=== PATIENT | male | born 1975 | race Caucasian/White ===

== ENCOUNTER 2020-02-22 10:12 | Inpatient (IN) | payer MEDICAID, SELFPAY ==
[2020-02-22] VITALS (13 sets, daily range): BP systolic 132–187; BP diastolic 99–136; PULSE 80–140; RESP 15–20; TEMP 36.1–37.1; O2SAT 96–98; BMI 21.5; BMI 22.8
--- NOTE | 2020-02-22 10:29 | ECG_ITS ---
Test Reason : TACHY Blood Pressure : / mmHG Vent. Rate : 137 BPM Atrial Rate : 137 BPM P-R Int : 134 ms QRS Dur : 076 ms QT Int : 298 ms P-R-T Axes : 072 064 085 degrees QTc Int : 449 ms Sinus tachycardia Left ventricular hypertrophy with repolarization abnormality Abnormal ECG When compared with ECG of 21-JAN-2020 15:05, No significant change was found Referred By: Bart Moss Electronically Signed By:CHANDANA GONZALEZ MD
--- NOTE | 2020-02-22 10:35 | XR_ITS ---
EXAMINATION: XR CHEST CLINICAL INFORMATION: Chest pain COMPARISON: January 21, 2020 TECHNIQUE: AP portable view of the chest was obtained. FINDINGS: No significant abnormality is noted involving the heart, lungs, mediastinum, bony thorax or soft tissues. IMPRESSION: No acute disease.
[2020-02-22] MEDS: Magnesium Hydrox/Alum Hydrox 30 ML ORAL.SUSP PO (10:44)
--- NOTE | 2020-02-22 10:44 | ED_ITS ---
HPI - Arrhythmia/Palpitations General Chief Complaint: Arrhythmia/Palpitations Stated Complaint: chest discomfort not feeling well Time Seen by Provider: 02/22/20 10:35 Source: patient Mode of arrival: EMS Limitations: no limitations History of Present Illness HPI narrative: 45-year-old male with Palpitation and feeling anxious since he drank last night and felt anxious, patient also felt some chest discomfort last night. Patient admitted that he drank lot of heavy liquor last night. Patient was diagnosed with hypertension patient was placed on metoprolol and recently added lisinopril ( patient did not tile picker lisinopril medication from the pharmacy yet) present. complaint: heart racing Severity: mild Related Data Allergies Allergy/AdvReac Type Severity Reaction Status Date / Time Penicillins [PENICILLINS] Allergy Severe HIVES Verified 02/22/20 11:43 SWELLING Review of Systems Review of Systems: Yes all other systems are reviewed and are negative Eyes: Eyes: Reports no additional eye complaints ENT: Reports system reviewed and no additional complaints, except as documented Cardiovascular: Cardiovascular: Reports chest pain ( mild discomfort on the chest) Respiratory: Respiratory: Reports no additional respiratory complaints Gastrointestinal: Gastrointestinal: Reports no additional gastrointestinal complaints Musculoskeletal: Musculoskeletal: Reports no additional musculoskeletal complaints Neurologic: Reports system reviewed and no additional complaints, except as do cumented and Reports Abnormal speech present Psychiatric: Psychiatric: Reports no additional psychiatric complaints Allergic/Immunologic: Allergic/Immunologic: Reports no additional allergic/immunologic complaints [facility] Past Medical History Medical History (Updated 02/22/20 @ 15:23 by Shane Mooney MD) ETOH abuse HTN (hypertension) Social History Social History Alcohol intake: current Alcohol intake frequency: 3 or more drinks per day Alcohol type: beer Smoking Status: Light tobacco smoker Smoked in Last 30 Days: Yes Use of substances other than those prescribed or required for medical reasons: No Advance Directives: No Advance Directives Information Provided: Yes Physical Exam Vital Signs: Vital Signs: Vital Signs Temp Pulse Resp BP Pulse Ox 02/22/20 13:12 98.3 F 87 19 132/103 H 97 02/22/20 11:44 98 18 172/119 H 98 02/22/20 10:48 127 H 187/136 H 02/22/20 10:22 98.3 F 140 H 16 187/136 H 98 Body Mass Index 21.5 Const: General: cooperative Orientation/consciousness: oriented to person and oriented to place HENMT: Head: Yes normal to inspection Ears: hearing grossly normal bilaterally Eyes: General: appearance normal, both eyes and all related structures Neck: Neck: Yes normal visual inspection Chest: Chest palpation & inspection: normal inspection of the chest Resp: Effort & Inspection: normal respiratory effort and able to speak in complete sentences Cardio: Jugular venous distension: no JVD Palpation: normal PMI Rate: tachycardic Rhythm: regular rhythm GI: Inspection: Yes normal to inspection Palpation (GI): nontender Percussion: Yes normal to percussion Skin: General skin exam: no rashes or lesions noted Neuro: General: oriented to person and oriented to place Cranial nerves: Yes CN's II-XII intact bilaterally Speech: Abnormal speech present Extrem: General: Yes normal to inspection and Yes full ROM Course Course Course Narrative: 45-year-old male with history of chronic alcoholism, presented after drinking last night with palpitation, slight chest discomfort. Patient did not take his blood pressure medication today also found to be hypertensive. patient declined feeling withdrawing or any signs of withdrawal. MDM - Arrhythmia/Palpitations MDM Narrative Medical decision making narrative: 45-year-old male history of hypertension history of alcohol withdrawal, patient presented today with high blood pressure and feeling palpitations. 1. Chest pain patient had unremarkable EKG and 2 troponin not indicated for ACS. 2. blood pressure/ tachycardia will control after patient given Ativan/ Lopressor /hydration. 3. Patient had history of alcohol withdrawal will admit the patient and start the patient on phenobarb. 4. Hypomagnesemia was unremarkable EKG will replete magnesium. Differential Diagnosis Differential diagnosis: Likely palpitations, anxiety, sinus tachycardia and art ial fibrillation Medical Records Attestation: I reviewed the patient's medical records. Lab Data Attestation: I reviewed the patient's lab results. Result diagrams: 02/22/20 10:54 02/22/20 10:54 Labs: Lab Results 02/22/20 02/22/20 02/22/20 Range/Units 10:54 10:54 10:54 WBC 3.3 L (4.8-10.8) X10*3/uL RBC 4.39 L (4.60-5.80) X10*6/uL Hgb 14.7 (14.0-18.0) g/dl Hct 40.9 L (42-52) % MCV 93.2 (80-98) fL MCH 33.5 H (27.0-33.0) pg MCHC 35.9 (31.0-36.0) g/dl RDW 13.5 (11.0-16.0) % Plt Count 81 L (160-400) X10*3/uL MPV 8.7 L (9.4-12.4) fL Absolute Nucleated RBC 0.000 (0.0-0.012) X10*3/uL Nucleated RBC % (auto) 0.0 (0.0-0.2) /100WBC Sodium 138 (135-145) mmol/L Potassium 4.7 (3.3-5.1) mmol/l Chloride 96 (96-108) mmol/L Carbon Dioxide 26 (22-29) mmol/L Anion Gap 21 H (12-20) BUN 6 L (9-16) mg/dL Creatinine 1.20 (0.5-1.4) mg/dL Estim Creat Clear Calc 73.2 Estimated GFR > 60 Random Glucose 157 H (60-115) mg/dL Calcium 9.4 (8.4-10.2) mg/dL Magnesium 1.5 L (1.6-2.6) mg/dL Total Bilirubin (0.0-1.0) mg/dL Direct Bilirubin (0.0-0.5) mg/dL AST (5-37) U/L ALT (0-40) U/L Alkaline Phosphatase (39-117) U/L Troponin I High Sens (<3.5-35.0) ng/L Total Protein (6.5-8.0) g/dL Albumin (3.5-5.0) g/dL Lipase (8-78) U/L Ethyl Alcohol mg/dL 02/22/20 02/22/20 02/22/20 Range/Units 10:54 12:44 12:44 WBC (4.8-10.8) X10*3/uL RBC (4.60-5.80) X10*6/uL Hgb (14.0-18.0) g/dl Hct (42-52) % MCV (80-98) fL MCH (27.0-33.0) pg MCHC (31.0-36.0) g/dl RDW (11.0-16.0) % Plt Count (160-400) X10*3/uL MPV (9.4-12.4) fL Absolute Nucleated RBC (0.0-0.012) X10*3/uL Nucleated RBC % (auto) (0.0-0.2) /100WBC Sodium (135-145) mmol/L Potassium (3.3-5.1) mmol/l Chloride (96-108) mmol/L Carbon Dioxide (22-29) mmol/L Anion Gap (12-20) BUN (9-16) mg/dL Creatinine (0.5-1.4) mg/dL Estim Creat Clear Calc Estimated GFR Random Glucose (60-115) mg/dL Calcium (8.4-10.2) mg/dL Magnesium (1.6-2.6) mg/dL Total Bilirubin 1.9 H (0.0-1.0) mg/dL Direct Bilirubin 0.9 H (0.0-0.5) mg/dL AST 105 H (5-37) U/L ALT 78 H (0-40) U/L Alkaline Phosphatase 67 (39-117) U/L Troponin I High Sens 17.5 (<3.5-35.0) ng/L Total Protein 7.2 (6.5-8.0) g/dL Albumin 4.1 (3.5-5.0) g/dL Lipase 232 H (8-78) U/L Ethyl Alcohol < 10 mg/dL ECG Data Interpretation: Sinus tachycardia at 138 beats per minutes, LVH, no ST - T changes. Normal intervals. Discharge Plan Discharge Clinical Impression: Palpitations, Anxiety, Sinus tachycardia Alcohol withdrawal Qualifiers: Complication of substance-induced condition: uncomplicated Qualified Code(s): F10.230 - Alcohol dependence with withdrawal, uncomplicated Patient Disposition: Admitted As Inpatient
[2020-02-22] MEDS: Metoprolol Tartrate 100 MG TABLET PO (10:48)
[2020-02-22 11:03] LABS: Hematocrit 40.9 % (42-52); Hemoglobin 14.7 g/dl (14.0-18.0); Mean Corpuscular HGB Conc 35.9 g/dl (31.0-36.0); Mean Corpuscular Hemoglobin 33.5 pg (27.0-33.0); Mean Corpuscular Volume 93.2 fL (80-98); Mean Platelet Volume 8.7 fL (9.4-12.4); Red Blood Count 4.39 X10*6/uL (4.60-5.80); Red Cell Distribution Width 13.5 % (11.0-16.0); White Blood Count 3.3 X10*3/uL (4.8-10.8)
--- NOTE | 2020-02-22 11:07 | PC.NURSE ---
PT A&OX4, SPEAKING IN FULL CLEAR SENTENCES, RR EVEN/UNLABORED, SKIN WPD. PT HERE FOR FEELING OF HEART PALPITATIONS FOR THE PAST DAY, STS RECENT DISCHARGE FROM HERE R/T HYPERTENSIVE CRISIS. PT ALSO HAS HX OF ETOH ABUSE. STS DETOXED DURING LAST ADMISSION BUT HAS SINCE RELAPSED DRINKING THIS WEEK, LAST DRINK YESTERDAY AT 1900 AND STS HAVING A 6 PACK OF BEER. NO TREMORS NOTED DURING TRIAGE, MENTATING AT BASELINE. PT IS TACHYCARDIC AND HYPERTENSIVE, STS NOT HAVING TAKEN PRESCRIBED BP MEDICATIONS PRESCRIBED. PT IV ESTABLISHED, ST ON TELE AT 140 BPM. MEDICATED PER EMAR, SEEN BY PROVIDER, LABS OBTAINED AND SENT.
[2020-02-22 11:35] LABS: Platelet Count 81 X10*3/uL (160-400)
[2020-02-22 11:41] LABS: Ethanol < 10 mg/dL
[2020-02-22 11:44] LABS: Magnesium 1.5 mg/dL (1.6-2.6)
[2020-02-22 11:46] LABS: Blood Urea Nitrogen 6 mg/dL (9-16); Calcium 9.4 mg/dL (8.4-10.2); Creatinine Clr Calc Pharmacy 73.2; Estimated Glomerular Filt Rate > 60; Glucose Random 157 mg/dL (60-115)
[2020-02-22 11:56] LABS: Anion Gap 21 (12-20); Carbon Dioxide 26 mmol/L (22-29); Chloride 96 mmol/L (96-108); Potassium 4.7 mmol/l (3.3-5.1); Sodium 138 mmol/L (135-145)
[2020-02-22 13:21] LABS: Troponin-I High Sensitivity 17.5 ng/L (<3.5-35.0)
[2020-02-22 13:36] LABS: Alanine Aminotransferase 78 U/L (0-40); Albumin Level 4.1 g/dL (3.5-5.0); Alkaline Phosphatase 67 U/L (39-117); Aspartate Amino Transferase 105 U/L (5-37); Bilirubin Direct 0.9 mg/dL (0.0-0.5); Bilirubin Total 1.9 mg/dL (0.0-1.0); Total Protein 7.2 g/dL (6.5-8.0)
[2020-02-22] MEDS: Magnesium Sulfate/H2O 2 GM/50 ML PIGGYBACK IV (13:38)
[2020-02-22 13:50] LABS: Lipase 232 U/L (8-78)
[2020-02-22] MEDS: PHENobarbitaL sodium 130 MG/ML VIAL 218 MG IM (15:51)
--- NOTE | 2020-02-22 16:00 | PM.EVENT ---
Event Note Event Note: Patient seen and examined independently and was present during ramos portion of E/M service. Agree with midlevel's history, physical, assessment, and plan. 45M presented with chest discomfort chest discomfort troponin negative, repeat pedning was supposed to follow up with cardiology for work up of cardiomyopathy on last admission cardio eval as patient not reliable to follow up ppi alcohol dependence with withdrawl phenobarb HTN non compliant restart metoprolol patient never started lisinopril, will start
--- NOTE | 2020-02-22 16:03 | PC.NURSE ---
pt medicated per emar, hospitalists at bedside for admission eval.
--- NOTE | 2020-02-22 16:10 | PM.IMHP ---
History of Present Illness Date of Service: 02/22/20 <JUSTICE Talbert - Last Filed: 02/22/20 19:10> Chief Complaint: Palpitations, chest tightness <JUSTICE Talbert Last Filed: 02/22/20 19:10> this is a 45-year-old male with a history of hypertension and alcohol abuse who presented to the emergency department today with complaints of palpitations and chest pain. Patient reports he began having chest tightness last evening and this was associated with palpitations. his symptoms this is persistent today any presented to the emergency department for evaluation. He has been drinking 6-8 years daily in addition to several shots a day. He was recently admitted for uncontrolled hypertension and underwent echocardiogram which revealed hypertensive cardiomyopathy. The plan was for him to follow-up with cardiology for ischemic workup. he was also supposed to start taking the lisinopril. 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 In the emergency department today he was initially hypertensive and tachycardic. He received a dose of IV Lopressor with good effect. Lab work was significant for thrombocytopenia and magnesium of 1.5 his lipase was 232 but he denied any abdominal pain. His initial cardiac enzymes were negative and his EKG was unchanged from previous. While in the emergency department he began feeling like he was beginning to withdrawal from alcohol. Phenobarbital was ordered and the decision was made to admit him for further management. <JUSTICE Talbert - Last Filed: 02/22/20 19:10> Review of Systems Review of Systems: Yes all other systems are reviewed and are negative <JUSTICE Talbert Last Filed: 02/22/20 19:10> Constitutional: Constitutional: Denies chills and Denies fever(s) <JUSTICE Talbert Last Filed: 02/22/20 19:10> Cardiovascular: Cardiovascular: Reports chest pain and Reports palpitations <JUSTICE Talbert Last Filed: 02/22/20 19:10> Respiratory: Respiratory: Denies cough <JUSTICE Talbert Last Filed: 02/22/20 19:10> Gastrointestinal: Gastrointestinal: Denies abdominal pain <JUSTICE Talbert Last Filed: 02/22/20 19:10> Neurologic: Reports system reviewed and no additional complaints, except as documented and Reports Abnormal speech present <JUSTICE Talbert - Last Filed: 02/22/20 19:10> Endocrine: Endocrine: Reports palpitations <JUSTICE Talbert - Last Filed: 02/22/20 19:10> [facility] Medical History: Medical History Alcohol dependence Cardiomyopathy HTN (hypertension) Tobacco dependence <JUSTICE Talbert - Last Filed: 02/22/20 19:10> Functional capacity: independent ambulation <JUSTICE Talbert - Last Filed: 02/22/20 19:10> Pertinent family history: HTN <JUSTICE Talbert - Last Filed: 02/22/20 19:10> Social History: Social History (Updated 02/22/20 @ 16:20 by JUSTICE Talbert) Household Members: None Do you presently have visiting nurse or other home services: No Alcohol intake: current Alcohol intake frequency: 3 or more drinks per day Alcohol type: beer and hard liquor Smoking Status: Current every day smoker Tobacco Type: Cigarette Packs Per Day: 0.5 Cigarettes Per Day: 10.0 Smoked in Last 30 Days: Yes Patient Interested in Nicotine Replacement: Yes Use of substances other than those prescribed or required for medical reasons: No Currently Displaying Signs/Symptoms of Drug Intoxication Withdrawal: No Have you been hit, kicked, punched, or otherwise hurt by someone within the past year? If so, by whom?: No Do you feel safe in your current relationship?: No Is there a partner from a previous relationship who is making you feel unsafe now?: No Are you made to feel afraid or neglected: No Advance Directives: No Advance Directives Information Provided: Yes Do you have thoughts of harming others: None Do you have a plan to hurt others: No Plan Recently lost weight without trying: No <JUSTICE Talbert - Last Filed: 02/22/20 19:10> Meds Allergies/Adverse reactions: Allergies Allergy/AdvReac Type Severity Reaction Status Date / Time Penicillins [PENICILLINS] Allergy Severe HIVES Verified 02/22/20 11:43 SWELLING <JUSTICE Talbert Last Filed: 02/22/20 19:10> Home medications: Home Medications Medication Instructions Recorded Confirmed Type amitriptyline 100 mg PO BEDTIME 02/22/20 02/22/20 History lansoprazole 15 mg PO DAILY 02/22/20 02/22/20 History lisinopril 10 mg PO DAILY 02/22/20 02/22/20 History metoprolol tartrate 50 mg PO BID 02/22/20 02/22/20 History <JUSTICE Talbert - Last Filed: 02/22/20 19:10> Physical Exam Vital Signs and Narrative: Vital Signs: Last Vital Signs Temp 98.4 F 02/22/20 15:48 Pulse 89 02/22/20 15:48 Resp 15 02/22/20 15:48 BP 165/110 H 02/22/20 15:48 Pulse Ox 98 02/22/20 15:48 Body Mass Index 21.5 <JUSTICE Talbert - Last Filed: 02/22/20 19:10> Const: Nutritional Appearance: well nourished <JUSTICE Talbert - Last Filed: 02/22/20 19:10> Orientation/consciousness: patient oriented x3 <JUSTICE Talbert - Last Filed: 02/22/20 19:10> HENMT: Head: Yes normocephalic and Yes atraumatic <JUSTICE Talbert Last Filed: 02/22/20 19:10> Eyes: Sclerae: sclerae normal <JUSTICE Talbert Last Filed: 02/22/20 19:10> Chest: Chest palpation & inspection: normal inspection of the chest <JUSTICE Talbert Last Filed: 02/22/20 19:10> Resp: Effort & Inspection: normal respiratory effort and no respiratory distress <JUSTICE Talbert Last Filed: 02/22/20 19:10> Auscultation: clear to auscultation bilaterally <JUSTICE Talbert Last Filed: 02/22/20 19:10> Cardio: Rate: regular rate <JUSTICE Talbert Last Filed: 02/22/20 19:10> Rhythm: regular rhythm <JUSTICE Talbert - Last Filed: 02/22/20 19:10> GI: Palpation (GI): Soft to palpation and nontender <JUSTICE Talbert - Last Filed: 02/22/20 19:10> Skin: General skin exam: no rashes or lesions noted <JUSTICE Talbert - Last Filed: 02/22/20 19:10> Neuro: General: patient oriented x3 <JUSTICE Talbert - Last Filed: 02/22/20 19:10> Cranial nerves: Yes CN's II-XII intact bilaterally and Yes Bilaterally intact EOM present <JUSTICE Talbert - Last Filed: 02/22/20 19:10> Speech: Abnormal speech present <JUSTICE Talbert - Last Filed: 02/22/20 19:10> Extrem: General: Yes normal to inspection <JUSTICE Talbert - Last Filed: 02/22/20 19:10> Results Labs Labs: Laboratory Tests 02/22/20 02/22/20 02/22/20 10:54 10:54 10:54 WBC 3.3 L RBC 4.39 L Hgb 14.7 Hct 40.9 L MCV 93.2 MCH 33.5 H MCHC 35.9 RDW 13.5 Plt Count 81 L MPV 8.7 L Absolute Nucleated RBC 0.000 Nucleated RBC % (auto) 0.0 Sodium 138 Potassium 4.7 Chloride 96 Carbon Dioxide 26 Anion Gap 21 H BUN 6 L Creatinine 1.20 Estim Creat Clear Calc 73.2 Estimated GFR > 60 Random Glucose 157 H Calcium 9.4 Magnesium 1.5 L Total Bilirubin Direct Bilirubin AST ALT Alkaline Phosphatase Troponin I High Sens Total Protein Albumin Lipase Ethyl Alcohol 02/22/20 02/22/20 02/22/20 10:54 12:44 12:44 WBC RBC Hgb Hct MCV MCH MCHC RDW Plt Count MPV Absolute Nucleated RBC Nucleated RBC % (auto) Sodium Potassium Chloride Carbon Dioxide Anion Gap BUN Creatinine Estim Creat Clear Calc Estimated GFR Random Glucose Calcium Magnesium Total Bilirubin 1.9 H Direct Bilirubin 0.9 H AST 105 H ALT 78 H Alkaline Phosphatase 67 Troponin I High Sens 17.5 Total Protein 7.2 Albumin 4.1 Lipase 232 H Ethyl Alcohol < 10 <JUSTICE Talbert - Last Filed: 02/22/20 19:10> Assessment and Plan (1) Alcohol dependence: Status: Acute <JUSTICE Talbert - Last Filed: 02/22/20 19:10> this is a 45-year-old male with history of hypertension and alcohol abuse who presented to the emergency department with chest pain and palpitations found to be in alcohol withdrawal. alcohol dependence/withdrawal - phenobarb protocol - cardiac monitoring - follow electrolytes and replace as needed - IVF - thiamine and folate supplementation Uncontrolled hypertension did not start taking lisinopril as prescribed alcohol withdrawal likely contributing -resume home beta-dong, start lisinopril -monitor blood pressure closely Elevated LFTs r/t etoh use -will trend lfts TCP ?r/t etoh use no active bleeding -Trend CBC -Avoid antiplatelet agents Cardiomyopathy diagnosed on last admission has not followed up with cardiology for planned ischemic workup -will consult Cardiology while inpatient for possible inpatient stress test DVT ppx - boots code status - full This case was discussed with Dr. Vincent <JUSTICE Talbert - Last Filed: 02/22/20 19:10>
--- NOTE | 2020-02-22 16:18 | PC.NURSE ---
PT STS FEELING BETTER FOLLOWING PHENOBARBITAL ADMIN. VSS ATT. AWAITING BED ASSIGNMENT.
--- NOTE | 2020-02-22 16:44 | PC.NURSE ---
PT MED REC COMPLETED W HELP FROM PHARMACIST
[2020-02-22] MEDS: 0.9 % Sodium Chloride 1,000 ML 100 ML IVCONT (18:30)
[2020-02-22 19:10] LABS: INTERNATIONAL NORM RATIO 1.1 (0.9-1.1); Prothrombin Time 13.1 SEC (10.8-13.0)
[2020-02-22] MEDS: PHENobarbitaL sodium 130 MG/ML VIAL 163 MG IM ×2 (19:41→22:02)
[2020-02-22] MEDS: Amitriptyline HCl 50 MG TABLET 100 MG PO (21:57)
[2020-02-22] MEDS: Metoprolol Tartrate 50 MG TABLET PO (21:57)
[2020-02-22] MEDS: 0.9 % Sodium Chloride Flush 3 ML SYRINGE IVFLUSH (21:58)
[2020-02-22] MEDS: Metoprolol Tartrate 5 MG/5 ML VIAL IVPUSH (23:10)
[2020-02-23] VITALS (8 sets, daily range): BP systolic 123–166; BP diastolic 68–96; PULSE 80–108; RESP 18–19; TEMP 36.2–37; O2SAT 98–99
[2020-02-23] MEDS: 0.9 % Sodium Chloride 1,000 ML 100 ML IVCONT (04:45)
[2020-02-23 06:16] LABS: MANUAL DIFF FLAG NO
[2020-02-23 06:32] LABS: Basophils Percent Auto 0.4 % (0-2); Hematocrit 34.4 % (42-52); Hemoglobin 12.1 g/dl (14.0-18.0); Imm Gran Abs Auto 0.03 X10*3/uL (0.00-0.03); Imm Gran Pct Auto 1.2 % (0.0-0.4); Lymphocytes Absolute Auto 1.2 X10*3/uL (1.2-4.9); Lymphocytes Percent Auto 45.7 % (20-40); Mean Corpuscular HGB Conc 35.2 g/dl (31.0-36.0); Mean Corpuscular Hemoglobin 33.6 pg (27.0-33.0); Mean Corpuscular Volume 95.6 fL (80-98); Mean Platelet Volume 9.3 fL (9.4-12.4); Monocytes Absolute Auto 0.3 X10*3/uL (0.1-1.2); Monocytes Percent Auto 12.6 % (2-11); Neutrophils Percent Auto 40.1 % (45-73); Red Cell Distribution Width 13.2 % (11.0-16.0)
[2020-02-23 06:49] LABS: Alanine Aminotransferase 59 U/L (0-40); Albumin Level 3.6 g/dL (3.5-5.0); Alkaline Phosphatase 54 U/L (39-117); Anion Gap 10 (12-20); Aspartate Amino Transferase 79 U/L (5-37); Bilirubin Direct 0.8 mg/dL (0.0-0.5); Bilirubin Total 1.9 mg/dL (0.0-1.0); Blood Urea Nitrogen 9 mg/dL (9-16); Calcium 7.6 mg/dL (8.4-10.2); Carbon Dioxide 28 mmol/L (22-29); Chloride 102 mmol/L (96-108); Creatinine Clr Calc Pharmacy 103.6; Estimated Glomerular Filt Rate > 60; Glucose Random 95 mg/dL (60-115); Magnesium 2.1 mg/dL (1.6-2.6); Potassium 3.3 mmol/l (3.3-5.1); Sodium 137 mmol/L (135-145); Total Protein 6.1 g/dL (6.5-8.0)
[2020-02-23] MEDS: Omeprazole 20 MG CAPSULE.DR PO (06:54)
[2020-02-23 07:06] LABS: Platelet Count 66 X10*3/uL (160-400); White Blood Count 2.5 X10*3/uL (4.8-10.8)
--- NOTE | 2020-02-23 08:38 | HO.PM.IMPN ---
Subjective Subjective Date of Service: 02/23/20 Interval History: withdrawl improved, no further chest pain Respiratory Respiratory: Reports no additional respiratory complaints Gastrointestinal Gastrointestinal: Reports no additional gastrointestinal complaints Physical Exam Vital Signs: Vital Signs: Vital Signs Temp Pulse Resp BP Pulse Ox 02/23/20 03:48 97.5 F 80 18 138/83 98 02/23/20 00:52 144/86 H 02/22/20 23:20 80 152/102 H 02/22/20 23:10 81 149/102 H 02/22/20 23:07 97 F 91 18 149/102 H 96 02/22/20 21:57 104 H 141/103 H 02/22/20 19:36 98.6 F 97 16 168/102 H 97 02/22/20 18:26 98.7 F 91 20 166/99 H 97 02/22/20 16:15 97.9 F 86 18 158/105 H 97 02/22/20 15:48 98.4 F 89 15 165/110 H 98 02/22/20 13:12 98.3 F 87 19 132/103 H 97 02/22/20 11:44 98 18 172/119 H 98 02/22/20 10:48 127 H 187/136 H 02/22/20 10:22 98.3 F 140 H 16 187/136 H 98 Body Mass Index 22.8 General: AO X 3, no acute distress Resp: CTA bilateral CVS: S1,S2,RRR GI: soft, non tender, non distended Neuro: motor grossly intact Psych: appropriate affect Objective Data Current Medications Generic Name Dose Route Start Last Admin Trade Name Sameerq PRN Reason Stop Dose Admin Amitriptyline HCl 100 mg 02/22/20 21:00 02/22/20 21:57 Amitriptyline Hcl 50 Mg Tablet PO 100 mg BEDTIME KATERIN Administration Docusate Sodium 100 mg 02/22/20 17:45 Docusate Sodium 100 Mg Capsule PO DAILY PRN Constipation Folic Acid 1 mg 02/23/20 09:00 Folic Acid 1 Mg Tablet PO DAILY KATERIN Lisinopril 10 mg 02/23/20 09:00 Lisinopril 10 Mg Tablet PO DAILY KATERIN Medication 1 each 02/22/20 09:00 No Benzodiazepines MISCELLANE DAILY KATERIN Metoprolol Tartrate 50 mg 02/22/20 21:00 02/22/20 21:57 Metoprolol Tartrate 50 Mg Tablet PO 50 mg BID [facility] Administration Nicotine 14 mg 02/22/20 17:45 02/22/20 18:31 Nicotine 14 Mg Patch.Td24 TRANSDERMA Not Given DAILY [facility] Omeprazole 20 mg 02/23/20 06:30 02/23/20 06:54 Omeprazole 20 Mg Capsule. PO 20 mg DAILY@0630 [facility] Administration Pharmacy Consult 1 each 02/22/20 15:36 Consult Rx Perform Med Rec MISCELLANE ONCE PRN Consult order Phenobarbital 45 mg 02/23/20 09:00 Phenobarbital 15 Mg Tablet PO 02/24/20 21:01 BID [facility] Phenobarbital 30 mg 02/25/20 09:00 Phenobarbital 30 Mg Tablet PO 02/26/20 21:01 BID [facility] Phenobarbital 30 mg 02/27/20 09:00 Phenobarbital 30 Mg Tablet PO 02/28/20 09:01 DAILY [facility] Sodium Chloride 3 ml 02/23/20 00:00 02/22/20 21:58 0.9 % Sodium Chloride Flush 3 Ml Syringe IVFLUSH 3 ml QSHIFT [facility] Administration Thiamine HCl 100 mg 02/23/20 09:00 Thiamine Hcl 100 Mg Tablet PO DAILY [facility] Labs CBC & Chem 7: 02/23/20 05:43 02/23/20 05:43 Assessment and Plan (1) Alcohol withdrawal: Status: Acute (2) Cardiomyopathy: Status: Inactive (3) HTN (hypertension): Status: Acute Assessment and Plan: 45-year-old male presented with chest pain chest pain atypical resolved troponins negative follow-up cardiology cardiomyopathy likely related to uncontrolled hypertension and alcohol, has not had ischemic workup was supposed to follow-up with Cardiology last admission, continue metoprolol and lisinopril alcohol dependence/withdrawal phenobarb protocol hypertension uncontrolled due to noncompliance continue beta-dong and lisinopril elevated liver function test likely mild alcoholic hepatitis trend LFTs alcohol cessation
[2020-02-23] MEDS: Thiamine HCL 100 MG TABLET PO (09:12)
[2020-02-23] MEDS: 0.9 % Sodium Chloride Flush 3 ML SYRINGE IVFLUSH ×3 (09:12→20:52)
[2020-02-23] MEDS: PHENobarbitaL 15 MG TABLET 45 MG PO ×2 (09:12→20:50)
[2020-02-23] MEDS: Folic Acid 1 MG TABLET PO (09:12)
[2020-02-23] MEDS: lisinopriL 10 MG TABLET PO (09:13)
[2020-02-23] MEDS: Metoprolol Tartrate 50 MG TABLET PO ×2 (09:13→20:50)
--- NOTE | 2020-02-23 12:01 | PM.CNCAR ---
History of Present Illness History of Present Illness Date of Consult: February 23, 2020 Chief complaint: ETOH Withdrawal, HTN, cardiomyopathy Narrative: 45-year-old with HTN, alcoholism and cardiomyopathy here for palpitations and chest pressure. He has known HTN and is supposed to be on metoprolol and lisinopril. He is saying that he has been taking medications. He is a heavy drinker. He also smokes half a pack per day. Yesterday before presentation he said he started having palpitations and chest pressure. His initial blood pressure was significantly elevated. His last drink was a day before presentation. He said he had chest pressure similar to this episode when he presented last time when his blood pressure was in excess of 200s systolic. Labs and imaging reviewed. His high sensitivity troponin level is negative. We have been asked whether he required inpatient stress testing as the plan was to do outpatient stress testing on last presentation. Review of Systems Review of Systems: No chest pain or shortness of breath. No palpitations right now. Yes all other systems are reviewed and are negative [facility] Past Medical History Medical History (Updated 02/23/20 @ 12:11 by Tod Zelaya MD) Alcohol dependence Cardiomyopathy HTN (hypertension) Tobacco dependence Functional capacity: independent ambulation Social History Social History (Updated 02/22/20 @ 16:20 by JUSTICE Talbert) Household Members: None Do you presently have visiting nurse or other home services: No Alcohol intake: current Alcohol intake frequency: 3 or more drinks per day Alcohol type: beer and hard liquor Smoking Status: Current every day smoker Tobacco Type: Cigarette Packs Per Day: 0.5 Cigarettes Per Day: 10.0 Smoked in Last 30 Days: Yes Patient Interested in Nicotine Replacement: Yes Use of substances other than those prescribed or required for medical reasons: No Currently Displaying Signs/Symptoms of Drug Intoxication Withdrawal: No Have you been hit, kicked, punched, or otherwise hurt by someone within the past year? If so, by whom?: No Do you feel safe in your current relationship?: No Is there a partner from a previous relationship who is making you feel unsafe now?: No Are you made to feel afraid or neglected: No Advance Directives: No Advance Directives Information Provided: Yes Do you have thoughts of harming others: None Do you have a plan to hurt others: No Plan Recently lost weight without trying: No Meds Allergies Allergy/AdvReac Type Severity Reaction Status Date / Time Penicillins [PENICILLINS] Allergy Severe HIVES Verified 02/22/20 11:43 SWELLING Home Medications Medication Instructions Recorded Confirmed Type amitriptyline 100 mg PO BEDTIME 02/22/20 02/22/20 History lansoprazole 15 mg PO DAILY 02/22/20 02/22/20 History lisinopril 10 mg PO DAILY 02/22/20 02/22/20 History metoprolol tartrate 50 mg PO BID 02/22/20 02/22/20 History Physical Exam Vital Signs: Vital Signs: Vital Signs Temp Pulse Resp BP Pulse Ox 02/23/20 09:19 108 H 166/96 H 02/23/20 03:48 97.5 F 80 18 138/83 98 02/23/20 00:52 144/86 H 02/22/20 23:20 80 152/102 H 02/22/20 23:10 81 149/102 H 02/22/20 23:07 97 F 91 18 149/102 H 96 02/22/20 21:57 104 H 141/103 H 02/22/20 19:36 98.6 F 97 16 168/102 H 97 02/22/20 18:26 98.7 F 91 20 166/99 H 97 02/22/20 16:15 97.9 F 86 18 158/105 H 97 02/22/20 15:48 98.4 F 89 15 165/110 H 98 02/22/20 13:12 98.3 F 87 19 132/103 H 97 Body Mass Index 22.8 Const: Other: GENERAL APPEARANCE: in no acute distress, well developed, well nourished. HEENT: unremarkable. HEAD: normocephalic, atraumatic. NECK/THYROID: no carotid bruit, no jugular venous distention. SKIN: no suspicious lesions, warm and dry. HEART: no murmurs, regular rate and rhythm, S1, S2 normal. LUNGS: clear to auscultation bilaterally. ABDOMEN: normal, bowel sounds present, soft, nontender, nondistended. EXTREMITIES: no clubbing, cyanosis, or edema. PERIPHERAL PULSES: equal. NEUROLOGIC: nonfocal, alert and oriented. PSYCH: mood/affect full range. Results Labs and Meds Result diagrams: 02/23/20 05:43 02/23/20 05:43 Lab results: Laboratory Results - last 24 hr 02/22/20 02/22/20 02/22/20 12:44 12:44 15:53 WBC RBC Hgb Hct MCV MCH MCHC RDW Plt Count MPV Immature Gran % (Auto) Neut % (Auto) Lymph % (Auto) [place] % (Auto) Eos % (Auto) Baso % (Auto) Lymph # (Auto) [place] # (Auto) Eos # (Auto) Baso # (Auto) Abs Immat Gran (auto) Absolute Neuts (auto) Absolute Nucleated RBC Nucleated RBC % (auto) PT INR Sodium Potassium Chloride Carbon Dioxide Anion Gap BUN Creatinine Estim Creat Clear Calc Estimated GFR Random Glucose Calcium Magnesium Total Bilirubin 1.9 H Direct Bilirubin 0.9 H AST 105 H ALT 78 H Alkaline Phosphatase 67 Troponin I High Sens 17.5 23.0 Total Protein 7.2 Albumin 4.1 Lipase 232 H 02/22/20 02/23/20 02/23/20 18:58 05:43 05:43 WBC 2.5 L RBC 3.60 L Hgb 12.1 L Hct 34.4 L MCV 95.6 MCH 33.6 H MCHC 35.2 RDW 13.2 Plt Count 66 L MPV 9.3 L Immature Gran % (Auto) 1.2 H Neut % (Auto) 40.1 L Lymph % (Auto) 45.7 H [place] % (Auto) 12.6 H Eos % (Auto) 0.0 Baso % (Auto) 0.4 Lymph # (Auto) 1.2 [place] # (Auto) 0.3 Eos # (Auto) 0.0 Baso # (Auto) 0.0 Abs Immat Gran (auto) 0.03 Absolute Neuts (auto) 1.0 L Absolute Nucleated RBC 0.000 Nucleated RBC % (auto) 0.0 PT 13.1 H INR 1.1 Sodium 137 Potassium 3.3 D Chloride 102 Carbon Dioxide 28 Anion Gap 10 L BUN 9 Creatinine 0.90 Estim Creat Clear Calc 103.6 Estimated GFR > 60 Random Glucose 95 D Calcium 7.6 L Magnesium 2.1 Total Bilirubin 1.9 H Direct Bilirubin 0.8 H AST 79 H ALT 59 H Alkaline Phosphatase 54 Troponin I High Sens Total Protein 6.1 L Albumin 3.6 Lipase Cardiology Testing Echo: report reviewed EKG Interpretation EKG Comments: EKG reviewed showing sinus rhythm with left ventricle hypertrophy Assessment and Plan (1) HTN (hypertension): Status: Acute (2) Alcohol dependence: Status: Acute (3) Palpitations: Status: Acute (4) Cardiomyopathy: Status: Acute (5) Chest pain: Status: Acute 45-year-old gentleman with alcoholism and hypertension. He was diagnosed with the cardiomyopathy on last admission in January when his EF was 40 45%. The differential for low EF are uncontrolled blood pressure and alcoholism. Clinically is not in heart failure. His blood pressure is elevated. He is reporting that he has been taking metoprolol and the lisinopril. Clearly there is some element of alcohol withdrawal right now in addition to essential hypertension. My plan was to give a thiazide diuretic but his electrolytes are abnormal and he may not tolerate it well. We will add amlodipine 5 mg to his regimen. Depending on his blood pressure his lisinopril can be further titrated. His high sensitivity troponin level is normal. His last presentation was also in descending of elevated blood pressures. Again his chest pressure is in the setting of elevated blood pressure. I think we control blood pressure and do stress testing as outpatient as planned before. Thank you for allowing me to participate in the care of your patient. Please feel free to contact me if you have any questions.
[2020-02-23] MEDS: amLODIPine Besylate 5 MG TABLET PO (12:31)
--- NOTE | 2020-02-23 12:51 | MHC.CM.PN ---
met with pt who declined hcp and a care team referral pt has own transoportaion home his car is in parking lot
[2020-02-23] MEDS: Amitriptyline HCl 50 MG TABLET 100 MG PO (20:50)
[2020-02-24 03:16] VITALS: BP 121/75; PULSE 83; RESP 19; TEMP 36.6; O2SAT 100
[2020-02-24] MEDS: Omeprazole 20 MG CAPSULE.DR PO (05:58)
[2020-02-24 07:01] LABS: MANUAL DIFF FLAG NO
[2020-02-24 07:06] LABS: Hematocrit 35.6 % (42-52); Hemoglobin 12.3 g/dl (14.0-18.0); Imm Gran Abs Auto 0.03 X10*3/uL (0.00-0.03); Imm Gran Pct Auto 1.1 % (0.0-0.4); Lymphocytes Absolute Auto 1.2 X10*3/uL (1.2-4.9); Mean Corpuscular HGB Conc 34.6 g/dl (31.0-36.0); Mean Corpuscular Hemoglobin 33.6 pg (27.0-33.0); Mean Corpuscular Volume 97.3 fL (80-98); Mean Platelet Volume 9.9 fL (9.4-12.4); Monocytes Absolute Auto 0.3 X10*3/uL (0.1-1.2); Monocytes Percent Auto 10.9 % (2-11); Neutrophils Absolute Auto 1.2 X10*3/uL (2.0-8.3); Red Blood Count 3.66 X10*6/uL (4.60-5.80); Red Cell Distribution Width 13.4 % (11.0-16.0); White Blood Count 2.7 X10*3/uL (4.8-10.8)
[2020-02-24 07:12] VITALS: BP 148/90; PULSE 83; RESP 20; TEMP 36.1; O2SAT 96
[2020-02-24 07:26] LABS: Platelet Count 75 X10*3/uL (160-400)
[2020-02-24 07:47] LABS: Alanine Aminotransferase 51 U/L (0-40); Albumin Level 3.8 g/dL (3.5-5.0); Alkaline Phosphatase 52 U/L (39-117); Anion Gap 12 (12-20); Aspartate Amino Transferase 57 U/L (5-37); Bilirubin Direct 0.6 mg/dL (0.0-0.5); Bilirubin Total 1.3 mg/dL (0.0-1.0); Blood Urea Nitrogen 8 mg/dL (9-16); Calcium 8.2 mg/dL (8.4-10.2); Carbon Dioxide 27 mmol/L (22-29); Chloride 103 mmol/L (96-108); Creatinine Clr Calc Pharmacy 105.9; Estimated Glomerular Filt Rate > 60; Glucose Fasting 111 mg/dL (60-99); Potassium 3.6 mmol/l (3.3-5.1); Sodium 138 mmol/L (135-145); Total Protein 6.7 g/dL (6.5-8.0)
[2020-02-24] MEDS: Folic Acid 1 MG TABLET PO (08:35)
[2020-02-24] MEDS: lisinopriL 10 MG TABLET PO (08:35)
[2020-02-24] MEDS: PHENobarbitaL 15 MG TABLET 45 MG PO (08:35)
[2020-02-24] MEDS: amLODIPine Besylate 5 MG TABLET PO (08:35)
[2020-02-24] MEDS: 0.9 % Sodium Chloride Flush 3 ML SYRINGE IVFLUSH (08:35)
[2020-02-24] MEDS: Metoprolol Tartrate 50 MG TABLET PO (08:35)
[2020-02-24] MEDS: Thiamine HCL 100 MG TABLET PO (08:35)
--- NOTE | 2020-02-24 10:53 | P.PNCA_ITS ---
Subjective Subjective Interval history: Blood pressure control improving. No more all symptoms right now. Review of Systems Review of Systems No chest pain or palpitations. Yes all other systems are reviewed and are negative Reports system reviewed and no additional complaints, except as documented and Reports Abnormal speech present Physical Exam Vital Signs: Vital Signs Temp Pulse Resp BP Pulse Ox 02/24/20 07:12 97 F 83 20 148/90 H 96 02/24/20 03:16 97.8 F 83 19 121/75 100 02/23/20 23:14 97.2 F 86 19 123/76 98 02/23/20 20:50 87 133/91 H 02/23/20 20:20 98.6 F 88 18 128/82 99 02/23/20 16:21 97.7 F 94 18 136/74 98 02/23/20 12:17 155/68 H Body Mass Index 22.8 Const Other: GENERAL APPEARANCE: in no acute distress, well developed, well nourished. HEENT: unremarkable. HEAD: normocephalic, atraumatic. NECK/THYROID: no carotid bruit, no jugular venous distention. SKIN: no suspicious lesions, warm and dry. HEART: no murmurs, regular rate and rhythm, S1, S2 normal. LUNGS: clear to auscultation bilaterally. ABDOMEN: normal, bowel sounds present, soft, nontender, nondistended. EXTREMITIES: no clubbing, cyanosis, or edema. PERIPHERAL PULSES: equal. NEUROLOGIC: nonfocal, alert and oriented. PSYCH: mood/affect full range. General: cooperative Nutritional Appearance: well nourished Orientation/consciousness: oriented to person, oriented to place and patient oriented x3 Neuro General: oriented to person, oriented to place and patient oriented x3 Speech: Abnormal speech present Results Labs and Meds Result diagrams: 02/24/20 06:05 02/24/20 06:05 Lab results: Laboratory Results - last 24 hr 02/24/20 02/24/20 06:05 06:05 WBC 2.7 L RBC 3.66 L Hgb 12.3 L Hct 35.6 L MCV 97.3 MCH 33.6 H MCHC 34.6 RDW 13.4 Plt Count 75 L MPV 9.9 Immature Gran % (Auto) 1.1 H Neut % (Auto) 44.0 L Lymph % (Auto) 44.0 H [place] % (Auto) 10.9 Eos % (Auto) 0.0 Baso % (Auto) 0.0 Lymph # (Auto) 1.2 [place] # (Auto) 0.3 Eos # (Auto) 0.0 Baso # (Auto) 0.0 Abs Immat Gran (auto) 0.03 Absolute Neuts (auto) 1.2 L Absolute Nucleated RBC 0.000 Nucleated RBC % (auto) 0.0 Sodium 138 Potassium 3.6 Chloride 103 Carbon Dioxide 27 Anion Gap 12 BUN 8 L Creatinine 0.88 Estim Creat Clear Calc 105.9 Estimated GFR > 60 Fasting Glucose 111 H Calcium 8.2 L Total Bilirubin 1.3 H Direct Bilirubin 0.6 H AST 57 H ALT 51 H Alkaline Phosphatase 52 Total Protein 6.7 Albumin 3.8 Progress Note: A&P Assessment and plan (1) HTN (hypertension): Status: Acute (2) Alcohol dependence: Status: Acute (3) Palpitations: Status: Acute (4) Cardiomyopathy: Status: Acute (5) Chest pain: Status: Acute Assessment and Plan: 45-year-old gentleman with alcoholism and hypertension. He was diagnosed with the cardiomyopathy on last admission in January when his EF was 40 45%. The differential for low EF are uncontrolled blood pressure and alcoholism. Clinically is not in heart failure. Blood pressure control is improving. He is reporting that he has been taking metoprolol and lisinopril. Clearly there was some element of alcohol withdrawal right now in addition to essential hypertension. My plan was to give a thiazide diuretic but his electrolytes are abnormal and he may not tolerate it well. We have added amlodipine 5 mg to his regimen. Depending on his blood pressure his lisinopril can be further titrated. His high sensitivity troponin level is normal. His last presentation was also in descending of elevated blood pressures. Again his chest pressure is in the setting of elevated blood pressure. I think we control blood pressure and do stress testing as outpatient as planned before. Thank you for allowing me to participate in the care of your patient. Please feel free to contact me if you have any questions. Fall Risk Details Current Medications: Current Medications Generic Name Dose Route Start Last Admin Trade Name Freq PRN Reason Stop Dose Admin Amitriptyline HCl 100 mg 02/22/20 21:00 02/23/20 20:50 Amitriptyline Hcl 50 Mg Tablet PO 100 mg BEDTIME KATERIN Administration Amlodipine Besylate 5 mg 02/23/20 11:45 02/24/20 08:35 Amlodipine Besylate 5 Mg Tablet PO 5 mg DAILY [facility] Administration Protocol Docusate Sodium 100 mg 02/22/20 17:45 Docusate Sodium 100 Mg Capsule PO DAILY PRN Constipation Folic Acid 1 mg 02/23/20 09:00 02/24/20 08:35 Folic Acid 1 Mg Tablet PO 1 mg DAILY KATERIN Administration Lisinopril 10 mg 02/23/20 09:00 02/24/20 08:35 Lisinopril 10 Mg Tablet PO 10 mg DAILY [facility] Administration Medication 1 each 02/22/20 09:00 No Benzodiazepines MISCELLANE DAILY [facility] Metoprolol Tartrate 50 mg 02/22/20 21:00 02/24/20 08:35 Metoprolol Tartrate 50 Mg Tablet PO 50 mg BID [facility] Administration Nicotine 14 mg 02/22/20 17:45 02/24/20 08:35 Nicotine 14 Mg Patch.Td24 TRANSDERMA Not Given DAILY [facility] Omeprazole 20 mg 02/23/20 06:30 02/24/20 05:58 Omeprazole 20 Mg Capsule. PO 20 mg DAILY@0630 [facility] Administration Pharmacy Consult 1 each 02/22/20 15:36 Consult Rx Perform Med Rec MISCELLANE ONCE PRN Consult order Phenobarbital 45 mg 02/23/20 09:00 02/24/20 08:35 Phenobarbital 15 Mg Tablet PO 02/24/20 21:01 45 mg BID [facility] Administration Phenobarbital 30 mg 02/25/20 09:00 Phenobarbital 30 Mg Tablet PO 02/26/20 21:01 BID [facility] Phenobarbital 30 mg 02/27/20 09:00 Phenobarbital 30 Mg Tablet PO 02/28/20 09:01 DAILY [facility] Sodium Chloride 3 ml 02/23/20 00:00 02/24/20 08:35 0.9 % Sodium Chloride Flush 3 Ml Syringe IVFLUSH 3 ml QSHIFT [facility] Administration Thiamine HCl 100 mg 02/23/20 09:00 02/24/20 08:35 Thiamine Hcl 100 Mg Tablet PO 100 mg DAILY [facility] Administration Time Spent With Patient Time: Total time spent is greater than 50% in coordination of care (as documented) at patient's floor/unit and/or counseling patient: Time with patient: less than 15 minutes
[2020-02-24 11:00] VITALS: BP 152/90; PULSE 88; RESP 18; TEMP 35.5; O2SAT 100
--- NOTE | 2020-02-24 12:47 | MHC.CM.PN ---
DC today no services. Pt has transportation.
--- NOTE | 2020-02-24 12:51 | MHC.CARE ---
Addiction Consult Service note: This underwriter met with patient to discuss his alcohol use. Patient is known to this underwriter from a previous consultation. Patient reports that he plans to stop drinking entirely for health reasons and that he has been able to maintain sobriety in the past. Patient reports that his family have filed a [address] in the past. Patient reports while he was in rehab, he got connected with [facility] and that he finds their services helpful. Patient reports he plans to reach out to them again for ongoing support and this underwriter encouraged patient to do so. Patient reports interest in outpatient therapy for additional support. This underwriter explained to patient the process of getting connected with a therapist and provided patient with information on therapy clinics in the area. This underwriter also discussed [facility] [place] with patient and other ways that patient can get connected with support groups. Patient encouraged to start thinking about ways to occupy his time now that he will be entering recovery. Patient acknowledged and was receptive of the information provided. Patient reports no additional questions at this time. Discussed case with patient's RN, Ashley.
--- NOTE | 2020-02-24 13:18 | PM.DS ---
DS: Providers Provider Date of admission: 02/22/20 16:07 Primary care physician: Roger Graves MD Consults: 02/22/20 17:45 Consult to Physician Routine Consulting Provider: Tod Zelaya Reason for consultation: htn cm; unontrolled htn 02/24/20 11:18 Consult to Care Team Routine Comment: Reason for consultation: alcohol abuse withdrawal DS: Diagnosis Discharge Diagnosis (1) HTN (hypertension): Status: Acute (2) Alcohol dependence: Status: Acute (3) Palpitations: Status: Acute (4) Cardiomyopathy: Status: Acute (5) Chest pain: Status: Acute DS: Summary Hospital Course Hospital Course: 45-year-old male admitted with alcohol withdrawal and chest pain with palpitation, for alcohol withdrawal started on phenobarbital and CIWA protocol, patient's alcohol withdrawal symptoms resolved slowly for chest pain and palpitation , serial troponin were done shows flat trend, chest pain was likely secondary to gastritis and elevated blood pressure, cardiology recommended continuing medical management and ACS less likely for uncontrolled hypertension patient was continued on Imdur and Lopressor and started on amlodipine, blood pressure improved and remained stable, patient was stable evaluated by care team, patient was provided with resources for alcohol rehab, patient was discharged home Time Spent with Patient Time attestation: Total time spent providing and/or coordinating discharge services: Physical Exam Vital Signs: Vital Signs: Vital Signs Temp Pulse Resp BP Pulse Ox 02/24/20 11:00 96 F L 88 18 152/90 H 100 02/24/20 07:12 97 F 83 20 148/90 H 96 02/24/20 03:16 97.8 F 83 19 121/75 100 02/23/20 23:14 97.2 F 86 19 123/76 98 02/23/20 20:50 87 133/91 H 02/23/20 20:20 98.6 F 88 18 128/82 99 02/23/20 16:21 97.7 F 94 18 136/74 98 Body Mass Index 22.8 General: AO X 3, no acute distress Resp: CTA bilateral CVS: S1,S2,RRR GI: soft, non tender, non distended Neuro: motor grossly intact Psych: appropriate affect Const: Other: GENERAL APPEARANCE: in no acute distress, well developed, well nourished. HEENT: unremarkable. HEAD: normocephalic, atraumatic. NECK/THYROID: no carotid bruit, no jugular venous distention. SKIN: no suspicious lesions, warm and dry. HEART: no murmurs, regular rate and rhythm, S1, S2 normal. LUNGS: clear to auscultation bilaterally. ABDOMEN: normal, bowel sounds present, soft, nontender, nondistended. EXTREMITIES: no clubbing, cyanosis, or edema. PERIPHERAL PULSES: equal. NEUROLOGIC: nonfocal, alert and oriented. PSYCH: mood/affect full range. General: cooperative Nutritional Appearance: well nourished Orientation/consciousness: oriented to person, oriented to place and patient oriented x3 HENMT: Head: Yes normal to inspection, Yes normocephalic and Yes atraumatic Ears: hearing grossly normal bilaterally Eyes: General: appearance normal, both eyes and all related structures Sclerae: sclerae normal Neck: Neck: Yes normal visual inspection Chest: Chest palpation & inspection: normal inspection of the chest Resp: Effort & Inspection: normal respiratory effort, able to speak in complete sentences and no respiratory distress Auscultation: clear to auscultation bilaterally Cardio: Jugular venous distension: no JVD Palpation: normal PMI Rate: regular rate and tachycardic Rhythm: regular rhythm GI: Inspection: Yes normal to inspection Palpation (GI): Soft to palpation and nontender Percussion: Yes normal to percussion Skin: General skin exam: no rashes or lesions noted Neuro: General: oriented to person, oriented to place and patient oriented x3 Cranial nerves: Yes CN's II-XII intact bilaterally and Yes Bilaterally intact EOM present Speech: Abnormal speech present Extrem: General: Yes normal to inspection and Yes full ROM DS: Data Data Completed and Pending Labs on day of discharge: Labs from last 24 hours 02/24/20 02/24/20 06:05 06:05 WBC 2.7 L RBC 3.66 L Hgb 12.3 L Hct 35.6 L MCV 97.3 MCH 33.6 H MCHC 34.6 RDW 13.4 Plt Count 75 L MPV 9.9 Immature Gran % (Auto) 1.1 H Neut % (Auto) 44.0 L Lymph % (Auto) 44.0 H [place] % (Auto) 10.9 Eos % (Auto) 0.0 Baso % (Auto) 0.0 Lymph # (Auto) 1.2 [place] # (Auto) 0.3 Eos # (Auto) 0.0 Baso # (Auto) 0.0 Abs Immat Gran (auto) 0.03 Absolute Neuts (auto) 1.2 L Absolute Nucleated RBC 0.000 Nucleated RBC % (auto) 0.0 Sodium 138 Potassium 3.6 Chloride 103 Carbon Dioxide 27 Anion Gap 12 BUN 8 L Creatinine 0.88 Estim Creat Clear Calc 105.9 Estimated GFR > 60 Fasting Glucose 111 H Calcium 8.2 L Total Bilirubin 1.3 H Direct Bilirubin 0.6 H AST 57 H ALT 51 H Alkaline Phosphatase 52 Total Protein 6.7 Albumin 3.8 Discharge Plan Discharge Anticipated Discharge Date/Time: 02/24/20 12:31 Patient Disposition: Home, Self-Care Referrals: Roger Graves MD [Primary Care Provider] - Discharge Medications: New amlodipine 5 mg Tablet 5 mg PO DAILY Qty: 30 RF: 0 folic acid 1 mg tablet 1 mg PO DAILY Qty: 30 RF: 0 thiamine HCl (vitamin B1) 100 mg tablet 100 mg PO DAILY Qty: 30 RF: 0 Continued lisinopril 10 mg Tablet 10 mg PO DAILY RF: 0 metoprolol tartrate 50 mg Tablet 50 mg PO BID RF: 0 lansoprazole 15 mg Capsule,Delayed Release(Dr/Ec) 15 mg PO DAILY RF: 0 amitriptyline 100 mg Tablet 100 mg PO BEDTIME RF: 0 Discharge Orders: Discharge Order (Routine); Ordered 02/24/20 Ordered By: Bart Moss Activity on Discharge: As tolerated Discharge Date/Time: 02/24/20 13:32 Visit Report Forms: Patient Portal Discharge page Care Plan Goals: see discharge instruction Health Concerns: see discharge instruction Plan of Treatment: see discharge instructions
== END 2020-02-24 13:32 | disposition home or self-care (01) | DRG 241 ==
LOC: HO.ED 15:26 → HO.IMC 16:44
PROVIDERS: Physician Assistant Medical; Admitting Provider Internal Medicine; Emergency Provider Emergency Medicine; PCP Internal Medicine; Visit Provider Internal Medicine
DX: K29.70 Gastritis, unspecified, without bleeding (principal); E83.42 Hypomagnesemia; I42.6 Alcoholic cardiomyopathy; K70.10 Alcoholic hepatitis without ascites; F10.239 Alcohol dependence with withdrawal, unspecified; I10 Essential (primary) hypertension; F17.210 Nicotine dependence, cigarettes, uncomplicated; Z71.6 Tobacco abuse counseling; Z91.14 Patient's other noncompliance with medication regimen; Z88.0 Allergy status to penicillin; Z79.899 Other long term (current) drug therapy
CPT/HCPCS: 36415; 71045; 80048; 80076; 80320; 83690; 83735; 84484; 85025; 85027; 85610; 93005; 96365; 96366; 96367; 96372; 99285; J2560; J3411; J3475

== ENCOUNTER 2020-03-12 18:16 | Inpatient (IN) | payer MEDICAID, OTHER, SELFPAY ==
[2020-03-12 18:52] VITALS: BP 176/111; PULSE 110; RESP 18; TEMP 36.6; O2SAT 98; BMI 25.1
[2020-03-12 18:55] VITALS: BP 176/111; PULSE 110; RESP 18; TEMP 36.6; O2SAT 98
--- NOTE | 2020-03-12 19:13 | ED.PSYCH ---
HPI - Psych General Chief Complaint: Psychiatric Symptoms Stated Complaint: crisis Time Seen by Provider: 03/12/20 19:10 Source: patient Mode of arrival: ambulatory Limitations: no limitations History of Present Illness HPI Narrative: 45-year-old male with history of alcohol dependence, hypertension, cardiomyopathy, and anxiety presents with vague suicidal ideations secondary to homelessness and alcohol dependence. Patient is requesting detox for alcoholism. He does not have any other complaints at this time. He denies chest pain or pressure, palpitations, shortness of breath, abdominal pain, abdominal distention, dysuria, hematuria, fevers and chills. He states to feel depression because he is homeless And dependent on alcohol. MD complaint: feels depressed and alcohol abuse Onset (ago): year(s) Duration: constant History of same: Yes Relieving factors: none Context: recent alcohol abuse Associated psychiatric symptoms: depression and suicidal ideation Associated symptoms: denies other symptoms Related Data Home Medications Medication Instructions Recorded Confirmed amitriptyline 100 mg PO BEDTIME 02/22/20 02/22/20 lansoprazole 15 mg PO DAILY 02/22/20 03/13/20 lisinopril 10 mg PO DAILY 02/22/20 03/13/20 metoprolol tartrate 50 mg PO BID 02/22/20 03/13/20 amitriptyline 150 mg PO BEDTIME 03/13/20 03/13/20 gabapentin 1,200 mg PO BID 03/13/20 03/13/20 Previous Rx's Medication Instructions Recorded amlodipine 5 mg PO DAILY #30 tab 02/24/20 folic acid 1 mg PO DAILY #30 tab 02/24/20 thiamine HCl (vitamin B1) 100 mg PO DAILY #30 tab 02/24/20 Allergies Allergy/AdvReac Type Severity Reaction Status Date / Time Penicillins [PENICILLINS] Allergy Severe HIVES Verified 02/22/20 11:43 SWELLING Review of Systems Review of Systems: Constitutional: No Fever, No Chills ENT/Mouth: No Ear Pain, No Nasal Congestion, No sore throat Eyes: No Eye Pain, No Swelling, No Redness Cardiovascular: No Chest Pain, No SOB Respiratory: No Cough, No Sputum, No Dyspnea Gastrointestinal: No Nausea, No Vomiting, No Diarrhea, No Hematochezia, No Melena Genitourinary: No Dysuria, No Urinary Frequency, No Hematuria Musculoskeletal: No Myalgias Skin: No Skin Lesions, No rash Neuro: No Weakness, No Numbness, No Paresthesias, No Dizziness, No Headache Psych: positive Anxiety, positive Depression, positive SI , positive alcohol abuse Heme/Lymph: No Lymphadenopathy Endocrine: No Polyuria, No Polydipsia Yes all other systems are reviewed and are negative [facility] Past Medical History Attestation statement: The following information was validated with the patient. Medical History Alcohol dependence Cardiomyopathy HTN (hypertension) Tobacco dependence Social History Social History Household Members: None Alcohol intake: current Alcohol intake frequency: 3 or more drinks per day Alcohol type: beer Smoking Status: Current every day smoker Tobacco Type: Cigarette Packs Per Day: 0.5 Cigarettes Per Day: 10.0 Smoked in Last 30 Days: Yes Use of substances other than those prescribed or required for medical reasons: No Advance Directives: No Advance Directives Information Provided: No service: No Physical Exam Vital Signs: Vital Signs: Last Vital Signs Temp 98.1 F 03/13/20 00:27 Pulse 79 03/13/20 00:27 Resp 18 03/13/20 00:27 BP 153/98 H 03/13/20 00:27 Pulse Ox 97 03/13/20 00:27 Body Mass Index 25.1 Appearance: Alert. Oriented X3. No acute distress. Eyes: Pupils equal, round and reactive to light. ENT: Pharynx normal. Neck: Normal inspection. Neck supple. CVS: Normal heart rate and rhythm. Pulses normal. Respiratory: No respiratory distress. Breath sounds normal. Abdomen: Soft and nontender. Skin: Skin warm and dry. Normal skin color. Normal skin turgor. Extremities: No lower extremity edema. Neuro: No motor deficit. No sensory deficit. Course Course Course Narrative: 45-year-old male presents for vague suicidal ideation, alcohol abuse and depression because of homelessness. Stated that while he was in detox few weeks ago his elderly parents changed all the locks and codes to the house and went down to [place]. He has been living in his car and sleeping in his parent's driveway and on the street. He has been using alcohol on a daily basis states to have vague suicidal ideations regarding his homelessness, current situation, and is dependent on alcohol. He is requesting detox. field hockey and lacrosse coach discussed plan of care, there is a detox bed in [place] however patient stated that he does not want to go to [place] for detox. After multiple discussions, patient is now stating that he has medical concerns, would like to stay inpatient in this hospital for alcohol withdrawal symptoms, although he is scoring negative on CIWA scale at this time. On initial presentation patient did not describe any medical complaints. I feel that patient is changing his story to suit his needs. After discussion with patient with cross country/track and field coach Present, we will order N consult for his suicidal ideation with plan. Patient stated to become suicidal with plan only after declining the [facility] bed and being informed that he did not meet inpatient criteria for alcohol withdrawal. patient is dissatisfied with care, states that everyone is angry with him and he is only trying to seek the care that he deserves. MDM - Psych Restraints Face to Face Assessment: Face to Face Assessment: Current Situation: After assessment of the patient, a review of the pertinent medical record and a discussion with nursing staff, I feel the patient requires a restrain intervention. Reaction To: [] Medical Condition: [] Behavioral State: [] Continued Need: [] Lab Data Result diagrams: 03/12/20 21:45 Labs: Lab Results 03/12/20 03/12/20 03/12/20 Range/Units 19:24 21:45 21:45 WBC 4.9 (4.8-10.8) X10*3/uL RBC 3.49 L (4.60-5.80) X10*6/uL Hgb 12.4 L (14.0-18.0) g/dl Hct 35.0 L (42-52) % MCV 100.3 H (80-98) fL MCH 35.5 H (27.0-33.0) pg MCHC 35.4 (31.0-36.0) g/dl RDW 13.5 (11.0-16.0) % Plt Count 151 L D (160-400) X10*3/uL MPV 9.3 L (9.4-12.4) fL Immature Gran % (Auto) 0.4 (0.0-0.4) % Neut % (Auto) 48.2 (45-73) % Lymph % (Auto) 37.5 (20-40) % Cobb % (Auto) 13.7 H (2-11) % Eos % (Auto) 0.0 (0-4) % Baso % (Auto) 0.2 (0-2) % Lymph # (Auto) 1.8 (1.2-4.9) X10*3/uL Cobb # (Auto) 0.7 (0.1-1.2) X10*3/uL Eos # (Auto) 0.0 (0.0-0.4) X10*3/uL Baso # (Auto) 0.0 (0.0-0.2) X10*3/uL Abs Immat Gran (auto) 0.02 (0.00-0.03) X10*3/uL Absolute Neuts (auto) 2.4 (2.0-8.3) X10*3/uL Absolute Nucleated RBC 0.000 (0.0-0.012) X10*3/uL Nucleated RBC % (auto) 0.0 (0.0-0.2) /100WBC Urine Opiates Screen Not Detected (Not Detect) Ur Barbiturates Screen POSITIVE H (Not Detect) Ur Phencyclidine Scrn Not Detected (Not Detect) Ur Amphetamines Screen Not Detected (Not Detect) U Benzodiazepines Scrn Not Detected (Not Detect) Urine Cocaine Screen Not Detected (Not Detect) U Marijuana (THC) Screen Not Detected (Not Detect) Ethyl Alcohol 95 mg/dL Discharge Plan Discharge Clinical Impression: Alcohol dependence Prescriptions: No Action lisinopril 10 mg Tablet 10 mg PO DAILY RF: 0 metoprolol tartrate 50 mg Tablet 50 mg PO BID RF: 0 lansoprazole 15 mg Capsule,Delayed Release(Dr/Ec) 15 mg PO DAILY RF: 0 amitriptyline 100 mg Tablet 100 mg PO BEDTIME RF: 0 amlodipine 5 mg Tablet 5 mg PO DAILY Qty: 30 RF: 0 folic acid 1 mg tablet 1 mg PO DAILY Qty: 30 RF: 0 thiamine HCl (vitamin B1) 100 mg tablet 100 mg PO DAILY Qty: 30 RF: 0 gabapentin 600 mg Tablet 1,200 mg PO BID RF: 0 amitriptyline 150 mg Tablet 150 mg PO BEDTIME RF: 0
--- NOTE | 2020-03-12 19:18 | PC.NURSE ---
Report received. PT is sitting in his room talking with peer cross country coach. No other complaints at this time.
[2020-03-12 20:17] LABS: Amphetamine Screen Urine Not Detected (Not Detect); Barbiturates, Urine POSITIVE (Not Detect); Benzodiazepines Screen Urine Not Detected (Not Detect); Cannabinoid Screen Urine Not Detected (Not Detect); Cocaine Screen Urine Not Detected (Not Detect); Opiate Screen Urine Not Detected (Not Detect); Phencyclidine Screen Urine Not Detected (Not Detect)
[2020-03-12 20:58] VITALS: BP 156/113; PULSE 90; RESP 20; TEMP 36.8; O2SAT 97
[2020-03-12] MEDS: LORazepam 1 MG TABLET 2 MG PO (21:04)
[2020-03-12 21:51] LABS: MANUAL DIFF FLAG NO
[2020-03-12 21:54] LABS: Basophils Percent Auto 0.2 % (0-2); Hemoglobin 12.4 g/dl (14.0-18.0); Imm Gran Abs Auto 0.02 X10*3/uL (0.00-0.03); Imm Gran Pct Auto 0.4 % (0.0-0.4); Lymphocytes Absolute Auto 1.8 X10*3/uL (1.2-4.9); Lymphocytes Percent Auto 37.5 % (20-40); Mean Corpuscular HGB Conc 35.4 g/dl (31.0-36.0); Mean Corpuscular Hemoglobin 35.5 pg (27.0-33.0); Mean Corpuscular Volume 100.3 fL (80-98); Mean Platelet Volume 9.3 fL (9.4-12.4); Monocytes Absolute Auto 0.7 X10*3/uL (0.1-1.2); Monocytes Percent Auto 13.7 % (2-11); Neutrophils Absolute Auto 2.4 X10*3/uL (2.0-8.3); Neutrophils Percent Auto 48.2 % (45-73); Platelet Count 151 X10*3/uL (160-400); Red Blood Count 3.49 X10*6/uL (4.60-5.80); Red Cell Distribution Width 13.5 % (11.0-16.0); White Blood Count 4.9 X10*3/uL (4.8-10.8)
[2020-03-12 22:20] LABS: Ethanol 95 mg/dL
[2020-03-13] VITALS (7 sets, daily range): BP systolic 153–195; BP diastolic 98–118; PULSE 63–89; RESP 17–18; TEMP 36.2–37.1; O2SAT 97–100
--- NOTE | 2020-03-13 | ECG_ITS ---
Test Reason : MEDICAL CLEARANCE Blood Pressure : / mmHG Vent. Rate : 071 BPM Atrial Rate : 071 BPM P-R Int : 118 ms QRS Dur : 094 ms QT Int : 394 ms P-R-T Axes : 022 038 058 degrees QTc Int : 428 ms Normal sinus rhythm RSR' or QR pattern in V1 suggests right ventricular conduction delay Minimal voltage criteria for LVH, may be normal variant Nonspecific ST abnormality Abnormal ECG When compared with ECG of 22-FEB-2020 10:29, Vent. rate has decreased BY 66 BPM Referred By: Kandy Escamilla Electronically Signed By:CHANDANA GONZALEZ MD
--- NOTE | 2020-03-13 07:10 | PC.NURSE ---
Report received. Pt eating breakfast, reporting some anxiety at this time. Pt is inpatient bedsearch.
[2020-03-13] MEDS: LORazepam 1 MG TABLET 2 MG PO ×2 (09:05→15:15)
[2020-03-13] MEDS: Gabapentin 600 MG TABLET 1200 MG PO ×2 (10:23→20:45)
[2020-03-13] MEDS: Thiamine HCL 100 MG TABLET PO (10:24)
[2020-03-13] MEDS: Metoprolol Tartrate 50 MG TABLET PO ×2 (10:24→20:38)
[2020-03-13] MEDS: Folic Acid 1 MG TABLET PO (10:24)
[2020-03-13] MEDS: amLODIPine Besylate 5 MG TABLET PO (10:24)
[2020-03-13 12:33] LABS: SARS COV2 PCR INHOUSE NEGATIVE (Negative)
--- NOTE | 2020-03-13 13:27 | PC.NURSE ---
Pt currently eating lunch, denies symptoms of withdrawal at this time. Pt pleasant in conversation.
--- NOTE | 2020-03-13 19:00 | PC.ADMIT ---
PT IS A 45 Y/O WELSH SPEAKING MALE WHO WAS ADMITTED FROM [facility] ED TODAY AT 1755. PT HAD SELF PRESENTED TO THE ED WITH SI AND PLANNED TO USE THE TOOLS IN HIS TRUCK TO ACCOMPLISH THIS. PT REPORTS HAVING SEASONAL DEPRESSION WHICH IS WHY HE LIVED IN [place]. PT HAS A DX OF ADJUSTMENT D/O WITH DEPRESSED MOOD AND RECENTLY BECAME HOMELESS AFTER PARENTS LOCKED THE DOOR ON HIM. PT REPORTS MEDICAL IS PT ALSO REPORTS HAVING VASCULAR NECROSIS IN BILATERAL HIPS WITH THE RIGHT ONE REPLACED ABOUT 7 YEARS AGO, HTN, PERIPHERAL NEUROPATHY. PT ALSO REPORTS HAVING A PE WHEN IN FOR THE HIP REPLACEMENT. PT WAS LEGALLY ADMITTED ON A CV. PT IS A DAILY SMOKER OF 30 YEARS AT ABOUT HALF A PCK. PT REPORTS THAT HE HAS BEEN LIVING IN HIS CAR FOR OVER 2 WKS, CALLING SHELTERS AND PROGRAMS , BUT BEING TOLD THEY HAD NOTHING. THIS LEAD PT TO FEELING HOPELESS AND BEGIN TO GET SI THOUGHTS. PT HAD LIVED IN [place] FOR ABOUT THE PAST 30 YEARS AND RECENTLY RETURNED HERE. MD REVIEWED, ORDERS IN PLACE. PTS BLOOD PRESSURE REVIEWED WITH THE MD AND WE WILL CONTINUE TO MONITOR.
[2020-03-14] VITALS (7 sets, daily range): BP systolic 151–164; BP diastolic 99–111; PULSE 86–89; TEMP 36.1–36.3
[2020-03-14] MEDS: amLODIPine Besylate 5 MG TABLET PO (08:32)
[2020-03-14] MEDS: lisinopriL 10 MG TABLET PO (08:33)
[2020-03-14] MEDS: Folic Acid 1 MG TABLET PO (08:33)
[2020-03-14] MEDS: Thiamine HCL 100 MG TABLET PO (08:33)
[2020-03-14] MEDS: Metoprolol Tartrate 50 MG TABLET PO ×2 (08:34→20:19)
[2020-03-14] MEDS: Gabapentin 600 MG TABLET 1200 MG PO ×2 (08:34→20:19)
[2020-03-14] MEDS: Naltrexone HCl 50 MG TABLET PO (13:50)
[2020-03-14] MEDS: Nicotine 14 MG PATCH.TD24 TRANSDERMA (13:51)
[2020-03-14] MEDS: LORazepam 1 MG TABLET 2 MG PO ×2 (13:53→19:49)
[2020-03-14] MEDS: Magnesium Hydrox/Alum Hydrox 30 ML ORAL.SUSP PO (17:06)
[2020-03-14] MEDS: Mirtazapine 15 MG TABLET PO (20:20)
--- NOTE | 2020-03-14 22:25 | P.HPPS_ITS ---
HPI Chief Complaint: Alcohol Withdrawal Sources of Information: patient interviewed, chart reviewed and crisis/core team assessment reviewed HPI Narrative: 45 year old man who was admitted after being referred by [facility] crisis. He had presented to the ER with an increase in SI in the context of depressed mood and alcohol abuse. The individual reports that he has been sleeping in his car after his parents left for [place] and locked him out of the house. He has not been eating or drinking and he has been drinking more. He has been concerned about his BP. He reports that he has been increasingly despondent. Precipitants include his being homeless, lack of support and lack of finances. Upon arrival to the unit he was in mild alcohol WD. Past Psychiatric History: No current providers and denies history of treatment Medical Evaluation Reviewed: Yes Medically cleared in the ER [facility] Medical History Alcohol dependence Cardiomyopathy HTN (hypertension) Tobacco dependence Family History: Unknown Social History: Homeless Substance History: Alcohol use - in WD Diagnostics Vital Signs (24Hr): Vital Signs - 24 hr 03/14/20 08:32 03/14/20 08:33 03/14/20 08:34 Temperature Pulse Rate 86 86 86 Blood Pressure 163/109 H 163/109 H 163/109 H 03/14/20 08:36 03/14/20 13:56 03/14/20 16:00 Temperature 97.4 F 96.9 F Pulse Rate 86 89 89 Blood Pressure 163/109 H 151/99 H 164/111 H 03/14/20 20:19 Temperature Pulse Rate 89 Blood Pressure 164/111 H Body Mass Index 25.1 Labs Results: 03/12/20 21:45 Labs: Laboratory Results - last 48 hr 03/13/20 11:30 Coronavirus (PCR) NEGATIVE Meds/Allergies Meds Home Medications Medication Instructions Recorded Confirmed Type lisinopril 10 mg PO DAILY 02/22/20 03/13/20 History metoprolol tartrate 50 mg PO BID 02/22/20 03/13/20 History gabapentin 1,200 mg PO BID 03/13/20 03/13/20 History Allergies Allergies Allergy/AdvReac Type Severity Reaction Status Date / Time Penicillins [PENICILLINS] Allergy Severe HIVES Verified 02/22/20 11:43 SWELLING Mental Status Exam Mental Status Exam Patient Appearance: Well Grooomed Patient Orientation: Person, Place, Time and Situation Level of Consciousness: Appropriate Patient Behavior: Cooperative Mood Description: Apathetic, Depressed and Flat Affect Description: Apathetic, Depressed, Flat and Sad Ability to Follow Directions: Fair Speech Pattern: Perseverating and Appropriate Memory Description: Intact Hallucinations: None Delusions: Not Present Thought Process: Intact and Rumination Thought Content: negative for Suicidal Ideation and negative for Homicidal Ideation Depressive Symptoms: Feelings of Worthlessness, Hopelessness, Isolating- Friends/Family, Feelings of Guilt, Unhappiness, Increased Fatigue, Thoughts of /Suicide, Low Self Esteem, Loss of Energy and Difficulty Concentrating Judgement: Poor Assessment & Plan Assessment & Plan (1) Alcohol dependence: Status: Acute Qualifiers: Substance use status: uncomplicated Qualified Code(s): F10.20 - Alcohol dependence, uncomplicated Code(s): F10.20 - Alcohol dependence, uncomplicated (2) Major depressive disorder, recurrent severe without psychotic features: Status: Acute Code(s): F33.2 - Major depressive disorder, recurrent severe without psychotic features Assessment and Plan: Monitor and treat for alcohol WD Add revia Remeron for depressed mood Collect collateral history Consider CSS ELS 5-7 days Patient educated on: diagnosis, medication risk/benefits and substance abuse Informed Consent: further education needed Reason for continued inpatient stay Substantial Risk for: harm to self, inability to function and rapid decompensation
[2020-03-15] VITALS (10 sets, daily range): BP systolic 132–173; BP diastolic 83–114; PULSE 70–105; RESP 16; TEMP 35.7–36.6; O2SAT 100
[2020-03-15] MEDS: Omeprazole 40 MG CAPSULE.DR PO (06:29)
[2020-03-15] MEDS: lisinopriL 10 MG TABLET PO (06:37)
[2020-03-15] MEDS: Metoprolol Tartrate 50 MG TABLET PO ×2 (06:38→20:52)
[2020-03-15] MEDS: amLODIPine Besylate 5 MG TABLET PO ×2 (06:39→12:14)
[2020-03-15] MEDS: Gabapentin 600 MG TABLET 1200 MG PO ×2 (08:02→20:54)
[2020-03-15] MEDS: Folic Acid 1 MG TABLET PO (08:02)
[2020-03-15] MEDS: Thiamine HCL 100 MG TABLET PO (08:03)
[2020-03-15] MEDS: Nicotine 14 MG PATCH.TD24 TRANSDERMA (08:03)
[2020-03-15] MEDS: Naltrexone HCl 50 MG TABLET PO (08:03)
[2020-03-15] MEDS: LORazepam 1 MG TABLET 2 MG PO ×2 (08:08→18:27)
[2020-03-15] MEDS: lisinopriL 5 MG TABLET PO (12:15)
--- NOTE | 2020-03-15 12:34 | P.PNPSI_ITS ---
Subjective Subjective Date of Service: 03/15/20 Reason For Visit: Alcohol Withdrawal Subjective Notes: Conditional Voluntary Interim History: Karl reports that he is feeling much better. He is less anxious. His BP remains elevated though he does not have other s/s of WD. Medication Compliance: Yes Side effects from medications: No Attending Groups: Yes Review of Systems Acute medical concerns: Yes Elevated BP, despite treatment Medical Review of Systems: unchanged Mental Status Exam Mental Status Exam Patient Appearance: Well Grooomed Patient Orientation: Person, Place, Time and Situation Level of Consciousness: Appropriate Patient Behavior: Cooperative Mood Description: Apathetic, Depressed and Flat Affect Description: Depressed and Sad Ability to Follow Directions: Fair Speech Pattern: Appropriate Memory Description: Intact Hallucinations: None Delusions: Not Present Thought Process: Intact and Rumination Thought Content: negative for Suicidal Ideation and negative for Homicidal Ideation Depressive Symptoms: Feelings of Worthlessness, Hopelessness, Isolating- Friends/Family, Feelings of Guilt, Unhappiness, Increased Fatigue, Thoughts of /Suicide, Low Self Esteem, Loss of Energy and Difficulty Concentrating Judgement: Fair Diagnostics Vital Signs (24Hr): Vital Signs - 24 hr 03/14/20 13:56 03/14/20 16:00 03/14/20 20:19 Temperature 96.9 F Pulse Rate 89 89 89 Respiratory Rate Blood Pressure 151/99 H 164/111 H 164/111 H Pulse Oximetry 03/15/20 04:00 03/15/20 06:37 03/15/20 06:38 Temperature 96.3 F L Pulse Rate 81 84 84 Respiratory Rate 16 Blood Pressure 173/114 H 173/114 H 173/114 H Pulse Oximetry 100 03/15/20 06:39 03/15/20 08:10 03/15/20 12:14 Temperature Pulse Rate 84 75 82 Respiratory Rate Blood Pressure 173/114 H 163/106 H 135/92 H Pulse Oximetry 03/15/20 12:15 03/15/20 12:16 Temperature Pulse Rate 82 82 Respiratory Rate Blood Pressure 135/92 H 135/92 H Pulse Oximetry Body Mass Index 25.1 Labs Results: 03/12/20 21:45 Medications Medications Current Medications Generic Name Dose Route Start Last Admin Trade Name Freq PRN Reason Stop Dose Admin Acetaminophen 650 mg 03/13/20 18:11 Acetaminophen 325 Mg Tablet PO Q6H PRN Headache/Pain Mild Scale (1-3) Al Hydroxide/Mg Hydroxide 30 ml 03/13/20 18:11 03/14/20 17:06 Magnesium Hydrox/Alum Hydrox 30 Ml Oral.Susp PO 30 ml Q6H PRN Administration Heartburn/Nausea Amlodipine Besylate 10 mg 03/16/20 09:00 Amlodipine Besylate 5 Mg Tablet PO DAILY KATERIN Protocol Folic Acid 1 mg 03/13/20 10:00 03/15/20 08:02 Folic Acid 1 Mg Tablet PO 1 mg DAILY KATERIN Administration Gabapentin 1,200 mg 03/13/20 10:00 03/15/20 08:02 Gabapentin 600 Mg Tablet PO 1,200 mg BID KATERIN Administration Hydroxyzine HCl 25 mg 03/13/20 18:11 Hydroxyzine Hcl 25 Mg Tablet PO BEDTIME PRN Anxiety Lisinopril 15 mg 03/16/20 09:00 Lisinopril 5 Mg Tablet PO DAILY KATERIN Protocol Loperamide HCl 2 mg 03/14/20 20:30 Loperamide Hcl 2 Mg Capsule PO Q4H PRN Diarrhea Lorazepam 2 mg 03/14/20 10:14 03/15/20 08:08 Lorazepam 1 Mg Tablet PO 2 mg Q4H PRN Administration Alcohol Withdrawal Magnesium Hydroxide 30 ml 03/13/20 18:11 Milk Of Magnesia 30 Ml Oral.Susp PO DAILY PRN Constipation Metoprolol Tartrate 50 mg 03/13/20 10:00 03/15/20 06:38 Metoprolol Tartrate 50 Mg Tablet PO 50 mg BID KATERIN Administration Protocol Mirtazapine 15 mg 03/14/20 21:00 03/14/20 20:20 Mirtazapine 15 Mg Tablet PO 15 mg BEDTIME KATERIN Administration Naltrexone HCl 50 mg 03/14/20 10:15 03/15/20 08:03 Naltrexone Hcl 50 Mg Tablet PO 50 mg DAILY KATERIN Administration Nicotine 14 mg 03/14/20 12:45 03/15/20 08:03 Nicotine 14 Mg Patch.Td24 TRANSDERMA 14 mg DAILY KATERIN Administration Omeprazole 40 mg 03/15/20 06:30 03/15/20 06:29 Omeprazole 40 Mg Capsule.Dr PO 40 mg DAILY@0630 KATERIN Administration Thiamine HCl 100 mg 03/13/20 10:00 03/15/20 08:03 Thiamine Hcl 100 Mg Tablet PO 100 mg DAILY KATERIN Administration Trazodone HCl 50 mg 03/13/20 18:11 Trazodone Hcl 50 Mg Tablet PO BEDTIME PRN Insomnia Allergies Allergies Allergy/AdvReac Type Severity Reaction Status Date / Time Penicillins [PENICILLINS] Allergy Severe HIVES Verified 02/22/20 11:43 SWELLING Assessment & Plan Assessment & Plan (1) HTN (hypertension): Status: Acute Code(s): I10 - Essential (primary) hypertension (2) Major depressive disorder, recurrent severe without psychotic features: Status: Acute Code(s): F33.2 - Major depressive disorder, recurrent severe without psychotic features (3) Alcohol dependence: Qualifiers: Substance use status: uncomplicated Qualified Code(s): F10.20 - Alcohol dependence, uncomplicated Status: Acute Code(s): F10.20 - Alcohol dependence, uncomplicated Assessment and Plan: CT current treatment plan Hospitalist consult for management of HTN Greater than 50% of the session was spent on counseling and/or coordination of care Patient educated on: diagnosis, medication risk/benefits and substance abuse Informed Consent: further education needed Reason for contiued inpatient stay Substantial Risk for: rapid decompensation
[2020-03-15] MEDS: Mirtazapine 15 MG TABLET PO (21:01)
[2020-03-16] VITALS (8 sets, daily range): BP systolic 134–163; BP diastolic 86–98; PULSE 66–92; TEMP 36.7
[2020-03-16] MEDS: Omeprazole 40 MG CAPSULE.DR PO (06:49)
[2020-03-16] MEDS: LORazepam 1 MG TABLET 2 MG PO (06:52)
[2020-03-16] MEDS: Nicotine 14 MG PATCH.TD24 TRANSDERMA (08:37)
[2020-03-16] MEDS: Gabapentin 600 MG TABLET 1200 MG PO ×2 (08:38→20:32)
[2020-03-16] MEDS: lisinopriL 5 MG TABLET 15 MG PO (08:39)
[2020-03-16] MEDS: Folic Acid 1 MG TABLET PO (08:39)
[2020-03-16] MEDS: amLODIPine Besylate 5 MG TABLET 10 MG PO (08:41)
[2020-03-16] MEDS: Metoprolol Tartrate 50 MG TABLET PO ×2 (08:42→20:34)
[2020-03-16] MEDS: Thiamine HCL 100 MG TABLET PO (08:42)
[2020-03-16] MEDS: Naltrexone HCl 50 MG TABLET PO (08:42)
[2020-03-16] MEDS: Acetaminophen 325 MG TABLET 650 MG PO (10:40)
--- NOTE | 2020-03-16 14:10 | P.PNPSI_ITS ---
Subjective Subjective Date of Service: 03/16/20 Reason For Visit: Alcohol Withdrawal Subjective Notes: Conditional Voluntary Interim History: Karl reports that he is feeling much better. He is less anxious. He is working with SW to find a CSS or alternative. His BP remains elevated though he does not have other s/s of WD. This is settling down. He is using less ativan. Medication Compliance: Yes Side effects from medications: No Attending Groups: Yes Review of Systems Acute medical concerns: Yes Elevated BP, despite treatment Medical Review of Systems: unchanged Mental Status Exam Mental Status Exam Patient Appearance: Well Grooomed Patient Orientation: Person, Place, Time and Situation Level of Consciousness: Appropriate Patient Behavior: Cooperative Mood Description: Apathetic, Depressed and Flat Affect Description: Depressed and Sad Ability to Follow Directions: Fair Speech Pattern: Appropriate Memory Description: Intact Hallucinations: None Delusions: Not Present Thought Process: Intact and Rumination Thought Content: negative for Suicidal Ideation and negative for Homicidal Ideation Depressive Symptoms: Difficulty Concentrating Judgement: Fair Diagnostics Vital Signs (24Hr): Vital Signs - 24 hr 03/15/20 18:58 03/15/20 20:52 03/16/20 00:00 Temperature 97.8 F 98.1 F Pulse Rate 105 H 70 66 Blood Pressure 132/88 155/83 H 163/96 H 03/16/20 08:36 03/16/20 08:39 03/16/20 08:41 Temperature Pulse Rate 71 71 71 Blood Pressure 140/98 H 140/98 H 140/98 H 03/16/20 08:42 Temperature Pulse Rate 71 Blood Pressure 140/98 H Body Mass Index 25.1 Labs Results: 03/12/20 21:45 Medications Medications Current Medications Generic Name Dose Route Start Last Admin Trade Name Freq PRN Reason Stop Dose Admin Acetaminophen 650 mg 03/13/20 18:11 03/16/20 10:40 Acetaminophen 325 Mg Tablet PO 650 mg Q6H PRN Administration Headache/Pain Mild Scale (1-3) Acetaminophen/Codeine Phosphate 1 tab 03/16/20 13:34 Acetaminophen With Codeine # 3 Tablet PO BID PRN Pain, Moderate (Pain Scale 4-6 Al Hydroxide/Mg Hydroxide 30 ml 03/13/20 18:11 03/14/20 17:06 Magnesium Hydrox/Alum Hydrox 30 Ml Oral.Susp PO 30 ml Q6H PRN Administration Heartburn/Nausea Amlodipine Besylate 10 mg 03/16/20 09:00 03/16/20 08:41 Amlodipine Besylate 5 Mg Tablet PO 10 mg DAILY KATERIN Administration Protocol Folic Acid 1 mg 03/13/20 10:00 03/16/20 08:39 Folic Acid 1 Mg Tablet PO 1 mg DAILY KATERIN Administration Gabapentin 1,200 mg 03/13/20 10:00 03/16/20 08:38 Gabapentin 600 Mg Tablet PO 1,200 mg BID KATERIN Administration Hydrocortisone 1 appl 03/16/20 21:00 Hydrocortisone 1 % Cream 28.35 Gm Tube TOPICAL BID KATERIN Protocol Hydroxyzine HCl 25 mg 03/13/20 18:11 Hydroxyzine Hcl 25 Mg Tablet PO BEDTIME PRN Anxiety Lisinopril 15 mg 03/16/20 09:00 03/16/20 08:39 Lisinopril 5 Mg Tablet PO 15 mg DAILY KATERIN Administration Protocol Loperamide HCl 2 mg 03/14/20 20:30 Loperamide Hcl 2 Mg Capsule PO Q4H PRN Diarrhea Lorazepam 2 mg 03/14/20 10:14 03/16/20 06:52 Lorazepam 1 Mg Tablet PO 2 mg Q4H PRN Administration Alcohol Withdrawal Magnesium Hydroxide 30 ml 03/13/20 18:11 Milk Of Magnesia 30 Ml Oral.Susp PO DAILY PRN Constipation Metoprolol Tartrate 50 mg 03/13/20 10:00 03/16/20 08:42 Metoprolol Tartrate 50 Mg Tablet PO 50 mg BID KATERIN Administration Protocol Mirtazapine 15 mg 03/14/20 21:00 03/15/20 21:01 Mirtazapine 15 Mg Tablet PO 15 mg BEDTIME KATERIN Administration Naltrexone HCl 50 mg 03/14/20 10:15 03/16/20 08:42 Naltrexone Hcl 50 Mg Tablet PO 50 mg DAILY KATERIN Administration Nicotine 14 mg 03/14/20 12:45 03/16/20 08:37 Nicotine 14 Mg Patch.Td24 TRANSDERMA 14 mg DAILY KATERIN Administration Omeprazole 40 mg 03/15/20 06:30 03/16/20 06:49 Omeprazole 40 Mg Capsule.Dr PO 40 mg DAILY@0630 KATERIN Administration Thiamine HCl 100 mg 03/13/20 10:00 03/16/20 08:42 Thiamine Hcl 100 Mg Tablet PO 100 mg DAILY KATERIN Administration Trazodone HCl 50 mg 03/13/20 18:11 Trazodone Hcl 50 Mg Tablet PO BEDTIME PRN Insomnia Allergies Allergies Allergy/AdvReac Type Severity Reaction Status Date / Time Penicillins [PENICILLINS] Allergy Severe HIVES Verified 02/22/20 11:43 SWELLING Assessment & Plan Assessment & Plan (1) Major depressive disorder, recurrent severe without psychotic features: Status: Acute Code(s): F33.2 - Major depressive disorder, recurrent severe without psychotic features Assessment and Plan: CT current treatment plan. Monitor BP Greater than 50% of the session was spent on counseling and/or coordination of c are Patient educated on: diagnosis, medication risk/benefits and substance abuse Informed Consent: further education needed Reason for contiued inpatient stay Substantial Risk for: rapid decompensation
[2020-03-16] MEDS: Hydrocortisone 1 % Cream 28.35 GM TUBE 1 APPL TOPICAL (20:31)
[2020-03-16] MEDS: LORazepam 1 MG TABLET PO (20:32)
[2020-03-16] MEDS: Mirtazapine 15 MG TABLET PO (20:32)
[2020-03-17] VITALS (7 sets, daily range): BP systolic 142–158; BP diastolic 75–106; PULSE 77–100; RESP 16; TEMP 36.1–36.7; O2SAT 95–100
[2020-03-17] MEDS: Omeprazole 40 MG CAPSULE.DR PO (07:07)
[2020-03-17] MEDS: Gabapentin 600 MG TABLET 1200 MG PO ×2 (09:00→21:00)
--- NOTE | 2020-03-17 09:24 | HO.PSYCHPN ---
Subjective Subjective Date of Service: 03/17/20 Reason For Visit: Alcohol Withdrawal Subjective Notes: Conditional Voluntary Interim History: Karl reports that he is feeling much better. He is less anxious. He is working with SW to find a CSS or alternative. His BP remains elevated though he does not have other s/s of WD. CIWA scores are low. Will DC ativan Medication Compliance: Yes Side effects from medications: No Attending Groups: Yes Review of Systems Acute medical concerns: Yes Elevated BP, despite treatment Medical Review of Systems: unchanged Mental Status Exam Mental Status Exam Patient Appearance: Well Grooomed Patient Orientation: Person, Place, Time and Situation Level of Consciousness: Appropriate Patient Behavior: Cooperative Mood Description: Apathetic, Depressed and Flat Affect Description: Depressed and Sad Ability to Follow Directions: Fair Speech Pattern: Appropriate Memory Description: Intact Hallucinations: None Delusions: Not Present Thought Process: Intact and Rumination Thought Content: positive for Intact, negative for Suicidal Ideation and negative for Homicidal Ideation Depressive Symptoms: Difficulty Concentrating Judgement: Fair Diagnostics Vital Signs (24Hr): Vital Signs - 24 hr 03/16/20 15:03 03/16/20 16:00 03/16/20 20:34 Temperature 98.0 F Pulse Rate 88 85 92 Respiratory Rate Blood Pressure 139/86 134/92 H 139/91 H Pulse Oximetry 03/17/20 06:22 Temperature 97 F Pulse Rate 77 Respiratory Rate 16 Blood Pressure 158/105 H Pulse Oximetry 100 Body Mass Index 25.1 Labs Results: 03/12/20 21:45 Medications Medications Current Medications Generic Name Dose Route Start Last Admin Trade Name Sameerq PRN Reason Stop Dose Admin Acetaminophen 650 mg 03/13/20 18:11 03/16/20 10:40 Acetaminophen 325 Mg Tablet PO 650 mg Q6H PRN Administration Headache/Pain Mild Scale (1-3) Acetaminophen/Codeine Phosphate 1 tab 03/16/20 13:34 03/16/20 20:32 Acetaminophen With Codeine # 3 Tablet PO 1 tab BID PRN Administration Pain, Moderate (Pain Scale 4-6 Al Hydroxide/Mg Hydroxide 30 ml 03/13/20 18:11 03/14/20 17:06 Magnesium Hydrox/Alum Hydrox 30 Ml Oral.Susp PO 30 ml Q6H PRN Administration Heartburn/Nausea Amlodipine Besylate 10 mg 03/16/20 09:00 03/16/20 08:41 Amlodipine Besylate 5 Mg Tablet PO 10 mg DAILY KATERIN Administration Protocol Calcium Carbonate 750 mg 03/16/20 21:44 Calcium Carbonate 750 Mg Tab.Chew PO Q6H PRN Heartburn Folic Acid 1 mg 03/13/20 10:00 03/16/20 08:39 Folic Acid 1 Mg Tablet PO 1 mg DAILY KATERIN Administration Gabapentin 1,200 mg 03/13/20 10:00 03/16/20 20:32 Gabapentin 600 Mg Tablet PO 1,200 mg BID KATERIN Administration Hydrocortisone 1 appl 03/16/20 21:00 03/16/20 20:31 Hydrocortisone 1 % Cream 28.35 Gm Tube TOPICAL 1 appl BID KATERIN Administration Protocol Hydroxyzine HCl 25 mg 03/13/20 18:11 Hydroxyzine Hcl 25 Mg Tablet PO BEDTIME PRN Anxiety Lisinopril 15 mg 03/16/20 09:00 03/16/20 08:39 Lisinopril 5 Mg Tablet PO 15 mg DAILY KATERIN Administration Protocol Loperamide HCl 2 mg 03/14/20 20:30 Loperamide Hcl 2 Mg Capsule PO Q4H PRN Diarrhea Lorazepam 1 mg 03/16/20 15:30 03/16/20 20:32 Lorazepam 1 Mg Tablet PO 1 mg Q4H PRN Administration Alcohol Withdrawal Magnesium Hydroxide 30 ml 03/13/20 18:11 Milk Of Magnesia 30 Ml Oral.Susp PO DAILY PRN Constipation Metoprolol Tartrate 50 mg 03/13/20 10:00 03/16/20 20:34 Metoprolol Tartrate 50 Mg Tablet PO 50 mg BID KATERIN Administration Protocol Mirtazapine 15 mg 03/14/20 21:00 03/16/20 20:32 Mirtazapine 15 Mg Tablet PO 15 mg BEDTIME KATERIN Administration Naltrexone HCl 50 mg 03/14/20 10:15 03/16/20 08:42 Naltrexone Hcl 50 Mg Tablet PO 50 mg DAILY KATERIN Administration Nicotine 14 mg 03/14/20 12:45 03/16/20 08:37 Nicotine 14 Mg Patch.Td24 TRANSDERMA 14 mg DAILY KATERIN Administration Omeprazole 40 mg 03/15/20 06:30 03/17/20 07:07 Omeprazole 40 Mg Capsule.Dr PO 40 mg DAILY@0630 KATERIN Administration Thiamine HCl 100 mg 03/13/20 10:00 03/16/20 08:42 Thiamine Hcl 100 Mg Tablet PO 100 mg DAILY KATERIN Administration Trazodone HCl 50 mg 03/13/20 18:11 Trazodone Hcl 50 Mg Tablet PO BEDTIME PRN Insomnia Allergies Allergies Allergy/AdvReac Type Severity Reaction Status Date / Time Penicillins [PENICILLINS] Allergy Severe HIVES Verified 02/22/20 11:43 SWELLING Assessment & Plan Assessment & Plan (1) Major depressive disorder, recurrent severe without psychotic features: Status: Acute Code(s): F33.2 - Major depressive disorder, recurrent severe without psychotic features (2) HTN (hypertension): Status: Acute Code(s): I10 - Essential (primary) hypertension Assessment and Plan: CT current treatment plan Greater than 50% of the session was spent on counseling and/or coordination of care Patient educated on: diagnosis, medication risk/benefits and substance abuse Informed Consent: further education needed Reason for contiued inpatient stay Substantial Risk for: inability to function and rapid decompensation
[2020-03-17] MEDS: Naltrexone HCl 50 MG TABLET PO (09:26)
[2020-03-17] MEDS: Folic Acid 1 MG TABLET PO (09:26)
[2020-03-17] MEDS: Thiamine HCL 100 MG TABLET PO (09:26)
[2020-03-17] MEDS: lisinopriL 5 MG TABLET 15 MG PO (09:27)
[2020-03-17] MEDS: amLODIPine Besylate 5 MG TABLET 10 MG PO (09:27)
[2020-03-17] MEDS: Metoprolol Tartrate 50 MG TABLET PO ×2 (09:27→20:59)
[2020-03-17] MEDS: Nicotine 14 MG PATCH.TD24 TRANSDERMA (09:28)
[2020-03-17] MEDS: Hydrocortisone 1 % Cream 28.35 GM TUBE 1 APPL TOPICAL ×2 (09:32→20:58)
[2020-03-17] MEDS: Calcium Carbonate 750 MG TAB.CHEW PO (18:03)
[2020-03-17] MEDS: Mirtazapine 15 MG TABLET PO (21:01)
[2020-03-17] MEDS: hydrOXYzine HCL 25 MG TABLET PO (21:06)
[2020-03-18 08:00] VITALS: BP 166/103; PULSE 76; TEMP 36.2; O2SAT 99
[2020-03-18] MEDS: Omeprazole 40 MG CAPSULE.DR PO (08:41)
[2020-03-18] MEDS: Nicotine 14 MG PATCH.TD24 TRANSDERMA (08:41)
[2020-03-18] MEDS: Thiamine HCL 100 MG TABLET PO (08:41)
[2020-03-18 08:42] VITALS: BP 166/103; PULSE 76
[2020-03-18] MEDS: Naltrexone HCl 50 MG TABLET PO (08:42)
[2020-03-18] MEDS: lisinopriL 5 MG TABLET 15 MG PO (08:42)
[2020-03-18] MEDS: Metoprolol Tartrate 50 MG TABLET PO ×2 (08:42→20:35)
[2020-03-18 08:43] VITALS: BP 166/103; PULSE 76
[2020-03-18] MEDS: Gabapentin 600 MG TABLET 1200 MG PO ×2 (08:43→20:35)
[2020-03-18] MEDS: amLODIPine Besylate 5 MG TABLET 10 MG PO (08:43)
[2020-03-18] MEDS: Folic Acid 1 MG TABLET PO (08:43)
[2020-03-18] MEDS: Hydrocortisone 1 % Cream 28.35 GM TUBE 1 APPL TOPICAL ×2 (08:49→20:33)
--- NOTE | 2020-03-18 09:06 | P.PNPSI_ITS ---
Subjective Subjective Date of Service: 03/18/20 Reason For Visit: Alcohol Withdrawal Subjective Notes: Conditional Voluntary Interim History: Karl reports that he is feeling much better. He is less anxious. There is a bed at [facility] for tomorrow and SW is coordinating with them about confirming this. His BP remains elevated. I consulted with Dr. Mcneil who suggested increasing Lisinopril. Medication Compliance: Yes Side effects from medications: No Attending Groups: Yes Review of Systems Acute medical concerns: Yes Elevated BP, despite treatment Medical Review of Systems: unchanged Mental Status Exam Mental Status Exam Patient Appearance: Well Grooomed Patient Orientation: Person, Place, Time and Situation Level of Consciousness: Appropriate Patient Behavior: Appropriate and Cooperative Mood Description: Calm Affect Description: Calm Ability to Follow Directions: Fair Speech Pattern: Clear and Appropriate Memory Description: Intact Hallucinations: None Delusions: Not Present Thought Process: Intact Thought Content: positive for Intact, negative for Suicidal Ideation and negative for Homicidal Ideation Depressive Symptoms: Difficulty Concentrating Judgement: Fair Diagnostics Vital Signs (24Hr): Vital Signs - 24 hr 03/17/20 09:27 03/17/20 12:52 03/17/20 16:00 Temperature Pulse Rate 77 94 100 Blood Pressure 158/105 H 148/94 H 148/106 H Pulse Oximetry 95 03/17/20 16:10 03/17/20 20:59 03/18/20 08:00 Temperature 98.0 F 97.1 F Pulse Rate 87 100 76 Blood Pressure 142/75 H 148/106 H 166/103 H Pulse Oximetry 99 03/18/20 08:42 03/18/20 08:43 Temperature Pulse Rate 76 76 Blood Pressure 166/103 H 166/103 H Pulse Oximetry Body Mass Index 25.1 Labs Results: 03/12/20 21:45 Medications Medications Current Medications Generic Name Dose Route Start Last Admin Trade Name Freq PRN Reason Stop Dose Admin Acetaminophen 650 mg 03/13/20 18:11 03/16/20 10:40 Acetaminophen 325 Mg Tablet PO 650 mg Q6H PRN Administration Headache/Pain Mild Scale (1-3) Acetaminophen/Codeine Phosphate 1 tab 03/16/20 13:34 03/17/20 17:01 Acetaminophen With Codeine # 3 Tablet PO 1 tab BID PRN Administration Pain, Moderate (Pain Scale 4-6 Al Hydroxide/Mg Hydroxide 30 ml 03/13/20 18:11 03/14/20 17:06 Magnesium Hydrox/Alum Hydrox 30 Ml Oral.Susp PO 30 ml Q6H PRN Administration Heartburn/Nausea Amlodipine Besylate 10 mg 03/16/20 09:00 03/18/20 08:43 Amlodipine Besylate 5 Mg Tablet PO 10 mg DAILY [facility] Administration Protocol Calcium Carbonate 750 mg 03/16/20 21:44 03/17/20 18:03 Calcium Carbonate 750 Mg Tab.Chew PO 750 mg Q6H PRN Administration Heartburn Folic Acid 1 mg 03/13/20 10:00 03/18/20 08:43 Folic Acid 1 Mg Tablet PO 1 mg DAILY KATERIN Administration Gabapentin 1,200 mg 03/13/20 10:00 03/18/20 08:43 Gabapentin 600 Mg Tablet PO 1,200 mg BID KATERIN Administration Hydrocortisone 1 appl 03/16/20 21:00 03/18/20 08:49 Hydrocortisone 1 % Cream 28.35 Gm Tube TOPICAL 1 appl BID [facility] Administration Protocol Hydroxyzine HCl 25 mg 03/13/20 18:11 03/17/20 21:06 Hydroxyzine Hcl 25 Mg Tablet PO 25 mg BEDTIME PRN Administration Anxiety Lisinopril 15 mg 03/16/20 09:00 03/18/20 08:42 Lisinopril 5 Mg Tablet PO 15 mg DAILY [facility] Administration Protocol Loperamide HCl 2 mg 03/14/20 20:30 Loperamide Hcl 2 Mg Capsule PO Q4H PRN Diarrhea Magnesium Hydroxide 30 ml 03/13/20 18:11 Milk Of Magnesia 30 Ml Oral.Susp PO DAILY PRN Constipation Metoprolol Tartrate 50 mg 03/13/20 10:00 03/18/20 08:42 Metoprolol Tartrate 50 Mg Tablet PO 50 mg BID [facility] Administration Protocol Mirtazapine 15 mg 03/14/20 21:00 03/17/20 21:01 Mirtazapine 15 Mg Tablet PO 15 mg BEDTIME KATERIN Administration Naltrexone HCl 50 mg 03/14/20 10:15 03/18/20 08:42 Naltrexone Hcl 50 Mg Tablet PO 50 mg DAILY KATERIN Administration Nicotine 14 mg 03/14/20 12:45 03/18/20 08:41 Nicotine 14 Mg Patch.Td24 TRANSDERMA 14 mg DAILY KATERIN Administration Omeprazole 40 mg 03/15/20 06:30 03/18/20 08:41 Omeprazole 40 Mg Capsule.Dr PO 40 mg DAILY@0630 KATERIN Administration Thiamine HCl 100 mg 03/13/20 10:00 03/18/20 08:41 Thiamine Hcl 100 Mg Tablet PO 100 mg DAILY KATERIN Administration Trazodone HCl 50 mg 03/13/20 18:11 Trazodone Hcl 50 Mg Tablet PO BEDTIME PRN Insomnia Allergies Allergies Allergy/AdvReac Type Severity Reaction Status Date / Time Penicillins [PENICILLINS] Allergy Severe HIVES Verified 02/22/20 11:43 SWELLING Assessment & Plan Assessment & Plan (1) Major depressive disorder, recurrent severe without psychotic features: Status: Acute Code(s): F33.2 - Major depressive disorder, recurrent severe without psychotic features (2) HTN (hypertension): Qualifiers: Hypertension type: essential hypertension Qualified Code(s): I10 - Essential (primary) hypertension Status: Acute Code(s): I10 - Essential (primary) hypertension Assessment and Plan: CT current psychiatric treatment Increase lisinopril DC in am Greater than 50% of the session was spent on counseling and/or coordination of care Patient educated on: diagnosis, medication risk/benefits and substance abuse Informed Consent: understands Reason for contiued inpatient stay Substantial Risk for: rapid decompensation
[2020-03-18 12:42] VITALS: BP 154/102; PULSE 84
[2020-03-18 18:34] VITALS: BP 149/98; PULSE 97; TEMP 36.6
[2020-03-18] MEDS: Mirtazapine 15 MG TABLET PO (20:34)
[2020-03-18 20:35] VITALS: BP 149/98; PULSE 97
[2020-03-18] MEDS: Acetaminophen 325 MG TABLET 650 MG PO (20:36)
[2020-03-19 06:15] VITALS: BP 140/91; PULSE 74; RESP 16; TEMP 36.6; O2SAT 100
[2020-03-19] MEDS: Omeprazole 40 MG CAPSULE.DR PO (06:23)
[2020-03-19 08:00] VITALS: BP 140/91; PULSE 74; TEMP 36.6; O2SAT 100
[2020-03-19] MEDS: Nicotine 14 MG PATCH.TD24 TRANSDERMA (08:31)
[2020-03-19 08:32] VITALS: BP 140/91; PULSE 74
[2020-03-19] MEDS: Metoprolol Tartrate 50 MG TABLET PO (08:32)
[2020-03-19] MEDS: lisinopriL 10 MG TABLET 30 MG PO (08:32)
[2020-03-19] MEDS: Thiamine HCL 100 MG TABLET PO (08:32)
[2020-03-19] MEDS: Naltrexone HCl 50 MG TABLET PO (08:32)
[2020-03-19] MEDS: Gabapentin 600 MG TABLET 1200 MG PO (08:33)
[2020-03-19] MEDS: Folic Acid 1 MG TABLET PO (08:34)
[2020-03-19 08:35] VITALS: BP 140/91; PULSE 74
[2020-03-19] MEDS: Hydrocortisone 1 % Cream 28.35 GM TUBE 1 APPL TOPICAL (08:35)
[2020-03-19] MEDS: amLODIPine Besylate 5 MG TABLET 10 MG PO (08:35)
--- NOTE | 2020-03-19 09:19 | PM.PSYDC ---
DS: Providers Provider Date of admission: 03/13/20 17:03 Date of discharge: 03/19/20 Primary care physician: Roger Graves MD Attending physician on admission: Osiris Underwood Consults: 03/15/20 09:59 Consult to Hospitalist Routine Consulting Provider: Hospitalist Reason for consultation: Hypertension. Please re-evaluate current treatment to control BP Attending physician on discharge: Osiris Underwood DS: Diagnosis Discharge Diagnosis (1) Major depressive disorder, recurrent severe without psychotic features: Status: Acute (2) HTN (hypertension): Status: Acute (3) Alcohol dependence: Status: Acute DS: Medications Discharge Medications Home Medications: Previous Rx's Medication Instructions Recorded acetaminophen-codeine 1 tab PO BID PRN #15 tab 03/18/20 amlodipine 10 mg PO DAILY #30 tab 03/18/20 calcium carbonate [Tums] 750 mg PO Q6H PRN #30 tab 03/18/20 folic acid 1 mg PO DAILY #30 tab 03/18/20 gabapentin 1,200 mg PO BID #120 tab 03/18/20 hydrocortisone 1 applic TOPICAL BID #25 g 03/18/20 lisinopril 30 mg PO DAILY #90 tab 03/18/20 metoprolol tartrate 50 mg PO BID #60 tab 03/18/20 mirtazapine 15 mg PO BEDTIME #30 tab 03/18/20 naltrexone 50 mg PO DAILY #30 tab 03/18/20 omeprazole 40 mg PO DAILY@0630 #30 cap 03/18/20 thiamine HCl (vitamin B1) 100 mg PO DAILY #30 tab 03/18/20 Discharge Plan Discharge Patient Disposition: [facility] Referrals: Roger Graves MD [Primary Care Provider] - 03/26/20 9:00 am (IN THE OFFICE.) Discharge Medications: New amlodipine 5 mg Tablet 10 mg PO DAILY Qty: 30 RF: 1 lisinopril 10 mg Tablet 30 mg PO DAILY Qty: 90 RF: 1 naltrexone 50 mg Tablet 50 mg PO DAILY Qty: 30 RF: 1 calcium carbonate [Tums] 300 mg (750 mg) Tablet,Chewable 750 mg PO Q6H PRN (Reason: Heartburn) Qty: 30 RF: 1 omeprazole 40 mg Capsule,Delayed Release(Dr/Ec) 40 mg PO DAILY@0630 Qty: 30 RF: 1 hydrocortisone 1 % Cream 1 applic topical BID Qty: 25 RF: 1 mirtazapine 15 mg Tablet 15 mg PO BEDTIME Qty: 30 RF: 1 gabapentin 600 mg Tablet 1,200 mg PO BID Qty: 120 RF: 1 Continued thiamine HCl (vitamin B1) 100 mg tablet 100 mg PO DAILY Qty: 30 RF: 1 metoprolol tartrate 50 mg Tablet 50 mg PO BID Qty: 60 RF: 1 folic acid 1 mg tablet 1 mg PO DAILY Qty: 30 RF: 1 Changed acetaminophen-codeine 1 tab PO BID PRN (Reason: Pain, Moderate) Qty: 15 RF: 1 Discontinued lisinopril 10 mg Tablet 10 mg PO DAILY RF: 0 amlodipine 5 mg Tablet 5 mg PO DAILY Qty: 30 RF: 0 gabapentin 600 mg Tablet 1,200 mg PO BID RF: 0 Discharge Orders: Discharge Order (Routine); Ordered 03/19/20 Ordered By: Osiris Underwood Diet: advance to usual diet Activity on Discharge: As tolerated Discharge Date/Time: 03/19/20 10:55 Other Ambulatory Orders: Basic Metabolic Panel (Routine) Timeframe: 1 Week Facility: [facility] - Location: Laboratory Ordered By: Osiris Underwood Visit Report Forms: Patient Portal Discharge page Care Plan Goals: Remain sober Improve mood Health Concerns: Alcohol use Depressed mood Plan of Treatment: You are being DC to [facility] where treatment will continue Mental Status Exam Mental Status Exam Patient Appearance: Well Grooomed Patient Orientation: Person, Place, Time and Situation Level of Consciousness: Appropriate Patient Behavior: Appropriate and Cooperative Mood Description: Calm Affect Description: Calm Ability to Follow Directions: Fair Speech Pattern: Clear and Appropriate Memory Description: Intact Hallucinations: None Delusions: Not Present Thought Process: Intact Thought Content: positive for Intact, negative for Suicidal Ideation and negative for Homicidal Ideation Depressive Symptoms: Difficulty Concentrating Judgement: Fair Data Data Completed and Pending Completed studies during hospitalization [Text1]: 03/12/20 03/12/20 03/12/20 19:24 21:45 21:45 WBC 4.9 RBC 3.49 L Hgb 12.4 L Hct 35.0 L MCV 100.3 H MCH 35.5 H MCHC 35.4 RDW 13.5 Plt Count 151 L D MPV 9.3 L Immature Gran % (Auto) 0.4 Neut % (Auto) 48.2 Lymph % (Auto) 37.5 [place] % (Auto) 13.7 H Eos % (Auto) 0.0 Baso % (Auto) 0.2 Lymph # (Auto) 1.8 [place] # (Auto) 0.7 Eos # (Auto) 0.0 Baso # (Auto) 0.0 Abs Immat Gran (auto) 0.02 Absolute Neuts (auto) 2.4 Absolute Nucleated RBC 0.000 Nucleated RBC % (auto) 0.0 Urine Opiates Screen Not Detected Ur Barbiturates Screen POSITIVE H Ur Phencyclidine Scrn Not Detected Ur Amphetamines Screen Not Detected U Benzodiazepines Scrn Not Detected Urine Cocaine Screen Not Detected U Marijuana (THC) Screen Not Detected Ethyl Alcohol 95 Coronavirus (PCR) 03/13/20 11:30 WBC RBC Hgb Hct MCV MCH MCHC RDW Plt Count MPV Immature Gran % (Auto) Neut % (Auto) Lymph % (Auto) [place] % (Auto) Eos % (Auto) Baso % (Auto) Lymph # (Auto) [place] # (Auto) Eos # (Auto) Baso # (Auto) Abs Immat Gran (auto) Absolute Neuts (auto) Absolute Nucleated RBC Nucleated RBC % (auto) Urine Opiates Screen Ur Barbiturates Screen Ur Phencyclidine Scrn Ur Amphetamines Screen U Benzodiazepines Scrn Urine Cocaine Screen U Marijuana (THC) Screen Ethyl Alcohol Coronavirus (PCR) NEGATIVE DS: Summary Hospital Course Hospital Course: 45 year old man who was admitted after being referred by [facility] crisis. He had presented to the ER with an increase in SI in the context of depressed mood and alcohol abuse. The individual reports that he has been sleeping in his car after his parents left for [place] and locked him out of the house. He has not been eating or drinking and he has been drinking more. He has been concerned about his BP. He reports that he has been increasingly despondent. Precipitants include his being homeless, lack of support and lack of finances. Upon arrival to the unit he was in mild alcohol WD. Hospital course He was admitted on a CV and placed on 15 minute checks. He had been medically cleared in the ER. He had a history of HTN and this had been managed during a recent stay. He continued to have high readings even after detox. His medications were adjusted in consultation with the hospitalist service. He was placed on remeron for depression and revia for cravings He rapidly recompensated. He was interested in further treatment for his alcohol use. He was referred to and accepted at [facility] to which he was DC. Status at Discharge Functional status at discharge: independent ambulation Overall status at discharge: patient is progressing back to baseline Time Spent with Patient Time attestation: Total time spent providing and/or coordinating discharge services:
== END 2020-03-19 10:55 | DRG 751 ==
LOC: HO.ED 03-13 02:32 → HO.PM5 03-13 17:16
PROVIDERS: Emergency Medicine; Nurse Practitioner Family; Admitting Provider Psychiatry & Neurology Psychiatry; Emergency Provider Internal Medicine; PCP Internal Medicine; Visit Provider Psychiatry & Neurology Psychiatry
DX: F33.2 Major depressive disorder, recurrent severe without psychotic features (principal); R45.851 Suicidal ideations; F10.20 Alcohol dependence, uncomplicated; I10 Essential (primary) hypertension; F17.210 Nicotine dependence, cigarettes, uncomplicated; Z71.6 Tobacco abuse counseling; Z20.828 Contact with and (suspected) exposure to other viral communicable diseases; Z59.0 Homelessness; Z79.899 Other long term (current) drug therapy
CPT/HCPCS: 36415; 80307; 80320; 85025; 93005; 99285; U0003

== ENCOUNTER 2020-11-06 08:17 | Emergency (ER) | payer MEDICAID, SELFPAY ==
--- NOTE | ~2020-11-06 | XR_ITS ---
EXAMINATION: XR KNEE, LEFT CLINICAL INFORMATION: Pain and swelling COMPARISON: None TECHNIQUE: Four views of the left knee. FINDINGS: Bone alignment is normal. No fracture or dislocation is seen. The joint spaces are normal. There is a large joint effusion. XR/XR knee LT 2V IMPRESSION: Large joint effusion otherwise unremarkable exam.
[2020-11-06 08:19] VITALS: BP 139/93; PULSE 113; RESP 139; TEMP 37.3; O2SAT 98; BMI 22.9
[2020-11-06] MEDS: Lidocaine HCl 2 % MPF 5 ML VIAL SUBCUT (09:16)
--- NOTE | 2020-11-06 09:54 | ED.EXTPRO ---
HPI - Extremity Problem General Chief complaint: Extremity Problem Stated complaint: L KNEE SWELLING Time Seen by Provider: 11/06/20 09:06 Source: patient Mode of arrival: ambulatory Limitations: no limitations History of Present Illness HPI Narrative: 45-year-old male here with complaints of left knee swelling and pain for the last 2 days. No injury or trauma. No fevers, chills or recent illness. Difficulty ambulating due to pain Related Data Previous Rx's Medication Instructions Recorded acetaminophen-codeine 1 tab PO BID PRN #15 tab 03/18/20 amlodipine 10 mg PO DAILY #30 tab 03/18/20 calcium carbonate [Tums] 750 mg PO Q6H PRN #30 tab 03/18/20 folic acid 1 mg PO DAILY #30 tab 03/18/20 gabapentin 1,200 mg PO BID #120 tab 03/18/20 hydrocortisone 1 applic TOPICAL BID #25 g 03/18/20 lisinopril 30 mg PO DAILY #90 tab 03/18/20 metoprolol tartrate 50 mg PO BID #60 tab 03/18/20 mirtazapine 15 mg PO BEDTIME #30 tab 03/18/20 naltrexone 50 mg PO DAILY #30 tab 03/18/20 omeprazole 40 mg PO DAILY@0630 #30 cap 03/18/20 thiamine HCl (vitamin B1) 100 mg PO DAILY #30 tab 03/18/20 colchicine 0.6 mg PO DAILY #20 tab 11/06/20 indomethacin 25 mg PO QID #20 cap 11/06/20 Allergies Allergy/AdvReac Type Severity Reaction Status Date / Time Penicillins [PENICILLINS] Allergy Severe HIVES Verified 02/22/20 11:43 SWELLING Review of Systems Review of Systems: Yes all other systems are reviewed and are negative Constitutional: Constitutional: Reports no additional constitutional complaints, Denies body ache(s), Denies chills, Denies fever(s), Denies headache(s) and Denies weakness Eyes: Eyes: Reports no additional eye complaints and Denies change in vision ENT: Reports system reviewed and no additional complaints, except as documented, Denies dizziness, Denies headache(s), Denies nasal congestion, Denies nasal discharge and Denies neck pain Cardiovascular: Cardiovascular: Reports no additional cardiovascular complaints, Denies chest pain, Denies leg edema and Denies dyspnea Respiratory: Respiratory: Reports no additional respiratory complaints, Denies cough and Denies dyspnea Gastrointestinal: Gastrointestinal: Reports no additional gastrointestinal complaints, Denies abdominal pain, Denies diarrhea, Denies nausea and Denies vomiting Genitourinary: Genitourinary: Denies urinary incontinence Musculoskeletal: Musculoskeletal: Reports no additional musculoskeletal complaints, Denies back pain, Reports arthralgias, Reports joint swelling, Denies neck pain, Denies numbness and Denies tingling Integumentary/Breasts: Skin/Breast: Reports system reviewed and no additional complaints, except as docu and Denies rash Neurologic: Reports system reviewed and no additional complaints, except as documented, Denies Abnormal speech present, Denies dizziness, Denies headache(s), Denies numbness, Denies tingling and Denies weakness PMFSH Past Medical History Attestation statement: The following information was validated with the patient. Source: old records reviewed and nursing notes reviewed Medical History Alcohol dependence Cardiomyopathy HTN (hypertension) Pulmonary embolism Tobacco dependence Surgical History S/P hip replacement Social History Social History Household Members: None Housing: Homeless Do you presently have visiting nurse or other home services: No Alcohol intake: current Alcohol intake frequency: 3 or more drinks per day Alcohol type: beer Cigarette Packs Per Day: 0.5 Cigarettes Per Day: 10.0 Second Hand Smoke Exposure: No service: No Sexual orientation: Straight/Heterosexual Physical Exam Vital Signs: Vital Signs: Last Vital Signs Temp 99.2 F 11/06/20 08:19 Pulse 113 H 11/06/20 08:19 Resp 139 H 11/06/20 08:19 BP 139/93 H 11/06/20 08:19 Pulse Ox 98 11/06/20 08:19 Body Mass Index 22.9 Const: General: cooperative, healthy appearing, comfortable and no acute distress Orientation/consciousness: patient oriented x3 Limitations: no limitations HENMT: Head: Yes normal to inspection Ears: hearing grossly normal bilaterally General nose exam: Normal external nose present Face and sinus: Yes normal facial exam Mouth: Normal oral and palatal mucosa present Throat: Yes posterior oropharynx normal Eyes: General: appearance normal, both eyes and all related structures Pupils: Equal, round and reactive pupils present Neck: Neck: Yes normal visual inspection Chest: Chest palpation & inspection: normal inspection of the chest Resp: Effort & Inspection: normal respiratory effort Auscultation: clear to auscultation bilaterally Cardio: Rate: regular rate Rhythm: regular rhythm Peripheral pulses: Peripheral pulses 2+ throughout GI: Inspection: Yes normal to inspection Palpation (GI): Soft to palpation and nontender Auscultation: normal bowel sounds Back/Spine/Pelvis: Thoracic/Lumbar Spine: thoracic and lumbar spine normal to inspection Skin: General skin exam: no rashes or lesions noted Neuro: General: patient oriented x3, no focal motor deficits and normal sensation to monofilament Cranial nerves: Yes Equal, round and reactive pupils present Cognition (Neuro): normal cognition Speech: No Abnormal speech present Gait exam (Neuro): Normal gait present Motor exam (neuro): 5/5 motor strength present throughout Extrem: Other: to the left knee there is a large joint effusion. There is mild warmth but there is no redness. The patient is able to extend the knee with no difficulty. He does have pain with flexion. General: Yes normal to inspection Course Course Course Narrative: 45-year-old male here with atraumatic left knee pain and swelling for the last 2 days. On exam he has a large joint effusion with mild warmth but no redness. No fevers or chills. He does have pain with flexion but is able to extend the knee with no difficulty. Has had difficulty ambulating due to pain. Less likely septic joint however due to impaired mobility will perform joint arthrocentesis. - Reviewed labs. Shows urate crystals likely secondary to underlying gout. WBCs less than 50,000 so less likely septic joint. will start patient on indomethacin, colchicine. Recommended ice, elevation and compression as tolerated. Has cane from home for ambulation. Reviewed worrisome signs and symptoms of when to return to the emergency department. Comfortable discharge home. Procedures Joint Aspiration/Injection Joint Asp./Inject. 1: Time Out Performed: Yes Side of body: left Joint Aspirated: knee Ultrasound Guidance: No Skin Prep: Povidone-Iodine1% Local Anesthetic: lidocaine 2% Amount of anesthesia used (mL): 5 Needle Size Used: 18G Fluid Obtained: turbid Total fluid obtained (mL): 60 Patient Tolerated Procedure: well Complications: none MDM - Extremity (Nontraumatic) Lab Data Labs: Lab Results 11/06/20 Range/Units 10:00 Synovial Source knee Synovial WBC 41.750 X10*3/uL Synovial RBC 0.007 X10*6/uL Synovial Neutrophils 96 % Synovial Monocytes 4 % Imaging Data left knee xray: Attestation: I personally reviewed and interpreted this imaging study as follows: Radiologist's impression: EXAMINATION: XR KNEE, LEFT CLINICAL INFORMATION: Pain and swelling COMPARISON: None TECHNIQUE: Four views of the left knee. FINDINGS: Bone alignment is normal. No fracture or dislocation is seen. The joint spaces are normal. There is a large joint effusion. XR/XR knee LT 2V IMPRESSION: Large joint effusion otherwise unremarkable exam. Discharge Plan Discharge Clinical Impression: Gout, Effusion of knee joint, left Patient Disposition: Home, Self-Care Instructions: Gout (ED), Swollen Knee Joint (ED) Additional Instructions: Your samples of your knee fluid showed no infection. It did show gout Compression bandage intermittently Prescriptions: New colchicine 0.6 mg tablet 0.6 mg PO DAILY Qty: 20 RF: 0 indomethacin 25 mg capsule 25 mg PO QID Qty: 20 RF: 0 No Action amlodipine 5 mg Tablet 10 mg PO DAILY Qty: 30 RF: 1 lisinopril 10 mg Tablet 30 mg PO DAILY Qty: 90 RF: 1 naltrexone 50 mg Tablet 50 mg PO DAILY Qty: 30 RF: 1 calcium carbonate [Tums] 300 mg (750 mg) Tablet,Chewable 750 mg PO Q6H PRN (Reason: Heartburn) Qty: 30 RF: 1 omeprazole 40 mg Capsule,Delayed Release(Dr/Ec) 40 mg PO DAILY@0630 Qty: 30 RF: 1 hydrocortisone 1 % Cream 1 applic topical BID Qty: 25 RF: 1 mirtazapine 15 mg Tablet 15 mg PO BEDTIME Qty: 30 RF: 1 acetaminophen-codeine 1 tab PO BID PRN (Reason: Pain, Moderate) Qty: 15 RF: 1 thiamine HCl (vitamin B1) 100 mg tablet 100 mg PO DAILY Qty: 30 RF: 1 metoprolol tartrate 50 mg Tablet 50 mg PO BID Qty: 60 RF: 1 folic acid 1 mg tablet 1 mg PO DAILY Qty: 30 RF: 1 gabapentin 600 mg Tablet 1,200 mg PO BID Qty: 120 RF: 1 Referrals: Roger Graves MD [Primary Care Provider] - 2 days Discharge Date/Time: 11/06/20 11:29
[2020-11-06 10:11] LABS: Source Synovial Fluid knee
[2020-11-06 10:52] LABS: MN% 7.6 %; PMN% 92.4 %
[2020-11-06 10:53] LABS: RBC Synovial Fluid 0.007 X10*6/uL
[2020-11-06 11:10] LABS: BF Shift QC OK YES; Man Diluent Bkgrd OK YES; Monocytes Synovial Fluid 4 %; Neutrophils Synovial Fluid 96 %
[2020-11-07 07:01] LABS: Glucose Synovial Fluid 131; Total Protein Synovial Fluid 4.9
== END 2020-11-06 11:29 | disposition home or self-care (01) ==
PROVIDERS: Nurse Practitioner Family; Emergency Provider Emergency Medicine Emergency Medical Services; PCP Internal Medicine
DX: M10.9 Gout, unspecified (principal); M25.462 Effusion, left knee; I10 Essential (primary) hypertension; Z86.711 Personal history of pulmonary embolism; Z79.899 Other long term (current) drug therapy
CPT/HCPCS: 20610; 73560; 82945; 84157; 87071; 87073; 87205; 89051; 89060; 99283; 99285

== ENCOUNTER 2020-11-12 07:28 | Outpatient (REF) | payer MEDICAID, SELFPAY ==
--- NOTE | ~2020-11-12 | MR_ITS ---
EXAMINATION: MR LUMBAR SPINE WITHOUT CONTRAST CLINICAL INFORMATION: Spinal stenosis. Left lumbar radiculopathy. Bilateral lower extremity pain, numbness, and weakness. COMPARISON: No relevant prior imaging. TECHNIQUE: MRI of the lumbar spine was obtained using routine sequences without contrast. FINDINGS: Alignment is normal. Vertebral heights are preserved. Intervertebral disc height and signal intensity is maintained at all levels. Annular contours are normal and there is no canal or neuroforaminal compromise. No mass effect on the traversing or foraminal nerve roots within the lumbar spine. The tip of the conus medullaris is located at L1. No mass effect on the conus. Visualized distal cord signal intensity is normal. Limited visualization the retroperitoneal anatomy reveals no abnormal finding. Psoas and paraspinal muscle groups are symmetric. MR/MR lumbar spine wo con IMPRESSION: Normal lumbar spine MRI.
== END 2020-11-12 07:29 | disposition home or self-care (01) ==
LOC: HO.MRI 07:28
PROVIDERS: Visit Provider Psychiatry & Neurology Neurology
DX: M54.16 Radiculopathy, lumbar region (principal)
CPT/HCPCS: 72148

== ENCOUNTER 2021-05-23 12:36 | Inpatient (IN) | payer MEDICARE, MEDICAID, SELFPAY ==
--- NOTE | ~2021-05-23 | CT_ITS ---
EXAMINATION: CT HEAD WITHOUT CONTRAST CT CERVICAL SPINE WITHOUT CONTRAST CLINICAL INFORMATION: Status post fall. Lower extremity weakness. COMPARISON: CT head and cervical spine of 01/21/2020 TECHNIQUE: Multidetector volumetric CT imaging of the head and cervical spine is acquired without intravenous contrast administration. Postprocessing is performed at a dedicated workstation. Multiplanar reformatted images are submitted. This CT scan was performed using dose optimization techniques as appropriate to a performed exam including the following: *Automated exposure control *Adjustment of mA and/or kV according to patient size (this includes techniques or standardized protocols for targeted exams were dose is matched to indication/reason for exam; i.e. extremities or head) *Use of iterative reconstruction technique DLP: 1256 mGy-cm FINDINGS: CT HEAD: There is no evidence of acute intracranial hemorrhage, midline shift or mass effect. [place] to white matter differentiation is well preserved. No evidence of acute territorial infarction or abnormal extra-axial fluid collection. Mild bilateral periventricular patchy low-attenuation changes are noted, likely related to microangiopathy. There is mild global volume loss with proportionate dilatation of the ventricles and cortical sulci, findings are somewhat inappropriate for patient's age, however, are stable compared to previous CT. Recommend clinical correlation. Minimal mucosal thickening in the inferior portion of the left maxillary sinus. Remainder of the visualized paranasal sinuses are clear. Mastoid air cells and middle ear cavities are well aerated. Prominent cerumen is noted in the right external auditory canal. The osseous calvarium is intact without acute abnormality. No evidence of significant calvarial soft tissue swelling or hematoma. CT CERVICAL SPINE: Vertebral body heights and alignment are maintained. Intervertebral disc spaces are well preserved. Posterior elements are intact and in normal alignment. Atlantoaxial and atlantooccipital alignments are maintained. Mild degenerative changes at the atlantoaxial articulation. There is no evidence of significant central canal or neural foraminal stenosis. No evidence of prevertebral soft tissue swelling. Airway is patent. Thyroid gland is unremarkable. Visualized lung apices are clear. CT/CT cervical spine wo con IMPRESSION: 1. No acute intracranial abnormality. Brain volume loss with proportionate dilatation of the ventricles and sulci are similar to that of previous CT, however, somewhat inappropriate for patient's age. Recommend clinical correlation. 2. No evidence of acute fracture or subluxation in the cervical spine.
--- NOTE | ~2021-05-23 | XR_ITS ---
EXAMINATION: XR CHEST CLINICAL INFORMATION: Weakness. COMPARISON: Chest x-ray of 02/22/2020 and 01/21/2020, chest CT of 01/21/2020 TECHNIQUE: Frontal view of the chest was obtained. FINDINGS: The cardiomediastinal silhouette is unchanged with normal cardiac size. The lungs are symmetrically well expanded. There are questionable faint scattered hazy opacities in the right lung. The left lung relatively appears clear. No evidence of pleural effusions, pulmonary edema or pneumothorax. Regional skeleton is intact. Visualized upper abdomen is unremarkable. XR/XR chest 1V IMPRESSION: Questionable faint hazy opacities in the right lung are nonspecific. Recommend clinical correlation for possibility of an infectious/inflammatory process.
[2021-05-23 12:52] VITALS: BP 118/74; BP 138/76; PULSE 128; PULSE 140; RESP 20; TEMP 36; O2SAT 95; O2SAT 98; BMI 20.9
--- NOTE | 2021-05-23 12:53 | ECG_ITS ---
Test Reason : fall Blood Pressure : / mmHG Vent. Rate : 120 BPM Atrial Rate : 120 BPM P-R Int : 146 ms QRS Dur : 082 ms QT Int : 312 ms P-R-T Axes : 033 020 050 degrees QTc Int : 440 ms Sinus tachycardia Otherwise normal ECG When compared with ECG of 13-MAR-2020 16:11, Vent. rate has increased BY 49 BPM Referred By: Vianney Solitario Electronically Signed By:Tod Zelaya
--- NOTE | 2021-05-23 12:55 | ED_ITS ---
HPI - Fall General Chief Complaint: Fall Stated Complaint: STROKE ALERT,FALL,L LEAN,CONFUS X'S DAYS PER GRP H Time Seen by Provider: 05/23/21 12:53 Source: patient, EMS and old records reviewed Mode of arrival: EMS Limitations: no limitations History of Present Illness HPI Narrative: 46-year-old male with a history of alcohol abuse and dependence, history of alcohol withdrawal,hypertension, anxiety, depression, cardiomyopathy, history of spinal stenosis, history of right hip replacement, history of recurrent falls, hx peripheral neuropathy, chronic pain on chronic Tylenol #3 who presents to the ER s/p fall this morning at home. Patient resides in a long-term and reports when he was walking down the hallway he blacked out and both of his legs became weak and gave out on him. He fell to his knees and then all the way down. He denies losing consciousness. It took him a few moments to get up and he had to crawl down the hallway because his legs were weak. He reports a history of similar falls, probably around a dozen in the last few months. He admits to daily ETOH use 4-5 drinks per day, last drink this morning after he fell. He reports pain in his feet and lower legs which is chronic. He denies any headache or neck pain. He reports dizziness and blacking out when he stands up too quickly. MD complaint: fall Onset (ago): minute(s) Fall from: standing Fall witnessed: no Place fall occurred: home Loss of consciousness: none Prolonged down time: no Symptoms prior to fall: other ( blacking out ) Context: history of frequent falls Severity: moderate Associated symptoms (after fall): weakness and lightheaded Related Data Home Medications Medication Instructions Recorded Confirmed acetaminophen 300 mg-codeine 30 mg 1 tab PO TID PRN 05/23/21 05/23/21 tablet amitriptyline 50 mg tablet 150 mg PO BEDTIME 05/23/21 05/23/21 lisinopril 10 mg tablet 1 tab PO DAILY 05/23/21 05/23/21 metoprolol tartrate 50 mg tablet 1 tab PO BID 05/23/21 05/23/21 Previous Rx's Medication Instructions Recorded amlodipine 5 mg tablet 10 mg PO DAILY #30 tab 03/18/20 gabapentin 600 mg tablet 1,200 mg PO BID #120 tab 03/18/20 Allergies Allergy/AdvReac Type Severity Reaction Status Date / Time Penicillins [PENICILLINS] Allergy Severe HIVES Verified 02/22/20 11:43 SWELLING Review of Systems Review of Systems: Constitutional: No Fever, No Chills ENT/Mouth: No sore throat, No Rhinorrhea, No Swallowing Difficulty Eyes: No Eye Pain, No Swelling, No Redness Cardiovascular: No Chest Pain, No SOB, No Orthopnea, No Edema Respiratory: No Cough, No Sputum, No Wheezing, No dyspnea Gastrointestinal: No Nausea, No Vomiting, No Diarrhea, No abdominal Pain Genitourinary: No Dysuria, No Urinary Frequency, No Hematuria Musculoskeletal: No joint pain, No Myalgias Skin: No Skin Lesions, No rash Neuro: + Weakness, No Numbness, + Dizziness, No Headache Psych: No Anxiety/Panic, No Depression Heme/Lymph: No Bruising, No Lymphadenopathy Endocrine: No Polyuria, No Polydipsia PMFSH Past Medical History Medical History Alcohol dependence Cardiomyopathy HTN (hypertension) Pulmonary embolism Tobacco dependence Surgical History S/P hip replacement Social History Social History Household Members: None Housing: Homeless Do you presently have visiting nurse or other home services: No Alcohol intake: current Alcohol intake frequency: 3 or more drinks per day Alcohol type: beer and hard liquor Patient Tobacco Use Status: Former Tobacco user Cigarette Packs Per Day: 0.5 Cigarettes Per Day: 10.0 Second Hand Smoke Exposure: No Use of substances other than those prescribed or required for medical reasons: No Advance Directives: No Advance Directives Information Provided: Yes service: No Sexual orientation: Straight/Heterosexual Physical Exam Vital Signs: Vital Signs: Last Vital Signs Temp 96.8 F 05/23/21 12:52 Pulse 118 H 05/23/21 13:25 Resp 20 05/23/21 12:52 BP 118/74 05/23/21 12:52 Pulse Ox 95 05/23/21 13:25 BMI result Body Mass Index 20.9 Appearance: Alert. Oriented X3. No acute distress. Head: Normocephalic, atraumatic. Eyes: Pupils equal, round and reactive to light. ENT: Pharynx normal. Neck: Normal inspection. Neck supple. CVS: Tachycardic, regular rhythm. Pulses normal. Respiratory: No respiratory distress. Breath sounds normal. Abdomen: Soft and nontender. +BS x4 Skin: Skin warm and dry. Normal skin color. Normal skin turgor. No rashes. Extremities: Atraumatic x4, normal range of motion. No lower extremity edema. Nontender lower extremities. compartments are soft and compressible. No joint tenderness. Pelvis is stable. Neuro: Oriented X 3. No motor deficit. No sensory deficit. Able to lift both legs up off the bed against resistance. Gait not tested due to cervical spine immobilization. Course Course Course Narrative: 46 y/o male with history of alcohol abuse, history of alcohol withdrawal, depression/anxiety, Cardiomyopathy who presents to the ER with an unwitnessed fall today at home. Preceding symptoms included blacking out dizziness and falling to the ground. He denies losing consciousness. He reports only pain in his bilateral feet which is chronic in nature and due to his underlying neuropathy. He is neurologically intact, conversant with no focal deficits. He denies feeling like he is in alcohol withdrawal. His heart rates have come down to the 110s from the 140s for EMS. Will check CT head, neck, metabolic workup, EKG. Concern for alcohol is major contributor here. No evidence of trauma on exam. Reevaluation(s) Reevaluation #1: Lab workup showing a critically elevated lactic acid 6.5 as well as CK 1100. This is concerning for possible seizure activity. Upon repeat interviewing patient does continue to deny loss of consciousness but he isn't completely sure. He denies any tongue biting or incontinence. He has no history of a seizure disorder. His alcohol level is less than 10, concern for possible alcohol withdrawal seizure. His tachycardia, elevated lactic acid are not thought to be due to sepsis at this time. No evidence of infection. Will start phenobarbital protocol and plan for admission. 2nd liter IVF ordered for rhabdomyosis. Reevaluation #2: CT head/neck still pending - dictated put not crossed over. Patient to be admitted. Reevaluation #3: CT head/neck 1. No acute intracranial abnormality. Brain volume loss with proportionate dilatation of the ventricles and sulci are similar to that of previous CT, however, somewhat inappropriate for patient's age. Recommend clinical correlation. ? 2. No evidence of acute fracture or subluxation in the cervical spine. 4pm - Dr. Chappell at the bedside to admit. MDM - Fall Medical Records Attestation: I reviewed the patient's medical records. Lab Data Attestation: I reviewed the patient's lab results. Result diagrams: 05/23/21 13:46 05/23/21 13:46 Labs: Lab Results 05/23/21 05/23/21 05/23/21 Range/Units 13:46 13:46 13:46 WBC 6.9 (4.8-10.8) X10*3/uL RBC 3.73 L (4.60-5.80) X10*6/uL Hgb 13.2 L (14.0-18.0) g/dl Hct 38.2 L (42.0-52.0) % MCV 102.4 H (80.0-98.0) fL MCH 35.4 H (27.0-33.0) pg MCHC 34.6 (31.0-36.0) g/dl RDW 12.3 (11.0-16.0) % Plt Count 78 L (160-400) X10*3/uL MPV 9.1 L (9.4-12.4) fL Immature Gran % (Auto) 0.3 (0.0-0.4) % Neut % (Auto) 86.5 H (45-73) % Lymph % (Auto) 8.5 L (20-40) % Jerome % (Auto) 3.9 (2-11) % Eos % (Auto) 0.4 (0-4) % Baso % (Auto) 0.4 (0-2) % Lymph # (Auto) 0.6 L (1.2-4.9) X10*3/uL Jerome # (Auto) 0.3 (0.1-1.2) X10*3/uL Eos # (Auto) 0.0 (0.0-0.4) X10*3/uL Baso # (Auto) 0.0 (0.0-0.2) X10*3/uL Abs Immat Gran (auto) 0.02 (0.00-0.03) X10*3/uL Absolute Neuts (auto) 6.0 (2.0-8.3) x10*3/uL Absolute Nucleated RBC 0.000 (0.0-0.012) X10*3/uL Nucleated RBC % (auto) 0.0 (0.0-0.2) /100WBC PT (9.9-13.0) SEC INR (0.9-1.1) APTT (24.1-38.0) SEC Sodium 137 (135-145) mmol/L Potassium 4.4 (3.3-5.1) mmol/L Chloride 102 (96-108) mmol/L Carbon Dioxide 19 L (22-29) mmol/L Anion Gap 20 (12-20) BUN 11 (9-16) mg/dL Creatinine 1.28 (0.5-1.4) mg/dL Estim Creat Clear Calc 65.9 Estimated GFR 60 Random Glucose 127 H (60-115) mg/dL Lactic Acid (0.5-2.0) mmol/L Calcium 8.6 (8.4-10.2) mg/dL Magnesium 1.5 L (1.6-2.6) mg/dL Total Bilirubin 2.3 H (0.0-1.0) mg/dL Direct Bilirubin 1.0 H (0.0-0.5) mg/dL AST 135 H (5-37) U/L ALT 75 H (0-40) U/L Alkaline Phosphatase 61 (39-117) U/L Ammonia (13-55) umol/L Total Creatine Kinase 1161 H (38-174) U/L Troponin I High Sens (<3.5-35.0) ng/L B-Natriuretic Peptide (<100) pg/mL Total Protein 7.0 (6.5-8.0) g/dL Albumin 3.7 (3.5-5.0) g/dL Lipase 17 (8-78) U/L TSH (0.32-4.0) uIU/mL Acetaminophen (<30) mcg/mL Ethyl Alcohol mg/dL COVID-19 (AV) Negative (Negative) COVID-19 Clin Com See Note 05/23/21 05/23/21 05/23/21 Range/Units 13:46 13:46 13:46 WBC (4.8-10.8) X10*3/uL RBC (4.60-5.80) X10*6/uL Hgb (14.0-18.0) g/dl Hct (42.0-52.0) % MCV (80.0-98.0) fL MCH (27.0-33.0) pg MCHC (31.0-36.0) g/dl RDW (11.0-16.0) % Plt Count (160-400) X10*3/uL MPV (9.4-12.4) fL Immature Gran % (Auto) (0.0-0.4) % Neut % (Auto) (45-73) % Lymph % (Auto) (20-40) % Jerome % (Auto) (2-11) % Eos % (Auto) (0-4) % Baso % (Auto) (0-2) % Lymph # (Auto) (1.2-4.9) X10*3/uL Jerome # (Auto) (0.1-1.2) X10*3/uL Eos # (Auto) (0.0-0.4) X10*3/uL Baso # (Auto) (0.0-0.2) X10*3/uL Abs Immat Gran (auto) (0.00-0.03) X10*3/uL Absolute Neuts (auto) (2.0-8.3) x10*3/uL Absolute Nucleated RBC (0.0-0.012) X10*3/uL Nucleated RBC % (auto) (0.0-0.2) /100WBC PT 12.3 (9.9-13.0) SEC INR 1.1 (0.9-1.1) APTT 26.7 (24.1-38.0) SEC Sodium (135-145) mmol/L Potassium (3.3-5.1) mmol/L Chloride (96-108) mmol/L Carbon Dioxide (22-29) mmol/L Anion Gap (12-20) BUN (9-16) mg/dL Creatinine (0.5-1.4) mg/dL Estim Creat Clear Calc Estimated GFR Random Glucose (60-115) mg/dL Lactic Acid 6.5 H* (0.5-2.0) mmol/L Calcium (8.4-10.2) mg/dL Magnesium (1.6-2.6) mg/dL Total Bilirubin (0.0-1.0) mg/dL Direct Bilirubin (0.0-0.5) mg/dL AST (5-37) U/L ALT (0-40) U/L Alkaline Phosphatase (39-117) U/L Ammonia (13-55) umol/L Total Creatine Kinase (38-174) U/L Troponin I High Sens 3.9 (<3.5-35.0) ng/L B-Natriuretic Peptide 22 (<100) pg/mL Total Protein (6.5-8.0) g/dL Albumin (3.5-5.0) g/dL Lipase (8-78) U/L TSH (0.32-4.0) uIU/mL Acetaminophen (<30) mcg/mL Ethyl Alcohol mg/dL COVID-19 (AV) (Negative) COVID-19 Clin Com 05/23/21 05/23/21 05/23/21 Range/Units 13:46 13:46 13:46 WBC (4.8-10.8) X10*3/uL RBC (4.60-5.80) X10*6/uL Hgb (14.0-18.0) g/dl Hct (42.0-52.0) % MCV (80.0-98.0) fL MCH (27.0-33.0) pg MCHC (31.0-36.0) g/dl RDW (11.0-16.0) % Plt Count (160-400) X10*3/uL MPV (9.4-12.4) fL Immature Gran % (Auto) (0.0-0.4) % Neut % (Auto) (45-73) % Lymph % (Auto) (20-40) % Jerome % (Auto) (2-11) % Eos % (Auto) (0-4) % Baso % (Auto) (0-2) % Lymph # (Auto) (1.2-4.9) X10*3/uL Jerome # (Auto) (0.1-1.2) X10*3/uL Eos # (Auto) (0.0-0.4) X10*3/uL Baso # (Auto) (0.0-0.2) X10*3/uL Abs Immat Gran (auto) (0.00-0.03) X10*3/uL Absolute Neuts (auto) (2.0-8.3) x10*3/uL Absolute Nucleated RBC (0.0-0.012) X10*3/uL Nucleated RBC % (auto) (0.0-0.2) /100WBC PT (9.9-13.0) SEC INR (0.9-1.1) APTT (24.1-38.0) SEC Sodium (135-145) mmol/L Potassium (3.3-5.1) mmol/L Chloride (96-108) mmol/L Carbon Dioxide (22-29) mmol/L Anion Gap (12-20) BUN (9-16) mg/dL Creatinine (0.5-1.4) mg/dL Estim Creat Clear Calc Estimated GFR Random Glucose (60-115) mg/dL Lactic Acid (0.5-2.0) mmol/L Calcium (8.4-10.2) mg/dL Magnesium (1.6-2.6) mg/dL Total Bilirubin (0.0-1.0) mg/dL Direct Bilirubin (0.0-0.5) mg/dL AST (5-37) U/L ALT (0-40) U/L Alkaline Phosphatase (39-117) U/L Ammonia 38 (13-55) umol/L Total Creatine Kinase (38-174) U/L Troponin I High Sens (<3.5-35.0) ng/L B-Natriuretic Peptide (<100) pg/mL Total Protein (6.5-8.0) g/dL Albumin (3.5-5.0) g/dL Lipase (8-78) U/L TSH 1.05 (0.32-4.0) uIU/mL Acetaminophen 3 (<30) mcg/mL Ethyl Alcohol < 10 mg/dL COVID-19 (AV) (Negative) COVID-19 Clin Com ECG Data Attestation: I personally reviewed and interpreted this ECG as follows: ECG interpretation date: 05/23/21 ECG interpretation time: 14:09 Prior ECG tracings: available for review Interpretation: sinus tachycardia, heart rate 120 beats per minute, normal IN interval, normal QTC, normal QRS, no ST segment elevations or depressions. Critical Care Time Critical Care Time Critical Care Time: Yes Total Critical Care Time: 48 Attestation: I have personally provided critical care time exclusive of time spent on separately billable procedures. Time includes review of lab data, radiology results, discussion with consultants/hospitalists, and monitoring for potential decompensation. Intervention performed as documented. Discharge Plan Discharge Clinical Impression: Acidosis, lactic Rhabdomyolysis Qualifiers: Rhabdomyolysis type: traumatic Encounter type: initial encounter Qualified Code(s): T79.6XXA - Traumatic ischemia of muscle, initial encounter Alcohol dependence Qualifiers: Substance use status: in withdrawal Complication of substance-induced condition: with unspecified complication Qualified Code(s): F10.239 - Alcohol dependence with withdrawal, unspecified Patient Disposition: Admitted As Inpatient
[2021-05-23] MEDS: 0.9 % Sodium Chloride 1,000 ML 999 ML IVCONT ×2 (12:59→14:33)
[2021-05-23 13:25] VITALS: PULSE 118; O2SAT 95
[2021-05-23 13:56] LABS: MANUAL DIFF FLAG NO
[2021-05-23 13:58] LABS: Basophils Percent Auto 0.4 % (0-2); Eosinophils Percent Auto 0.4 % (0-4); Hematocrit 38.2 % (42.0-52.0); Hemoglobin 13.2 g/dl (14.0-18.0); Imm Gran Abs Auto 0.02 X10*3/uL (0.00-0.03); Imm Gran Pct Auto 0.3 % (0.0-0.4); Lymphocytes Absolute Auto 0.6 X10*3/uL (1.2-4.9); Lymphocytes Percent Auto 8.5 % (20-40); Mean Corpuscular HGB Conc 34.6 g/dl (31.0-36.0); Mean Corpuscular Hemoglobin 35.4 pg (27.0-33.0); Mean Corpuscular Volume 102.4 fL (80.0-98.0); Mean Platelet Volume 9.1 fL (9.4-12.4); Monocytes Absolute Auto 0.3 X10*3/uL (0.1-1.2); Monocytes Percent Auto 3.9 % (2-11); Neutrophils Percent Auto 86.5 % (45-73); Red Blood Count 3.73 X10*6/uL (4.60-5.80); Red Cell Distribution Width 12.3 % (11.0-16.0); White Blood Count 6.9 X10*3/uL (4.8-10.8)
[2021-05-23 14:07] LABS: INTERNATIONAL NORM RATIO 1.1 (0.9-1.1); Prothrombin Time 12.3 SEC (9.9-13.0)
[2021-05-23 14:09] LABS: Partial Thromboplastin Time 26.7 SEC (24.1-38.0)
[2021-05-23 14:14] LABS: Ethanol < 10 mg/dL
[2021-05-23 14:17] LABS: COVID-19 Test Negative (Negative); IDNOW Serial# 08D9AD1C
[2021-05-23 14:21] LABS: B Type Natriuretic Peptide 22 pg/mL (<100); Troponin-I High Sensitivity 3.9 ng/L (<3.5-35.0)
[2021-05-23 14:23] LABS: Ammonia 38 umol/L (13-55)
[2021-05-23 14:25] LABS: Alanine Aminotransferase 75 U/L (0-40); Albumin Level 3.7 g/dL (3.5-5.0); Alkaline Phosphatase 61 U/L (39-117); Anion Gap 20 (12-20); Aspartate Amino Transferase 135 U/L (5-37); Bilirubin Total 2.3 mg/dL (0.0-1.0); Blood Urea Nitrogen 11 mg/dL (9-16); Calcium 8.6 mg/dL (8.4-10.2); Carbon Dioxide 19 mmol/L (22-29); Chloride 102 mmol/L (96-108); Creatinine Clr Calc Pharmacy 65.9; Estimated Glomerular Filt Rate 60; Glucose Random 127 mg/dL (60-115); Lipase 17 U/L (8-78); Magnesium 1.5 mg/dL (1.6-2.6); Potassium 4.4 mmol/L (3.3-5.1); Sodium 137 mmol/L (135-145)
[2021-05-23 14:26] LABS: Lactic Acid 6.5 mmol/L (0.5-2.0)
[2021-05-23 14:28] LABS: Platelet Count 78 X10*3/uL (160-400)
[2021-05-23 14:31] LABS: Acetaminophen LAB 3 mcg/mL (<30)
[2021-05-23 14:37] LABS: TSH reflex Free T4 1.05 uIU/mL (0.32-4.0)
--- NOTE | 2021-05-23 15:50 | PHA.MEDREC ---
Pharmacy Consult ? Medication Reconciliation Pharmacy has completed the medication reconciliation.
[2021-05-23 15:52] LABS: Reflex Lactate? Lactic Acid Added
--- NOTE | 2021-05-23 16:39 | PM.IMHP ---
History of Present Illness Date of Service: 05/23/21 Chief Complaint: fall , syncope , alcohol withdrawal 46-year-old male with a history of hypertension and alcohol abuse , hypertension, cardiomyopathy possible, peripheral neuropathy- he came to the hospital today because has brief syncopal episode and fall. As per the patient patient is everyday drinker 6-8 of hard liquor, poor appetite, peripheral neuropathy -he is having brief episodes of near fainting and and certainly his legs give up from last 6 months or so, but before he never passed out. Today he said that he pass out, denies any chest pain shortness of breath or palpitation before after or during the episode. Denies any seizure-like activity. he says he was in [place] are now came back here. in the emergency room has tachycardia mostly sinus in 120 range, also has mild tremors of extremities. he said that he also had 1 drink after he woke up from passing out. Denies any new complaint of chest pain or shortness of breath or abdominal pain or fever or chills or nausea or vomiting Denies any cough Denies any weakness or numbness. Lives [facility]. Social history: Smokes 6-7 cigarettes a day for 20 years, no recreational drug use, alcohol use as above. Family history: Says his father had hypertension. surgeries: Had the hip replacement right side due to avascular necrosis of hip many years ago. Review of Systems Review of Systems: as above. Yes all other systems are reviewed and are negative [facility] Medical History Alcohol dependence Cardiomyopathy HTN (hypertension) Pulmonary embolism Tobacco dependence Surgical History S/P hip replacement Social History Household Members: None Housing: Homeless Do you presently have visiting nurse or other home services: No Alcohol intake: current Alcohol intake frequency: 3 or more drinks per day Alcohol type: beer and hard liquor Patient Tobacco Use Status: Former Tobacco user Cigarette Packs Per Day: 0.5 Cigarettes Per Day: 10.0 Second Hand Smoke Exposure: No Use of substances other than those prescribed or required for medical reasons: No Advance Directives: No Advance Directives Information Provided: Yes service: No Current occupational status: unemployed Sexual orientation: Straight/Heterosexual Meds Allergies Allergy/AdvReac Type Severity Reaction Status Date / Time Penicillins [PENICILLINS] Allergy Severe HIVES Verified 02/22/20 11:43 SWELLING Active Medications: Current Medications Amitriptyline HCl (Amitriptyline Hcl 50 Mg Tablet) 150 mg PO BEDTIME [facility] Amlodipine Besylate (Amlodipine Besylate 10 Mg Tablet) 10 mg PO DAILY [facility]; Protocol Enoxaparin Sodium (Enoxaparin Sodium 40 Mg/0.4 Ml Syringe) 40 mg SUBCUT Q24H [facility] Folic Acid (Folic Acid 1 Mg Tablet) 1 mg PO DAILY [facility] Gabapentin (Gabapentin 600 Mg Tablet) 1,200 mg PO BID [facility] Lisinopril (Lisinopril 10 Mg Tablet) 10 mg PO DAILY [facility]; Protocol Medication (No Benzodiazepines) 1 each MISCELLANE DAILY [facility] Metoprolol Tartrate (Metoprolol Tartrate 50 Mg Tablet) 50 mg PO BID [facility]; Protocol Omeprazole (Omeprazole 20 Mg Capsule.Dr) 20 mg PO DAILY [facility] Pharmacy Consult (Consult Rx Perform Med Rec) 1 each MISCELLANE ONCE PRN PRN Reason: Consult order Phenobarbital (Phenobarbital 15 Mg Tablet) 45 mg PO BID [facility] Stop: 05/25/21 21:01 Phenobarbital (Phenobarbital 30 Mg Tablet) 30 mg PO BID [facility] Stop: 05/27/21 21:01 Phenobarbital (Phenobarbital 15 Mg Tablet) 15 mg PO DAILY [facility] Stop: 05/29/21 09:01 Phenobarbital Sodium (Phenobarbital Sodium 130 Mg/Ml Vial) 1 mg IM 1999,2300 [facility] Stop: 05/23/21 23:01 Sodium Chloride (0.9 % Sodium Chloride Flush 3 Ml Syringe) 3 ml IVFLUSH QSHIFT [facility] Thiamine HCl (Thiamine Hcl 100 Mg Tablet) 100 mg PO DAILY [facility] Home Medications Medication Instructions Recorded Confirmed Last Taken Type acetaminophen 300 mg-codeine 30 mg 1 tab PO TID PRN 05/23/21 05/23/21 05/22/21 History tablet amitriptyline 50 mg tablet 150 mg PO BEDTIME 05/23/21 05/23/21 05/22/21 History lisinopril 10 mg tablet 1 tab PO DAILY 05/23/21 05/23/21 05/22/21 History metoprolol tartrate 50 mg tablet 1 tab PO BID 05/23/21 05/23/21 05/22/21 History Physical Exam Vital Signs and Narrative: Vital Signs: Last Vital Signs Temp 96.8 F 05/23/21 12:52 Pulse 118 H 05/23/21 13:25 Resp 20 05/23/21 12:52 BP 118/74 05/23/21 12:52 Pulse Ox 95 05/23/21 13:25 BMI result Body Mass Index 20.9 physical exam: Appearance: Alert.? Oriented X3.? not in distress.? Eyes: Pupils equal, round and reactive to light.? Sclera nonicteric.? ENT: Pharynx normal.? Moist mucous membranes. cvs: rrr(tachycardia), [id number] . res: clear to auscultation ,no rhonchii or wheezing abd: no rebound or guarding ,nt, bs present. ext pulses present , no cyanosis ,Gait well balanced well coordinated. neuro: axo3 , nonfocal, has tremers. Results Labs CBC and Chem 7: 05/24/21 07:34 05/25/21 06:42 Labs: Laboratory Results - last 24 hr 05/23/21 05/23/21 05/23/21 13:46 13:46 13:46 MCV 102.4 H MCH 35.4 H MCHC 34.6 RDW 12.3 Plt Count 78 L MPV 9.1 L Immature Gran % (Auto) 0.3 Neut % (Auto) 86.5 H Lymph % (Auto) 8.5 L [place] % (Auto) 3.9 Eos % (Auto) 0.4 Baso % (Auto) 0.4 Lymph # (Auto) 0.6 L [place] # (Auto) 0.3 Eos # (Auto) 0.0 Baso # (Auto) 0.0 Abs Immat Gran (auto) 0.02 Absolute Neuts (auto) 6.0 Absolute Nucleated RBC 0.000 Nucleated RBC % (auto) 0.0 PT INR APTT Anion Gap 20 Estim Creat Clear Calc 65.9 Estimated GFR 60 Random Glucose 127 H Lactic Acid Calcium 8.6 Magnesium 1.5 L Total Bilirubin 2.3 H Direct Bilirubin 1.0 H AST 135 H ALT 75 H Alkaline Phosphatase 61 Ammonia Total Creatine Kinase 1161 H Troponin I High Sens B-Natriuretic Peptide Total Protein 7.0 Albumin 3.7 Lipase 17 TSH Acetaminophen Ethyl Alcohol COVID-19 (AV) Negative COVID-19 Clin Com See Note 05/23/21 05/23/21 05/23/21 13:46 13:46 13:46 MCV MCH MCHC RDW Plt Count MPV Immature Gran % (Auto) Neut % (Auto) Lymph % (Auto) [place] % (Auto) Eos % (Auto) Baso % (Auto) Lymph # (Auto) [place] # (Auto) Eos # (Auto) Baso # (Auto) Abs Immat Gran (auto) Absolute Neuts (auto) Absolute Nucleated RBC Nucleated RBC % (auto) PT 12.3 INR 1.1 APTT 26.7 Anion Gap Estim Creat Clear Calc Estimated GFR Random Glucose Lactic Acid 6.5 H* Calcium Magnesium Total Bilirubin Direct Bilirubin AST ALT Alkaline Phosphatase Ammonia Total Creatine Kinase Troponin I High Sens 3.9 B-Natriuretic Peptide 22 Total Protein Albumin Lipase TSH Acetaminophen Ethyl Alcohol COVID-19 (AV) [place] 05/23/21 05/23/21 05/23/21 13:46 13:46 13:46 MCV MCH MCHC RDW Plt Count MPV Immature Gran % (Auto) Neut % (Auto) Lymph % (Auto) [place] % (Auto) Eos % (Auto) Baso % (Auto) Lymph # (Auto) [place] # (Auto) Eos # (Auto) Baso # (Auto) Abs Immat Gran (auto) Absolute Neuts (auto) Absolute Nucleated RBC Nucleated RBC % (auto) PT INR APTT Anion Gap Estim Creat Clear Calc Estimated GFR Random Glucose Lactic Acid Calcium Magnesium Total Bilirubin Direct Bilirubin AST ALT Alkaline Phosphatase Ammonia 38 Total Creatine Kinase Troponin I High Sens B-Natriuretic Peptide Total Protein Albumin Lipase TSH 1.05 Acetaminophen 3 Ethyl Alcohol < 10 COVID-19 (AV) [place] [email or web address] Radiologist's Impressions: Impressions Cervical Spine CT 05/23/21 12:53 IMPRESSION: 1. No acute intracranial abnormality. Brain volume loss with proportionate dilatation of the ventricles and sulci are similar to that of previous CT, however, somewhat inappropriate for patient's age. Recommend clinical correlation. 2. No evidence of acute fracture or subluxation in the cervical spine. Head CT 05/23/21 12:54 IMPRESSION: 1. No acute intracranial abnormality. Brain volume loss with proportionate dilatation of the ventricles and sulci are similar to that of previous CT, however, somewhat inappropriate for patient's age. Recommend clinical correlation. 2. No evidence of acute fracture or subluxation in the cervical spine. Assessment and Plan (1) Peripheral neuropathy: Status: Acute (2) Anxiety: Status: Acute (3) Cardiomyopathy: Status: Acute (4) Rhabdomyolysis: Qualifiers: Encounter type: initial encounter Rhabdomyolysis type: traumatic Qualified Code(s): T79.6XXA - Traumatic ischemia of muscle, initial encounter Status: Acute 46-year-old male came with alcohol withdrawal,syncope. 1. syncope:? multifactorial alcohol use , poor appetite , perpheral neuropathy orthostats tele may need cardio eval 2.htn/ cmp: continue -home meds -bb, amlodipine. 3. anemia/ Thrombocytopenia: possible it will call use Monitor CBC closely 4. irene/rhabdo: continue IV hydration 5. transaminitis: Multifactorial call use and fall elevated CPK monitor closely 6 alcohol withdrawal: elevated lactic acid probably related to alcohol use continue hydration monitor lactic acid 1 more time if trending down then stop following. 7. DVT prophylaxis with subQ Lovenox Above management discussed with patient in detail length he understand andis in agreement with the above plan, time spent 70 minute. Quality Stroke Does the patient have a stroke diagnosis?: No VTE Prior VTE?: No VTE Risk Level:: Medical - moderate - high VTE Device Contraindication: N/A - Device Ordered VTE Drug Contraindication: N/A - Med Ordered
[2021-05-23 17:17] LABS: Lactic Acid 4.3 mmol/L (0.5-2.0)
[2021-05-23] MEDS: Metoprolol Tartrate 50 MG TABLET PO ×2 (17:43→22:36)
[2021-05-23] MEDS: Enoxaparin Sodium 40 MG/0.4 ML SYRINGE SUBCUT (17:43)
[2021-05-23] MEDS: PHENobarbitaL sodium 130 MG/ML VIAL 264 MG IM (17:44)
[2021-05-23 17:48] VITALS: BP 139/95; PULSE 88; O2SAT 96
[2021-05-23 18:58] LABS: Reflex Lactate? Lactic Acid Added
[2021-05-23 19:29] LABS: Reflex Lactate? 2 Y
[2021-05-23 20:34] VITALS: BP 137/90; PULSE 92; RESP 18; O2SAT 97
[2021-05-23 21:20] LABS: Reflex Lactate? 2 Y
[2021-05-23] MEDS: Gabapentin 600 MG TABLET 1200 MG PO (22:35)
[2021-05-23] MEDS: PHENobarbitaL sodium 130 MG/ML VIAL 198 MG IM (22:36)
[2021-05-23 23:04] LABS: Appearance Urine CLEAR; Color Urine YELLOW; Glucose Urine UA 250 MG/DL (NEG); Leukocyte Esterase Urine NEG (NEG); Nitrite Urine NEG (NEG); PH 5.5 (5.0-8.0); Specific Gravity - Urine >= 1.030 (1.005-1.025); UACC Culture Trigger NO; Urine Blood 1+ (NEG); Urine Ketones 5 MG/DL (NEG); Urine Protein NEG (NEG-TRACE)
[2021-05-23 23:11] LABS: Bacteria Urine 1+ /LPF; Squamous Epithelial Cell Urine 1+ /LPF
[2021-05-23 23:21] VITALS: BP 142/97; PULSE 94; RESP 18; O2SAT 99
[2021-05-23 23:25] LABS: Amphetamine Screen Urine Not Detected (Not Detect); Barbiturates, Urine POSITIVE (Not Detect); Benzodiazepines Screen Urine Not Detected (Not Detect); Cannabinoid Screen Urine Not Detected (Not Detect); Cocaine Screen Urine Not Detected (Not Detect); Fentanyl, urine Not Detected (Not Detect); Opiate Screen Urine POSITIVE (Not Detect); Phencyclidine Screen Urine Not Detected (Not Detect)
[2021-05-24] VITALS (11 sets, daily range): BP systolic 110–164; BP diastolic 79–106; PULSE 82–103; RESP 15–20; TEMP 36.4–37.2; O2SAT 86–98
[2021-05-24] MEDS: PHENobarbitaL sodium 130 MG/ML VIAL 198 MG IM (02:18)
--- NOTE | 2021-05-24 04:37 | PC.NURSE ---
Pt sleeping no sign of distress. Will continue to monitor.
[2021-05-24] MEDS: 0.9 % Sodium Chloride Flush 3 ML SYRINGE IVFLUSH ×3 (06:23→16:20)
[2021-05-24] MEDS: Omeprazole 20 MG CAPSULE.DR PO (06:23)
[2021-05-24 08:00] LABS: Hematocrit 37.7 % (42.0-52.0); Hemoglobin 12.8 g/dl (14.0-18.0); Mean Corpuscular Hemoglobin 34.7 pg (27.0-33.0); Mean Corpuscular Volume 102.2 fL (80.0-98.0); Mean Platelet Volume 9.5 fL (9.4-12.4); Platelet Count 74 X10*3/uL (160-400); Red Blood Count 3.69 X10*6/uL (4.60-5.80); White Blood Count 6.7 X10*3/uL (4.8-10.8)
[2021-05-24 08:03] LABS: Cancel Lactic Acid Canceled
--- NOTE | 2021-05-24 08:04 | HO.PM.IMPN ---
Subjective Subjective Date of Service: 05/25/21 Interval History: syncope,alcohol withdrawal, rhabdo Review of Systems feel better Physical Exam Vital Signs: Vital Signs: Last Vital Signs Temp 97.6 F 05/24/21 03:55 Pulse 99 05/24/21 06:13 Resp 19 05/24/21 03:55 BP 114/79 05/24/21 06:13 Pulse Ox 86 L 05/24/21 03:55 BMI result Body Mass Index 20.9 ? Appearance: Alert.? Oriented X3.? not in distress.? cvs: rrr, [id number] . res: clear to auscultation ,no rhonchii or wheezing abd: no rebound or guarding ,nt, bs present. ext pulses present , no cyanosis , feels better. neuro: axo3 , nonfocal, has tremers. Objective Data Active Medications Amitriptyline HCl (Amitriptyline Hcl 50 Mg Tablet) 150 mg PO BEDTIME [facility] Last Admin: 05/23/21 23:47 Dose: Not Given Documented by: ZAKIA Non-Admin Reason: Med Not Available Amlodipine Besylate (Amlodipine Besylate 10 Mg Tablet) 10 mg PO DAILY [facility]; Protocol Enoxaparin Sodium (Enoxaparin Sodium 40 Mg/0.4 Ml Syringe) 40 mg SUBCUT Q24H [facility] Last Admin: 05/23/21 17:43 Dose: 40 mg Documented by: MARIA A Folic Acid (Folic Acid 1 Mg Tablet) 1 mg PO DAILY [facility] Gabapentin (Gabapentin 600 Mg Tablet) 1,200 mg PO BID [facility] Last Admin: 05/23/21 22:35 Dose: 1,200 mg Documented by: ZAKIA Medication (No Benzodiazepines) 1 each MISCELLANE DAILY [facility] Metoprolol Tartrate (Metoprolol Tartrate 50 Mg Tablet) 50 mg PO BID [facility]; Protocol Last Admin: 05/23/21 22:36 Dose: 50 mg Documented by: ZAKIA Omeprazole (Omeprazole 20 Mg Capsule.) 20 mg PO DAILY@0630 [facility] Last Admin: 05/24/21 06:23 Dose: 20 mg Documented by: JAK Pharmacy Consult (Consult Rx Perform Med Rec) 1 each MISCELLANE ONCE PRN PRN Reason: Consult order Phenobarbital (Phenobarbital 15 Mg Tablet) 45 mg PO BID [facility] Stop: 05/25/21 21:01 Phenobarbital (Phenobarbital 30 Mg Tablet) 30 mg PO BID [facility] Stop: 05/27/21 21:01 Phenobarbital (Phenobarbital 15 Mg Tablet) 15 mg PO DAILY [facility] Stop: 05/29/21 09:01 Sodium Chloride (0.9 % Sodium Chloride Flush 3 Ml Syringe) 3 ml IVFLUSH QSHIFT [facility] Last Admin: 05/24/21 06:23 Dose: 3 ml Documented by: JAK Thiamine HCl (Thiamine Hcl 100 Mg Tablet) 100 mg PO DAILY [facility] Labs CBC & Chem 7: 05/24/21 07:34 05/25/21 06:42 Labs: Laboratory Results - last 24 hr 05/23/21 05/23/21 05/23/21 13:46 13:46 13:46 MCV 102.4 H MCH 35.4 H MCHC 34.6 RDW 12.3 Plt Count 78 L MPV 9.1 L Immature Gran % (Auto) 0.3 Neut % (Auto) 86.5 H Lymph % (Auto) 8.5 L [place] % (Auto) 3.9 Eos % (Auto) 0.4 Baso % (Auto) 0.4 Lymph # (Auto) 0.6 L [place] # (Auto) 0.3 Eos # (Auto) 0.0 Baso # (Auto) 0.0 Abs Immat Gran (auto) 0.02 Absolute Neuts (auto) 6.0 Absolute Nucleated RBC 0.000 Nucleated RBC % (auto) 0.0 PT INR APTT Anion Gap 20 Estim Creat Clear Calc 65.9 Estimated GFR 60 Random Glucose 127 H Lactic Acid Lactic Acid F/U @ 2Hr Lactic Acid F/U @ 4Hr Calcium 8.6 Magnesium 1.5 L Total Bilirubin 2.3 H Direct Bilirubin 1.0 H AST 135 H ALT 75 H Alkaline Phosphatase 61 Ammonia Total Creatine Kinase 1161 H Troponin I High Sens B-Natriuretic Peptide Total Protein 7.0 Albumin 3.7 Lipase 17 TSH Urine Color Urine Appearance Urine pH Ur Specific [place] Urine Protein Urine Glucose (UA) Urine Ketones Urine Blood Urine Nitrite Ur Leukocyte Esterase Urine RBC Urine WBC Ur Squamous Epith Cells Urine Bacteria Urine Opiates Screen Urine Fentanyl Screen Acetaminophen Ur Barbiturates Screen Ur Phencyclidine Scrn Ur Amphetamines Screen U Benzodiazepines Scrn Urine Cocaine Screen U Marijuana (THC) Screen Ethyl Alcohol COVID-19 (AV) Negative COVID-19 Clin Com See Note 01/16/22 01/16/22 01/16/22 13:46 13:46 13:46 MCV MCH MCHC RDW Plt Count MPV Immature Gran % (Auto) Neut % (Auto) Lymph % (Auto) [place] % (Auto) Eos % (Auto) Baso % (Auto) Lymph # (Auto) [place] # (Auto) Eos # (Auto) Baso # (Auto) Abs Immat Gran (auto) Absolute Neuts (auto) Absolute Nucleated RBC Nucleated RBC % (auto) PT 12.3 INR 1.1 APTT 26.7 Anion Gap Estim Creat Clear Calc Estimated GFR Random Glucose Lactic Acid 6.5 H* Lactic Acid F/U @ 2Hr Lactic Acid F/U @ 4Hr Calcium Magnesium Total Bilirubin Direct Bilirubin AST ALT Alkaline Phosphatase Ammonia Total Creatine Kinase Troponin I High Sens 3.9 B-Natriuretic Peptide 22 Total Protein Albumin Lipase TSH Urine Color Urine Appearance Urine pH Ur Specific [place]over Urine Protein Urine Glucose (UA) Urine Ketones Urine Blood Urine Nitrite Ur Leukocyte Esterase Urine RBC Urine WBC Ur Squamous Epith Cells Urine Bacteria Urine Opiates Screen Urine Fentanyl Screen Acetaminophen Ur Barbiturates Screen Ur Phencyclidine Scrn Ur Amphetamines Screen U Benzodiazepines Scrn Urine Cocaine Screen U Marijuana (THC) Screen Ethyl Alcohol COVID-19 (AV) COVID-19 Clin Com 05/23/21 05/23/21 05/23/21 13:46 13:46 13:46 MCV MCH MCHC RDW Plt Count MPV Immature Gran % (Auto) Neut % (Auto) Lymph % (Auto) [place] % (Auto) Eos % (Auto) Baso % (Auto) Lymph # (Auto) [place] # (Auto) Eos # (Auto) Baso # (Auto) Abs Immat Gran (auto) Absolute Neuts (auto) Absolute Nucleated RBC Nucleated RBC % (auto) PT INR APTT Anion Gap Estim Creat Clear Calc Estimated GFR Random Glucose Lactic Acid Lactic Acid F/U @ 2Hr Lactic Acid F/U @ 4Hr Calcium Magnesium Total Bilirubin Direct Bilirubin AST ALT Alkaline Phosphatase Ammonia 38 Total Creatine Kinase Troponin I High Sens B-Natriuretic Peptide Total Protein Albumin Lipase TSH 1.05 Urine Color Urine Appearance Urine pH Ur Specific [place] Urine Protein Urine Glucose (UA) Urine Ketones Urine Blood Urine Nitrite Ur Leukocyte Esterase Urine RBC Urine WBC Ur Squamous Epith Cells Urine Bacteria Urine Opiates Screen Urine Fentanyl Screen Acetaminophen 3 Ur Barbiturates Screen Ur Phencyclidine Scrn Ur Amphetamines Screen U Benzodiazepines Scrn Urine Cocaine Screen U Marijuana (THC) Screen Ethyl Alcohol < 10 COVID-19 (AV) COVID-19 [employer] 05/23/21 05/23/21 05/23/21 16:53 17:26 19:17 MCV MCH MCHC RDW Plt Count MPV Immature Gran % (Auto) Neut % (Auto) Lymph % (Auto) [place] % (Auto) Eos % (Auto) Baso % (Auto) Lymph # (Auto) [place] # (Auto) Eos # (Auto) Baso # (Auto) Abs Immat Gran (auto) Absolute Neuts (auto) Absolute Nucleated RBC Nucleated RBC % (auto) PT INR APTT Anion Gap Estim Creat Clear Calc Estimated GFR Random Glucose Lactic Acid 4.3 H* Lactic Acid F/U @ 2Hr 4.0 H* 6.0 H* Lactic Acid F/U @ 4Hr Calcium Magnesium Total Bilirubin Direct Bilirubin AST ALT Alkaline Phosphatase Ammonia Total Creatine Kinase Troponin I High Sens B-Natriuretic Peptide Total Protein Albumin Lipase TSH Urine Color Urine Appearance Urine pH Ur Specific [place] Urine Protein Urine Glucose (UA) Urine Ketones Urine Blood Urine Nitrite Ur Leukocyte Esterase Urine RBC Urine WBC Ur Squamous Epith Cells Urine Bacteria Urine Opiates Screen Urine Fentanyl Screen Acetaminophen Ur Barbiturates Screen Ur Phencyclidine Scrn Ur Amphetamines Screen U Benzodiazepines Scrn Urine Cocaine Screen U Marijuana (THC) Screen Ethyl Alcohol COVID-19 (AV) COVID-19 [employer] 05/23/21 05/23/21 05/23/21 21:33 22:57 22:57 MCV MCH MCHC RDW Plt Count MPV Immature Gran % (Auto) Neut % (Auto) Lymph % (Auto) [place] % (Auto) Eos % (Auto) Baso % (Auto) Lymph # (Auto) [place] # (Auto) Eos # (Auto) Baso # (Auto) Abs Immat Gran (auto) Absolute Neuts (auto) Absolute Nucleated RBC Nucleated RBC % (auto) PT INR APTT Anion Gap Estim Creat Clear Calc Estimated GFR Random Glucose Lactic Acid Lactic Acid F/U @ 2Hr Lactic Acid F/U @ 4Hr Cancelled Calcium Magnesium Total Bilirubin Direct Bilirubin AST ALT Alkaline Phosphatase Ammonia Total Creatine Kinase Troponin I High Sens B-Natriuretic Peptide Total Protein Albumin Lipase TSH Urine Color YELLOW Urine Appearance CLEAR Urine pH 5.5 Ur Specific [place] >= 1.030 H Urine Protein NEG Urine Glucose (UA) 250 H Urine Ketones 5 Urine Blood 1+ H Urine Nitrite NEG Ur Leukocyte Esterase NEG Urine RBC 1-4 Urine WBC 1-4 Ur Squamous Epith Cells 1+ Urine Bacteria 1+ Urine Opiates Screen POSITIVE H Urine Fentanyl Screen Not Detected Acetaminophen Ur Barbiturates Screen POSITIVE H Ur Phencyclidine Scrn Not Detected Ur Amphetamines Screen Not Detected U Benzodiazepines Scrn Not Detected Urine Cocaine Screen Not Detected U Marijuana (THC) Screen Not Detected Ethyl Alcohol COVID-19 (AV) COVID-19 [employer] Com 05/24/21 07:34 MCV 102.2 H MCH 34.7 H MCHC 34.0 RDW 12.0 Plt Count 74 L MPV 9.5 Immature Gran % (Auto) Neut % (Auto) Lymph % (Auto) [place] % (Auto) Eos % (Auto) Baso % (Auto) Lymph # (Auto) [place] # (Auto) Eos # (Auto) Baso # (Auto) Abs Immat Gran (auto) Absolute Neuts (auto) Absolute Nucleated RBC 0.000 Nucleated RBC % (auto) 0.0 PT INR APTT Anion Gap Estim Creat Clear Calc Estimated GFR Random Glucose Lactic Acid Lactic Acid F/U @ 2Hr Lactic Acid F/U @ 4Hr Calcium Magnesium Total Bilirubin Direct Bilirubin AST ALT Alkaline Phosphatase Ammonia Total Creatine Kinase Troponin I High Sens B-Natriuretic Peptide Total Protein Albumin Lipase TSH Urine Color Urine Appearance Urine pH Ur Specific [place] Urine Protein Urine Glucose (UA) Urine Ketones Urine Blood Urine Nitrite Ur Leukocyte Esterase Urine RBC Urine WBC Ur Squamous Epith Cells Urine Bacteria Urine Opiates Screen Urine Fentanyl Screen Acetaminophen Ur Barbiturates Screen Ur Phencyclidine Scrn Ur Amphetamines Screen U Benzodiazepines Scrn Urine Cocaine Screen U Marijuana (THC) Screen Ethyl Alcohol COVID-19 (AV) COVID-19 Clin Com Assessment and Plan (1) Cardiomyopathy: Status: Acute (2) Rhabdomyolysis: Status: Acute Assessment and Plan: 46-year-old male came with alcohol withdrawal,syncope. 1. syncope:? multifactorial alcohol use , poor appetite , perpheral neuropathy orthostats pending tele-seems fine still feels dizziness with standing -niru dd gentle hydration may need cardio eval 2.htn/ cmp: continue -home meds -bb, amlodipine. 3. anemia/ ? Thrombocytopenia: possible it will call use ? Monitor CBC closely 4. irene/rhabdo: rhabdo worsening cpk going up from 100-4000 ?adjust IV hydration nephro eval 5.? transaminitis:? Multifactorial call use and fall elevated CPK ?monitor closely ?6 alcohol withdrawal: ? elevated lactic acid probably related to alcohol use ?continue hydration ?monitor lactic acid 1 more time if trending down then stop following. ? 7. DVT prophylaxis with subQ Lovenox Quality Stroke Does the patient have a stroke diagnosis?: No VTE Prior VTE?: No VTE Risk Level:: Medical - moderate - high VTE Device Contraindication: N/A - Device Ordered VTE Drug Contraindication: N/A - Med Ordered
[2021-05-24 08:08] LABS: Anion Gap 13 (12-20); Blood Urea Nitrogen 11 mg/dL (9-16); Calcium 8.7 mg/dL (8.4-10.2); Carbon Dioxide 28 mmol/L (22-29); Chloride 101 mmol/L (96-108); Creatinine Clr Calc Pharmacy 86.1; Estimated Glomerular Filt Rate > 60; Glucose Random 104 mg/dL (60-115); Potassium 3.7 mmol/L (3.3-5.1); Sodium 138 mmol/L (135-145)
--- NOTE | 2021-05-24 09:36 | P.CONCA_ITS ---
History of Present Illness History of Present Illness Date of Service: 05/24/21 Requesting physician: Brett Chappell Chief complaint: balance issues, cardiomyopathy Narrative: 46-year-old gentleman with known history of alcoholism and cardiomyopathy. He also has peripheral neuropathy and has been on high doses of gabapentin. Is presenting primarily for balance issues. He said when he tries to walk he gets off balance and tends to fall to left-sided. He continues to drink 3-4 beers a day. He has known background of cardiomyopathy and breast whether these symptoms are related to cardiomyopathy and heart failure. He is denying any chest pain or shortness of breath at this stage. [facility] Past Medical History Medical History Alcohol dependence Cardiomyopathy HTN (hypertension) Pulmonary embolism Tobacco dependence Surgical History Surgical History S/P hip replacement Social History Social History Household Members: None Housing: Homeless Do you presently have visiting nurse or other home services: No Alcohol intake: current Alcohol intake frequency: 3 or more drinks per day Alcohol type: beer and hard liquor Patient Tobacco Use Status: Former Tobacco user Cigarette Packs Per Day: 0.5 Cigarettes Per Day: 10.0 Second Hand Smoke Exposure: No Use of substances other than those prescribed or required for medical reasons: No Advance Directives: No Advance Directives Information Provided: Yes service: No Current occupational status: unemployed Sexual orientation: Straight/Heterosexual Meds Allergies Allergy/AdvReac Type Severity Reaction Status Date / Time Penicillins [PENICILLINS] Allergy Severe HIVES Verified 02/22/20 11:43 SWELLING Active Medications: Current Medications Amitriptyline HCl (Amitriptyline Hcl 50 Mg Tablet) 150 mg PO BEDTIME [facility] Last Admin: 05/23/21 23:47 Dose: Not Given Documented by: Amlodipine Besylate (Amlodipine Besylate 10 Mg Tablet) 10 mg PO DAILY [facility]; Protocol Enoxaparin Sodium (Enoxaparin Sodium 40 Mg/0.4 Ml Syringe) 40 mg SUBCUT Q24H [facility] Last Admin: 05/23/21 17:43 Dose: 40 mg Documented by: Folic Acid (Folic Acid 1 Mg Tablet) 1 mg PO DAILY [facility] Gabapentin (Gabapentin 600 Mg Tablet) 1,200 mg PO BID [facility] Last Admin: 05/23/21 22:35 Dose: 1,200 mg Documented by: Medication (No Benzodiazepines) 1 each MISCELLANE DAILY [facility] Metoprolol Tartrate (Metoprolol Tartrate 50 Mg Tablet) 50 mg PO BID KATERIN; Protoc ol Last Admin: 05/23/21 22:36 Dose: 50 mg Documented by: Omeprazole (Omeprazole 20 Mg Capsule.Dr) 20 mg PO DAILY@0630 [facility] Last Admin: 05/24/21 06:23 Dose: 20 mg Documented by: Pharmacy Consult (Consult Rx Perform Med Rec) 1 each MISCELLANE ONCE PRN PRN Reason: Consult order Phenobarbital (Phenobarbital 15 Mg Tablet) 45 mg PO BID [facility] Stop: 05/25/21 21:01 Phenobarbital (Phenobarbital 30 Mg Tablet) 30 mg PO BID [facility] Stop: 05/27/21 21:01 Phenobarbital (Phenobarbital 15 Mg Tablet) 15 mg PO DAILY [facility] Stop: 05/29/21 09:01 Sodium Chloride (0.9 % Sodium Chloride Flush 3 Ml Syringe) 3 ml IVFLUSH QSHIFT [facility] Last Admin: 05/24/21 08:56 Dose: 3 ml Documented by: Thiamine HCl (Thiamine Hcl 100 Mg Tablet) 100 mg PO DAILY [facility] Home Medications Medication Instructions Recorded Confirmed Last Taken Type acetaminophen 300 mg-codeine 30 mg 1 tab PO TID PRN 05/23/21 05/23/21 05/22/21 History tablet amitriptyline 50 mg tablet 150 mg PO BEDTIME 05/23/21 05/23/21 05/22/21 History lisinopril 10 mg tablet 1 tab PO DAILY 05/23/21 05/23/21 05/22/21 History metoprolol tartrate 50 mg tablet 1 tab PO BID 05/23/21 05/23/21 05/22/21 History Physical Exam Vital Signs: Vital Signs: Last Vital Signs Temp 97.6 F 05/24/21 03:55 Pulse 97 05/24/21 08:16 Resp 19 05/24/21 03:55 BP 110/80 05/24/21 08:16 Pulse Ox 86 L 05/24/21 03:55 BMI result Body Mass Index 20.9 GENERAL APPEARANCE: in no acute distress, pleasant. NECK: no carotid bruit, no jugular venous distention. SKIN: no suspicious lesions, warm and dry. HEART: no murmurs, regular rate and rhythm. LUNGS: clear to auscultation bilaterally. ABDOMEN: soft, nontender. EXTREMITIES: no edema. PERIPHERAL PULSES: equal. NEUROLOGIC: No gross deficits, AAO X 3 Objective Labs and Meds Result diagrams: 05/24/21 07:34 05/24/21 07:34 Lab results: Laboratory Results - last 24 hr 05/23/21 05/23/21 05/23/21 13:46 13:46 13:46 WBC 6.9 RBC 3.73 L Hgb 13.2 L Hct 38.2 L MCV 102.4 H MCH 35.4 H MCHC 34.6 RDW 12.3 Plt Count 78 L MPV 9.1 L Immature Gran % (Auto) 0.3 Neut % (Auto) 86.5 H Lymph % (Auto) 8.5 L [place] % (Auto) 3.9 Eos % (Auto) 0.4 Baso % (Auto) 0.4 Lymph # (Auto) 0.6 L [place] # (Auto) 0.3 Eos # (Auto) 0.0 Baso # (Auto) 0.0 Abs Immat Gran (auto) 0.02 Absolute Neuts (auto) 6.0 Absolute Nucleated RBC 0.000 Nucleated RBC % (auto) 0.0 PT INR APTT Sodium 137 Potassium 4.4 Chloride 102 Carbon Dioxide 19 L Anion Gap 20 BUN 11 Creatinine 1.28 Estim Creat Clear Calc 65.9 Estimated GFR 60 Random Glucose 127 H Lactic Acid Lactic Acid F/U @ 2Hr Lactic Acid F/U @ 4Hr Calcium 8.6 Magnesium 1.5 L Total Bilirubin 2.3 H Direct Bilirubin 1.0 H AST 135 H ALT 75 H Alkaline Phosphatase 61 Ammonia Total Creatine Kinase 1161 H Troponin I High Sens B-Natriuretic Peptide Total Protein 7.0 Albumin 3.7 Lipase 17 TSH Urine Color Urine Appearance Urine pH Ur Specific [place] Urine Protein Urine Glucose (UA) Urine Ketones Urine Blood Urine Nitrite Ur Leukocyte Esterase Urine RBC Urine WBC Ur Squamous Epith Cells Urine Bacteria Urine Opiates Screen Urine Fentanyl Screen Acetaminophen Ur Barbiturates Screen Ur Phencyclidine Scrn Ur Amphetamines Screen U Benzodiazepines Scrn Urine Cocaine Screen U Marijuana (THC) Screen Ethyl Alcohol COVID-19 (AV) Negative COVID-19 Clin Com See Note 05/23/21 05/23/21 05/23/21 13:46 13:46 13:46 WBC RBC Hgb Hct MCV MCH MCHC RDW Plt Count MPV Immature Gran % (Auto) Neut % (Auto) Lymph % (Auto) [place] % (Auto) Eos % (Auto) Baso % (Auto) Lymph # (Auto) [place] # (Auto) Eos # (Auto) Baso # (Auto) Abs Immat Gran (auto) Absolute Neuts (auto) Absolute Nucleated RBC Nucleated RBC % (auto) PT 12.3 INR 1.1 APTT 26.7 Sodium Potassium Chloride Carbon Dioxide Anion Gap BUN Creatinine Estim Creat Clear Calc Estimated GFR Random Glucose Lactic Acid 6.5 H* Lactic Acid F/U @ 2Hr Lactic Acid F/U @ 4Hr Calcium Magnesium Total Bilirubin Direct Bilirubin AST ALT Alkaline Phosphatase Ammonia Total Creatine Kinase Troponin I High Sens 3.9 B-Natriuretic Peptide 22 Total Protein Albumin Lipase TSH Urine Color Urine Appearance Urine pH Ur Specific [place] Urine Protein Urine Glucose (UA) Urine Ketones Urine Blood Urine Nitrite Ur Leukocyte Esterase Urine RBC Urine WBC Ur Squamous Epith Cells Urine Bacteria Urine Opiates Screen Urine Fentanyl Screen Acetaminophen Ur Barbiturates Screen Ur Phencyclidine Scrn Ur Amphetamines Screen U Benzodiazepines Scrn Urine Cocaine Screen U Marijuana (THC) Screen Ethyl Alcohol COVID-19 (AV) COVID-19 Clin Com 05/23/21 05/23/21 05/23/21 13:46 13:46 13:46 WBC RBC Hgb Hct MCV MCH MCHC RDW Plt Count MPV Immature Gran % (Auto) Neut % (Auto) Lymph % (Auto) [place] % (Auto) Eos % (Auto) Baso % (Auto) Lymph # (Auto) [place] # (Auto) Eos # (Auto) Baso # (Auto) Abs Immat Gran (auto) Absolute Neuts (auto) Absolute Nucleated RBC Nucleated RBC % (auto) PT INR APTT Sodium Potassium Chloride Carbon Dioxide Anion Gap BUN Creatinine Estim Creat Clear Calc Estimated GFR Random Glucose Lactic Acid Lactic Acid F/U @ 2Hr Lactic Acid F/U @ 4Hr Calcium Magnesium Total Bilirubin Direct Bilirubin AST ALT Alkaline Phosphatase Ammonia 38 Total Creatine Kinase Troponin I High Sens B-Natriuretic Peptide Total Protein Albumin Lipase TSH 1.05 Urine Color Urine Appearance Urine pH Ur Specific [place] Urine Protein Urine Glucose (UA) Urine Ketones Urine Blood Urine Nitrite Ur Leukocyte Esterase Urine RBC Urine WBC Ur Squamous Epith Cells Urine Bacteria Urine Opiates Screen Urine Fentanyl Screen Acetaminophen 3 Ur Barbiturates Screen Ur Phencyclidine Scrn Ur Amphetamines Screen U Benzodiazepines Scrn Urine Cocaine Screen U Marijuana (THC) Screen Ethyl Alcohol < 10 COVID-19 (AV) COVID-19 sones 05/23/21 05/23/21 05/23/21 16:53 17:26 19:17 WBC RBC Hgb Hct MCV MCH MCHC RDW Plt Count MPV Immature Gran % (Auto) Neut % (Auto) Lymph % (Auto) [place] % (Auto) Eos % (Auto) Baso % (Auto) Lymph # (Auto) [place] # (Auto) Eos # (Auto) Baso # (Auto) Abs Immat Gran (auto) Absolute Neuts (auto) Absolute Nucleated RBC Nucleated RBC % (auto) PT INR APTT Sodium Potassium Chloride Carbon Dioxide Anion Gap BUN Creatinine Estim Creat Clear Calc Estimated GFR Random Glucose Lactic Acid 4.3 H* Lactic Acid F/U @ 2Hr 4.0 H* 6.0 H* Lactic Acid F/U @ 4Hr Calcium Magnesium Total Bilirubin Direct Bilirubin AST ALT Alkaline Phosphatase Ammonia Total Creatine Kinase Troponin I High Sens B-Natriuretic Peptide Total Protein Albumin Lipase TSH Urine Color Urine Appearance Urine pH Ur Specific [place] Urine Protein Urine Glucose (UA) Urine Ketones Urine Blood Urine Nitrite Ur Leukocyte Esterase Urine RBC Urine WBC Ur Squamous Epith Cells Urine Bacteria Urine Opiates Screen Urine Fentanyl Screen Acetaminophen Ur Barbiturates Screen Ur Phencyclidine Scrn Ur Amphetamines Screen U Benzodiazepines Scrn Urine Cocaine Screen U Marijuana (THC) Screen Ethyl Alcohol COVID-19 (AV) COVID-19 sones 05/23/21 05/23/21 05/23/21 21:33 22:57 22:57 WBC RBC Hgb Hct MCV MCH MCHC RDW Plt Count MPV Immature Gran % (Auto) Neut % (Auto) Lymph % (Auto) [place] % (Auto) Eos % (Auto) Baso % (Auto) Lymph # (Auto) [place] # (Auto) Eos # (Auto) Baso # (Auto) Abs Immat Gran (auto) Absolute Neuts (auto) Absolute Nucleated RBC Nucleated RBC % (auto) PT INR APTT Sodium Potassium Chloride Carbon Dioxide Anion Gap BUN Creatinine Estim Creat Clear Calc Estimated GFR Random Glucose Lactic Acid Lactic Acid F/U @ 2Hr Lactic Acid F/U @ 4Hr Cancelled Calcium Magnesium Total Bilirubin Direct Bilirubin AST ALT Alkaline Phosphatase Ammonia Total Creatine Kinase Troponin I High Sens B-Natriuretic Peptide Total Protein Albumin Lipase TSH Urine Color YELLOW Urine Appearance CLEAR Urine pH 5.5 Ur Specific [place] >= 1.030 H Urine Protein NEG Urine Glucose (UA) 250 H Urine Ketones 5 Urine Blood 1+ H Urine Nitrite NEG Ur Leukocyte Esterase NEG Urine RBC 1-4 Urine WBC 1-4 Ur Squamous Epith Cells 1+ Urine Bacteria 1+ Urine Opiates Screen POSITIVE H Urine Fentanyl Screen Not Detected Acetaminophen Ur Barbiturates Screen POSITIVE H Ur Phencyclidine Scrn Not Detected Ur Amphetamines Screen Not Detected U Benzodiazepines Scrn Not Detected Urine Cocaine Screen Not Detected U Marijuana (THC) Screen Not Detected Ethyl Alcohol COVID-19 (AV) COVID-[place] 05/24/21 05/24/21 07:34 07:34 WBC 6.7 RBC 3.69 L Hgb 12.8 L Hct 37.7 L MCV 102.2 H MCH 34.7 H MCHC 34.0 RDW 12.0 Plt Count 74 L MPV 9.5 Immature Gran % (Auto) Neut % (Auto) Lymph % (Auto) [place] % (Auto) Eos % (Auto) Baso % (Auto) Lymph # (Auto) [place] # (Auto) Eos # (Auto) Baso # (Auto) Abs Immat Gran (auto) Absolute Neuts (auto) Absolute Nucleated RBC 0.000 Nucleated RBC % (auto) 0.0 PT INR APTT Sodium 138 Potassium 3.7 Chloride 101 Carbon Dioxide 28 Anion Gap 13 BUN 11 Creatinine 0.98 Estim Creat Clear Calc 86.1 Estimated GFR > 60 Random Glucose 104 Lactic Acid Lactic Acid F/U @ 2Hr Lactic Acid F/U @ 4Hr Calcium 8.7 Magnesium Total Bilirubin Direct Bilirubin AST ALT Alkaline Phosphatase Ammonia Total Creatine Kinase Troponin I High Sens B-Natriuretic Peptide Total Protein Albumin Lipase TSH Urine Color Urine Appearance Urine pH Ur Specific [place] Urine Protein Urine Glucose (UA) Urine Ketones Urine Blood Urine Nitrite Ur Leukocyte Esterase Urine RBC Urine WBC Ur Squamous Epith Cells Urine Bacteria Urine Opiates Screen Urine Fentanyl Screen Acetaminophen Ur Barbiturates Screen Ur Phencyclidine Scrn Ur Amphetamines Screen U Benzodiazepines Scrn Urine Cocaine Screen U Marijuana (THC) Screen Ethyl Alcohol COVID-19 (AV) COVID-19 Clin Com Imaging Radiologist's impression: Impressions Cervical Spine CT 05/23/21 12:53 IMPRESSION: 1. No acute intracranial abnormality. Brain volume loss with proportionate dilatation of the ventricles and sulci are similar to that of previous CT, however, somewhat inappropriate for patient's age. Recommend clinical correlation. 2. No evidence of acute fracture or subluxation in the cervical spine. Head CT 05/23/21 12:54 IMPRESSION: 1. No acute intracranial abnormality. Brain volume loss with proportionate dilatation of the ventricles and sulci are similar to that of previous CT, however, somewhat inappropriate for patient's age. Recommend clinical correlation. 2. No evidence of acute fracture or subluxation in the cervical spine. Chest X-Ray 05/23/21 15:55 IMPRESSION: Questionable faint hazy opacities in the right lung are nonspecific. Recommend clinical correlation for possibility of an infectious/inflammatory process. Assessment and Plan (1) HTN (hypertension): Qualifiers: Hypertension type: essential hypertension Qualified Code(s): I10 - Essential (primary) hypertension Status: Acute (2) Alcohol dependence: Qualifiers: Complication of substance-induced condition: with unspecified complication Substance use status: in withdrawal Qualified Code(s): F10.239 - Alcohol dependence with withdrawal, unspecified Status: Acute (3) Cardiomyopathy: Status: Acute (4) Peripheral neuropathy: Status: Acute 46 year gentleman with background of alcoholism and cardiomyopathy presenting with balance issues. He is clear that he did not have syncope. He has known peripheral neuropathy which is likely due to alcoholism. Is quite drowsy and sleepy at the time of interview and I think that is probably due to medications including gabapentin 1200 mg twice a day. Please consider decreasing his. I think his symptoms are due to neuropathy which can progress as he continues to drink. Also sometimes these patient developed dysautonomia but currently I am not sure that is the reason. Clinically compensated. No further inpatient workup required. Thank you for allowing me to participate in the care of your patient. Please feel free to contact me if you have any questions. Procedures Date of Service Date of Service: 05/24/21
[2021-05-24 09:54] LABS: Alanine Aminotransferase 58 U/L (0-40); Albumin Level 3.4 g/dL (3.5-5.0); Alkaline Phosphatase 57 U/L (39-117); Aspartate Amino Transferase 111 U/L (5-37); Bilirubin Direct 1.1 mg/dL (0.0-0.5); Bilirubin Total 2.2 mg/dL (0.0-1.0); Total Protein 6.5 g/dL (6.5-8.0)
[2021-05-24] MEDS: amLODIPine Besylate 10 MG TABLET PO (10:58)
[2021-05-24] MEDS: PHENobarbitaL 15 MG TABLET 45 MG PO ×2 (10:58→20:33)
[2021-05-24] MEDS: Gabapentin 600 MG TABLET 1200 MG PO (10:58)
[2021-05-24] MEDS: Folic Acid 1 MG TABLET PO (10:59)
[2021-05-24] MEDS: Thiamine HCL 100 MG TABLET PO (10:59)
[2021-05-24] MEDS: Metoprolol Tartrate 50 MG TABLET PO ×2 (10:59→20:34)
--- NOTE | 2021-05-24 13:18 | MHC.CM.PN ---
Addendum entered by Laura Lomeli 05/25/21 08:14: POST DC NOTE PT CLEARED TO DC HOME ON 05/24/21 WITH NO SERVICES Original Note: CM MET WITH PT IN OVERFLOW BED 05 PT REPORTS HE LIVES ALONE AND IS INDEPENDENT WITH CARE HE REPORTS HE HAS A CANE THAT HE USUALLY DOES NOT NEED PT HAS NO IN HOME SERVICES PT REPORTS HIS PCP IS KATIA SPENCER PT REPORTS HE MAY WANT TO COMPLETE A NEW HCP NAMING HIS BROTHER, NOLAN RODRIGUES, HIS AGENT. HE WILL OBTAIN HIS PHONE NUMBER AND COMPLETE IT AT A LATER TIME DURING THIS ADMISSION CURRENT DC PLAN IS HOME WITH NO SERVICES PT TO ARRANGE TRANSPORTATION
[2021-05-24] MEDS: lisinopriL 10 MG TABLET PO (14:11)
[2021-05-24] MEDS: 0.9 % Sodium Chloride 1,000 ML 80 ML IVCONT (16:20)
--- NOTE | 2021-05-24 16:41 | P.DS_ITS ---
DS: Providers Provider Date of Service: 05/24/21 Date of admission: 05/23/21 16:23 Primary care physician: Unknown Physician Consults: 05/24/21 09:04 Consult to Cardiology Routine Consulting Provider: [facility] Cardiovascular Services Reason for consultation: syncope Has provider been notified: No DS: Diagnosis Discharge Diagnosis (1) HTN (hypertension): Status: Acute (2) Alcohol dependence: Status: Acute (3) Cardiomyopathy: Status: Acute (4) Peripheral neuropathy: Status: Acute DS: Summary Hospital Course Hospital Course: 46-year-old male with a history of hypertension and alcohol abuse , hypertension, cardiomyopathy possible, peripheral neuropathy- he came to the [facility] today because has brief syncopal episode and fall. ? As per the patient patient is everyday drinker 6-8? of hard liquor, poor appetite, peripheral neuropathy -he is having brief episodes of near fainting and? and certainly his legs give up from last 6 months or so, but before he never passed out.? Today he said that he pass out, denies any chest pain shortness of breath or palpitation before after or during the episode.? Denies any seizure-like activity. ? he says he was in [place] are now came back here. ?in the emergency room has tachycardia mostly sinus in 120 range, also has mild tremors of extremities. ?he said that he also had 1 drink after he woke up from passing out. ?Denies any new complaint of chest pain or shortness of breath or abdominal pain or fever or chills or nausea or vomiting Hopsital course: patient came to the hospital because of possible syncope,, alcohol withdrawal mild-: Subsequently started on phenobarb, telemetry seems fine, alcohol withdrawal improved, seen by Cardiology: Possible episode of dizziness / syncopal related to excessive alcohol use and probably poor oral intake Says, addition gabapentin high does also might contributing. Patient's gabapentin dosing adjusted. Lactic acidosis probably combination of starvation ketosis and alcohol use. Patient is asymptomatic. Blood culture preliminary negative at 24 hours further management out patiently. Above management discussed with the patient in detail length he understand and in agreement with the above plan, time spent 50 minutes and 50% time spent on counseling. Significant findings: As above. Procedures performed: None. Treatment and response: As above. Complications: None. Time Spent with Patient Time attestation: Total time spent providing and/or coordinating discharge services: Discharge coordination time: Greater than 30 minutes Quality: Stroke Does the patient have a stroke diagnosis?: No Physical Exam Vital Signs: Vital Signs: Last Vital Signs Temp 97.6 F 05/24/21 03:55 Pulse 95 05/24/21 14:09 Resp 20 05/24/21 14:09 BP 139/93 H 05/24/21 14:09 Pulse Ox 98 05/24/21 14:09 BMI result Body Mass Index 20.9 Appearance: Alert.? Oriented X3.? not in distress.? Eyes: Pupils equal, round and reactive to light.? Sclera nonicteric.? ENT: Pharynx normal.? Moist mucous membranes. cvs: rrr, [id number] . res: clear to auscultation ,no rhonchii or wheezing abd: no rebound or guarding ,nt, bs present. ext pulses present , no cyanosis ,Gait well balanced well coordinated. neuro: axo3 , nonfocal. DS: Data Data Completed and Pending Completed studies during hospitalization [Text1]: Procedures Detoxification Services for Substance Abuse Treatment (02/22/20) Labs on day of discharge: Laboratory Results - last 24 hr 05/23/21 05/23/21 05/23/21 16:53 17:26 19:17 WBC RBC Hgb Hct MCV MCH MCHC RDW Plt Count MPV Absolute Nucleated RBC Nucleated RBC % (auto) Sodium Potassium Chloride Carbon Dioxide Anion Gap BUN Creatinine Estim Creat Clear Calc Estimated GFR Random Glucose Lactic Acid 4.3 H* Lactic Acid F/U @ 2Hr 4.0 H* 6.0 H* Lactic Acid F/U @ 4Hr Calcium Total Bilirubin Direct Bilirubin AST ALT Alkaline Phosphatase Total Protein Albumin Urine Color Urine Appearance Urine pH Ur Specific [place] Urine Protein Urine Glucose (UA) Urine Ketones Urine Blood Urine Nitrite Ur Leukocyte Esterase Urine RBC Urine WBC Ur Squamous Epith Cells Urine Bacteria Urine Opiates Screen Urine Fentanyl Screen Ur Barbiturates Screen Ur Phencyclidine Scrn Ur Amphetamines Screen U Benzodiazepines Scrn Urine Cocaine Screen U Marijuana (THC) Screen 05/23/21 05/23/21 05/23/21 21:33 22:57 22:57 WBC RBC Hgb Hct MCV MCH MCHC RDW Plt Count MPV Absolute Nucleated RBC Nucleated RBC % (auto) Sodium Potassium Chloride Carbon Dioxide Anion Gap BUN Creatinine Estim Creat Clear Calc Estimated GFR Random Glucose Lactic Acid Lactic Acid F/U @ 2Hr Lactic Acid F/U @ 4Hr Cancelled Calcium Total Bilirubin Direct Bilirubin AST ALT Alkaline Phosphatase Total Protein Albumin Urine Color YELLOW Urine Appearance CLEAR Urine pH 5.5 Ur Specific [place] >= 1.030 H Urine Protein NEG Urine Glucose (UA) 250 H Urine Ketones 5 Urine Blood 1+ H Urine Nitrite NEG Ur Leukocyte Esterase NEG Urine RBC 1-4 Urine WBC 1-4 Ur Squamous Epith Cells 1+ Urine Bacteria 1+ Urine Opiates Screen POSITIVE H Urine Fentanyl Screen Not Detected Ur Barbiturates Screen POSITIVE H Ur Phencyclidine Scrn Not Detected Ur Amphetamines Screen Not Detected U Benzodiazepines Scrn Not Detected Urine Cocaine Screen Not Detected U Marijuana (THC) Screen Not Detected 05/24/21 05/24/21 07:34 07:34 WBC 6.7 RBC 3.69 L Hgb 12.8 L Hct 37.7 L MCV 102.2 H MCH 34.7 H MCHC 34.0 RDW 12.0 Plt Count 74 L MPV 9.5 Absolute Nucleated RBC 0.000 Nucleated RBC % (auto) 0.0 Sodium 138 Potassium 3.7 Chloride 101 Carbon Dioxide 28 Anion Gap 13 BUN 11 Creatinine 0.98 Estim Creat Clear Calc 86.1 Estimated GFR > 60 Random Glucose 104 Lactic Acid Lactic Acid F/U @ 2Hr Lactic Acid F/U @ 4Hr Calcium 8.7 Total Bilirubin 2.2 H Direct Bilirubin 1.1 H AST 111 H ALT 58 H Alkaline Phosphatase 57 Total Protein 6.5 Albumin 3.4 L Urine Color Urine Appearance Urine pH Ur Specific [place] Urine Protein Urine Glucose (UA) Urine Ketones Urine Blood Urine Nitrite Ur Leukocyte Esterase Urine RBC Urine WBC Ur Squamous Epith Cells Urine Bacteria Urine Opiates Screen Urine Fentanyl Screen Ur Barbiturates Screen Ur Phencyclidine Scrn Ur Amphetamines Screen U Benzodiazepines Scrn Urine Cocaine Screen U Marijuana (THC) Screen Preliminary micro results at discharge 05/23/21 14:26 Blood Culture - Preliminary Blood - Venous No growth after 24 hours. 05/23/21 13:46 Blood Culture - Preliminary Blood - Venous No growth after 24 hours. Additional Comments Additional comments: XR/XR chest 1V IMPRESSION: Questionable faint hazy opacities in the right lung are nonspecific. Recommend clinical correlation for possibility of an infectious/inflammatory process. CT/CT head/brain wo con IMPRESSION: 1. No acute intracranial abnormality. Brain volume loss with proportionate dilatation of the ventricles and sulci are similar to that of previous CT, however, somewhat inappropriate for patient's age. Recommend clinical correlation. ? 2. No evidence of acute fracture or subluxation in the cervical spine. Discharge Plan Discharge Patient Disposition: Home, Self-Care Discharge Diagnosis: alcohol withdrawal,poor oral inatake , syncope Referrals: Physician,Unknown J [Primary Care Provider] - 1 Week Discharge Medications: Continued amlodipine 5 mg Tablet 10 mg PO DAILY Qty: 30 RF: 1 amitriptyline 50 mg tablet 150 mg PO BEDTIME RF: 0 lisinopril 10 mg tablet 1 tab PO DAILY RF: 0 metoprolol tartrate 50 mg tablet 1 tab PO BID RF: 0 acetaminophen-codeine 300-30 mg tablet 1 tab PO TID PRN (Reason: Pain) RF: 0 Changed gabapentin 600 mg Tablet 600 mg PO BID Qty: 120 RF: 1 Diet: advance to usual diet Activity on Discharge: As tolerated Stand Alone Forms: Patient Portal Discharge page Care Plan Goals: patient came to the hospital because of possible syncope,, alcohol withdrawal mild-: Subsequently started on phenobarb, telemetry seems fine, alcohol withdrawal improved, seen by Cardiology: Possible episode of dizziness / syncopal related to excessive alcohol use and probably poor oral intake Says, addition gabapentin high does also might contributing. Patient's gabapentin dosing adjusted. further management out patiently. Health Concerns: as above. Plan of Treatment: As above. Assessment: As above.
[2021-05-24] MEDS: Enoxaparin Sodium 40 MG/0.4 ML SYRINGE SUBCUT (19:08)
[2021-05-24] MEDS: Gabapentin 600 MG TABLET PO (20:33)
[2021-05-24] MEDS: Amitriptyline HCl 50 MG TABLET 150 MG PO (20:33)
[2021-05-25] VITALS (7 sets, daily range): BP systolic 116–147; BP diastolic 82–95; PULSE 91–103; RESP 12–20; TEMP 36.2–36.7; O2SAT 96–100
[2021-05-25] MEDS: 0.9 % Sodium Chloride 1,000 ML 120 ML IVCONT ×2 (03:24→18:10)
[2021-05-25 07:46] LABS: Anion Gap 12 (12-20); Blood Urea Nitrogen 10 mg/dL (9-16); Calcium 8.3 mg/dL (8.4-10.2); Carbon Dioxide 26 mmol/L (22-29); Chloride 103 mmol/L (96-108); Creatinine Clr Calc Pharmacy 99.3; Estimated Glomerular Filt Rate > 60; Glucose Random 100 mg/dL (60-115); Potassium 3.6 mmol/L (3.3-5.1); Sodium 137 mmol/L (135-145)
--- NOTE | 2021-05-25 08:02 | HO.PM.IMPN ---
Subjective Subjective Date of Service: 05/25/21 Interval History: rhabdo , alcohol withdrawals Review of Systems seems improving Denies any new complaint of chest pain or shortness of breath or abdominal pain or fever or chills or nausea or vomiting Denies any cough Denies any weakness or numbness. Physical Exam Vital Signs: Vital Signs: Last Vital Signs Temp 97.6 F 05/24/21 03:55 Pulse 92 05/25/21 06:42 Resp 20 05/25/21 06:42 BP 126/86 05/24/21 20:34 Pulse Ox 96 05/25/21 06:42 BMI result Body Mass Index 20.9 Appearance: Alert.? Oriented X3.? not in distress.? cvs: rrr, [id number] . res: clear to auscultation ,no rhonchii or wheezing abd: no rebound or guarding ,nt, bs present. ext pulses present , no cyanosis , feels better. neuro: axo3 , nonfocal, has tremers. Objective Data Active Medications Amitriptyline HCl (Amitriptyline Hcl 50 Mg Tablet) 150 mg PO BEDTIME [facility] Last Admin: 05/24/21 20:33 Dose: 150 mg Documented by: ANG Amlodipine Besylate (Amlodipine Besylate 10 Mg Tablet) 10 mg PO DAILY [facility]; Protocol Last Admin: 05/24/21 10:58 Dose: 10 mg Documented by: DANIELA Enoxaparin Sodium (Enoxaparin Sodium 40 Mg/0.4 Ml Syringe) 40 mg SUBCUT Q24H [facility] Last Admin: 05/24/21 19:08 Dose: 40 mg Documented by: ANG Folic Acid (Folic Acid 1 Mg Tablet) 1 mg PO DAILY [facility] Last Admin: 05/24/21 10:59 Dose: 1 mg Documented by: DANIELA Gabapentin (Gabapentin 600 Mg Tablet) 600 mg PO BID [facility] Last Admin: 05/24/21 20:33 Dose: 600 mg Documented by: ANG Sodium Chloride (Ns) 1,000 mls @ 120 mls/hr IVCONT .Q8H20M [facility] Last Admin: 05/25/21 03:24 Dose: 120 mls/hr Documented by: KAVITHAUMOC Lisinopril (Lisinopril 10 Mg Tablet) 10 mg PO DAILY [facility]; Protocol Last Admin: 05/24/21 14:11 Dose: 10 mg Documented by: ANG Medication (No Benzodiazepines) 1 each MISCELLANE DAILY [facility] Metoprolol Tartrate (Metoprolol Tartrate 50 Mg Tablet) 50 mg PO BID [facility]; Protocol Last Admin: 05/24/21 20:34 Dose: 50 mg Documented by: ANG Omeprazole (Omeprazole 20 Mg Capsule.Dr) 20 mg PO DAILY@0630 [facility] Last Admin: 05/25/21 06:24 Dose: Not Given Documented by: DELORES Non-Admin Reason: Patient Refused Pharmacy Consult (Consult Rx Perform Med Rec) 1 each MISCELLANE ONCE PRN PRN Reason: Consult order Phenobarbital (Phenobarbital 15 Mg Tablet) 45 mg PO BID [facility] Stop: 05/25/21 21:01 Last Admin: 05/24/21 20:33 Dose: 45 mg Documented by: ANG Phenobarbital (Phenobarbital 30 Mg Tablet) 30 mg PO BID [facility] Stop: 05/27/21 21:01 Phenobarbital (Phenobarbital 15 Mg Tablet) 15 mg PO DAILY [facility] Stop: 05/29/21 09:01 Sodium Chloride (0.9 % Sodium Chloride Flush 3 Ml Syringe) 3 ml IVFLUSH QSHIFT [facility] Last Admin: 05/25/21 02:10 Dose: Not Given Documented by: DELORES Non-Admin Reason: IV Running Thiamine HCl (Thiamine Hcl 100 Mg Tablet) 100 mg PO DAILY [facility] Last Admin: 05/24/21 10:59 Dose: 100 mg Documented by: DANIELA Labs CBC & Chem 7: 05/24/21 07:34 05/25/21 06:42 Labs: Laboratory Results - last 24 hr 05/23/21 05/24/21 05/24/21 21:33 07:34 18:09 Anion Gap 13 Estim Creat Clear Calc 86.1 Estimated GFR > 60 Random Glucose 104 Lactic Acid F/U @ 4Hr Cancelled Calcium 8.7 Total Bilirubin 2.2 H Direct Bilirubin 1.1 H AST 111 H ALT 58 H Alkaline Phosphatase 57 Total Creatine Kinase 4333 H D 3741 H Total Protein 6.5 Albumin 3.4 L 05/25/21 06:42 Anion Gap 12 Estim Creat Clear Calc 99.3 Estimated GFR > 60 Random Glucose 100 Lactic Acid F/U @ 4Hr Calcium 8.3 L Total Bilirubin Direct Bilirubin AST ALT Alkaline Phosphatase Total Creatine Kinase 3182 H Total Protein Albumin Microbiology Microbiology Results: Microbiology 05/23/21 14:26 Blood Culture - Preliminary Blood - Venous No growth after 24 hours. 05/23/21 13:46 Blood Culture - Preliminary Blood - Venous No growth after 24 hours. Assessment and Plan (1) Rhabdomyolysis: Status: Acute Assessment and Plan: 46-year-old male came with alcohol withdrawal,syncope. 1. syncope:? multifactorial alcohol use , poor appetite , perpheral neuropathy orthostats pending tele-seems fine still feels dizziness with standing -niru dd gentle hydration may need cardio eval 2.htn/ cmp: continue -home meds -bb, amlodipine. 3. anemia/ ? Thrombocytopenia: possible it will call use ? Monitor CBC closely 4. irene/rhabdo: rhabdo worsening cpk not improving staying 3200 ?adjust IV hydration nephro eval 5.? transaminitis:? Multifactorial call use and fall elevated CPK ?monitor closely ?6 alcohol withdrawal: ? elevated lactic acid probably related to alcohol use ?continue hydration ?monitor lactic acid 1 more time if trending down then stop following. ? 7. DVT prophylaxis with subQ Lovenox Quality Stroke Does the patient have a stroke diagnosis?: No VTE Prior VTE?: No VTE Risk Level:: Medical - moderate - high VTE Device Contraindication: N/A - Device Ordered VTE Drug Contraindication: N/A - Med Ordered
[2021-05-25] MEDS: Gabapentin 600 MG TABLET PO ×2 (09:09→20:13)
[2021-05-25] MEDS: Folic Acid 1 MG TABLET PO (09:09)
[2021-05-25] MEDS: PHENobarbitaL 15 MG TABLET 45 MG PO ×2 (09:09→20:12)
[2021-05-25] MEDS: lisinopriL 10 MG TABLET PO (09:10)
[2021-05-25] MEDS: Thiamine HCL 100 MG TABLET PO (09:10)
[2021-05-25] MEDS: amLODIPine Besylate 10 MG TABLET PO (09:10)
[2021-05-25] MEDS: Metoprolol Tartrate 50 MG TABLET PO ×2 (09:10→20:13)
--- NOTE | 2021-05-25 11:36 | CONS_ITS ---
DATE OF SERVICE: 05/25/2021 REASON FOR CONSULTATION: I was asked to see the patient to assist in evaluation and management of patient's rhabdo and the risk of developing acute kidney injury with CPK that was initially 1100 back on May 23 increased as high as 4300 and this morning is down to 3100 on IV fluids. His creatinine level this morning is 0.85. HISTORY OF PRESENT ILLNESS: In summary, the patient is a 46-year-old gentleman presents to the hospital with a fall, syncope, and alcohol withdrawal. Patient has a history hypertension, alcohol abuse, cardiomyopathy, and a question of peripheral neuropathy, came to the hospital because an episode of syncope and fall. Patient admits to drinking 6 to 8 hard liquor drinks per day routinely. In the emergency room, he has been getting IV fluids and his lactate levels come down. His CPKs initially went up, now coming down. Renal function remained stable. Patient is overall feeling better. PAST MEDICAL HISTORY: Notable for alcohol abuse, cardiomyopathy, hypertension, history of PE. MEDICATIONS: His medications on admission are noted in the admitting note. Current medications are noted in the MAR. PHYSICAL EXAMINATION: VITAL SIGNS: Blood pressure of 148/90 with a heart rate in the 90s. HEENT: Head is atraumatic and normocephalic. Mucous membranes moist. NECK: Supple. LUNGS: Breath sounds bilaterally. CARDIAC: Regular rate and rhythm. ABDOMEN: Soft. EXTREMITIES: Show no edema. LABORATORY DATA: From this morning show sodium 137, potassium 3.6, chloride 103, bicarb 26, BUN 10, creatinine 0.85, calcium 8.3, CPK 3182, was 3741 last night and peaked at 4333. Urine studies on admission showed a very concentrated urine of 1.030 and 1+ blood by dipstick, but no red blood cells on high-power urine sediment evaluation. IMPRESSION: Alcoholic hypertensive, patient admitted with syncope episode, alcohol withdrawal, noted to have rhabdomyolysis. 1. Rhabdomyolysis. This is due to his alcohol intoxication falling episode. The good news is CPKs are coming down. 2. Risk of acute kidney injury. His risk of acute kidney injury has decreased substantially given the CPKs of peak and coming down. SUGGESTIONS: At this time include continue his routine medications. Continue IV fluids and would look to repeat CPK if continues to come down, probably could be discharged later today as risk of rhabdo associated RATNA is significantly decreased now. His CPKs have peaked and started to come down and under 5000. We will follow the patient with the team. MD DENNIS Gomez/GENNA / [id number]
[2021-05-25] MEDS: 0.9 % Sodium Chloride Flush 3 ML SYRINGE IVFLUSH (15:48)
[2021-05-25] MEDS: Enoxaparin Sodium 40 MG/0.4 ML SYRINGE SUBCUT (18:10)
--- NOTE | 2021-05-25 19:23 | PC.NURSE ---
Pt alert and oriented x4, calm and cooperative. Pt states generalized nerve pain that is chronic in his feet. Pt OOB ambulating to bathroom with stand by assist. Pt denies N/V, abd pain, tremors, headache, hallucinations, or sweating. IV intact infusing fluids. Pt resting in stretcher without issues, will continue to monitor.
[2021-05-25] MEDS: Amitriptyline HCl 50 MG TABLET 150 MG PO (20:13)
[2021-05-26 00:47] VITALS: BP 134/66; PULSE 66; RESP 14; TEMP 36.8; O2SAT 97
[2021-05-26] MEDS: 0.9 % Sodium Chloride 1,000 ML 120 ML IVCONT (05:17)
[2021-05-26 05:54] VITALS: BP 106/72; PULSE 96; RESP 20; TEMP 36.6; O2SAT 95
[2021-05-26 07:36] LABS: Anion Gap 12 (12-20); Blood Urea Nitrogen 8 mg/dL (9-16); Calcium 7.9 mg/dL (8.4-10.2); Carbon Dioxide 23 mmol/L (22-29); Chloride 104 mmol/L (96-108); Estimated Glomerular Filt Rate > 60; Glucose Random 111 mg/dL (60-115); Potassium 3.5 mmol/L (3.3-5.1); Sodium 135 mmol/L (135-145)
[2021-05-26 08:16] VITALS: BP 116/78; PULSE 92; RESP 16; TEMP 37.1; O2SAT 95
--- NOTE | 2021-05-26 08:16 | PC.NURSE ---
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 Pt resting this morning. Heart sounds normal and lungs diminished. Pt abd soft and non-tender. Pending possible D/C today. Will reach out to hospitalist.
[2021-05-26] MEDS: PHENobarbitaL 30 MG TABLET PO (08:31)
[2021-05-26] MEDS: Omeprazole 20 MG CAPSULE.DR PO (08:31)
[2021-05-26] MEDS: Thiamine HCL 100 MG TABLET PO (08:32)
[2021-05-26] MEDS: Gabapentin 600 MG TABLET PO (08:32)
[2021-05-26] MEDS: Folic Acid 1 MG TABLET PO (08:32)
[2021-05-26] MEDS: Metoprolol Tartrate 50 MG TABLET PO (08:32)
--- NOTE | 2021-05-26 09:59 | MHC.CM.PN ---
Received notification from Dr Chappell that patient will be discharged home today. No services are being ordered. Patient will arrange his own transport. Continue to monitor for d/c needs.
--- NOTE | 2021-05-26 10:57 | P.DS_ITS ---
DS: Providers Provider Date of Service: 05/26/21 Date of admission: 05/23/21 16:23 Primary care physician: Unknown Physician Consults: 05/24/21 09:04 Consult to Cardiology Routine Consulting Provider: [facility] [place] [facility] Reason for consultation: syncope Has provider been notified: No 05/25/21 07:59 Consult to Nephrology Routine Consulting Provider: Pete Xiong Reason for consultation: rhabdomylysis Has provider been notified: No DS: Diagnosis Discharge Diagnosis (1) Rhabdomyolysis: Status: Acute DS: Summary Hospital Course Hospital Course: 46-year-old male with a history of hypertension and alcohol abuse , hypertension, cardiomyopathy possible, peripheral neuropathy- he came to the hospital today because has brief syncopal episode and fall. ? As per the patient patient is everyday drinker 6-8? of hard liquor, poor appetite, peripheral neuropathy -he is having brief episodes of near fainting and? and certainly his legs give up from last 6 months or so, but before he never passed out.? Today he said that he pass out, denies any chest pain shortness of breath or palpitation before after or during the episode.? Denies any seizure-like activity. ? he says he was in [place] are now came back here. ?in the emergency room has tachycardia mostly sinus in 120 range, also has mild tremors of extremities. ?he said that he also had 1 drink after he woke up from passing out. ?Denies any new complaint of chest pain or shortness of breath or abdominal pain or fever or chills or nausea or vomiting Hopsital course: patient came to the hospital because of possible syncope,, alcohol withdrawal mild-: started on phenobarb, telemetry seems fine, alcohol withdrawal improved, seen by Cardiology: Possible episode of dizziness / syncopal related to excessive alcohol use and probably poor oral intake Says, addition gabapentin high does also might contributing. Patient's gabapentin dosing adjusted. lft's chronic and thrombocytopenia: seems chronic and , possible arerelated to alcohol use. further management out patiently. patient advised to get pcp. rhabdomyolysis: Seems to be improving from from 4000 to now 2500 with IV hydration. Discussed with nephrology Dr. Velasquez- patient seems to be improving so consider the go home,encouraged for po hydration and follow up with Dr Velasquez nephrology outpatiently. patient was advised strongly to quit alcohol, also encouraged to in increase p.o. intake as well as p.o. hydration. But seems patient likely is reluctant to give upon alcohol. Above management discussed with the patient in detail length he understand and in agreement with the above plan, time spent 50 minutes and 50% time spent on counseling. Significant findings: As above. Procedures performed: None. Treatment and response: As above. Complications: None. Time Spent with Patient Time attestation: Total time spent providing and/or coordinating discharge services: Discharge coordination time: Greater than 30 minutes Quality: Stroke Does the patient have a stroke diagnosis?: No Physical Exam Vital Signs: Vital Signs: Last Vital Signs Temp 98.7 F 05/26/21 08:16 Pulse 92 05/26/21 08:16 Resp 16 05/26/21 08:16 BP 116/78 05/26/21 08:16 Pulse Ox 95 05/26/21 08:16 BMI result Body Mass Index 20.9 ?Appearance: Alert.? Oriented X3.? not in distress.? cvs: rrr, [id number] . res: clear to auscultation ,no rhonchii or wheezing abd: no rebound or guarding ,nt, bs present. ext pulses present , no cyanosis , feels better. neuro: axo3 , nonfocal, has tremers. DS: Data Data Completed and Pending Completed studies during hospitalization [Text1]: Procedures Detoxification Services for Substance Abuse Treatment (02/22/20) Labs on day of discharge: Laboratory Results - last 24 hr 05/25/21 05/25/21 05/26/21 13:18 14:04 06:18 Sodium 135 Potassium 3.5 Chloride 104 Carbon Dioxide 23 Anion Gap 12 BUN 8 L Creatinine 0.76 Estim Creat Clear Calc 111.0 Estimated GFR > 60 Random Glucose 111 Calcium 7.9 L Total Creatine Kinase 3128 H 3206 H 2508 H Preliminary micro results at discharge 05/23/21 14:26 Blood Culture - Preliminary Blood - Venous No growth after 48 hours. 05/23/21 13:46 Blood Culture - Preliminary Blood - Venous No growth after 48 hours. Additional Comments Additional comments: XR/XR chest 1V IMPRESSION: Questionable faint hazy opacities in the right lung are nonspecific. Recommend clinical correlation for possibility of an infectious/inflammatory process. CT/CT head/brain wo con IMPRESSION: 1. No acute intracranial abnormality. Brain volume loss with proportionate dilatation of the ventricles and sulci are similar to that of previous CT, however, somewhat inappropriate for patient's age. Recommend clinical correlation. ? 2. No evidence of acute fracture or subluxation in the cervical spine. Discharge Plan Discharge Patient Disposition: Home, Self-Care Discharge Diagnosis: alcohol withdrawal,poor oral inatake , syncope, rhabdo Referrals: Nicola Velasquez MD [Physician] - 1 Week (follow up in 1 week) Physician,Unknown J [Primary Care Provider] - 1 Week Discharge Medications: Continued amlodipine 5 mg Tablet 10 mg PO DAILY Qty: 30 RF: 1 amitriptyline 50 mg tablet 150 mg PO BEDTIME RF: 0 lisinopril 10 mg tablet 1 tab PO DAILY RF: 0 metoprolol tartrate 50 mg tablet 1 tab PO BID RF: 0 acetaminophen-codeine 300-30 mg tablet 1 tab PO TID PRN (Reason: Pain) RF: 0 Changed gabapentin 600 mg Tablet 600 mg PO BID Qty: 120 RF: 1 Discharge Orders: Discharge Order (Routine); Ordered 05/26/21 Ordered By: Brett Chappell Diet: advance to usual diet Activity on Discharge: As tolerated Stand Alone Forms: Patient Portal Discharge page Care Plan Goals: patient came to the hospital because of possible syncope,, alcohol withdrawal mild-: started on phenobarb, telemetry seems fine, alcohol withdrawal improved, seen by Cardiology: Possible episode of dizziness / syncopal related to excessive alcohol use and probably poor oral intake Says, addition gabapentin high does also might contributing. Patient's gabapentin dosing adjusted. lft's chronic and thrombocytopenia: seems chronic and , possible arerelated to alcohol use. further management out patiently. patient advised to get pcp. follow up with Dr Velasquez nephrology outpatiently. patient was advised strongly to quit alcohol, also encouraged to in increase p.o. intake as well as p.o. hydration. But seems patient likely is reluctant to give upon alcohol. Health Concerns: as above. Plan of Treatment: As above. Assessment: As above.
--- NOTE | 2021-05-26 11:23 | PM.PNNEP ---
Subjective Subjective Date of Service: 05/26/21 Principal diagnosis: rhabbdo Interval history: rhabdo , alcohol withdrawals Physical Exam Vital Signs: Vital Signs: Last Vital Signs Temp 98.7 F 05/26/21 08:16 Pulse 92 05/26/21 08:16 Resp 16 05/26/21 08:16 BP 116/78 05/26/21 08:16 Pulse Ox 95 05/26/21 08:16 BMI result Body Mass Index 20.9 Lungs clear RRR abd soft no edema Objective Data Labs CBC & Chem 7: 05/24/21 07:34 05/26/21 06:18 Labs: Laboratory Results - last 24 hr 05/25/21 05/25/21 05/26/21 13:18 14:04 06:18 Sodium 135 Potassium 3.5 Chloride 104 Carbon Dioxide 23 Anion Gap 12 BUN 8 L Creatinine 0.76 Estim Creat Clear Calc 111.0 Estimated GFR > 60 Random Glucose 111 Calcium 7.9 L Total Creatine Kinase 3128 H 3206 H 2508 H Microbiology Microbiology Results: Microbiology 05/23/21 14:26 Blood - Venous Blood Culture - Preliminary No growth after 48 hours. 05/23/21 13:46 Blood - Venous Blood Culture - Preliminary No growth after 48 hours. Procedures Date of Service Date of Service: 05/26/21 Assessment & Plan Assessment and plan (1) Rhabdomyolysis: Start date: 05/26/21 Status: Acute Assessment and Plan: 46-year-old male came with alcohol withdrawal,syncope and rhabdo 1. Rhabdo: CPK cont ot decr and no evid of RATNA OK to d/c from renal [facility] and I he can f/u wiht me in 2-3 wks as outpt Time Spent With Patient Time: Total time spent is greater than 50% in coordination of care (as documented) at patient's floor/unit and/or counseling patient: Progress Note: Quality Stroke Does the patient have a stroke diagnosis?: No
--- NOTE | 2021-05-26 11:24 | PC.NURSE ---
Addendum entered by Rosa Isela Das RN 05/26/21 11:27: All IV's removed prior to D/C. Original Note: Pt D/C from ED overflow. Pt given D/C instructiion and denies any further questions. As per case management, Jordi, pt will go home without any services and will arrange his own transport. Pt ambulatory with steady gait.
== END 2021-05-26 21:11 | disposition home or self-care (01) | DRG 565 ==
LOC: HO.ED 14:40 → HO.EDOVER 16:41 → HO.S3 05-26 19:13 → HO.SSSA 05-26 21:11
PROVIDERS: Hospitalist; Physician Assistant; Admitting Provider Internal Medicine; Emergency Provider Emergency Medicine; PCP Internal Medicine; Visit Provider Internal Medicine
DX: T79.6XXA Traumatic ischemia of muscle, initial encounter (principal); F10.239 Alcohol dependence with withdrawal, unspecified; I42.9 Cardiomyopathy, unspecified; N17.9 Acute kidney failure, unspecified; E87.2 Acidosis; W18.30XA Fall on same level, unspecified, initial encounter; I10 Essential (primary) hypertension; F17.210 Nicotine dependence, cigarettes, uncomplicated; Z71.6 Tobacco abuse counseling; F41.9 Anxiety disorder, unspecified; G62.1 Alcoholic polyneuropathy; Z96.641 Presence of right artificial hip joint; D69.6 Thrombocytopenia, unspecified; Z20.822 Contact with and (suspected) exposure to COVID-19; Z88.0 Allergy status to penicillin; Z59.02 Unsheltered homelessness; Z87.891 Personal history of nicotine dependence; Z79.899 Other long term (current) drug therapy
CPT/HCPCS: 36415; 70450; 71045; 72125; 80048; 80076; 80143; 80307; 81001; 82077; 82140; 82550; 83605; 83690; 83735; 83880; 84443; 84484; 85025; 85027; 85610; 85730; 87040; 87635; 93005; 99285; J1650; J2560

== ENCOUNTER 2021-08-09 00:53 | Inpatient (IN) | payer MEDICARE, MEDICAID, SELFPAY ==
[2021-08-09] VITALS (13 sets, daily range): BP systolic 120–175; BP diastolic 60–119; PULSE 73–140; RESP 12–24; TEMP 36.4–37.4; O2SAT 97–100; BMI 20.3
--- NOTE | ~2021-08-09 | XR_ITS ---
EXAMINATION: XR CHEST CLINICAL INFORMATION: Chest pain COMPARISON: 05/23/2021 TECHNIQUE: Frontal view of the chest was obtained. FINDINGS: Normal symmetric lung volumes. No parenchymal consolidation. No pleural effusion. No pneumothorax. Cardiomediastinal silhouette and pulmonary vascularity are within normal limits. No acute osseous abnormalities. XR/XR chest 1V IMPRESSION: No acute findings
--- NOTE | ~2021-08-09 | CT_ITS ---
EXAMINATION: CT ANGIOGRAM CHEST CLINICAL INFORMATION: Chest pain. Tachycardia and hypertension. Dizziness. COMPARISON: 01/21/2020 TECHNIQUE: Multiple axial images were obtained through the chest after the administration of 70 mL of Omnipaque 350 intravenous contrast. Extensive vascular post-processing including two-dimensional and three-dimensional reformatted images were created and reviewed on an independent workstation. This CT examination was performed using dose optimization techniques as appropriate, variously including the following: *Automated exposure control *Adjustment of mA and/or kV according to patient size (this includes techniques or standardized protocols for targeted exams where dose is matched to indication/reason for exam; i.e. extremities or head) *Use of iterative reconstruction technique DLP: 310 mGy-cm FINDINGS: Vascular: Mild aneurysmal dilatation of the aortic root at the sinuses of Valsalva measuring up to 4.5 cm. Remainder of the aorta is within normal limits in terms of caliber. No dissection. The supraaortic arteries are normal caliber. While examination is not tailored towards evaluation of the pulmonary arteries, the timing of the contrast bolus is such that pulmonary embolism can be safely excluded. Lungs/pleura: No focal consolidation. Calcified granuloma, right lower lobe. No concerning pulmonary nodules or masses. No pleural effusion or pneumothorax. Mediastinum/cy: Normal heart size. No pericardial effusion. No mediastinal or hilar lymphadenopathy. Diffuse submucosal edema throughout the esophagus. Esophagus is patulous. Small sliding-type hiatal hernia. Chest wall/axilla: Unremarkable. Imaged abdomen: Severe hepatic steatosis. Bones: No acute or suspicious osseous abnormalities. CT/CT angio chest aorta IMPRESSION: * No aortic dissection. 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 Remainder of the aorta is normal caliber. * No pulmonary embolism. * No acute parenchymal abnormalities. * Findings compatible with severe esophagitis, with small sliding-type hiatal hernia. * Severe hepatic steatosis.
--- NOTE | 2021-08-09 01:08 | ECG_ITS ---
Test Reason : cp Blood Pressure : / mmHG Vent. Rate : 136 BPM Atrial Rate : 136 BPM P-R Int : 136 ms QRS Dur : 078 ms QT Int : 294 ms P-R-T Axes : 051 056 083 degrees QTc Int : 442 ms Sinus tachycardia Possible Left atrial enlargement Minimal voltage criteria for LVH, may be normal variant ( Sokolow-Souza ) Nonspecific ST and T wave abnormality Abnormal ECG When compared with ECG of 23-MAY-2021 13:11, Nonspecific T wave abnormality now evident in Lateral leads Referred By: Generic ED Physician Electronically Signed By:DAIN PUENTE MD
[2021-08-09 01:42] LABS: MANUAL DIFF FLAG NO
[2021-08-09 01:47] LABS: Basophils Percent Auto 0.2 % (0-2); Eosinophils Percent Auto 0.1 % (0-4); Hemoglobin 15.5 g/dl (14.0-18.0); Imm Gran Abs Auto 0.03 X10*3/uL (0.00-0.03); Imm Gran Pct Auto 0.3 % (0.0-0.4); Lymphocytes Absolute Auto 1.4 X10*3/uL (1.2-4.9); Lymphocytes Percent Auto 16.1 % (20-40); Mean Corpuscular Hemoglobin 35.1 pg (27.0-33.0); Mean Corpuscular Volume 97.3 fL (80.0-98.0); Mean Platelet Volume 9.3 fL (9.4-12.4); Monocytes Absolute Auto 0.9 X10*3/uL (0.1-1.2); Monocytes Percent Auto 10.3 % (2-11); NRBC Pct Auto 0.2 /100WBC (0.0-0.2); Neutrophils Absolute Auto 6.5 x10*3/uL (2.0-8.3); Platelet Count 119 X10*3/uL (160-400); Red Blood Count 4.42 X10*6/uL (4.60-5.80); Red Cell Distribution Width 12.4 % (11.0-16.0); White Blood Count 8.9 X10*3/uL (4.8-10.8)
[2021-08-09 02:01] LABS: Anion Gap 22 (12-20); Blood Urea Nitrogen 11 mg/dL (9-16); Calcium 9.2 mg/dL (8.4-10.2); Carbon Dioxide 23 mmol/L (22-29); Chloride 93 mmol/L (96-108); Creatinine Clr Calc Pharmacy 66.3; Estimated Glomerular Filt Rate > 60; Glucose Random 124 mg/dL (60-115); Sodium 134 mmol/L (135-145)
[2021-08-09 02:04] LABS: Troponin-I High Sensitivity 10.2 ng/L (<3.5-35.0)
--- NOTE | 2021-08-09 02:22 | ED_ITS ---
HPI - Chest Pain General Chief Complaint: Chest Pain Stated Complaint: chest pain & dizziness Time Seen by Provider: 08/09/21 02:00 Source: patient Mode of arrival: EMS History of Present Illness HPI narrative: 46-year-old male with alcohol dependence and alcohol intoxication presents via EMS for worsening midsternal chest pain that started yesterday at noon and has been worsening until his arrival today. Patient states he last drank alcohol at noon and has had associated nausea but no vomiting, dizziness denies any diarrhea or abdominal pain. Related Data Home Medications Medication Instructions Recorded Confirmed acetaminophen 300 mg-codeine 30 mg 1 tab PO TID PRN 05/23/21 05/23/21 tablet amitriptyline 50 mg tablet 150 mg PO BEDTIME 05/23/21 05/23/21 lisinopril 10 mg tablet 1 tab PO DAILY 05/23/21 05/23/21 metoprolol tartrate 50 mg tablet 1 tab PO BID 05/23/21 05/23/21 Previous Rx's Medication Instructions Recorded amlodipine 5 mg tablet 10 mg PO DAILY #30 tab 03/18/20 gabapentin 600 mg tablet 600 mg PO BID #120 tab 05/24/21 sucralfate 100 mg/mL oral 10 ml PO BID #420 ml 08/09/21 suspension (Carafate) Allergies Allergy/AdvReac Type Severity Reaction Status Date / Time Penicillins [PENICILLINS] Allergy Severe HIVES Verified 02/22/20 11:43 SWELLING Review of Systems Review of Systems: Pertinent positives and negatives as stated in HPI 10 point review of systems is otherwise negative. [facility] Past Medical History Source: nursing notes reviewed Medical History Alcohol dependence Cardiomyopathy HTN (hypertension) Pulmonary embolism Tobacco dependence Surgical History S/P hip replacement Social History Social History Household Members: None Housing: Homeless Do you presently have visiting nurse or other home services: No Alcohol intake: current Alcohol intake frequency: 3 or more drinks per day Alcohol type: beer and hard liquor Patient Tobacco Use Status: Former Tobacco user Cigarette Packs Per Day: 0.5 Cigarettes Per Day: 10.0 Second Hand Smoke Exposure: No Use of substances other than those prescribed or required for medical reasons: No Advance Directives: No service: No Current occupational status: unemployed Sexual orientation: Straight/Heterosexual Physical Exam Vital Signs: Vital Signs: Last Vital Signs Temp 98.5 F 08/09/21 01:04 Pulse 103 H 08/09/21 06:39 Resp 18 08/09/21 06:39 BP 166/103 H 08/09/21 06:39 Pulse Ox 100 08/09/21 06:00 BMI result Body Mass Index 20.3 VITAL SIGNS: Reviewed. GENERAL: Well developed, well nourished, in no acute distress. HEAD: Normocephalic/atraumatic EYES: PERRLA, EOMI EARS: Ext canals without abnormality OROPHARYNX: no oral lesions noted, posterior pharynx clear LUNGS: Normal breath sounds. No adventitious sounds or accessory muscle use. SpO2<100> CARDIOVASCULAR: Regular rate and rhythm without noted murmurs, no JVD or lower extremity edema, symmetrical pulses throughout ABDOMEN: Soft, non-tender, non-distended with bowel sounds. MUSCULOSKELETAL: No tenderness, deformities, or effusions noted on gross inspection. EXTREMITIES: No cyanosis, clubbing or edema. SKIN: Inspection of the skin reveals no rashes NEUROLOGIC: Alert and oriented x 4. Strength and sensation to light touch were grossly intact x 4. Course Course Course Narrative: 46-year-old male with history and clinical presentation concerning for possible dissection given the extent of hypertension, tachycardia as well as chest pain. On review of all investigations there are no acute findings other than esophagitis for which patient received a GI cocktail and will follow with the dose of Carafate as well. No evidence to suggest upper GI bleed, EKG without acute findings, and detectable troponins are consistent with prior values and likely reflect the combination of hypertension and tachycardia. Review of all investigations only significant for esophagitis which improved after patient received GI cocktail. No evidence of pancreatitis/di ssections/STEMI/pneumonia. All results discussed with patient at bedside and he was discharged home in stable condition with a prescription for Carafate and a referral to follow-up with gastroenterology. Although patient noted to ambulate, he appears unsteady and is mildly confused regarding details of his ER stay. He has received 2mg of Ativan, non-focal and suspect he is beginning to withdraw. Attempts were made to arrange for transportation, but no one was available. I discussed the case with the inpatient hospitalist team who accepts admission. MDM - Chest Pain Lab Data Result diagrams: 08/09/21 01:37 08/09/21 01:37 Labs: Lab Results 08/09/21 08/09/21 08/09/21 Range/Units 01:37 01:37 01:37 WBC 8.9 (4.8-10.8) X10*3/uL RBC 4.42 L (4.60-5.80) X10*6/uL Hgb 15.5 D (14.0-18.0) g/dl Hct 43.0 (42.0-52.0) % MCV 97.3 (80.0-98.0) fL MCH 35.1 H (27.0-33.0) pg MCHC 36.0 (31.0-36.0) g/dl RDW 12.4 (11.0-16.0) % Plt Count 119 L D (160-400) X10*3/uL MPV 9.3 L (9.4-12.4) fL Immature Gran % (Auto) 0.3 (0.0-0.4) % Neut % (Auto) 73.0 (45-73) % Lymph % (Auto) 16.1 L (20-40) % [place] % (Auto) 10.3 (2-11) % Eos % (Auto) 0.1 (0-4) % Baso % (Auto) 0.2 (0-2) % Lymph # (Auto) 1.4 (1.2-4.9) X10*3/uL [place] # (Auto) 0.9 (0.1-1.2) X10*3/uL Eos # (Auto) 0.0 (0.0-0.4) X10*3/uL Baso # (Auto) 0.0 (0.0-0.2) X10*3/uL Abs Immat Gran (auto) 0.03 (0.00-0.03) X10*3/uL Absolute Neuts (auto) 6.5 (2.0-8.3) x10*3/uL Absolute Nucleated RBC 0.020 H (0.0-0.012) X10*3/uL Nucleated RBC % (auto) 0.2 (0.0-0.2) /100WBC Sodium 134 L (135-145) mmol/L Potassium 4.0 (3.3-5.1) mmol/L Chloride 93 L (96-108) mmol/L Carbon Dioxide 23 (22-29) mmol/L Anion Gap 22 H (12-20) BUN 11 (9-16) mg/dL Creatinine 1.24 (0.5-1.4) mg/dL Estim Creat Clear Calc 66.3 Estimated GFR > 60 Random Glucose 124 H (60-115) mg/dL Calcium 9.2 D (8.4-10.2) mg/dL Total Bilirubin 1.9 H (0.0-1.0) mg/dL Direct Bilirubin 0.9 H (0.0-0.5) mg/dL AST 58 H (5-37) U/L ALT 46 H (0-40) U/L Alkaline Phosphatase 104 D (39-117) U/L Total Creatine Kinase 211 H D (38-174) U/L Troponin I High Sens 10.2 D (<3.5-35.0) ng/L Total Protein 8.4 H D (6.5-8.0) g/dL Albumin 4.3 D (3.5-5.0) g/dL Lipase 14 (8-78) U/L ECG Data ECG #1: Attestation: I personally reviewed and interpreted this ECG as follows: Prior ECG tracings: available for review Interpretation: ST, HR-136, no STEMI, SD/QRS/QTC are within normal limits. Critical Care Time Critical Care Time Critical Care Time: Yes Total Critical Care Time: 30 Attestation: I personally attest to this time spent taking care of the patient. Discharge Plan Discharge Clinical Impression: Esophagitis, Alcohol dependence, Alcohol withdrawal delirium Patient Disposition: Admitted As Inpatient Prescriptions: New sucralfate [Carafate] 100 mg/mL suspension 10 ml PO BID Qty: 420 0RF No Action amlodipine 5 mg Tablet 10 mg PO DAILY Qty: 30 1RF Protocol: Hold for SBP< HOLD for SBP < : 90 Rx Instructions: Attn. CSS amitriptyline 50 mg tablet 150 mg PO BEDTIME 0RF lisinopril 10 mg tablet 1 tab PO DAILY 0RF metoprolol tartrate 50 mg tablet 1 tab PO BID 0RF acetaminophen-codeine 300-30 mg tablet 1 tab PO TID PRN (Reason: Pain) 0RF gabapentin 600 mg Tablet 600 mg PO BID Qty: 120 1RF Referrals: Roger Graves MD [Primary Care Provider] - 2 days Rene Saha [Physician] - 2 days (Evaluation and treatment as indicated for esophagitis in patient with alcohol dependence.)
[2021-08-09 02:37] LABS: Alanine Aminotransferase 46 U/L (0-40); Albumin Level 4.3 g/dL (3.5-5.0); Alkaline Phosphatase 104 U/L (39-117); Aspartate Amino Transferase 58 U/L (5-37); Bilirubin Direct 0.9 mg/dL (0.0-0.5); Bilirubin Total 1.9 mg/dL (0.0-1.0); Lipase 14 U/L (8-78); Total Protein 8.4 g/dL (6.5-8.0)
[2021-08-09] MEDS: LORazepam 2 MG/ML VIAL 1 MG IVPUSH ×2 (02:37→05:00)
[2021-08-09] MEDS: iohexoL 350 MG/ML 100 ML INFUS..BTL 70 ML IV (03:09)
[2021-08-09] MEDS: 0.9 % Sodium Chloride 1,000 ML 999 ML IV (04:55)
[2021-08-09] MEDS: Magnesium Hydrox/Alum Hydrox 30 ML ORAL.SUSP PO (04:59)
[2021-08-09] MEDS: Lidocaine HCl Viscous 2 % 15 ML SOLUTION 10 ML MUCOUS MEM (04:59)
[2021-08-09] MEDS: Labetalol HCL 100 MG/20 ML VIAL IVPUSH (05:29)
--- NOTE | 2021-08-09 07:03 | PC.NURSE ---
pt was unsteady at first with getting oob. pt is withdrawing from etoh dialy beer and khadijah mister. pt tremors are only felt at this time. gait unsteady with standing at first and was leaning to the right when he first started to walk then straighten out with knees bent while walking. pt needs a sober ride home at this time. report given to Nitish and dr stapleton made aware of pt amb status.
[2021-08-09 08:18] LABS: Ethanol < 10 mg/dL
[2021-08-09 08:35] LABS: COVID-19 Test Negative (Negative)
[2021-08-09] MEDS: LORazepam 2 MG/ML VIAL IVPUSH (08:41)
[2021-08-09 09:14] LABS: Magnesium 1.5 mg/dL (1.6-2.6)
[2021-08-09] MEDS: Pantoprazole Sodium 40 MG/10 ML VIAL IVPUSH (09:23)
--- NOTE | 2021-08-09 09:23 | PC.NURSE ---
pt oriented x2 prior to ativan, thought it was december, hospitalist at bedside and aware of vs, st on monitor, skin wpd, sleeping, opens eyes when poken to but confused
--- NOTE | 2021-08-09 09:27 | P.HPHOSP_ITS ---
History of Present Illness Date of Service: 08/09/21 Chief Complaint: chest pain This is a 46 yo M with a PMH as outlined below who presented to [facility] with complaints of chest pain. The patient has been currently sedated with a dose of IV ativan and hence, the history is obtained from the ED providers note. From Dr. Mojica's note: HPI narrative: 46-year-old male with alcohol dependence and alcohol intoxication presents via EMS for worsening midsternal chest pain that started yesterday at noon and has been worsening until his arrival today.? Patient states he last drank alcohol at noon and has had associated nausea but no vomiting, dizziness denies any diarrhea or abdominal pain. Course Narrative: 46-year-old male with history and clinical presentation concerning for possible dissection given the extent of hypertension, tachycardia as well as chest pain.? On review of all investigations there are no acute findings other than esophagitis for which patient received a GI cocktail and will follow with the dose of Carafate as well.? No evidence to suggest upper GI bleed, EKG without acute findings, and detectable troponins are consistent with prior values and likely reflect the combination of hypertension and tachycardia. Review of all investigations only significant for esophagitis which improved after patient received GI cocktail.? No evidence of pancreatitis/dissections/STEMI/pneumonia.? All results discussed with patient at bedside and he was discharged home in stable condition with a prescription for Carafate and a referral to follow-up with gastroenterology. Although patient noted to ambulate, he appears unsteady and is mildly confused regarding details of his ER stay. He has received 2mg of Ativan, non-focal and suspect he is beginning to withdraw. Attempts were made to arrange for transportation, but no one was available. I discussed the case with the inpatient hospitalist team who accepts admission. Patient is seen and examined in the ED around 915 am. He is currently sedated but does open eyes and move all limbs with strong verbal and tactile stimuli. Per bedside ED RN -- patient was awake and talking prior to the IV ativan. Review of Systems Review of Systems: unable to ROS due to sedation [facility] Medical History Alcohol dependence Cardiomyopathy HTN (hypertension) Pulmonary embolism Tobacco dependence Pertinent family history: unable to assess due to patients mental status Surgical History S/P hip replacement Social History Household Members: None Housing: Homeless Do you presently have visiting nurse or other home services: No Alcohol intake: current Alcohol intake frequency: 3 or more drinks per day Alcohol type: beer and hard liquor Patient Tobacco Use Status: Former Tobacco user Cigarette Packs Per Day: 0.5 Cigarettes Per Day: 10.0 Second Hand Smoke Exposure: No Use of substances other than those prescribed or required for medical reasons: No Advance Directives: No service: No Current occupational status: unemployed Sexual orientation: Straight/Heterosexual Meds Allergies Allergy/AdvReac Type Severity Reaction Status Date / Time Penicillins [PENICILLINS] Allergy Severe HIVES Verified 02/22/20 11:43 SWELLING Active Medications: Current Medications Acetaminophen (Acetaminophen 325 Mg Tablet) 650 mg PO Q6H PRN PRN Reason: Pain, Mild (Pain Scale 1-3) Magnesium Sulfate (Magnesium Sulfate/H2o) 2 gm in 50 mls @ 25 mls/hr IV ONCE ONE Stop: 08/09/21 11:25 Lorazepam (Lorazepam 2 Mg/Ml Vial) 2 mg IVPUSH ONCE PRN PRN Reason: Alcohol Withdrawal Last Admin: 08/09/21 08:41 Dose: 2 mg Documented by: Ondansetron HCl (Ondansetron Hcl 4 Mg/2 Ml Vial) 4 mg IVPUSH Q8H PRN PRN Reason: Nausea and Vomiting Pharmacy Consult (Consult Rx Perform Med Rec) 1 each MISCELLANE ONCE PRN PRN Reason: Consult order Home Medications Medication Instructions Recorded Confirmed Last Taken Type acetaminophen 300 mg-codeine 30 mg 1 tab PO TID PRN 05/23/21 05/23/21 05/22/21 History tablet amitriptyline 50 mg tablet 150 mg PO BEDTIME 05/23/21 05/23/21 05/22/21 History lisinopril 10 mg tablet 1 tab PO DAILY 05/23/21 05/23/21 05/22/21 History metoprolol tartrate 50 mg tablet 1 tab PO BID 05/23/21 05/23/21 05/22/21 History Physical Exam Vital Signs and Narrative: Vital Signs: Last Vital Signs Temp 98.5 F 04/04/22 01:04 Pulse 107 H 08/09/21 08:37 Resp 19 08/09/21 08:37 BP 169/109 H 08/09/21 08:37 Pulse Ox 98 08/09/21 08:37 BMI result Body Mass Index 20.3 Const: Other: Constitutional - Sedated, opens eyes and can follow some basic commands like moving extremities, but falls asleep quickly Eyes - EOMI, pupils reactive Cardiovascular - S1S2, Tachycardic around 110 Respiratory - No respiratory distress, breathing comfortably Gastrointestinal - NT / ND; +BS; No rebound or guarding - No CVA tenderness Extremities - no calf tenderness bilaterally, no swelling Musculoskeletal - Normal inspection, normal ROM Skin - Warm/Dry Neurological - Somnolent, but awakens with stimuli; moving all 4 limbs, no obvious facial assymetry and EOMI Results Labs CBC and Chem 7: 08/09/21 01:37 08/09/21 01:37 Labs: Laboratory Results - last 24 hr 08/09/21 08/09/21 08/09/21 01:37 01:37 01:37 MCV 97.3 MCH 35.1 H MCHC 36.0 RDW 12.4 Plt Count 119 L D MPV 9.3 L Immature Gran % (Auto) 0.3 Neut % (Auto) 73.0 Lymph % (Auto) 16.1 L [place] % (Auto) 10.3 Eos % (Auto) 0.1 Baso % (Auto) 0.2 Lymph # (Auto) 1.4 [place] # (Auto) 0.9 Eos # (Auto) 0.0 Baso # (Auto) 0.0 Abs Immat Gran (auto) 0.03 Absolute Neuts (auto) 6.5 Absolute Nucleated RBC 0.020 H Nucleated RBC % (auto) 0.2 Anion Gap 22 H Estim Creat Clear Calc 66.3 Estimated GFR > 60 Random Glucose 124 H Calcium 9.2 D Magnesium 1.5 L Total Bilirubin 1.9 H Direct Bilirubin 0.9 H AST 58 H ALT 46 H Alkaline Phosphatase 104 D Total Creatine Kinase 211 H D Troponin I High Sens 10.2 D Total Protein 8.4 H D Albumin 4.3 D Lipase 14 Ethyl Alcohol COVID-19 (AV) COVID-19 Clin Com 08/09/21 08/09/21 08:00 08:00 MCV MCH MCHC RDW Plt Count MPV Immature Gran % (Auto) Neut % (Auto) Lymph % (Auto) [place] % (Auto) Eos % (Auto) Baso % (Auto) Lymph # (Auto) [place] # (Auto) Eos # (Auto) Baso # (Auto) Abs Immat Gran (auto) Absolute Neuts (auto) Absolute Nucleated RBC Nucleated RBC % (auto) Anion Gap Estim Creat Clear Calc Estimated GFR Random Glucose Calcium Magnesium Total Bilirubin Direct Bilirubin AST ALT Alkaline Phosphatase Total Creatine Kinase Troponin I High Sens Total Protein Albumin Lipase Ethyl Alcohol < 10 COVID-19 ([place]) Negative COVID-19 Clin Com See Note Imaging Radiologist's Impressions: Impressions Chest X-Ray 08/09/21 01:41 IMPRESSION: No acute findings Chest CTA 08/09/21 03:08 IMPRESSION: * No aortic dissection. 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 Remainder of the aorta is normal caliber. * No pulmonary embolism. * No acute parenchymal abnormalities. * Findings compatible with severe esophagitis, with small sliding-type hiatal hernia. * Severe hepatic steatosis. Assessment and Plan (1) Alcohol withdrawal: Status: Acute Plan This is a 46 yo M with a PMH of heavy alcohol use and dependence, peripheral neuropathy, HTN, Cardiomyopathy (possibly alcoholic) who presented to [facility] with complaints of chest pain. He was evaluated in the ED with plans for discharge home. However, he was noted to be confused and exhibiting signs of alcohol wit hdrawal and hence will be admitted for further treatment. 1. Alcohol withdrawal and dependence Given 2 doses of IV ativan in the ED, now patient is sedated will place him on Ativan protocol -- to begin once he is less sedated monitor electrolytes and replace as warranted Thiamin/Folate Will d/w him re: the importance of complete alcohol cessation 2. Severe encephalitis IV PPI dirk he is sedated; PO once more awake 3. Chest pain likely due to above EKG with non-specific changes; HS trop-I 10, repeat another now monitor in tele 4. Alcohol liver disease noted on CT bili around baseline 5. HypoMg replace with IV 6. Thrombocytopenia due to #4 monitor Presumed full code DVT pptx, mechanical due to thrombocytopenia + severe esophagitis and concerning over causing GI bleed Med Rec pending -- continue his baseline meds once it is completed and he is more awake. In light of the patient's alcohol withdrawal, along with severe esophagitis -- I anticipate a medically necessary inpatient admission spanning at least 2 midnights to treat and monitor response. This cannot be completed in a less acute setting. Quality Stroke Does the patient have a stroke diagnosis?: No VTE Prior VTE?: No VTE Risk Level:: Medical - moderate - high VTE Device Contraindication: N/A - Device Ordered VTE Drug Contraindication: N/A - Med Ordered
[2021-08-09 09:43] LABS: Troponin-I High Sensitivity 10.8 ng/L (<3.5-35.0)
--- NOTE | 2021-08-09 10:08 | PHA.MEDREC ---
med rec complete, patient not able to provide answers, used pharmacy claim history and records from pcp Pharmacy Consult ? Medication Reconciliation Pharmacy has completed the medication reconciliation.
[2021-08-09] MEDS: Magnesium Sulfate/H2O 2 GM/50 ML PIGGYBACK IV (10:31)
--- NOTE | 2021-08-09 15:25 | PM.EVENT ---
Event Note Date of Service: 08/09/21 Event Note: Patient re-seen this afternoon. Slowly starting to wake up more. Knows hes in the hospital and that its [facility]. Denies any current chest pain. HS trop-I flat x 2. Nonspecific EKG changes secondary to electrolytes. Will replete them today and recheck EKG tomorrow. In regards to his Ativan for alcohol withdrawal, continue with CIWA for the time being. Possibly initiate later this evening or sooner if he exhibits signs of withdrawal. BP remains elevated -- reports he missed his antihypertensives for several day. Will start home medications.
[2021-08-09] MEDS: Omeprazole 40 MG CAPSULE.DR PO (16:14)
[2021-08-09] MEDS: amLODIPine Besylate 5 MG TABLET PO (16:14)
--- NOTE | 2021-08-09 16:56 | PC.NURSE ---
Reveived pt from the ED. BP elevated. scheduled med BP med given. CIWA 3. Pt denies pain. Resting in hospital bed. Sinus Tach on the monitor. [place]bell and belongings within reach.
[2021-08-09 18:26] LABS: Appearance Urine HAZY; Color Urine YELLOW; Glucose Urine UA NEG (NEG); Leukocyte Esterase Urine NEG (NEG); Nitrite Urine NEG (NEG); PH 5.5 (5.0-8.0); Urine Blood NEG (NEG); Urine Ketones NEG (NEG); Urine Protein NEG (NEG-TRACE)
[2021-08-09 18:42] LABS: Amphetamine Screen Urine Not Detected (Not Detect); Barbiturates, Urine POSITIVE (Not Detect); Benzodiazepines Screen Urine Not Detected (Not Detect); Cannabinoid Screen Urine Not Detected (Not Detect); Cocaine Screen Urine Not Detected (Not Detect); Fentanyl, urine Not Detected (Not Detect); Opiate Screen Urine Not Detected (Not Detect); Phencyclidine Screen Urine Not Detected (Not Detect)
[2021-08-09] MEDS: Metoprolol Tartrate 50 MG TABLET PO (20:36)
[2021-08-09] MEDS: Gabapentin 600 MG TABLET 1200 MG PO (20:36)
[2021-08-09] MEDS: Amitriptyline HCl 50 MG TABLET 150 MG PO (20:36)
[2021-08-10] MEDS: LORazepam 1 MG TABLET 2 MG PO (00:03)
[2021-08-10] MEDS: LORazepam 1 MG TABLET PO ×4 (02:25→20:27)
[2021-08-10 03:57] VITALS: BP 107/78; PULSE 85; RESP 18; TEMP 35.7; O2SAT 97
[2021-08-10 06:15] LABS: Hematocrit 37.5 % (42.0-52.0); Mean Corpuscular HGB Conc 34.7 g/dl (31.0-36.0); Mean Corpuscular Hemoglobin 35.2 pg (27.0-33.0); Mean Corpuscular Volume 101.6 fL (80.0-98.0); Mean Platelet Volume 9.4 fL (9.4-12.4); Red Blood Count 3.69 X10*6/uL (4.60-5.80); Red Cell Distribution Width 12.6 % (11.0-16.0); White Blood Count 4.9 X10*3/uL (4.8-10.8)
[2021-08-10 06:37] LABS: Anion Gap 13 (12-20); Blood Urea Nitrogen 6 mg/dL (9-16); Carbon Dioxide 27 mmol/L (22-29); Chloride 100 mmol/L (96-108); Creatinine Clr Calc Pharmacy 97.9; Estimated Glomerular Filt Rate > 60; Glucose Random 91 mg/dL (60-115); Potassium 3.7 mmol/L (3.3-5.1); Sodium 136 mmol/L (135-145)
[2021-08-10 06:49] LABS: Platelet Count 97 X10*3/uL (160-400)
[2021-08-10 06:55] LABS: Calcium 7.7 mg/dL (8.4-10.2)
[2021-08-10 07:33] VITALS: BP 110/88; PULSE 87; RESP 19; TEMP 36.1; O2SAT 96
[2021-08-10 09:45] LABS: Alanine Aminotransferase 34 U/L (0-40); Albumin Level 3.2 g/dL (3.5-5.0); Alkaline Phosphatase 83 U/L (39-117); Aspartate Amino Transferase 49 U/L (5-37); Bilirubin Direct 1.1 mg/dL (0.0-0.5)
[2021-08-10] MEDS: Gabapentin 600 MG TABLET 1200 MG PO ×2 (10:20→20:12)
[2021-08-10] MEDS: Metoprolol Tartrate 50 MG TABLET PO ×2 (10:21→20:12)
[2021-08-10] MEDS: Folic Acid 1 MG TABLET PO (10:21)
[2021-08-10] MEDS: amLODIPine Besylate 5 MG TABLET PO (10:22)
[2021-08-10] MEDS: Multivitamin TABLET 1 TAB PO (10:22)
[2021-08-10] MEDS: Omeprazole 40 MG CAPSULE.DR PO ×2 (10:27→15:46)
--- NOTE | 2021-08-10 10:48 | HO.PM.IMPN ---
Subjective Subjective Date of Service: 08/10/21 Review of Systems Follow-up alcohol withdrawal Very sleepy, at some point sedated Denies any nausea, vomiting, reported chest pain that has been ongoing Physical Exam Vital Signs: Vital Signs: Last Vital Signs Temp 96.9 F 08/10/21 07:33 Pulse 87 08/10/21 07:33 Resp 19 08/10/21 07:33 BP 110/88 08/10/21 07:33 Pulse Ox 96 08/10/21 07:33 BMI result Body Mass Index 20.3 Appearing in no acute distress lung sounds are clear to auscultation heart regular rate rhythm, clear S1, S2 positive bowel sounds, abdomen is soft, nontender neuro patient is alert x3, no focal deficits Objective Data Active Medications Acetaminophen (Acetaminophen 325 Mg Tablet) 650 mg PO Q6H PRN PRN Reason: Pain, Mild (Pain Scale 1-3) Amitriptyline HCl (Amitriptyline Hcl 50 Mg Tablet) 150 mg PO BEDTIME [facility] Last Admin: 08/09/21 20:36 Dose: 150 mg Documented by: ELIZABETH Amlodipine Besylate (Amlodipine Besylate 5 Mg Tablet) 5 mg PO DAILY [facility]; Protocol Last Admin: 08/10/21 10:22 Dose: 5 mg Documented by: SYLVIA Folic Acid (Folic Acid 1 Mg Tablet) 1 mg PO DAILY [facility] Last Admin: 08/10/21 10:21 Dose: 1 mg Documented by: SYLVIA Gabapentin (Gabapentin 600 Mg Tablet) 1,200 mg PO BID [facility] Last Admin: 08/10/21 10:20 Dose: 1,200 mg Documented by: SYLVIA Lorazepam (Lorazepam 2 Mg/Ml Vial) 2 mg IVPUSH ONCE PRN PRN Reason: Alcohol Withdrawal Last Admin: 08/09/21 08:41 Dose: 2 mg Documented by: MARIA A Lorazepam (Lorazepam 1 Mg Tablet) 1 mg PO Q4H [facility]; Taper Stop: 08/14/21 01:14 Last Admin: 08/10/21 10:28 Dose: 1 mg Documented by: SYLVIA Lorazepam (Lorazepam 1 Mg Tablet) 1 mg PO Q4H PRN PRN Reason: Breakthrough alcohol withdrawa Stop: 08/13/21 23:09 Metoprolol Tartrate (Metoprolol Tartrate 50 Mg Tablet) 50 mg PO BID [facility]; Protocol Last Admin: 08/10/21 10:21 Dose: 50 mg Documented by: SYLVIA Multivitamins/Vitamin C (Multivitamin Tablet) 1 tab PO DAILY [facility] Last Admin: 08/10/21 10:22 Dose: 1 tab Documented by: SYLVIA Omeprazole (Omeprazole 40 Mg Capsule.) 40 mg PO BID@0630,1630 [facility] Last Admin: 08/10/21 10:27 Dose: 40 mg Documented by: SYLVIA Ondansetron HCl (Ondansetron Hcl 4 Mg/2 Ml Vial) 4 mg IVPUSH Q8H PRN PRN Reason: Nausea and Vomiting Pharmacy Consult (Consult Rx Perform Med Rec) 1 each MISCELLANE ONCE PRN PRN Reason: Consult order Labs CBC & Chem 7: 08/10/21 05:17 08/10/21 05:17 Labs: Laboratory Results - last 24 hr 08/09/21 08/09/21 08/10/21 18:08 18:08 05:17 MCV 101.6 H MCH 35.2 H MCHC 34.7 RDW 12.6 Plt Count 97 L MPV 9.4 Absolute Nucleated RBC 0.000 Nucleated RBC % (auto) 0.0 Anion Gap Estim Creat Clear Calc Estimated GFR Random Glucose Calcium Magnesium Total Bilirubin Direct Bilirubin AST ALT Alkaline Phosphatase Total Protein Albumin Urine Color YELLOW Urine Appearance HAZY Urine pH 5.5 Ur Specific [place] 1.010 Urine Protein NEG Urine Glucose (UA) NEG Urine Ketones NEG Urine Blood NEG Urine Nitrite NEG Ur Leukocyte Esterase NEG Urine Opiates Screen Not Detected Urine Fentanyl Screen Not Detected Ur Barbiturates Screen POSITIVE H Ur Phencyclidine Scrn Not Detected Ur Amphetamines Screen Not Detected U Benzodiazepines Scrn Not Detected Urine Cocaine Screen Not Detected U Marijuana (THC) Screen Not Detected 08/10/21 05:17 MCV MCH MCHC RDW Plt Count MPV Absolute Nucleated RBC Nucleated RBC % (auto) Anion Gap 13 Estim Creat Clear Calc 97.9 Estimated GFR > 60 Random Glucose 91 Calcium 7.7 L D Magnesium 2.0 Total Bilirubin 2.0 H Direct Bilirubin 1.1 H AST 49 H ALT 34 Alkaline Phosphatase 83 D Total Protein 6.0 L D Albumin 3.2 L D Urine Color Urine Appearance Urine pH Ur Specific [place] Urine Protein Urine Glucose (UA) Urine Ketones Urine Blood Urine Nitrite Ur Leukocyte Esterase Urine Opiates Screen Urine Fentanyl Screen Ur Barbiturates Screen Ur Phencyclidine Scrn Ur Amphetamines Screen U Benzodiazepines Scrn Urine Cocaine Screen U Marijuana (THC) Screen Assessment and Plan (1) Alcohol withdrawal: Status: Acute Plan This is a 46 yo M with a PMH of heavy alcohol use and dependence, peripheral neuropathy, HTN, Cardiomyopathy (possibly alcoholic) who presented to [facility] with complaints of chest pain. He was evaluated in the ED with plans for discharge home. However, he was noted to be confused and exhibiting signs of alcohol withdrawal and hence will be admitted for further treatment. Alcohol withdrawal and dependence Given 2 doses of IV ativan in the ED, now patient is sedated scheduled Ativan protocol discontinued due to sedation, will continue Ativan q.4 hours p.r.n. following CIWA scale monitor electrolytes and replace as warranted Thiamin/Folate care team consult for alcohol cessation discussion Severe Esophagitis PPI Chest pain likely due to above EKG with non-specific changes; HS trop-I 10, repeat another now monitor in tele CTA neg for PE Alcohol liver disease noted on CT bili around baseline HypoMg replace with IV Thrombocytopenia due to #4 monitor Presumed full code DVT pptx, mechanical due to thrombocytopenia + severe esophagitis and concerning over causing GI bleed Attending Dr. Wakefield Patient requires continued hospitalization for treatment of alcohol withdrawal symptoms, due to the large quantities of alcohol the patient drinks it would be unsafe for the patient to be treated at home and he needs consistent monitoring with CIWA scale and lorazepam/phenobarbital. Quality Stroke Does the patient have a stroke diagnosis?: No VTE Prior VTE?: No VTE Risk Level:: Medical - moderate - high VTE Device Contraindication: N/A - Device Ordered VTE Drug Contraindication: N/A - Med Ordered
[2021-08-10 10:56] VITALS: BP 118/89; PULSE 89; RESP 19; TEMP 36.1; O2SAT 99
--- NOTE | 2021-08-10 13:16 | MHC.CM.PN ---
met with pt who explins that he lives with friends he is not vaccinated he has his own ride home and is not involved with any support groups for his drinking
[2021-08-10 15:20] VITALS: BP 119/81; PULSE 80; RESP 18; TEMP 37.1; O2SAT 100
[2021-08-10 19:18] VITALS: BP 155/98; PULSE 92; RESP 17; TEMP 36.8; O2SAT 99
[2021-08-10] MEDS: Amitriptyline HCl 50 MG TABLET 150 MG PO (20:12)
[2021-08-10 23:07] VITALS: BP 131/91; PULSE 83; RESP 18; TEMP 36.7; O2SAT 100
[2021-08-11 03:11] VITALS: BP 113/81; PULSE 75; RESP 18; TEMP 36.4; O2SAT 97
[2021-08-11 07:05] VITALS: BP 121/79; PULSE 80; RESP 20; TEMP 36.5; O2SAT 99
[2021-08-11 07:15] LABS: Hematocrit 40.1 % (42.0-52.0); Hemoglobin 13.3 g/dl (14.0-18.0); Mean Corpuscular HGB Conc 33.2 g/dl (31.0-36.0); Mean Corpuscular Hemoglobin 34.4 pg (27.0-33.0); Mean Corpuscular Volume 103.6 fL (80.0-98.0); Mean Platelet Volume 9.6 fL (9.4-12.4); Platelet Count 108 X10*3/uL (160-400); Red Blood Count 3.87 X10*6/uL (4.60-5.80); Red Cell Distribution Width 12.5 % (11.0-16.0)
[2021-08-11 07:37] LABS: Anion Gap 13 (12-20); Blood Urea Nitrogen 7 mg/dL (9-16); Carbon Dioxide 26 mmol/L (22-29); Chloride 98 mmol/L (96-108); Creatinine Clr Calc Pharmacy 90.4; Estimated Glomerular Filt Rate > 60; Glucose Random 77 mg/dL (60-115); Potassium 3.7 mmol/L (3.3-5.1); Sodium 133 mmol/L (135-145)
[2021-08-11 07:39] LABS: Magnesium 2.1 mg/dL (1.6-2.6)
[2021-08-11] MEDS: Omeprazole 40 MG CAPSULE.DR PO ×2 (09:14→16:27)
[2021-08-11] MEDS: amLODIPine Besylate 5 MG TABLET PO (09:15)
[2021-08-11] MEDS: Gabapentin 600 MG TABLET 1200 MG PO ×2 (09:15→21:14)
[2021-08-11] MEDS: Multivitamin TABLET 1 TAB PO (09:15)
[2021-08-11] MEDS: Folic Acid 1 MG TABLET PO (09:15)
[2021-08-11] MEDS: Metoprolol Tartrate 50 MG TABLET PO ×2 (09:15→21:14)
[2021-08-11 11:03] VITALS: BP 99/74; PULSE 77; RESP 18; TEMP 36.4; O2SAT 98
[2021-08-11 15:09] VITALS: BP 127/82; PULSE 85; RESP 18; TEMP 36.1; O2SAT 100
--- NOTE | 2021-08-11 15:58 | P.PNIM_ITS ---
Subjective Subjective Date of Service: 08/11/21 Interval History: Confused as to place and time; continues to be somnolent at times Review of Systems Denies chest pain Denies shortness of breath Denies nausea vomiting diarrhea Physical Exam Vital Signs: Vital Signs: Last Vital Signs Temp 97 F 08/11/21 15:09 Pulse 85 08/11/21 15:09 Resp 18 08/11/21 15:09 BP 127/82 08/11/21 15:09 Pulse Ox 100 08/11/21 15:09 BMI result Body Mass Index 20.3 Const: Other: Somnolent but arousable; no acute distress Resp: Other: Clear to auscultation bilaterally no rales rhonchi or wheezes Cardio: Other: No S4; positive S1-S2; no S3 murmurs of gallops GI: Other: Soft nontender nondistended with normoactive bowel sounds Extrem: Other: No edema bilaterally Objective Data Active Medications Acetaminophen (Acetaminophen 325 Mg Tablet) 650 mg PO Q6H PRN PRN Reason: Pain, Mild (Pain Scale 1-3) Amitriptyline HCl (Amitriptyline Hcl 50 Mg Tablet) 150 mg PO BEDTIME [facility] Last Admin: 08/10/21 20:12 Dose: 150 mg Documented by: ELIZABETH Amlodipine Besylate (Amlodipine Besylate 5 Mg Tablet) 5 mg PO DAILY [facility]; Protocol Last Admin: 08/11/21 09:15 Dose: 5 mg Documented by: JAN Folic Acid (Folic Acid 1 Mg Tablet) 1 mg PO DAILY [facility] Last Admin: 08/11/21 09:15 Dose: 1 mg Documented by: JAN Gabapentin (Gabapentin 600 Mg Tablet) 1,200 mg PO BID [facility] Last Admin: 08/11/21 09:15 Dose: 1,200 mg Documented by: JAN Lorazepam (Lorazepam 2 Mg/Ml Vial) 2 mg IVPUSH ONCE PRN PRN Reason: Alcohol Withdrawal Last Admin: 08/09/21 08:41 Dose: 2 mg Documented by: MARIA A Lorazepam (Lorazepam 1 Mg Tablet) 1 mg PO Q4H PRN PRN Reason: Breakthrough alcohol withdrawa Stop: 08/13/21 23:09 Last Admin: 08/10/21 20:27 Dose: 1 mg Documented by: ELIZABETH Metoprolol Tartrate (Metoprolol Tartrate 50 Mg Tablet) 50 mg PO BID [facility]; Protocol Last Admin: 08/11/21 09:15 Dose: 50 mg Documented by: JAN Multivitamins/Vitamin C (Multivitamin Tablet) 1 tab PO DAILY [facility] Last Admin: 08/11/21 09:15 Dose: 1 tab Documented by: JAN Omeprazole (Omeprazole 40 Mg Capsule.Dr) 40 mg PO BID@0630,1630 [facility] Last Admin: 08/11/21 09:14 Dose: 40 mg Documented by: JAN Ondansetron HCl (Ondansetron Hcl 4 Mg/2 Ml Vial) 4 mg IVPUSH Q8H PRN PRN Reason: Nausea and Vomiting Pharmacy Consult (Consult Rx Perform Med Rec) 1 each MISCELLANE ONCE PRN PRN Reason: Consult order Labs CBC & Chem 7: 08/11/21 06:37 08/11/21 06:37 Labs: Laboratory Results - last 24 hr 08/11/21 08/11/21 08/11/21 06:37 06:37 06:37 MCV 103.6 H MCH 34.4 H MCHC 33.2 RDW 12.5 Plt Count 108 L MPV 9.6 Absolute Nucleated RBC 0.000 Nucleated RBC % (auto) 0.0 Anion Gap 13 Estim Creat Clear Calc 90.4 Estimated GFR > 60 Random Glucose 77 Calcium 8.0 L Magnesium 2.1 Assessment and Plan (1) Alcohol withdrawal: Status: Acute (2) Esophagitis: Status: Acute (3) HTN (hypertension): Status: Acute Plan This is a 46 yo M with a PMH of heavy alcohol use and dependence, peripheral neuropathy, HTN, Cardiomyopathy (possibly alcoholic) who presented to [facility] with complaints of chest pain. He was evaluated in the ED with plans for discharge home. However, he was noted to be confused and exhibiting signs of alcohol withdrawal and hence will be admitted for further treatment. 1.Alcohol withdrawal and dependence -no seizure activity at this time. So follow on CIWA scale with p.r.n. Ativan as warranted -Thiamin/Folate -care team consult for alcohol cessation discussion 2.Severe Esophagitis -continue omeprazole b.i.d. as prescribed -titrate as indicated 3.Alcohol liver disease - follow LFTs as indicated Presumed full code DVT pptx, mechanical due to thrombocytopenia + severe esophagitis and concerning over causing GI bleed Patient will likely require 2 midnights going forward to complete/clear alcohol withdrawal in the backdrop of CIWA protocol Quality Stroke Does the patient have a stroke diagnosis?: No VTE Prior VTE?: No VTE Risk Level:: Medical - moderate - high VTE Device Contraindication: N/A - Device Ordered VTE Drug Contraindication: N/A - Med Ordered
[2021-08-11 19:03] VITALS: BP 149/95; PULSE 92; RESP 16; TEMP 36.6; O2SAT 100
[2021-08-11] MEDS: Amitriptyline HCl 50 MG TABLET 150 MG PO (21:14)
[2021-08-11 23:21] VITALS: BP 134/92; PULSE 85; RESP 18; TEMP 36.6; O2SAT 100
[2021-08-12] VITALS (7 sets, daily range): BP systolic 113–165; BP diastolic 86–103; PULSE 87–106; RESP 16–20; TEMP 36.3–37.5; O2SAT 95–100
[2021-08-12 06:35] LABS: MANUAL DIFF FLAG NO
[2021-08-12 06:44] LABS: Basophils Percent Auto 0.6 % (0-2); Eosinophils Absolute Auto 0.1 X10*3/uL (0.0-0.4); Eosinophils Percent Auto 1.9 % (0-4); Hematocrit 41.9 % (42.0-52.0); Hemoglobin 14.3 g/dl (14.0-18.0); Imm Gran Abs Auto 0.02 X10*3/uL (0.00-0.03); Imm Gran Pct Auto 0.4 % (0.0-0.4); Lymphocytes Absolute Auto 1.5 X10*3/uL (1.2-4.9); Lymphocytes Percent Auto 28.2 % (20-40); Mean Corpuscular HGB Conc 34.1 g/dl (31.0-36.0); Mean Corpuscular Hemoglobin 34.6 pg (27.0-33.0); Mean Corpuscular Volume 101.5 fL (80.0-98.0); Mean Platelet Volume 9.4 fL (9.4-12.4); Monocytes Absolute Auto 0.6 X10*3/uL (0.1-1.2); Monocytes Percent Auto 11.5 % (2-11); Neutrophils Absolute Auto 3.1 x10*3/uL (2.0-8.3); Neutrophils Percent Auto 57.4 % (45-73); Platelet Count 130 X10*3/uL (160-400); Red Blood Count 4.13 X10*6/uL (4.60-5.80); Red Cell Distribution Width 12.4 % (11.0-16.0); White Blood Count 5.3 X10*3/uL (4.8-10.8)
[2021-08-12 07:09] LABS: Alanine Aminotransferase 24 U/L (0-40); Albumin Level 3.3 g/dL (3.5-5.0); Alkaline Phosphatase 87 U/L (39-117); Anion Gap 11 (12-20); Aspartate Amino Transferase 31 U/L (5-37); Bilirubin Total 1.3 mg/dL (0.0-1.0); Blood Urea Nitrogen 6 mg/dL (9-16); Calcium 8.4 mg/dL (8.4-10.2); Carbon Dioxide 27 mmol/L (22-29); Chloride 100 mmol/L (96-108); Creatinine Clr Calc Pharmacy 100.3; Estimated Glomerular Filt Rate > 60; Glucose Fasting 122 mg/dL (60-99); Sodium 134 mmol/L (135-145); Total Protein 6.4 g/dL (6.5-8.0)
[2021-08-12] MEDS: Folic Acid 1 MG TABLET PO (12:37)
[2021-08-12] MEDS: Gabapentin 600 MG TABLET 1200 MG PO ×2 (12:37→19:55)
[2021-08-12] MEDS: Multivitamin TABLET 1 TAB PO (12:37)
[2021-08-12] MEDS: amLODIPine Besylate 5 MG TABLET PO (12:37)
[2021-08-12] MEDS: Metoprolol Tartrate 50 MG TABLET PO ×2 (12:37→19:55)
--- NOTE | 2021-08-12 15:17 | P.PNIM_ITS ---
Subjective Subjective Date of Service: 08/12/21 Interval History: Confused as to place and time; continues to be somnolent at times but improved overnight. No observed seizure activity Review of Systems Denies chest pain Denies shortness of breath Denies nausea vomiting diarrhea Physical Exam Vital Signs: Vital Signs: Last Vital Signs Temp 98.2 F 08/12/21 11:25 Pulse 102 H 08/12/21 11:25 Resp 20 08/12/21 11:25 BP 136/95 H 08/12/21 11:25 Pulse Ox 99 08/12/21 11:25 BMI result Body Mass Index 20.3 Const: Other: Somnolent but arousable; no acute distress Resp: Other: Clear to auscultation bilaterally no rales rhonchi or wheezes Cardio: Other: No S4; positive S1-S2; no S3 murmurs of gallops GI: Other: Soft nontender nondistended with normoactive bowel sounds Extrem: Other: No edema bilaterally Objective Data Active Medications Acetaminophen (Acetaminophen 325 Mg Tablet) 650 mg PO Q6H PRN PRN Reason: Pain, Mild (Pain Scale 1-3) Amitriptyline HCl (Amitriptyline Hcl 50 Mg Tablet) 150 mg PO BEDTIME [facility] Last Admin: 08/11/21 21:14 Dose: 150 mg Documented by: DELORES Amlodipine Besylate (Amlodipine Besylate 5 Mg Tablet) 5 mg PO DAILY [facility]; Protocol Last Admin: 08/12/21 12:37 Dose: 5 mg Documented by: DEE Folic Acid (Folic Acid 1 Mg Tablet) 1 mg PO DAILY [facility] Last Admin: 08/12/21 12:37 Dose: 1 mg Documented by: DEE Gabapentin (Gabapentin 600 Mg Tablet) 1,200 mg PO BID [facility] Last Admin: 08/12/21 12:37 Dose: 1,200 mg Documented by: EDE Lorazepam (Lorazepam 2 Mg/Ml Vial) 2 mg IVPUSH ONCE PRN PRN Reason: Alcohol Withdrawal Last Admin: 08/09/21 08:41 Dose: 2 mg Documented by: MARIA A Lorazepam (Lorazepam 1 Mg Tablet) 1 mg PO Q4H PRN PRN Reason: Breakthrough alcohol withdrawa Stop: 08/13/21 23:09 Last Admin: 08/10/21 20:27 Dose: 1 mg Documented by: ELIZABETH Metoprolol Tartrate (Metoprolol Tartrate 50 Mg Tablet) 50 mg PO BID [facility]; Protocol Last Admin: 08/12/21 12:37 Dose: 50 mg Documented by: DEE Multivitamins/Vitamin C (Multivitamin Tablet) 1 tab PO DAILY [facility] Last Admin: 08/12/21 12:37 Dose: 1 tab Documented by: DEE Omeprazole (Omeprazole 40 Mg Capsule.Dr) 40 mg PO BID@0630,1630 [facility] Last Admin: 08/12/21 12:41 Dose: Not Given Documented by: DEE Non-Admin Reason: too close to next dose Ondansetron HCl (Ondansetron Hcl 4 Mg/2 Ml Vial) 4 mg IVPUSH Q8H PRN PRN Reason: Nausea and Vomiting Pharmacy Consult (Consult Rx Perform Med Rec) 1 each MISCELLANE ONCE PRN PRN Reason: Consult order Labs CBC & Chem 7: 08/12/21 06:00 08/12/21 06:00 Labs: Laboratory Results - last 24 hr 08/12/21 08/12/21 06:00 06:00 MCV 101.5 H MCH 34.6 H MCHC 34.1 RDW 12.4 Plt Count 130 L MPV 9.4 Immature Gran % (Auto) 0.4 Neut % (Auto) 57.4 Lymph % (Auto) 28.2 [place] % (Auto) 11.5 H Eos % (Auto) 1.9 Baso % (Auto) 0.6 Lymph # (Auto) 1.5 [place] # (Auto) 0.6 Eos # (Auto) 0.1 Baso # (Auto) 0.0 Abs Immat Gran (auto) 0.02 Absolute Neuts (auto) 3.1 Absolute Nucleated RBC 0.000 Nucleated RBC % (auto) 0.0 Anion Gap 11 L Estim Creat Clear Calc 100.3 Estimated GFR > 60 Fasting Glucose 122 H Calcium 8.4 Total Bilirubin 1.3 H AST 31 ALT 24 Alkaline Phosphatase 87 Total Protein 6.4 L Albumin 3.3 L Assessment and Plan (1) Alcohol withdrawal: Status: Acute (2) Esophagitis: Status: Acute (3) Alcohol dependence: Status: Acute Plan This is a 46 yo M with a PMH of heavy alcohol use and dependence, peripheral neuropathy, HTN, Cardiomyopathy (possibly alcoholic) who presented to [facility] with complaints of chest pain. He was evaluated in the ED with plans for discharge home. However, he was noted to be confused and exhibiting signs of alcohol withdrawal and hence will be admitted for further treatment. 1.Alcohol withdrawal and dependence -no seizure activity at this time. So follow on CIWA scale with p.r.n. Ativan as warranted -Thiamin/Folate -care team consult 2.Severe Esophagitis -continue omeprazole b.i.d. as prescribed -titrate as indicated 3.Alcohol liver disease - follow LFTs as indicated Presumed full code DVT pptx, mechanical due to thrombocytopenia + severe esophagitis and concerning over causing GI bleed Patient will likely require 2 midnights going forward to complete/clear alcohol withdrawal in the backdrop of CIWA protocol Quality Stroke Does the patient have a stroke diagnosis?: No VTE Prior VTE?: No VTE Risk Level:: Medical - moderate - high VTE Device Contraindication: N/A - Device Ordered VTE Drug Contraindication: N/A - Med Ordered
[2021-08-12] MEDS: Omeprazole 40 MG CAPSULE.DR PO (16:27)
[2021-08-12] MEDS: Amitriptyline HCl 50 MG TABLET 150 MG PO (19:55)
--- NOTE | 2021-08-12 20:42 | MHC.RECOVSUP ---
? Reason for consult:Recovery Support o ? ? ?Current location:[facility]? o ? ? ?Identified substance use concern: Alcohol - Withdrawal ? Additional information:?I was able to make the initial contact with patient and introduce myself. Patient wasn't interested in having a conversation so I left my business card.
[2021-08-13] VITALS (7 sets, daily range): BP systolic 119–180; BP diastolic 47–112; PULSE 84–169; RESP 17–20; TEMP 36.2–39.1; O2SAT 96–100
[2021-08-13] MEDS: LORazepam 1 MG TABLET PO (01:25)
[2021-08-13 06:47] LABS: MANUAL DIFF FLAG NO
[2021-08-13 06:54] LABS: Basophils Percent Auto 0.7 % (0-2); Eosinophils Absolute Auto 0.1 X10*3/uL (0.0-0.4); Eosinophils Percent Auto 2.1 % (0-4); Hematocrit 37.4 % (42.0-52.0); Hemoglobin 13.1 g/dl (14.0-18.0); Imm Gran Abs Auto 0.02 X10*3/uL (0.00-0.03); Imm Gran Pct Auto 0.3 % (0.0-0.4); Lymphocytes Absolute Auto 1.6 X10*3/uL (1.2-4.9); Lymphocytes Percent Auto 27.3 % (20-40); Mean Corpuscular Hemoglobin 35.2 pg (27.0-33.0); Mean Corpuscular Volume 100.5 fL (80.0-98.0); Mean Platelet Volume 9.6 fL (9.4-12.4); Monocytes Absolute Auto 0.7 X10*3/uL (0.1-1.2); Monocytes Percent Auto 12.5 % (2-11); Neutrophils Absolute Auto 3.3 x10*3/uL (2.0-8.3); Neutrophils Percent Auto 57.1 % (45-73); Platelet Count 152 X10*3/uL (160-400); Red Blood Count 3.72 X10*6/uL (4.60-5.80); Red Cell Distribution Width 12.3 % (11.0-16.0); White Blood Count 5.8 X10*3/uL (4.8-10.8)
[2021-08-13 07:18] LABS: Alanine Aminotransferase 27 U/L (0-40); Albumin Level 3.1 g/dL (3.5-5.0); Alkaline Phosphatase 82 U/L (39-117); Anion Gap 13 (12-20); Aspartate Amino Transferase 48 U/L (5-37); Bilirubin Total 0.9 mg/dL (0.0-1.0); Blood Urea Nitrogen 9 mg/dL (9-16); Calcium 8.2 mg/dL (8.4-10.2); Carbon Dioxide 24 mmol/L (22-29); Chloride 100 mmol/L (96-108); Creatinine Clr Calc Pharmacy 97.9; Estimated Glomerular Filt Rate > 60; Glucose Fasting 134 mg/dL (60-99); Potassium 3.6 mmol/L (3.3-5.1); Sodium 133 mmol/L (135-145)
--- NOTE | 2021-08-13 11:02 | MHC.RECOVRN ---
T/w met with pt on 08/12 in room 445 to discuss substance use. Upon entering, pt in recliner watching the [employer] channel. When asked what pt was watching, pt responded usually my phone or tablet. Pt did not have phone or tablet near him. Pt oriented to self and place, not date. When t/w asked a question, pt was tangential and unable to respond appropriately. Due to pts mental status, unable to complete substance use assessment or engage in any discussion regarding use. Spoke with pts RN. Will continue to follow.
--- NOTE | 2021-08-13 13:18 | MHC.CM.PN ---
per rounds no dc date at this time plan remains home no servceis
--- NOTE | 2021-08-13 13:31 | HO.PM.IMPN ---
Subjective Subjective Date of Service: 08/13/21 Interval History: Confused as to place and time; continues to be somnolent;Ativan overnight No observed seizure activity Review of Systems Denies chest pain Denies shortness of breath Denies nausea vomiting diarrhea Physical Exam Vital Signs: Vital Signs: Last Vital Signs Temp 97.4 F 08/13/21 11:39 Pulse 100 08/13/21 11:39 Resp 20 08/13/21 11:39 BP 139/99 H 08/13/21 11:39 Pulse Ox 99 08/13/21 11:39 BMI result Body Mass Index 20.3 Const: Other: Somnolent but arousable; no acute distress Resp: Other: Clear to auscultation bilaterally no rales rhonchi or wheezes Cardio: Other: No S4; positive S1-S2; no S3 murmurs of gallops GI: Other: Soft nontender nondistended with normoactive bowel sounds Extrem: Other: No edema bilaterally Objective Data Active Medications Acetaminophen (Acetaminophen 325 Mg Tablet) 650 mg PO Q6H PRN PRN Reason: Pain, Mild (Pain Scale 1-3) Amitriptyline HCl (Amitriptyline Hcl 50 Mg Tablet) 150 mg PO BEDTIME [facility] Last Admin: 08/12/21 19:55 Dose: 150 mg Documented by: JADA Amlodipine Besylate (Amlodipine Besylate 5 Mg Tablet) 5 mg PO DAILY [facility]; Protocol Last Admin: 08/13/21 09:28 Dose: Not Given Documented by: ALEXIS Non-Admin Reason: Patient Asleep Folic Acid (Folic Acid 1 Mg Tablet) 1 mg PO DAILY [facility] Last Admin: 08/13/21 09:28 Dose: Not Given Documented by: ALEXIS Non-Admin Reason: Patient Asleep Gabapentin (Gabapentin 600 Mg Tablet) 1,200 mg PO BID [facility] Last Admin: 08/13/21 09:28 Dose: Not Given Documented by: ALEXIS Non-Admin Reason: Patient Asleep Lorazepam (Lorazepam 2 Mg/Ml Vial) 2 mg IVPUSH ONCE PRN PRN Reason: Alcohol Withdrawal Last Admin: 08/09/21 08:41 Dose: 2 mg Documented by: MARIA A Lorazepam (Lorazepam 1 Mg Tablet) 1 mg PO Q4H PRN PRN Reason: Breakthrough alcohol withdrawa Stop: 08/13/21 23:09 Last Admin: 08/13/21 01:25 Dose: 1 mg Documented by: ELVIRA Metoprolol Tartrate (Metoprolol Tartrate 50 Mg Tablet) 50 mg PO BID [facility]; Protocol Last Admin: 08/13/21 09:29 Dose: Not Given Documented by: ALEXIS Non-Admin Reason: Patient Asleep Multivitamins/Vitamin C (Multivitamin Tablet) 1 tab PO DAILY [facility] Last Admin: 08/13/21 09:29 Dose: Not Given Documented by: ALEXIS Non-Admin Reason: Patient Asleep Omeprazole (Omeprazole 40 Mg Capsule.Dr) 40 mg PO BID@4330,0380 [facility] Last Admin: 08/13/21 06:20 Dose: Not Given Documented by: ELVIRA Non-Admin Reason: too lethargic Ondansetron HCl (Ondansetron Hcl 4 Mg/2 Ml Vial) 4 mg IVPUSH Q8H PRN PRN Reason: Nausea and Vomiting Pharmacy Consult (Consult Rx Perform Med Rec) 1 each MISCELLANE ONCE PRN PRN Reason: Consult order Labs CBC & Chem 7: 08/13/21 06:11 08/13/21 06:11 Labs: Laboratory Results - last 24 hr 08/13/21 08/13/21 06:11 06:11 MCV 100.5 H MCH 35.2 H MCHC 35.0 RDW 12.3 Plt Count 152 L MPV 9.6 Immature Gran % (Auto) 0.3 Neut % (Auto) 57.1 Lymph % (Auto) 27.3 [place] % (Auto) 12.5 H Eos % (Auto) 2.1 Baso % (Auto) 0.7 Lymph # (Auto) 1.6 [place] # (Auto) 0.7 Eos # (Auto) 0.1 Baso # (Auto) 0.0 Abs Immat Gran (auto) 0.02 Absolute Neuts (auto) 3.3 Absolute Nucleated RBC 0.000 Nucleated RBC % (auto) 0.0 Anion Gap 13 Estim Creat Clear Calc 97.9 Estimated GFR > 60 Fasting Glucose 134 H Calcium 8.2 L Total Bilirubin 0.9 AST 48 H D ALT 27 Alkaline Phosphatase 82 Total Protein 6.0 L Albumin 3.1 L Assessment and Plan (1) Alcohol withdrawal: Status: Acute (2) Esophagitis: Status: Acute Plan This is a 46 yo M with a PMH of heavy alcohol use and dependence, peripheral neuropathy, HTN, Cardiomyopathy (possibly alcoholic) who presented to [facility] with complaints of chest pain. He was evaluated in the ED with plans for discharge home. However, he was noted to be confused and exhibiting signs of alcohol withdrawal and hence will be admitted for further treatment. Received Ativan overnight...somulent this am. 1.Alcohol withdrawal and dependence -no seizure activity at this time. So follow on CIWA scale with p.r.n. Ativan as warranted -Thiamin/Folate -care team consult 2.Severe Esophagitis -continue omeprazole b.i.d. as prescribed -titrate as indicated 3.Alcohol liver disease - follow LFTs as indicated Presumed full code DVT pptx, mechanical due to thrombocytopenia + severe esophagitis and concerning over causing GI bleed Patient will likely require 2 midnights going forward to complete/clear alcohol withdrawal in the backdrop of CIWA protocol Quality Stroke Does the patient have a stroke diagnosis?: No VTE Prior VTE?: No VTE Risk Level:: Medical - moderate - high VTE Device Contraindication: N/A - Device Ordered VTE Drug Contraindication: N/A - Med Ordered
[2021-08-13] MEDS: Metoprolol Tartrate 50 MG TABLET PO (16:07)
[2021-08-13] MEDS: Omeprazole 40 MG CAPSULE.DR PO (16:07)
[2021-08-13] MEDS: Amitriptyline HCl 50 MG TABLET 150 MG PO (20:41)
[2021-08-13] MEDS: Gabapentin 600 MG TABLET 1200 MG PO (20:41)
[2021-08-13] MEDS: Acetaminophen 325 MG TABLET 650 MG PO (23:43)
[2021-08-14] VITALS (8 sets, daily range): BP systolic 122–160; BP diastolic 63–109; PULSE 84–120; RESP 17–20; TEMP 36.6–37.7; O2SAT 95–99
[2021-08-14 06:11] LABS: MANUAL DIFF FLAG NO
[2021-08-14 06:15] LABS: Basophils Percent Auto 0.6 % (0-2); Eosinophils Absolute Auto 0.1 X10*3/uL (0.0-0.4); Eosinophils Percent Auto 1.2 % (0-4); Hematocrit 36.3 % (42.0-52.0); Hemoglobin 12.6 g/dl (14.0-18.0); Imm Gran Abs Auto 0.05 X10*3/uL (0.00-0.03); Imm Gran Pct Auto 0.8 % (0.0-0.4); Lymphocytes Absolute Auto 1.6 X10*3/uL (1.2-4.9); Lymphocytes Percent Auto 24.5 % (20-40); Mean Corpuscular HGB Conc 34.7 g/dl (31.0-36.0); Mean Corpuscular Hemoglobin 34.8 pg (27.0-33.0); Mean Corpuscular Volume 100.3 fL (80.0-98.0); Mean Platelet Volume 9.3 fL (9.4-12.4); Monocytes Absolute Auto 1.1 X10*3/uL (0.1-1.2); Monocytes Percent Auto 16.9 % (2-11); Neutrophils Absolute Auto 3.7 x10*3/uL (2.0-8.3); Platelet Count 143 X10*3/uL (160-400); Red Blood Count 3.62 X10*6/uL (4.60-5.80); Red Cell Distribution Width 12.3 % (11.0-16.0); White Blood Count 6.5 X10*3/uL (4.8-10.8)
[2021-08-14 06:32] LABS: Alanine Aminotransferase 22 U/L (0-40); Alkaline Phosphatase 71 U/L (39-117); Anion Gap 12 (12-20); Aspartate Amino Transferase 30 U/L (5-37); Blood Urea Nitrogen 11 mg/dL (9-16); Calcium 8.1 mg/dL (8.4-10.2); Carbon Dioxide 24 mmol/L (22-29); Chloride 100 mmol/L (96-108); Creatinine Clr Calc Pharmacy 99.1; Estimated Glomerular Filt Rate > 60; Glucose Fasting 129 mg/dL (60-99); Potassium 3.3 mmol/L (3.3-5.1); Sodium 133 mmol/L (135-145); Total Protein 5.6 g/dL (6.5-8.0)
[2021-08-14] MEDS: Multivitamin TABLET 1 TAB PO (11:50)
[2021-08-14] MEDS: Folic Acid 1 MG TABLET PO (11:50)
[2021-08-14] MEDS: amLODIPine Besylate 5 MG TABLET PO (11:50)
[2021-08-14] MEDS: Metoprolol Tartrate 50 MG TABLET PO ×2 (11:50→19:42)
[2021-08-14] MEDS: Gabapentin 600 MG TABLET 1200 MG PO ×2 (11:50→19:42)
--- NOTE | 2021-08-14 12:19 | P.PNIM_ITS ---
Subjective Subjective Date of Service: 08/14/21 Interval History: Less somnolent today. . . No Ativan last 24 hours No observed seizure activity Review of Systems Denies chest pain Denies shortness of breath Denies nausea vomiting diarrhea Physical Exam Vital Signs: Vital Signs: Last Vital Signs Temp 97.9 F 08/14/21 11:06 Pulse 84 08/14/21 11:06 Resp 17 08/14/21 11:06 BP 126/74 08/14/21 11:06 Pulse Ox 97 08/14/21 11:06 BMI result Body Mass Index 20.3 Const: Other: Somnolent but arousable; no acute distress Resp: Other: Clear to auscultation bilaterally no rales rhonchi or wheezes Cardio: Other: No S4; positive S1-S2; no S3 murmurs of gallops GI: Other: Soft nontender nondistended with normoactive bowel sounds Extrem: Other: No edema bilaterally Objective Data Active Medications Acetaminophen (Acetaminophen 325 Mg Tablet) 650 mg PO Q6H PRN PRN Reason: Pain, Mild (Pain Scale 1-3) Last Admin: 08/13/21 23:43 Dose: 650 mg Documented by: GYA Amitriptyline HCl (Amitriptyline Hcl 50 Mg Tablet) 150 mg PO BEDTIME [facility] Last Admin: 08/13/21 20:41 Dose: 150 mg Documented by: GAY Amlodipine Besylate (Amlodipine Besylate 5 Mg Tablet) 5 mg PO DAILY [facility]; Protocol Last Admin: 08/14/21 11:50 Dose: 5 mg Documented by: DEE Folic Acid (Folic Acid 1 Mg Tablet) 1 mg PO DAILY [facility] Last Admin: 08/14/21 11:50 Dose: 1 mg Documented by: DEE Gabapentin (Gabapentin 600 Mg Tablet) 1,200 mg PO BID [facility] Last Admin: 08/14/21 11:50 Dose: 1,200 mg Documented by: DEE Metoprolol Tartrate (Metoprolol Tartrate 50 Mg Tablet) 50 mg PO BID [facility]; Protocol Last Admin: 08/14/21 11:50 Dose: 50 mg Documented by: DEE Multivitamins/Vitamin C (Multivitamin Tablet) 1 tab PO DAILY [facility] Last Admin: 08/14/21 11:50 Dose: 1 tab Documented by: DEE Omeprazole (Omeprazole 40 Mg Capsule.) 40 mg PO BID@8926,7211 [facility] Last Admin: 08/14/21 06:34 Dose: Not Given Documented by: ANTOIC Non-Admin Reason: Patient Asleep Ondansetron HCl (Ondansetron Hcl 4 Mg/2 Ml Vial) 4 mg IVPUSH Q8H PRN PRN Reason: Nausea and Vomiting Pharmacy Consult (Consult Rx Perform Med Rec) 1 each MISCELLANE ONCE PRN PRN Reason: Consult order Labs CBC & Chem 7: 08/14/21 05:54 08/14/21 05:54 Labs: Laboratory Results - last 24 hr 08/14/21 08/14/21 05:54 05:54 MCV 100.3 H MCH 34.8 H MCHC 34.7 RDW 12.3 Plt Count 143 L MPV 9.3 L Immature Gran % (Auto) 0.8 H Neut % (Auto) 56.0 Lymph % (Auto) 24.5 [place] % (Auto) 16.9 H Eos % (Auto) 1.2 Baso % (Auto) 0.6 Lymph # (Auto) 1.6 [place] # (Auto) 1.1 Eos # (Auto) 0.1 Baso # (Auto) 0.0 Abs Immat Gran (auto) 0.05 H Absolute Neuts (auto) 3.7 Absolute Nucleated RBC 0.000 Nucleated RBC % (auto) 0.0 Anion Gap 12 Estim Creat Clear Calc 99.1 Estimated GFR > 60 Fasting Glucose 129 H Calcium 8.1 L Total Bilirubin 1.0 AST 30 ALT 22 Alkaline Phosphatase 71 Total Protein 5.6 L Albumin 3.0 L Assessment and Plan (1) Alcohol withdrawal: Status: Acute (2) Esophagitis: Status: Acute Plan This is a 46 yo M with a PMH of heavy alcohol use and dependence, peripheral neuropathy, HTN, Cardiomyopathy (possibly alcoholic) who presented to [facility] [place] with complaints of chest pain. He was evaluated in the ED with plans for discharge home. However, he was noted to be confused and exhibiting signs of alcohol withdrawal and hence will be admitted for further treatment. Received Ativan overnight...somulent this am. 1.Alcohol withdrawal and dependence -no seizure activity at this time. If able to go 24 hours more without Ativan will DC in a.m. -Thiamin/Folate -care team consult 2.Severe Esophagitis -continue omeprazole b.i.d. as prescribed -titrate as indicated 3.Alcohol liver disease - follow LFTs as indicated Presumed full code DVT pptx, mechanical due to thrombocytopenia + severe esophagitis and concerning over causing GI bleed Patient will likely require 1-2 midnights going forward to complete/clear alcohol withdrawal in the backdrop of [facility] protocol Quality Stroke Does the patient have a stroke diagnosis?: No VTE Prior VTE?: No VTE Risk Level:: Medical - moderate - high VTE Device Contraindication: N/A - Device Ordered VTE Drug Contraindication: N/A - Med Ordered
[2021-08-14] MEDS: Omeprazole 40 MG CAPSULE.DR PO (16:44)
[2021-08-14] MEDS: Amitriptyline HCl 50 MG TABLET 150 MG PO (19:42)
[2021-08-15 04:00] VITALS: BP 146/99; PULSE 111; RESP 20; TEMP 37.6; O2SAT 96
[2021-08-15] MEDS: Omeprazole 40 MG CAPSULE.DR PO ×2 (05:41→16:24)
[2021-08-15 07:49] VITALS: BP 162/98; PULSE 109; RESP 20; TEMP 36.9; O2SAT 96
[2021-08-15] MEDS: Metoprolol Tartrate 50 MG TABLET PO ×2 (07:52→22:00)
[2021-08-15] MEDS: Gabapentin 600 MG TABLET 1200 MG PO ×2 (07:52→22:00)
[2021-08-15] MEDS: Multivitamin TABLET 1 TAB PO (07:53)
[2021-08-15] MEDS: Folic Acid 1 MG TABLET PO (07:53)
[2021-08-15] MEDS: amLODIPine Besylate 5 MG TABLET PO (07:53)
--- NOTE | 2021-08-15 10:43 | HO.PM.IMPN ---
Subjective Subjective Date of Service: 08/15/21 Interval History: Less somnolent today. . . No Ativan last 48 hours No observed seizure activity. Very unstaedy on feet. Review of Systems Denies chest pain Denies shortness of breath Denies nausea vomiting diarrhea Physical Exam Vital Signs: Vital Signs: Last Vital Signs Temp 98.4 F 08/15/21 07:49 Pulse 109 H 08/15/21 07:49 Resp 20 08/15/21 07:49 BP 162/98 H 08/15/21 07:49 Pulse Ox 96 08/15/21 07:49 BMI result Body Mass Index 20.3 Const: Other: Somnolent but arousable; no acute distress Resp: Other: Clear to auscultation bilaterally no rales rhonchi or wheezes Cardio: Other: No S4; positive S1-S2; no S3 murmurs of gallops GI: Other: Soft nontender nondistended with normoactive bowel sounds Extrem: Other: No edema bilaterally Objective Data Active Medications Acetaminophen (Acetaminophen 325 Mg Tablet) 650 mg PO Q6H PRN PRN Reason: Pain, Mild (Pain Scale 1-3) Last Admin: 08/13/21 23:43 Dose: 650 mg Documented by: GAY Amitriptyline HCl (Amitriptyline Hcl 50 Mg Tablet) 150 mg PO BEDTIME [facility] Last Admin: 08/14/21 19:42 Dose: 150 mg Documented by: GAY Amlodipine Besylate (Amlodipine Besylate 5 Mg Tablet) 5 mg PO DAILY [facility]; Protocol Last Admin: 08/15/21 07:53 Dose: 5 mg Documented by: DEE Folic Acid (Folic Acid 1 Mg Tablet) 1 mg PO DAILY [facility] Last Admin: 08/15/21 07:53 Dose: 1 mg Documented by: DEE Gabapentin (Gabapentin 600 Mg Tablet) 1,200 mg PO BID [facility] Last Admin: 08/15/21 07:52 Dose: 1,200 mg Documented by: DEE Metoprolol Tartrate (Metoprolol Tartrate 50 Mg Tablet) 50 mg PO BID [facility]; Protocol Last Admin: 08/15/21 07:52 Dose: 50 mg Documented by: DEE Multivitamins/Vitamin C (Multivitamin Tablet) 1 tab PO DAILY [facility] Last Admin: 08/15/21 07:53 Dose: 1 tab Documented by: DEE Omeprazole (Omeprazole 40 Mg Capsule.Dr) 40 mg PO BID@0630,8530 [facility] Last Admin: 08/15/21 05:41 Dose: 40 mg Documented by: GAY Ondansetron HCl (Ondansetron Hcl 4 Mg/2 Ml Vial) 4 mg IVPUSH Q8H PRN PRN Reason: Nausea and Vomiting Pharmacy Consult (Consult Rx Perform Med Rec) 1 each MISCELLANE ONCE PRN PRN Reason: Consult order Labs CBC & Chem 7: 08/14/21 05:54 08/14/21 05:54 Assessment and Plan (1) Alcohol withdrawal: Status: Acute (2) Esophagitis: Status: Acute (3) Alcohol dependence: Status: Acute Plan This is a 46 yo M with a PMH of heavy alcohol use and dependence, peripheral neuropathy, HTN, Cardiomyopathy (possibly alcoholic) who presented to [facility] [place] with complaints of chest pain. He was evaluated in the ED with plans for discharge home. However, he was noted to be confused and exhibiting signs of alcohol withdrawal and hence will be admitted for further treatment. Received Ativan overnight...somulent this am. 1.Alcohol withdrawal and dependence -no seizure activity at this time. -Thiamin/Folate -unclear housing status -PT eval in am 2.Severe Esophagitis -continue omeprazole b.i.d. as prescribed -titrate as indicated 3.Alcohol liver disease - follow LFTs as indicated Presumed full code DVT pptx, mechanical due to thrombocytopenia + severe esophagitis and concerning over causing GI bleed Patient will likely require 1-2 midnights going forward to complete/clear alcohol withdrawal in the backdrop of [place] protocol Quality Stroke Does the patient have a stroke diagnosis?: No VTE Prior VTE?: No VTE Risk Level:: Medical - moderate - high VTE Device Contraindication: N/A - Device Ordered VTE Drug Contraindication: N/A - Med Ordered
[2021-08-15 11:10] VITALS: BP 118/74; PULSE 93; RESP 20; TEMP 36.6; O2SAT 97
[2021-08-15 14:47] VITALS: BP 122/79; PULSE 103; RESP 20; TEMP 36.6; O2SAT 100
[2021-08-15 20:00] VITALS: BP 141/89; PULSE 117; RESP 20; TEMP 37.9; O2SAT 97
[2021-08-15] MEDS: Amitriptyline HCl 50 MG TABLET 150 MG PO (22:00)
[2021-08-16] VITALS (10 sets, daily range): BP systolic 135–165; BP diastolic 84–98; PULSE 96–120; RESP 16–21; TEMP 37.1–37.7; O2SAT 95–99
[2021-08-16] MEDS: Omeprazole 40 MG CAPSULE.DR PO ×2 (05:31→16:11)
[2021-08-16] MEDS: Gabapentin 600 MG TABLET 1200 MG PO ×2 (09:28→20:53)
[2021-08-16] MEDS: amLODIPine Besylate 5 MG TABLET PO (09:29)
[2021-08-16] MEDS: Metoprolol Tartrate 50 MG TABLET PO ×2 (09:29→20:53)
[2021-08-16] MEDS: Folic Acid 1 MG TABLET PO (09:29)
[2021-08-16] MEDS: Multivitamin TABLET 1 TAB PO (09:29)
--- NOTE | 2021-08-16 13:32 | MHC.CM.PN ---
per physical therapy dc plan expectyed to be home
--- NOTE | 2021-08-16 13:33 | MHC.CM.PN ---
per rounds pt not ready for dc still in afib
--- NOTE | 2021-08-16 15:23 | MHC.RECOVSUP ---
Recovery Support note: This specification writer followed up with patient to discuss alcohol use and recovery supports. Patient is known to this specification writer from a consultation in 2019. Patient reports he has been drinking 3 beers and 3 shots a day on average and notes that it is a significant reduction from his previous levels of drinking. Discussed with patient the negative impact alcohol use has on his health and patient acknowledged. Patient reports he is interested in reducing his alcohol consumption further for the benefit of his health however also states he doesn't want to stop drinking entirely. Discussed with patient that it may be difficult to limit alcohol consumption in this manner and patient acknowledged. Patient reports he has been to detox several times in the past and found it helpful at the time. Patient reports he starting drinking again a few days after discharging. Patient reports he drinks out of habit and that often his drinking is socially with friends or coworkers. Discussed with patient ways change these habits. Patient reports he has attended AA several times in the past and did not find it helpful. Patient reports he has received counseling through [facility] and was indifferent as to whether this was helpful. Discussed with patient medications for alcohol use disorder. Patient is familiar with them however stated he has never tried them. Patient reiterates that he drinks out of habit and doesn't feel cravings are an issue. Patient is willing to accept information on these medications and the [facility] however states I probably already have the info at home. Reviewed recovery coaching and how to reach out for support if he is interested after discharge. Patient provided with resources and contact information for this specification writer in the event that he has questions after discharge.
--- NOTE | 2021-08-16 15:55 | P.PNIM_ITS ---
Subjective Subjective Date of Service: 08/16/21 Interval History: Less somnolent today. . . No Ativan last 48 hours No observed seizure activity. Very unstaedy on feet. Review of Systems Denies chest pain Denies shortness of breath Denies nausea vomiting diarrhea Physical Exam Vital Signs: Vital Signs: Last Vital Signs Temp 99.8 F 08/16/21 15:07 Pulse 104 H 08/16/21 15:07 Resp 16 08/16/21 15:07 BP 150/92 H 08/16/21 15:07 Pulse Ox 97 08/16/21 15:07 BMI result Body Mass Index 20.3 Const: Other: Somnolent but arousable; no acute distress Resp: Other: Clear to auscultation bilaterally no rales rhonchi or wheezes Cardio: Other: No S4; positive S1-S2; no S3 murmurs of gallops GI: Other: Soft nontender nondistended with normoactive bowel sounds Extrem: Other: No edema bilaterally Objective Data Active Medications Acetaminophen (Acetaminophen 325 Mg Tablet) 650 mg PO Q6H PRN PRN Reason: Pain, Mild (Pain Scale 1-3) Last Admin: 08/13/21 23:43 Dose: 650 mg Documented by: GAY Amitriptyline HCl (Amitriptyline Hcl 50 Mg Tablet) 150 mg PO BEDTIME [facility] Last Admin: 08/15/21 22:00 Dose: 150 mg Documented by: NAVEEN Amlodipine Besylate (Amlodipine Besylate 5 Mg Tablet) 5 mg PO DAILY [facility]; Protocol Last Admin: 08/16/21 09:29 Dose: 5 mg Documented by: SAIRA Folic Acid (Folic Acid 1 Mg Tablet) 1 mg PO DAILY [facility] Last Admin: 08/16/21 09:29 Dose: 1 mg Documented by: SAIRA Gabapentin (Gabapentin 600 Mg Tablet) 1,200 mg PO BID [facility] Last Admin: 08/16/21 09:28 Dose: 1,200 mg Documented by: SAIRA Metoprolol Tartrate (Metoprolol Tartrate 50 Mg Tablet) 50 mg PO BID [facility]; Protocol Last Admin: 08/16/21 09:29 Dose: 50 mg Documented by: SAIRA Multivitamins/Vitamin C (Multivitamin Tablet) 1 tab PO DAILY [facility] Last Admin: 08/16/21 09:29 Dose: 1 tab Documented by: SAIRA Omeprazole (Omeprazole 40 Mg Capsule.Dr) 40 mg PO BID@7464,8735 [facility] Last Admin: 08/16/21 05:31 Dose: 40 mg Documented by: NAVEEN Ondansetron HCl (Ondansetron Hcl 4 Mg/2 Ml Vial) 4 mg IVPUSH Q8H PRN PRN Reason: Nausea and Vomiting Pharmacy Consult (Consult Rx Perform Med Rec) 1 each MISCELLANE ONCE PRN PRN Reason: Consult order Labs CBC & Chem 7: 08/14/21 05:54 08/14/21 05:54 Assessment and Plan (1) Alcohol withdrawal: Status: Acute (2) Esophagitis: Status: Acute Plan This is a 46 yo M with a PMH of heavy alcohol use and dependence, peripheral neuropathy, HTN, Cardiomyopathy (possibly alcoholic) who presented to [facility] [place] with complaints of chest pain. He was evaluated in the ED with plans for discharge home. However, he was noted to be confused and exhibiting signs of alcohol withdrawal and hence will be admitted for further treatment. Received Ativan overnight...somulent this am. 1.Alcohol withdrawal and dependence -no seizure activity at this time...still somulent/unsteady -Thiamin/Folate -unclear housing status -care team eval 2.Severe Esophagitis -continue omeprazole b.i.d. as prescribed -titrate as indicated 3.Alcohol liver disease - follow LFTs as indicated Presumed full code DVT pptx, mechanical due to thrombocytopenia + severe esophagitis and concerning over causing GI bleed Patient will likely require 1-2 midnights going forward to complete/clear alcohol withdrawal in the backdrop of [facility] protocol Quality Stroke Does the patient have a stroke diagnosis?: No VTE Prior VTE?: No VTE Risk Level:: Medical - moderate - high VTE Device Contraindication: N/A - Device Ordered VTE Drug Contraindication: N/A - Med Ordered
[2021-08-16] MEDS: Amitriptyline HCl 50 MG TABLET 150 MG PO (20:53)
[2021-08-16] MEDS: oxyCODONE HCl Immed Release 5 MG TABLET PO (22:42)
[2021-08-16] MEDS: Calcium Carbonate 750 MG TAB.CHEW PO (22:43)
[2021-08-17] VITALS (7 sets, daily range): BP systolic 132–167; BP diastolic 88–107; PULSE 97–115; RESP 18–20; TEMP 36.9–37.1; O2SAT 95–99
[2021-08-17] MEDS: Omeprazole 40 MG CAPSULE.DR PO ×2 (06:15→15:27)
[2021-08-17] MEDS: Gabapentin 600 MG TABLET 1200 MG PO ×2 (09:04→19:59)
[2021-08-17] MEDS: Multivitamin TABLET 1 TAB PO (09:05)
[2021-08-17] MEDS: amLODIPine Besylate 5 MG TABLET PO (09:05)
[2021-08-17] MEDS: Folic Acid 1 MG TABLET PO (09:05)
[2021-08-17] MEDS: Metoprolol Tartrate 50 MG TABLET PO ×2 (09:05→19:59)
--- NOTE | 2021-08-17 15:48 | HO.PM.IMPN ---
Subjective Subjective Date of Service: 08/17/21 Interval History: Awake alert oriented today. Initial conversation this a.m. patient declined rehab as he stated it would do many good. He outlined the plan related to discharge including a ride/place to stay and reclaim in his car. He said he was anxious to get his life going and was not interested in detox. This afternoon, social media strategist talked to him again states he has no clothes, in no place to go and no way to get there. Review of Systems Denies chest pain Denies shortness of breath Denies nausea vomiting diarrhea Physical Exam Vital Signs: Vital Signs: Last Vital Signs Temp 98.4 F 08/17/21 15:20 Pulse 97 08/17/21 15:20 Resp 18 08/17/21 15:20 BP 145/90 H 08/17/21 15:20 Pulse Ox 95 08/17/21 15:20 BMI result Body Mass Index 20.3 Const: Other: Somnolent but arousable; no acute distress Resp: Other: Clear to auscultation bilaterally no rales rhonchi or wheezes Cardio: Other: No S4; positive S1-S2; no S3 murmurs of gallops GI: Other: Soft nontender nondistended with normoactive bowel sounds Extrem: Other: No edema bilaterally Objective Data Active Medications Acetaminophen (Acetaminophen 325 Mg Tablet) 650 mg PO Q6H PRN PRN Reason: Pain, Mild (Pain Scale 1-3) Last Admin: 08/13/21 23:43 Dose: 650 mg Documented by: GAY Amitriptyline HCl (Amitriptyline Hcl 50 Mg Tablet) 150 mg PO BEDTIME [facility] Last Admin: 08/16/21 20:53 Dose: 150 mg Documented by: JAVAN Amlodipine Besylate (Amlodipine Besylate 5 Mg Tablet) 5 mg PO DAILY [facility]; Protocol Last Admin: 08/17/21 09:05 Dose: 5 mg Documented by: ERWIN Folic Acid (Folic Acid 1 Mg Tablet) 1 mg PO DAILY [facility] Last Admin: 08/17/21 09:05 Dose: 1 mg Documented by: ERWIN Gabapentin (Gabapentin 600 Mg Tablet) 1,200 mg PO BID [facility] Last Admin: 08/17/21 09:04 Dose: 1,200 mg Documented by: ERWIN Metoprolol Tartrate (Metoprolol Tartrate 50 Mg Tablet) 50 mg PO BID [facility]; Protocol Last Admin: 08/17/21 09:05 Dose: 50 mg Documented by: ERWIN Multivitamins/Vitamin C (Multivitamin Tablet) 1 tab PO DAILY [facility] Last Admin: 08/17/21 09:05 Dose: 1 tab Documented by: ERWIN Omeprazole (Omeprazole 40 Mg Capsule.) 40 mg PO BID@0630,1630 [facility] Last Admin: 08/17/21 15:27 Dose: 40 mg Documented by: ERWIN Ondansetron HCl (Ondansetron Hcl 4 Mg/2 Ml Vial) 4 mg IVPUSH Q8H PRN PRN Reason: Nausea and Vomiting Oxycodone HCl (Oxycodone Hcl Immed Release 5 Mg Tablet) 5 mg PO Q6H PRN PRN Reason: Breakthrough Pain Last Admin: 08/16/21 22:42 Dose: 5 mg Documented by: JAVAN Pharmacy Consult (Consult Rx Perform Med Rec) 1 each MISCELLANE ONCE PRN PRN Reason: Consult order Labs CBC & Chem 7: 08/14/21 05:54 08/14/21 05:54 Assessment and Plan (1) Alcohol withdrawal: Status: Acute (2) Esophagitis: Status: Acute Plan This is a 46 yo M with a PMH of heavy alcohol use and dependence, peripheral neuropathy, HTN, Cardiomyopathy (possibly alcoholic) who presented to [facility] [place] with complaints of chest pain. He was evaluated in the ED with plans for discharge home. Days 7 without sign of withdrawal. Patient's somnolence likely related to restarting gabapentin as he was noncompliant as outpatient. His inconsistency with his discharge plan demonstrate he is not safe to be discharged and healthcare proxy will be contacted for possible placement 1.Alcohol withdrawal and dependence -continue to monitor however unlikely symptomatic with draw at this time 2.Severe Esophagitis -continue omeprazole b.i.d. as prescribed -titrate as indicated 3.Alcohol liver disease - follow LFTs as indicated Presumed full code DVT pptx, Patient will likely require 1-2 midnights going forward as inconsistency in is planning demonstrates his inability to care for self. Will need to be placed. Proxy notified awaiting phone call Quality Stroke Does the patient have a stroke diagnosis?: No VTE Prior VTE?: No VTE Risk Level:: Medical - moderate - high VTE Device Contraindication: N/A - Device Ordered VTE Drug Contraindication: N/A - Med Ordered
--- NOTE | 2021-08-17 16:03 | MHC.CM.PN ---
darrel with pts hcp [facility] [place] who agrees with str as a dfc kade he reports that pt is vaccinated with j&j he will be in tomorrow to assist pt with getting proof of vaccionation status str has been updated
[2021-08-17] MEDS: Amitriptyline HCl 50 MG TABLET 150 MG PO (19:59)
[2021-08-18 03:53] VITALS: BP 187/99; PULSE 118; RESP 20; TEMP 36.7; O2SAT 95
[2021-08-18] MEDS: Omeprazole 40 MG CAPSULE.DR PO ×2 (06:18→16:02)
[2021-08-18 07:51] VITALS: BP 150/84; PULSE 72; RESP 18; TEMP 36.9; O2SAT 97
[2021-08-18] MEDS: Multivitamin TABLET 1 TAB PO (09:28)
[2021-08-18] MEDS: amLODIPine Besylate 5 MG TABLET PO (09:28)
[2021-08-18] MEDS: Folic Acid 1 MG TABLET PO (09:28)
[2021-08-18] MEDS: Metoprolol Tartrate 50 MG TABLET PO ×2 (09:28→20:19)
[2021-08-18] MEDS: Gabapentin 600 MG TABLET 1200 MG PO ×2 (09:28→20:19)
[2021-08-18 11:17] VITALS: BP 113/72; PULSE 96; RESP 18; TEMP 37.2; O2SAT 96
[2021-08-18 14:52] VITALS: BP 128/82; PULSE 97; RESP 18; TEMP 36.9; O2SAT 96
--- NOTE | 2021-08-18 14:55 | HO.PM.IMPN ---
Subjective Subjective Date of Service: 08/19/21 Interval History: complaining of bilateral foot pain, with difficulty in ambulation, not sure of his disposition is agreeable to rehab and wants to know his options, tolerating diet, no nausea, no vomiting, no abdominal pain, no tremors. Review of Systems Review of Systems: Yes all other systems are reviewed and are negative Physical Exam Vital Signs: Vital Signs: Last Vital Signs Temp 98.9 F 08/18/21 11:17 Pulse 96 08/18/21 11:17 Resp 18 08/18/21 11:17 BP 113/72 08/18/21 11:17 Pulse Ox 96 08/18/21 11:17 BMI result Body Mass Index 20.3 Const: Other: General resting comfortably in no acute distress. Neck supple no JVD. CVS regular rate rhythm, Respiratory lungs clear to auscultation, no respiratory distress, no wheeze, no rhonchi. Gastrointestinal abdomen soft, nontender, bowel sounds audible, no no guarding , no rigidity. Extremities no clubbing cyanosis or edema. Normal bilateral foot examination, no redness, no swelling, tenderness to palpation sole of both feet Neuro nonfocal, moving all 4 extremity speech clear. Normal sensation both feet. Skin no rash Objective Data Active Medications Acetaminophen (Acetaminophen 325 Mg Tablet) 650 mg PO Q6H PRN PRN Reason: Pain, Mild (Pain Scale 1-3) Last Admin: 08/13/21 23:43 Dose: 650 mg Documented by: GAY Amitriptyline HCl (Amitriptyline Hcl 50 Mg Tablet) 150 mg PO BEDTIME [facility] Last Admin: 08/17/21 19:59 Dose: 150 mg Documented by: TAIWO Amlodipine Besylate (Amlodipine Besylate 5 Mg Tablet) 5 mg PO DAILY [facility]; Protocol Last Admin: 08/18/21 09:28 Dose: 5 mg Documented by: DEE Folic Acid (Folic Acid 1 Mg Tablet) 1 mg PO DAILY [facility] Last Admin: 08/18/21 09:28 Dose: 1 mg Documented by: DEE Gabapentin (Gabapentin 600 Mg Tablet) 1,200 mg PO BID [facility] Last Admin: 08/18/21 09:28 Dose: 1,200 mg Documented by: DEE Metoprolol Tartrate (Metoprolol Tartrate 50 Mg Tablet) 50 mg PO BID [facility]; Protocol Last Admin: 08/18/21 09:28 Dose: 50 mg Documented by: DEE Multivitamins/Vitamin C (Multivitamin Tablet) 1 tab PO DAILY [facility] Last Admin: 08/18/21 09:28 Dose: 1 tab Documented by: DEE Omeprazole (Omeprazole 40 Mg Capsule.) 40 mg PO BID@0630,1630 [facility] Last Admin: 08/18/21 06:18 Dose: 40 mg Documented by: TAIWO Ondansetron HCl (Ondansetron Hcl 4 Mg/2 Ml Vial) 4 mg IVPUSH Q8H PRN PRN Reason: Nausea and Vomiting Oxycodone HCl (Oxycodone Hcl Immed Release 5 Mg Tablet) 5 mg PO Q6H PRN PRN Reason: Breakthrough Pain Last Admin: 08/16/21 22:42 Dose: 5 mg Documented by: JAVAN Pharmacy Consult (Consult Rx Perform Med Rec) 1 each MISCELLANE ONCE PRN PRN Reason: Consult order Labs CBC & Chem 7: 08/14/21 05:54 08/14/21 05:54 Assessment and Plan (1) Alcohol withdrawal: Status: Acute (2) Esophagitis: Status: Acute Plan This is a 46 yo M with a PMH of heavy alcohol use and dependence, peripheral neuropathy, HTN, Cardiomyopathy (possibly alcoholic) who presented to [facility] with complaints of chest pain. He was evaluated in the ED with plans for discharge home. Days 7 without sign of withdrawal. Patient's somnolence likely related to restarting gabapentin as he was noncompliant as outpatient. His inconsistency with his discharge plan demonstrate he is not safe to be discharged and healthcare proxy will be contacted for possible placement 1.Alcohol withdrawal and dependence - no withdrawal symptoms, patient seen by recovery team, outpatient resources and contact information has been provided to patient 2.Severe Esophagitis -continue omeprazole b.i.d., denies abdominal pain or dysphagia 3.Alcohol liver disease - stable LFTs 4. hypertension continue amlodipine and metoprolol 5. Bilateral foot pain being followed by Neurology Dr. Warner question alcohol related neuropathy, will check B12 and folate level, continue Neurontin Presumed full code DVT compression therapy patient require inpatient hospitalization due to bilateral foot pain, unable to ambulate without assistance, cm arranging for safe discharge Quality Stroke Does the patient have a stroke diagnosis?: No VTE Prior VTE?: No VTE Risk Level:: Medical - moderate - high VTE Device Contraindication: N/A - Device Ordered VTE Drug Contraindication: N/A - Med Ordered
[2021-08-18] MEDS: Potassium Chloride ER 20 MEQ TAB.ER.PRT PO (16:02)
[2021-08-18] MEDS: Milk of Magnesia 30 ML ORAL.SUSP 15 ML PO (18:09)
[2021-08-18 20:00] VITALS: BP 136/88; PULSE 113; RESP 18; TEMP 36.7; O2SAT 95
[2021-08-18] MEDS: Docusate Sodium 100 MG CAPSULE PO (20:19)
[2021-08-18] MEDS: Amitriptyline HCl 50 MG TABLET 150 MG PO (20:19)
[2021-08-18 23:07] VITALS: BP 146/95; PULSE 110; RESP 18; TEMP 36.7; O2SAT 95
[2021-08-19] VITALS (7 sets, daily range): BP systolic 125–137; BP diastolic 78–87; PULSE 98–107; RESP 18; TEMP 36.3–38.2; O2SAT 96–98
[2021-08-19] MEDS: Omeprazole 40 MG CAPSULE.DR PO ×2 (06:14→17:48)
[2021-08-19 07:47] LABS: Folate 8.2 ng/mL (> or = 4.0); Vitamin B12 416 pg/mL (200-900)
[2021-08-19] MEDS: amLODIPine Besylate 5 MG TABLET PO (09:24)
[2021-08-19] MEDS: Metoprolol Tartrate 50 MG TABLET PO ×2 (09:24→20:06)
[2021-08-19] MEDS: Docusate Sodium 100 MG CAPSULE PO ×2 (09:24→20:06)
[2021-08-19] MEDS: Multivitamin TABLET 1 TAB PO (09:24)
[2021-08-19] MEDS: Gabapentin 600 MG TABLET 1200 MG PO ×2 (09:24→20:06)
[2021-08-19] MEDS: Folic Acid 1 MG TABLET PO (09:24)
--- NOTE | 2021-08-19 12:50 | MHC.CM.PN ---
Per ROUNDS discussion, Patient is medically cleared for dc to SNF; all referrals have been updated. [facility] has no beds today and [facility] is following(no other SNF offers). CM will follow.
[2021-08-19 13:12] LABS: COVID-19 Test Negative (Negative); IDNOW Serial# 16C4AD1C
--- NOTE | 2021-08-19 13:46 | HO.PM.IMPN ---
Subjective Subjective Date of Service: 08/19/21 Interval History: Resting comfortably in bed, no complaints tolerating diet foot pain with ambulation, no overnight acute issues. Review of Systems Review of Systems: Yes all other systems are reviewed and are negative Physical Exam Vital Signs: Vital Signs: Last Vital Signs Temp 99.0 F 08/19/21 11:46 Pulse 103 H 08/19/21 11:46 Resp 18 08/19/21 11:46 BP 125/78 08/19/21 11:46 Pulse Ox 97 08/19/21 11:46 BMI result Body Mass Index 20.3 Const: Other: General? resting c omfortably in no a cute distress.? Ne ck? supple no JVD. CVS? regular rate rhythm, Respirato ry lungs clear to auscultation, no r espiratory distres s, no wheeze, no r honchi. Gastrointe stinal abdomen sof t, nontender, priscila l sounds audible, no no guarding , n o rigidity. Extrem ities no clubbing cyanosis or edema. ? Normal bilateral foot examination, no redness, no sw elling, tenderness to palpation sole of both feet Neur o nonfocal, moving all 4 extremity s peech clear.? Norm al sensation both feet. Skin no rash Objective Data Active Medications Acetaminophen (Acetaminophen 325 Mg Tablet) 650 mg PO Q6H PRN PRN Reason: Pain, Mild (Pain Scale 1-3) Last Admin: 08/13/21 23:43 Dose: 650 mg Documented by: GAY Amitriptyline HCl (Amitriptyline Hcl 50 Mg Tablet) 150 mg PO BEDTIME [facility] Last Admin: 08/18/21 20:19 Dose: 150 mg Documented by: ELIZABETH Amlodipine Besylate (Amlodipine Besylate 5 Mg Tablet) 5 mg PO DAILY [facility]; Protocol Last Admin: 08/19/21 09:24 Dose: 5 mg Documented by: BETTY Docusate Sodium (Docusate Sodium 100 Mg Capsule) 100 mg PO BID [facility] Last Admin: 08/19/21 09:24 Dose: 100 mg Documented by: BETTY Folic Acid (Folic Acid 1 Mg Tablet) 1 mg PO DAILY [facility] Last Admin: 08/19/21 09:24 Dose: 1 mg Documented by: BETTY Gabapentin (Gabapentin 600 Mg Tablet) 1,200 mg PO BID [facility] Last Admin: 08/19/21 09:24 Dose: 1,200 mg Documented by: BETTY Metoprolol Tartrate (Metoprolol Tartrate 50 Mg Tablet) 50 mg PO BID [facility]; Protocol Last Admin: 08/19/21 09:24 Dose: 50 mg Documented by: BETTY Multivitamins/Vitamin C (Multivitamin Tablet) 1 tab PO DAILY [facility] Last Admin: 08/19/21 09:24 Dose: 1 tab Documented by: BETTY Omeprazole (Omeprazole 40 Mg Capsule.Dr) 40 mg PO BID@0630,4630 [facility] Last Admin: 08/19/21 06:14 Dose: 40 mg Documented by: TAIWO Ondansetron HCl (Ondansetron Hcl 4 Mg/2 Ml Vial) 4 mg IVPUSH Q8H PRN PRN Reason: Nausea and Vomiting Oxycodone HCl (Oxycodone Hcl Immed Release 5 Mg Tablet) 5 mg PO Q6H PRN PRN Reason: Breakthrough Pain Last Admin: 08/16/21 22:42 Dose: 5 mg Documented by: JAVAN Pharmacy Consult (Consult Rx Perform Med Rec) 1 each MISCELLANE ONCE PRN PRN Reason: Consult order Labs CBC & Chem 7: 08/14/21 05:54 08/14/21 05:54 Labs: Laboratory Results - last 24 hr 08/19/21 08/19/21 06:15 12:12 Vitamin B12 416 Folate 8.2 COVID-19 (AV) Negative COVID-19 Clin Com See Note Assessment and Plan (1) Alcohol withdrawal: Status: Acute (2) Esophagitis: Status: Acute Plan This is a 46 yo M with a PMH of heavy alcohol use and dependence, peripheral neuropathy, HTN, Cardiomyopathy (possibly alcoholic) who presented to [facility] with complaints of chest pain. He was evaluated in the ED with plans for discharge home. Days 7 without sign of withdrawal. Patient's somnolence likely related to restarting gabapentin as he was noncompliant as outpatient. His inconsistency with his discharge plan demonstrate he is not safe to be discharged and healthcare proxy will be contacted for possible placement 1.Alcohol withdrawal and dependence - no withdrawal symptoms, patient seen by recovery team, outpatient resources and contact information has been provided to patient 2.Severe Esophagitis -continue omeprazole b.i.d., denies abdominal pain or dysphagia 3.Alcohol liver disease - stable LFTs 4. hypertension continue amlodipine and metoprolol 5. Bilateral foot pain being followed by Neurology Dr. Warner, question alcohol related neuropathy, B12 and folate in normal arteaga, continue Neurontin Presumed full code DVT compression therapy patient require inpatient hospitalization due to bilateral foot pain, unable to ambulate without assistance, cm arranging for safe discharge/patient will receive COVID vaccine today/COVID test negative Quality Stroke Does the patient have a stroke diagnosis?: No VTE Prior VTE?: No VTE Risk Level:: Medical - moderate - high VTE Device Contraindication: N/A - Device Ordered VTE Drug Contraindication: N/A - Med Ordered
[2021-08-19] MEDS: Amitriptyline HCl 50 MG TABLET 150 MG PO (20:06)
[2021-08-20] VITALS (8 sets, daily range): BP systolic 130–145; BP diastolic 83–98; PULSE 86–108; RESP 16–20; TEMP 36.1–37; O2SAT 96–99
[2021-08-20] MEDS: Omeprazole 40 MG CAPSULE.DR PO ×2 (06:08→17:10)
[2021-08-20] MEDS: Docusate Sodium 100 MG CAPSULE PO ×2 (08:13→20:30)
[2021-08-20] MEDS: Gabapentin 600 MG TABLET 1200 MG PO ×2 (08:13→20:30)
[2021-08-20] MEDS: Multivitamin TABLET 1 TAB PO (08:13)
[2021-08-20] MEDS: Metoprolol Tartrate 50 MG TABLET PO ×2 (08:13→20:30)
[2021-08-20] MEDS: amLODIPine Besylate 5 MG TABLET PO (08:13)
[2021-08-20] MEDS: Folic Acid 1 MG TABLET PO (08:14)
--- NOTE | 2021-08-20 12:57 | MHC.CM.PN ---
[facility] is also following for bed availability.
--- NOTE | 2021-08-20 13:04 | HO.PM.IMPN ---
Subjective Subjective Date of Service: 08/20/21 Interval History: doing [id number] exercises in bed, offers no acute complaints, no events overnight. Review of Systems [employer] no headache, no dizziness CVS no chest pain, no palpitation Respiratory no cough, no shortness of breath Review of Systems: Yes all other systems are reviewed and are negative Physical Exam Vital Signs: Vital Signs: Last Vital Signs Temp 98.0 F 08/20/21 11:39 Pulse 86 08/20/21 11:39 Resp 16 08/20/21 11:39 BP 140/98 H 08/20/21 11:39 Pulse Ox 98 08/20/21 11:39 BMI result Body Mass Index 20.3 Const: Other: General? resting c omfortably in no a cute distress.? Ne ck? supple no JVD. CVS? regular rate rhythm, Respirato ry lungs clear to auscultation, no r espiratory distres s, no wheeze, no r honchi. Gastrointe stinal abdomen sof t, nontender, priscila l sounds audible, no no guarding , n o rigidity. Extrem ities no clubbing cyanosis or edema. ? Normal bilateral foot examination, no redness, no sw elling, tenderness to palpation sole of both feet Neur o nonfocal, moving all 4 extremity s peech clear.? Norm al sensation both feet. Skin no rash Objective Data Active Medications Acetaminophen (Acetaminophen 325 Mg Tablet) 650 mg PO Q6H PRN PRN Reason: Pain, Mild (Pain Scale 1-3) Last Admin: 08/13/21 23:43 Dose: 650 mg Documented by: GAY Amitriptyline HCl (Amitriptyline Hcl 50 Mg Tablet) 150 mg PO BEDTIME [facility] Last Admin: 08/19/21 20:06 Dose: 150 mg Documented by: ELIZABETH Amlodipine Besylate (Amlodipine Besylate 5 Mg Tablet) 5 mg PO DAILY [facility]; Protocol Last Admin: 08/20/21 08:13 Dose: 5 mg Documented by: LÓPEZ Docusate Sodium (Docusate Sodium 100 Mg Capsule) 100 mg PO BID [facility] Last Admin: 08/20/21 08:13 Dose: 100 mg Documented by: LÓPEZ Folic Acid (Folic Acid 1 Mg Tablet) 1 mg PO DAILY [facility] Last Admin: 08/20/21 08:14 Dose: 1 mg Documented by: LPÓEZ Gabapentin (Gabapentin 600 Mg Tablet) 1,200 mg PO BID [facility] Last Admin: 08/20/21 08:13 Dose: 1,200 mg Documented by: LÓPEZ Metoprolol Tartrate (Metoprolol Tartrate 50 Mg Tablet) 50 mg PO BID [facility]; Protocol Last Admin: 08/20/21 08:13 Dose: 50 mg Documented by: LÓPEZ Multivitamins/Vitamin C (Multivitamin Tablet) 1 tab PO DAILY [facility] Last Admin: 08/20/21 08:13 Dose: 1 tab Documented by: LÓPEZ Omeprazole (Omeprazole 40 Mg Capsule.Dr) 40 mg PO BID@0630,1630 [facility] Last Admin: 08/20/21 06:08 Dose: 40 mg Documented by: ROSANNE Ondansetron HCl (Ondansetron Hcl 4 Mg/2 Ml Vial) 4 mg IVPUSH Q8H PRN PRN Reason: Nausea and Vomiting Oxycodone HCl (Oxycodone Hcl Immed Release 5 Mg Tablet) 5 mg PO Q6H PRN PRN Reason: Breakthrough Pain Last Admin: 08/16/21 22:42 Dose: 5 mg Documented by: JAVAN Pharmacy Consult (Consult Rx Perform Med Rec) 1 each MISCELLANE ONCE PRN PRN Reason: Consult order Labs CBC & Chem 7: 08/14/21 05:54 08/14/21 05:54 Labs: Laboratory Results - last 24 hr 08/19/21 12:12 COVID-19 (AV) Negative COVID-19 Clin Com See Note Assessment and Plan (1) Alcohol withdrawal: Status: Acute (2) Esophagitis: Status: Acute Plan This is a 46 yo M with a PMH of heavy alcohol use and dependence, peripheral neuropathy, HTN, Cardiomyopathy (possibly alcoholic) who presented to [facility] with complaints of chest pain. He was evaluated in the ED with plans for discharge home. Days 7 without sign of withdrawal. Patient's somnolence likely related to restarting gabapentin as he was noncompliant as outpatient. His inconsistency with his discharge plan demonstrate he is not safe to be discharged and healthcare proxy will be contacted for possible placement 1.Alcohol withdrawal and dependence - no withdrawal symptoms, patient seen by recovery team, outpatient resources and contact information has been provided to patient 2.Severe Esophagitis -continue omeprazole b.i.d., denies abdominal pain or dysphagia, tolerating diet 3.Alcohol liver disease - stable LFTs 4. hypertension continue amlodipine and metoprolol, BP slightly elevated this morning will follow BP closely 5. Bilateral foot pain being followed by Neurology Dr. Warner, question alcohol related neuropathy, B12 and folate in normal arteaga, continue Neurontin Presumed full code DVT compression therapy patient require inpatient hospitalization due to bilateral foot pain, unable to ambulate without assistance, cm arranging for safe discharge/patient received COVID vaccine 08/19/COVID test negative 08/19. Quality Stroke Does the patient have a stroke diagnosis?: No VTE Prior VTE?: No VTE Risk Level:: Medical - moderate - high VTE Device Contraindication: N/A - Device Ordered VTE Drug Contraindication: N/A - Med Ordered
[2021-08-20] MEDS: Amitriptyline HCl 50 MG TABLET 150 MG PO (20:30)
[2021-08-21 02:49] VITALS: BP 140/88; PULSE 89; RESP 20; TEMP 37.3; O2SAT 95
[2021-08-21] MEDS: Omeprazole 40 MG CAPSULE.DR PO ×2 (06:04→17:23)
[2021-08-21 08:00] VITALS: BP 173/101; PULSE 98; RESP 16; TEMP 36.4; O2SAT 99
[2021-08-21] MEDS: Multivitamin TABLET 1 TAB PO (09:28)
[2021-08-21] MEDS: Gabapentin 600 MG TABLET 1200 MG PO ×2 (09:28→21:00)
[2021-08-21] MEDS: Docusate Sodium 100 MG CAPSULE PO ×2 (09:29→21:00)
[2021-08-21] MEDS: oxyCODONE HCl Immed Release 5 MG TABLET PO ×2 (09:29→17:25)
[2021-08-21] MEDS: Metoprolol Tartrate 50 MG TABLET PO ×2 (09:29→21:00)
[2021-08-21] MEDS: amLODIPine Besylate 5 MG TABLET PO (09:30)
[2021-08-21] MEDS: Folic Acid 1 MG TABLET PO (09:30)
--- NOTE | 2021-08-21 10:03 | HO.PM.IMPN ---
Subjective Subjective Date of Service: 08/21/21 Interval History: Resting comfortably in bed tolerating diet, no acute issues overnight. Review of Systems Review of Systems: Yes all other systems are reviewed and are negative Physical Exam Vital Signs: Vital Signs: Last Vital Signs Temp 97.5 F 08/21/21 08:00 Pulse 98 08/21/21 08:00 Resp 16 08/21/21 08:00 BP 173/101 H 08/21/21 08:00 Pulse Ox 99 08/21/21 08:00 BMI result Body Mass Index 20.3 Const: Other: General? resting comfortably in no acute distress.? Neck? supple no JVD. CVS? regular rate?rhythm, Respiratory lungs clear toauscultation, no respiratory distress, no wheeze, no rhonchi. Gastrointestinal abdomen soft, nontender, bowel sounds audible,no no guarding , no rigidity. Extremities no clubbing cyanosis or edema.? Normal bilateral?foot examination,?no redness, no swelling Neuro nonfocal, moving?all 4 extremity speech clear.? Normal sensation bothfeet. Skin no rash Objective Data Active Medications Acetaminophen (Acetaminophen 325 Mg Tablet) 650 mg PO Q6H PRN PRN Reason: Pain, Mild (Pain Scale 1-3) Last Admin: 08/13/21 23:43 Dose: 650 mg Documented by: GAY Amitriptyline HCl (Amitriptyline Hcl 50 Mg Tablet) 150 mg PO BEDTIME [facility] Last Admin: 08/20/21 20:30 Dose: 150 mg Documented by: MICHAEL Amlodipine Besylate (Amlodipine Besylate 5 Mg Tablet) 5 mg PO DAILY [facility]; Protocol Last Admin: 08/21/21 09:30 Dose: 5 mg Documented by: JOSHUA Docusate Sodium (Docusate Sodium 100 Mg Capsule) 100 mg PO BID [facility] Last Admin: 08/21/21 09:29 Dose: 100 mg Documented by: JOHSUA Folic Acid (Folic Acid 1 Mg Tablet) 1 mg PO DAILY [facility] Last Admin: 08/21/21 09:30 Dose: 1 mg Documented by: JOSHUA Gabapentin (Gabapentin 600 Mg Tablet) 1,200 mg PO BID [facility] Last Admin: 08/21/21 09:28 Dose: 1,200 mg Documented by: JOSHUA Metoprolol Tartrate (Metoprolol Tartrate 50 Mg Tablet) 50 mg PO BID [facility]; Protocol Last Admin: 08/21/21 09:29 Dose: 50 mg Documented by: JOSHUA Multivitamins/Vitamin C (Multivitamin Tablet) 1 tab PO DAILY [facility] Last Admin: 08/21/21 09:28 Dose: 1 tab Documented by: JOSHUA Omeprazole (Omeprazole 40 Mg Capsule.) 40 mg PO BID@0630,1630 [facility] Last Admin: 08/21/21 06:04 Dose: 40 mg Documented by: MICHAEL Ondansetron HCl (Ondansetron Hcl 4 Mg/2 Ml Vial) 4 mg IVPUSH Q8H PRN PRN Reason: Nausea and Vomiting Oxycodone HCl (Oxycodone Hcl Immed Release 5 Mg Tablet) 5 mg PO Q6H PRN PRN Reason: Breakthrough Pain Last Admin: 08/21/21 09:29 Dose: 5 mg Documented by: JOSHUA Pharmacy Consult (Consult Rx Perform Med Rec) 1 each MISCELLANE ONCE PRN PRN Reason: Consult order Labs CBC & Chem 7: 08/14/21 05:54 08/14/21 05:54 Assessment and Plan (1) Alcohol withdrawal: Status: Acute (2) Esophagitis: Status: Acute Plan This is a 46 yo M with a PMH of heavy alcohol use and dependence, peripheral neuropathy, HTN, Cardiomyopathy (possibly alcoholic) who presented to [facility] with complaints of chest pain. He was evaluated in the ED with plans for discharge home. Days 7 without sign of withdrawal. Patient's somnolence likely related to restarting gabapentin as he was noncompliant as outpatient. His inconsistency with his discharge plan demonstrate he is not safe to be discharged and healthcare proxy will be contacted for possible placement 1.Alcohol withdrawal and dependence - no withdrawal symptoms, patient seen by recovery team, outpatient resources and contact information has been provided to patient 2.Severe Esophagitis -continue omeprazole b.i.d., denies abdominal pain or dysphagia, tolerating diet 3.Alcohol liver disease - stable LFTs 4. hypertension continue amlodipine and metoprolol, BP slightly elevated this morning will follow BP closely 5. Bilateral foot pain being followed by Neurology Dr. Warner, diagnosed to have peripheral neuropathy, question alcohol related , B12 and folate in normal arteaga, continue Neurontin Presumed full code DVT compression therapy patient require inpatient hospitalization due to bilateral foot pain, unable to ambulate without assistance, cm arranging for safe discharge/patient received COVID vaccine 08/19/COVID test negative 08/19. Quality Stroke Does the patient have a stroke diagnosis?: No VTE Prior VTE?: No VTE Risk Level:: Medical - moderate - high VTE Device Contraindication: N/A - Device Ordered VTE Drug Contraindication: N/A - Med Ordered
[2021-08-21 11:41] VITALS: BP 158/100; PULSE 91; RESP 16; TEMP 37; O2SAT 95
[2021-08-21 15:36] VITALS: BP 135/91; PULSE 99; RESP 16; TEMP 37.2; O2SAT 98
[2021-08-21 19:14] VITALS: BP 127/92; PULSE 110; RESP 18; TEMP 37.6; O2SAT 96
[2021-08-21] MEDS: Amitriptyline HCl 50 MG TABLET 150 MG PO (21:00)
[2021-08-22] VITALS (8 sets, daily range): BP systolic 130–162; BP diastolic 84–105; PULSE 87–108; RESP 15–20; TEMP 36.3–37.1; O2SAT 96–99
[2021-08-22] MEDS: Omeprazole 40 MG CAPSULE.DR PO ×2 (05:49→16:01)
[2021-08-22] MEDS: Multivitamin TABLET 1 TAB PO (09:07)
[2021-08-22] MEDS: Docusate Sodium 100 MG CAPSULE PO ×2 (09:08→19:46)
[2021-08-22] MEDS: Gabapentin 600 MG TABLET 1200 MG PO ×2 (09:08→19:47)
[2021-08-22] MEDS: Metoprolol Tartrate 50 MG TABLET PO ×2 (09:08→19:46)
[2021-08-22] MEDS: Folic Acid 1 MG TABLET PO (09:09)
[2021-08-22] MEDS: amLODIPine Besylate 5 MG TABLET PO ×2 (09:09→11:26)
--- NOTE | 2021-08-22 10:00 | HO.PM.IMPN ---
Subjective Subjective Date of Service: 08/22/21 Interval History: Feels foot pain is better, able to ambulate to the bathroom, tolerating diet no acute events overnight, patient offers no acute symptoms of fever chills, no lightheadedness no dizziness, no chest pain, no palpitations, no shortness of breath. Review of Systems Review of Systems: Yes all other systems are reviewed and are negative Physical Exam Vital Signs: Vital Signs: Last Vital Signs Temp 98.5 F 08/22/21 07:58 Pulse 87 08/22/21 07:58 Resp 20 08/22/21 07:58 BP 130/92 H 08/22/21 07:58 Pulse Ox 99 08/22/21 07:58 BMI result Body Mass Index 20.3 Const: Other: General? resting comfortably in no acute distress.? Neck? supple no JVD. CVS? regular rate?rhythm, Respiratory lungs clear toauscultation, no respiratory distress, no wheeze, no rhonchi. Gastrointestinal abdomen soft, nontender, bowel sounds audible,no no guarding , no rigidity. Extremities no clubbing cyanosis or edema.? Normal bilateral?foot examination,?no redness, no swelling, no pain. Neuro nonfocal, moving?all 4 extremity speech clear.? Normal sensation both feet. Skin no rash Objective Data Active Medications Acetaminophen (Acetaminophen 325 Mg Tablet) 650 mg PO Q6H PRN PRN Reason: Pain, Mild (Pain Scale 1-3) Last Admin: 08/13/21 23:43 Dose: 650 mg Documented by: GAY Amitriptyline HCl (Amitriptyline Hcl 50 Mg Tablet) 150 mg PO BEDTIME [facility] Last Admin: 08/21/21 21:00 Dose: 150 mg Documented by: LUIS Amlodipine Besylate (Amlodipine Besylate 5 Mg Tablet) 5 mg PO DAILY [facility]; Protocol Last Admin: 08/22/21 09:09 Dose: 5 mg Documented by: JOSHUA Docusate Sodium (Docusate Sodium 100 Mg Capsule) 100 mg PO BID [facility] Last Admin: 08/22/21 09:08 Dose: 100 mg Documented by: JOSHUA Folic Acid (Folic Acid 1 Mg Tablet) 1 mg PO DAILY [facility] Last Admin: 08/22/21 09:09 Dose: 1 mg Documented by: JOSHUA Gabapentin (Gabapentin 600 Mg Tablet) 1,200 mg PO BID [facility] Last Admin: 08/22/21 09:08 Dose: 1,200 mg Documented by: JOSHUA Metoprolol Tartrate (Metoprolol Tartrate 50 Mg Tablet) 50 mg PO BID [facility]; Protocol Last Admin: 08/22/21 09:08 Dose: 50 mg Documented by: JOSHUA Multivitamins/Vitamin C (Multivitamin Tablet) 1 tab PO DAILY [facility] Last Admin: 08/22/21 09:07 Dose: 1 tab Documented by: JOSHUA Omeprazole (Omeprazole 40 Mg Capsule.) 40 mg PO BID@0630,1630 [facility] Last Admin: 08/22/21 05:49 Dose: 40 mg Documented by: LUIS Ondansetron HCl (Ondansetron Hcl 4 Mg/2 Ml Vial) 4 mg IVPUSH Q8H PRN PRN Reason: Nausea and Vomiting Pharmacy Consult (Consult Rx Perform Med Rec) 1 each MISCELLANE ONCE PRN PRN Reason: Consult order Labs CBC & Chem 7: 08/14/21 05:54 08/14/21 05:54 Assessment and Plan (1) Alcohol withdrawal: Status: Acute (2) Esophagitis: Status: Acute Plan This is a 46 yo M with a PMH of heavy alcohol use and dependence, peripheral neuropathy, HTN, Cardiomyopathy (possibly alcoholic) who presented to [facility] [place] with complaints of chest pain. He was evaluated in the ED with plans for discharge home. Days 7 without sign of withdrawal. Patient's somnolence likely related to restarting gabapentin as he was noncompliant as outpatient. His inconsistency with his discharge plan demonstrate he is not safe to be discharged and healthcare proxy will be contacted for possible placement 1.Alcohol withdrawal and dependence - no withdrawal symptoms, patient seen by recovery team, outpatient resources and contact information has been provided to patient 2.Severe Esophagitis -continue omeprazole b.i.d., denies abdominal pain or dysphagia, tolerating diet 3.Alcohol liver disease - stable LFTs, no abdominal pain no nausea, no vomiting. 4. hypertension continue amlodipine and metoprolol, elevated diastolic blood pressure, will increase dose of amlodipine and follow 5. Bilateral foot pain being followed by Neurology Dr. Warner, diagnosed to have peripheral neuropathy, question alcohol related , B12 and folate in normal arteaga, continue Neurontin, since foot pain is improving will encourage ambulation t.i.d. while in hospital Presumed full code DVT compression therapy patient require inpatient hospitalization due to bilateral foot pain, unable to ambulate without assistance, cm arranging for safe discharge/patient received COVID vaccine 08/19/COVID test negative 08/19. Quality Stroke Does the patient have a stroke diagnosis?: No VTE Prior VTE?: No VTE Risk Level:: Medical - moderate - high VTE Device Contraindication: N/A - Device Ordered VTE Drug Contraindication: N/A - Med Ordered
[2021-08-22] MEDS: Amitriptyline HCl 50 MG TABLET 150 MG PO (19:46)
[2021-08-23] VITALS (8 sets, daily range): BP systolic 108–153; BP diastolic 69–103; PULSE 74–109; RESP 16–18; TEMP 36.3–37.1; O2SAT 95–98
[2021-08-23] MEDS: Omeprazole 40 MG CAPSULE.DR PO ×2 (06:06→15:36)
[2021-08-23] MEDS: Docusate Sodium 100 MG CAPSULE PO ×2 (09:55→20:51)
[2021-08-23] MEDS: Multivitamin TABLET 1 TAB PO (09:55)
[2021-08-23] MEDS: amLODIPine Besylate 10 MG TABLET PO (09:55)
[2021-08-23] MEDS: Gabapentin 600 MG TABLET 1200 MG PO ×2 (09:55→20:51)
[2021-08-23] MEDS: Folic Acid 1 MG TABLET PO (09:55)
[2021-08-23] MEDS: Metoprolol Tartrate 50 MG TABLET PO ×2 (09:58→20:51)
--- NOTE | 2021-08-23 10:25 | HO.PM.IMPN ---
Subjective Subjective Date of Service: 08/23/21 Interval History: Resting comfortably in bed, offers no acute complaints, no fevers, no chills no chest pain, no palpitation bilateral foot pain is better, ambulated with walker in the hallway with no difficulty and without assist, tolerating diet. Review of Systems Review of Systems: Yes all other systems are reviewed and are negative Physical Exam Vital Signs: Vital Signs: Last Vital Signs Temp 97.4 F 08/23/21 07:55 Pulse 74 08/23/21 07:55 Resp 18 08/23/21 07:55 BP 134/69 08/23/21 07:55 Pulse Ox 98 08/23/21 07:55 BMI result Body Mass Index 20.3 Const: Other: General? resting comfortably in no acute distress.? Neck? supple no JVD. CVS? regular rate?rhythm, Respiratory lungs clear to auscultation, no respiratory distress, no wheeze, no rhonchi. Gastrointestinal abdomen soft, nontender, bowel sounds audible,no no guarding , no rigidity. Extremities no clubbing cyanosis or edema.? Normal bilateral?foot examination,?no redness, no swelling, no pain. Neuro nonfocal, moving?all 4 extremity speech clear.? Normal sensation both feet. Skin no rash Objective Data Active Medications Acetaminophen (Acetaminophen 325 Mg Tablet) 650 mg PO Q6H PRN PRN Reason: Pain, Mild (Pain Scale 1-3) Last Admin: 08/13/21 23:43 Dose: 650 mg Documented by: GAY Amitriptyline HCl (Amitriptyline Hcl 50 Mg Tablet) 150 mg PO BEDTIME [facility] Last Admin: 08/22/21 19:46 Dose: 150 mg Documented by: MICHAEL Amlodipine Besylate (Amlodipine Besylate 10 Mg Tablet) 10 mg PO DAILY [facility]; Protocol Last Admin: 08/23/21 09:55 Dose: 10 mg Documented by: SHAWN Docusate Sodium (Docusate Sodium 100 Mg Capsule) 100 mg PO BID [facility] Last Admin: 08/23/21 09:55 Dose: 100 mg Documented by: SHAWN Folic Acid (Folic Acid 1 Mg Tablet) 1 mg PO DAILY [facility] Last Admin: 08/23/21 09:55 Dose: 1 mg Documented by: SHAWN Gabapentin (Gabapentin 600 Mg Tablet) 1,200 mg PO BID [facility] Last Admin: 08/23/21 09:55 Dose: 1,200 mg Documented by: SHAWN Metoprolol Tartrate (Metoprolol Tartrate 50 Mg Tablet) 50 mg PO BID [facility]; Protocol Last Admin: 08/23/21 09:58 Dose: 50 mg Documented by: SHAWN Multivitamins/Vitamin C (Multivitamin Tablet) 1 tab PO DAILY [facility] Last Admin: 08/23/21 09:55 Dose: 1 tab Documented by: SHAWN Omeprazole (Omeprazole 40 Mg Capsule.) 40 mg PO BID@0630,1630 [facility] Last Admin: 08/23/21 06:06 Dose: 40 mg Documented by: MICHAEL Ondansetron HCl (Ondansetron Hcl 4 Mg/2 Ml Vial) 4 mg IVPUSH Q8H PRN PRN Reason: Nausea and Vomiting Pharmacy Consult (Consult Rx Perform Med Rec) 1 each MISCELLANE ONCE PRN PRN Reason: Consult order Labs CBC & Chem 7: 08/14/21 05:54 08/14/21 05:54 Assessment and Plan (1) Alcohol withdrawal: Status: Acute (2) Esophagitis: Status: Acute Plan This is a 46 yo M with a PMH of heavy alcohol use and dependence, peripheral neuropathy, HTN, Cardiomyopathy (possibly alcoholic) who [place] [facility] [place] of [place] pain. He was evaluated in the ED with plans for discharge home. Days 7 without sign of withdrawal. Patient's somnolence likely related to restarting gabapentin as he was noncompliant as outpatient. His inconsistency with his discharge plan demonstrate he is not safe to be discharged and healthcare proxy will be contacted for possible placement 1.Alcohol withdrawal and dependence - no withdrawal symptoms, patient seen by recovery team, outpatient resources and contact information has been provided to patient. 2.Severe Esophagitis -continue omeprazole b.i.d., denies abdominal pain or dysphagia, tolerating diet. 3.Alcohol liver disease - stable LFTs, no abdominal pain no nausea, no vomiting. 4. hypertension on amlodipine 5 mg and metoprolol, noted to have elevated diastolic blood pressure, dose of amlodipine increased to 10 mg, blood pressure better controlled continue current treatment. 5. Bilateral foot pain being followed by Neurology Dr. Warner, diagnosed to have peripheral neuropathy, question alcohol related , B12 and folate in normal arteaga, continue Neurontin, since foot pain improved encourage ambulation t.i.d. while in hospital Presumed full code DVT compression therapy patient require inpatient hospitalization due to unsteady gait due to foot pain, PT recommending short-term rehab,cm arranging for safe discharge/patient received COVID vaccine 08/19/COVID test negative 08/19. Quality Stroke Does the patient have a stroke diagnosis?: No VTE Prior VTE?: No VTE Risk Level:: Medical - moderate - high VTE Device Contraindication: N/A - Device Ordered VTE Drug Contraindication: N/A - Med Ordered
[2021-08-23] MEDS: Amitriptyline HCl 50 MG TABLET 150 MG PO (20:51)
[2021-08-24 03:31] VITALS: BP 127/85; PULSE 101; RESP 16; TEMP 36.7; O2SAT 97
[2021-08-24] MEDS: Omeprazole 40 MG CAPSULE.DR PO (06:48)
[2021-08-24 06:53] VITALS: BP 139/90; PULSE 94; RESP 19; TEMP 36.1; O2SAT 97
--- NOTE | 2021-08-24 08:34 | PM.DS ---
DS: Providers Provider Date of Service: 08/24/21 Date of admission: 08/09/21 09:18 Primary care physician: Roger Graves MD Consults: 08/11/21 15:56 Consult to Care Team Routine Comment: Reason for consultation: EToH 08/16/21 12:57 Consult to Care Team Routine Comment: Reason for consultation: EToH DS: Diagnosis Discharge Diagnosis (1) Alcohol withdrawal: Status: Acute (2) Esophagitis: Status: Acute DS: Summary Hospital Course Hospital Course: 46 yo M with a PMH of heavy alcohol use and dependence, peripheral neuropathy, HTN, Cardiomyopathy (possibly alcoholic) who presented to [facility] with complaints of chest pain. He was evaluated in the ED with plans for discharge home.? Days 7 without sign of withdrawal.? Patient's somnolence likely related to restarting gabapentin as he was noncompliant as outpatient.? His inconsistency with his discharge plan demonstrate he is not safe to be discharged and healthcare proxy will be contacted for possible placement 1.Alcohol withdrawal and dependence--Has completed withdrawal, seen by recovery team and provided with outpatient resources and contact information has been provided to patient. 2.Severe Esophagitis -continue omeprazole b.i.d., denies abdominal pain or dysphagia, tolerating diet. 3.Alcohol liver disease - stable LFTs, no abdominal pain no nausea, no vomiting. 4. hypertension on amlodipine 5 mg and metoprolol, noted to have elevated diastolic blood pressure,? dose of amlodipine increased to 10 mg, blood pressure better controlled continue current treatment. 5. Bilateral foot pain being followed by Neurology Dr. Warner, diagnosed to have peripheral neuropathy, question alcohol related ,? B12 and folate in normal arteaga, continue Neurontin, since foot pain improved ?? encourage ambulation t.i.d. while in hospital ?To short term rehab for less than 30 days Time Spent with Patient Time attestation: Total time spent providing and/or coordinating discharge services: Discharge coordination time: Greater than 30 minutes Quality: Safe Use of Opioids Does Pt have an Active Cancer Diagnosis on the Problem List?: No Quality: Stroke Does the patient have a stroke diagnosis?: No Physical Exam Vital Signs: Vital Signs: Last Vital Signs Temp 97 F 08/24/21 06:53 Pulse 94 08/24/21 06:53 Resp 19 08/24/21 06:53 BP 139/90 H 08/24/21 06:53 Pulse Ox 97 08/24/21 06:53 BMI result Body Mass Index 20.3 DS: Data Data Completed and Pending Completed studies during hospitalization [Text1]: Procedures Detoxification Services for Substance Abuse Treatment (05/23/21) Discharge Plan Discharge Anticipated Discharge Date/Time: 08/24/21 10:50 Patient Disposition: Xfer SNF Discharge Diagnosis: Alcohol withdraw Referrals: [facility] COVID VACCINE PROGRAM [Other] - 1 Week (1ST DOSE PFIZER ON 08/19/21, PLEASE CALL TO SET UP 2ND DOSE, THEY WILL GO TO FACILITY OR YOUR HOME TO ADMINISTER VACCINE. ) [facility] [Outside] - 1 Day (SHORT TERM REHAB) [facility] [Outside] - 1 Week Roger Graves MD [Primary Care Provider] - 2 days Rene Saha [Physician] - 2 days (Evaluation and treatment as indicated for esophagitis in patient with alcohol dependence.) Discharge Medications: New omeprazole 40 mg Capsule,Delayed Release(Dr/Ec) 40 mg PO BID@0630,1630 Qty: 60 0RF Continued amitriptyline 50 mg tablet 150 mg PO BEDTIME 0RF lisinopril 10 mg tablet 1 tab PO DAILY 0RF metoprolol tartrate 50 mg tablet 1 tab PO BID 0RF amlodipine 5 mg tablet 5 mg PO DAILY 0RF Protocol: Hold for SBP< HOLD for SBP < : 90 Rx Instructions: Attn. CSS folic acid 1 mg Tablet 1 mg PO DAILY 0RF B-complex with vitamin C Tablet 1 tab PO DAILY 0RF gabapentin 600 mg tablet 1,200 mg PO BID 0RF Discontinued acetaminophen-codeine 300-30 mg tablet 1 tab PO BID PRN (Reason: Pain) 0RF lansoprazole 15 mg Capsule,Delayed Release(Dr/Ec) 15 mg PO DAILY 0RF Discharge Orders: Discharge Order (Routine); Ordered 08/24/21 Ordered By: Abdifatah Azar Diet: advance to usual diet Activity on Discharge: As tolerated Stand Alone Forms: Patient Portal Discharge page Care Plan Goals: Avoid alcohol. Health Concerns: Follow-up with PCP question changing gabapentin to Lyrica Plan of Treatment: Continue all outpatient therapies Assessment: As per discharge summary
--- NOTE | 2021-08-24 08:39 | P.PNIM_ITS ---
Subjective Subjective Date of Service: 08/24/21 Interval History: f/u on issues related to alcoholic related esophagitis, unsteady gait Resting comfortably in bed, offers no acute complaints, no fevers, no chills no chest pain, no palpitation bilateral foot pain is better, ambulated with walker in the hallway with no difficulty and without assist, tolerating diet. He expresses interest of going home Review of Systems no fever, unsteady gait.I saw and evaluated the patient and discussed the care with (name of BUSINESS OBJECTS REPORT DEVELOPER or PA) above on (date). I agree with the findings and plan as documented in the note above. (then you must add something here about what you personally added to this encounter to get credit for split/shared billing) KR ?new Physical Exam Vital Signs: Vital Signs: Last Vital Signs Temp 97 F 08/24/21 06:53 Pulse 94 08/24/21 06:53 Resp 19 08/24/21 06:53 BP 139/90 H 08/24/21 06:53 Pulse Ox 97 08/24/21 06:53 BMI result Body Mass Index 20.3 Const: Other: General? resting comfortably in no acute distress.? Neck? supple no JVD. CVS? regular rate?rhythm, Respiratory lungs clear to auscultation, no respiratory distress, no wheeze, no rhonchi. Gastrointestinal abdomen soft, nontender, bowel sounds audible,no no guarding , no rigidity. Extremities no clubbing cyanosis or edema.? Normal bilateral?foot exa mination,?no redness, no swelling, no pain. Neuro nonfocal, moving?all 4 extremity speech clear.? Normal sensation both feet. Skin no rash Objective Data Active Medications Acetaminophen (Acetaminophen 325 Mg Tablet) 650 mg PO Q6H PRN PRN Reason: Pain, Mild (Pain Scale 1-3) Last Admin: 08/13/21 23:43 Dose: 650 mg Documented by: ANTOIC Amitriptyline HCl (Amitriptyline Hcl 50 Mg Tablet) 150 mg PO BEDTIME [facility] Last Admin: 08/23/21 20:51 Dose: 150 mg Documented by: HECTOR Amlodipine Besylate (Amlodipine Besylate 10 Mg Tablet) 10 mg PO DAILY [facility]; Protocol Last Admin: 08/23/21 09:55 Dose: 10 mg Documented by: SHAWN Docusate Sodium (Docusate Sodium 100 Mg Capsule) 100 mg PO BID [facility] Last Admin: 08/23/21 20:51 Dose: 100 mg Documented by: HECTOR Folic Acid (Folic Acid 1 Mg Tablet) 1 mg PO DAILY [facility] Last Admin: 08/23/21 09:55 Dose: 1 mg Documented by: SHAWN Gabapentin (Gabapentin 600 Mg Tablet) 1,200 mg PO BID [facility] Last Admin: 08/23/21 20:51 Dose: 1,200 mg Documented by: HECTOR Metoprolol Tartrate (Metoprolol Tartrate 50 Mg Tablet) 50 mg PO BID [facility]; Protocol Last Admin: 08/23/21 20:51 Dose: 50 mg Documented by: HECTOR Multivitamins/Vitamin C (Multivitamin Tablet) 1 tab PO DAILY [facility] Last Admin: 08/23/21 09:55 Dose: 1 tab Documented by: SHAWN Omeprazole (Omeprazole 40 Mg Capsule.) 40 mg PO BID@0630,1630 [facility] Last Admin: 08/24/21 06:48 Dose: 40 mg Documented by: HECTOR Ondansetron HCl (Ondansetron Hcl 4 Mg/2 Ml Vial) 4 mg IVPUSH Q8H PRN PRN Reason: Nausea and Vomiting Pharmacy Consult (Consult Rx Perform Med Rec) 1 each MISCELLANE ONCE PRN PRN Reason: Consult order Labs CBC & Chem 7: 08/14/21 05:54 08/14/21 05:54 Assessment and Plan (1) Alcohol withdrawal: Status: Acute (2) Esophagitis: Status: Acute Plan 46 yo M with a PMH of heavy alcohol use and dependence, peripheral neuropathy, HTN, Cardiomyopathy (possibly alcoholic) who presented to [facility] with complaints of chest pain. He was evaluated in the ED with plans for discharge home. Days 7 without sign of withdrawal. Patient's somnolence likely related to restarting gabapentin as he was noncompliant as outpatient. His inconsistency with his discharge plan demonstrate he is not safe to be discharged and healthcare proxy will be contacted for possible placement 1.Alcohol withdrawal and dependence--completed withdrawal. -patient seen by recovery team, outpatient resources and contact information has been provided to patient. 2.Severe Esophagitis -continue omeprazole b.i.d., denies abdominal pain or dysphagia, tolerating diet. 3.Alcohol liver disease - stable LFTs, no abdominal pain no nausea, no vomiting. 4. hypertension on amlodipine 5 mg and metoprolol, noted to have elevated diastolic blood pressure, dose of amlodipine increased to 10 mg, blood pressure better controlled continue current treatment. 5. Bilateral foot pain being followed by Neurology Dr. Warner, diagnosed to have peripheral neuropathy, question alcohol related , B12 and folate in normal arteaga, continue Neurontin, since foot pain improved encourage ambulation t.i.d. while in hospital Full code DVT compression therapy patient require inpatient hospitalization due to unsteady gait due to foot pain, PT recommending short-term rehab,cm arranging for safe discharge/patient received COVID vaccine 08/19/COVID test negative 08/19. Will discuss DC with CM today Quality Stroke Does the patient have a stroke diagnosis?: No VTE Prior VTE?: No VTE Risk Level:: Medical - moderate - high VTE Device Contraindication: N/A - Device Ordered VTE Drug Contraindication: N/A - Med Ordered
[2021-08-24] MEDS: amLODIPine Besylate 10 MG TABLET PO (08:49)
[2021-08-24] MEDS: Docusate Sodium 100 MG CAPSULE PO (08:49)
[2021-08-24] MEDS: Gabapentin 600 MG TABLET 1200 MG PO (08:49)
[2021-08-24] MEDS: Folic Acid 1 MG TABLET PO (08:49)
[2021-08-24] MEDS: Metoprolol Tartrate 50 MG TABLET PO (08:49)
[2021-08-24] MEDS: Multivitamin TABLET 1 TAB PO (08:49)
[2021-08-24 09:45] VITALS: BP 139/90; PULSE 94; O2SAT 97
[2021-08-24 10:56] VITALS: BP 119/80; PULSE 96; RESP 18; TEMP 36.6; O2SAT 98
--- NOTE | 2021-08-24 11:11 | MHC.CM.PN ---
LATE ENTRY FOR 08/19/21, PT RECEIVED FIRST DOSE PFIZER VACCINE TO R DELTOID BY [facility] PHARMACIST, HOSPITALIST APPROVED AND PT'S NURSE AWARE, NUMBER FOR COMM[facility]ITY COVID VACCINE PROGRAM PROVIDED IN DCP AND INSTRUCTIONS GIVEN TO PT.
--- NOTE | 2021-08-24 11:30 | MHC.CM.PN ---
Patient has been medically cleared for dc to STR/SNF today. Patient will dc to [facility] today at 2PM, via [facility]. IMM addressed with Patient and original has been given to Patient and a copy has been placed on the chart. Patient is aware of and in agreement with the dc plan.
[2021-08-24 11:45] LABS: COVID-19 Test Negative (Negative)
--- NOTE | 2021-08-24 14:55 | PC.NURSE ---
Warm Hand-off given to Juana
== END 2021-08-24 14:25 | disposition skilled nursing facility (03) | DRG 433 ==
LOC: HO.ED 07:41 → HO.EDOVER 09:31 → HO.IMC 18:17
PROVIDERS: Hospitalist; Nurse Practitioner Acute Care; Admitting Provider Family Medicine; Emergency Provider Student in an Organized Health Care Education/Training Program; PCP Internal Medicine; Visit Provider Internal Medicine
DX: K70.9 Alcoholic liver disease, unspecified (principal); F10.239 Alcohol dependence with withdrawal, unspecified; I42.6 Alcoholic cardiomyopathy; E83.42 Hypomagnesemia; F10.229 Alcohol dependence with intoxication, unspecified; I10 Essential (primary) hypertension; K20.90 Esophagitis, unspecified without bleeding; G62.1 Alcoholic polyneuropathy; D69.6 Thrombocytopenia, unspecified; Z20.822 Contact with and (suspected) exposure to COVID-19; Z86.711 Personal history of pulmonary embolism; Z87.891 Personal history of nicotine dependence; Z88.0 Allergy status to penicillin; Z79.899 Other long term (current) drug therapy
CPT/HCPCS: 36415; 71045; 71275; 80048; 80053; 80076; 80307; 81003; 82077; 82550; 82607; 82746; 83690; 83735; 84484; 85025; 85027; 87635; 93005; 96361; 96374; 96375; 96376; 97110; 97116; 97162; 99285; J2060; J3475; Q9967

== ENCOUNTER 2022-03-05 12:48 | Emergency (ER) | payer MEDICARE, MEDICAID, SELFPAY ==
[2022-03-05 12:50] VITALS: BP 228/164; PULSE 110; RESP 18; TEMP 36.7; O2SAT 97
--- NOTE | 2022-03-05 13:36 | ED.GENADULT ---
HPI - General Adult General Chief complaint: Psychiatric Symptoms Stated complaint: mental health issues pain Time Seen by Provider: 03/05/22 13:27 Source: patient Mode of arrival: ambulatory Limitations: no limitations History of Present Illness HPI narrative: Patient is a 47 year old assigned male at with a history of hypertension presenting to the emergency department today with suicidal ideation. Patient states that he has been feeling much more depressed lately and has been off of his medications for months. Patient states that he has thoughts of hurting himself but does not have a specific plan. Patient denies any dizziness, lightheadedness, abdominal pain, nausea, vomiting, fever, chills, blurry vision, double vision, loss of vision, chest pain, difficulty breathing, shortness of breath, back pain, night sweats, pain with urination, increased urinary frequency, increased urinary urgency, blood in his urine or stool, syncope or a near syncopal episode, recent trauma or falls, bowel incontinence, bladder incontinence, bowel retention, bladder retention, or any other complaints at this time. Onset (ago): day(s) Severity: mild Severity scale (1-10): 2 Relieving factors: none Exacerbating factors: none Associated symptoms: denies other symptoms Treatments prior to arrival: none Related Data Home Medications Medication Instructions Recorded Confirmed amitriptyline 50 mg tablet 150 mg PO BEDTIME 05/23/21 03/05/22 lisinopril 10 mg tablet 1 tab PO DAILY 05/23/21 03/05/22 metoprolol tartrate 50 mg tablet 1 tab PO BID 05/23/21 03/05/22 B-complex with vitamin C 1 tab PO DAILY 08/09/21 03/05/22 amlodipine 5 mg tablet 5 mg PO DAILY 08/09/21 03/05/22 folic acid 1 mg tablet 1 mg PO DAILY 08/09/21 03/05/22 gabapentin 600 mg tablet 1,200 mg PO BID 08/09/21 03/05/22 Previous Rx's Medication Instructions Recorded omeprazole 40 mg capsule,delayed 40 mg PO BID@0630,1630 #60 caps 08/17/21 release Allergies Allergy/AdvReac Type Severity Reaction Status Date / Time Penicillins [PENICILLINS] Allergy Severe HIVES Verified 02/22/20 11:43 SWELLING Review of Systems Constitutional: Constitutional: Reports no additional constitutional complaints, Denies chills, Denies fever(s) and Denies night sweats Eyes: Eyes: Reports no additional eye complaints, Denies blurry vision, Denies change in vision, Denies diplopia, Denies eye discharge, Denies loss of vision and Denies eye pain ENT: Denies dizziness Cardiovascular: Cardiovascular: Reports no additional cardiovascular complaints, Denies chest pain, Denies lightheadedness, Denies Loss of Consciousness and Denies dyspnea Respiratory: Respiratory: Reports no additional respiratory complaints and Denies dyspnea Gastrointestinal: Gastrointestinal: Reports no additional gastrointestinal complaints, Denies abdominal pain, Denies melena, Denies hematochezia, Denies change in bowel habits and Denies change in stool character Genitourinary: Genitourinary: Reports no additional male genitourinary complaints, Denies hematuria, Denies oliguria, Denies difficulty urinating, Denies dysuria, Denies urinary frequency, Denies urinary hesitancy, Denies urinary incontinence and Denies urinary urgency Musculoskeletal: Musculoskeletal: Reports no additional musculoskeletal complaints, Denies numbness and Denies tingling Neurologic: Denies dizziness, Denies loss of vision, Denies numbness and Denies tingling Psychiatric: Psychiatric: Reports no additional psychiatric complaints and Reports suicidal ideation Endocrine: Endocrine: Reports no additional endocrine complaints Hematologic/Lymphatic: Hematologic/Lymphatic: Reports no additional hematologic/lymphatic complaints Allergic/Immunologic: Allergic/Immunologic: Reports no additional allergic/immunologic complaints [facility] Past Medical History Attestation statement: The following information was validated with the patient. Source: old records reviewed Medical History (Updated 03/05/22 @ 19:26 by JUSTICE Ruano) Acidosis, lactic Alcohol dependence Cardiomyopathy HTN (hypertension) Pulmonary embolism Rhabdomyolysis Tobacco dependence Surgical History S/P hip replacement Social History Social History Household Members: None Housing: Apartment Do you presently have visiting nurse or other home services: No Alcohol intake: current Alcohol intake frequency: 3 or more drinks per day Alcohol type: beer and hard liquor Patient Tobacco Use Status: Former Tobacco user Cigarette Packs Per Day: 0.5 Cigarettes Per Day: 10.0 Second Hand Smoke Exposure: No Use of substances other than those prescribed or required for medical reasons: No Advance Directives: Yes Advance Directives on File: Yes Advance Directives Date on File: 08/25/21 service: No Current occupational status: unemployed Sexual orientation: Straight/Heterosexual Physical Exam ED Vital Signs: Vital Signs - 24 hr 03/05/22 12:50 03/05/22 14:00 Temperature 98.0 F Pulse Rate 110 H Respiratory Rate 18 18 Blood Pressure 228/164 H Pulse Oximetry 97 Oxygen Delivery Method Room Air BMI result Body Mass Index 20.0 Const General: cooperative, no acute distress, alert and awake Nutritional Appearance: well nourished Orientation/consciousness: patient oriented x3 Limitations: no limitations HENMT Head: Yes normal to inspection and Yes atraumatic Ears: hearing grossly normal bilaterally and external ears normal General nose exam: Normal external nose present, no nasal discharge noted and no epistaxis Face and sinus: Yes normal facial exam, No abrasion and No laceration Mouth: Normal oral and palatal mucosa present, no drooling and no muffled voice Eyes General: appearance normal, both eyes and all related structures Periorbital: periorbital findings normal Eyelids: Yes eyelids normal Conjunctivae: conjunctivae normal Pupils: Equal, round and reactive pupils present EOM: EOMs intact bilaterally Neck Neck: Yes normal visual inspection, Yes full ROM and Yes no lymphadenopathy Chest Chest palpation & inspection: normal inspection of the chest Resp Effort & Inspection: normal respiratory effort and able to speak in complete sentences Auscultation: clear to auscultation bilaterally Cardio Rate: regular rate Rhythm: regular rhythm GI Inspection: Yes normal to inspection Neuro General: patient oriented x3 and moves all extremities Cranial nerves: Yes Equal, round and reactive pupils present Cognition (Neuro): normal cognition Motor exam (neuro): 5/5 motor strength present throughout Sensory Exam: Normal double simultaneous stimulation for sensation Coordination: [id number] test normal Extrem General: Yes normal to inspection, Yes full ROM and Yes capillary refill normal Psych Appearance: grossly normal Mental Status: mental status grossly normal Affect: normal affect Attitude: cooperative Thought process: Normal thought process present Thought content: Suicidality present Insight: Fair insight present (Psych) Medical Decision Making MDM Narrative Medical decision making narrative: Patient is a 47 year old assigned male at with a history of hypertension, depression, and alcohol abuse presenting to the emergency department today with increased depression. Patient's physical exam was unremarkable. Patient's blood work was unremarkable. I explained my physical exam findings as well as all test results to the patient. I answered all questions asked by the patient. Patient was evaluated by the CARE team who recommended the patient stay overnight and be reevaluated in the morning. Patient was given his usual HTN medications, will continue to monitor his blood pressure. Patient's mother stated the patient is still a functioning alcoholic and has not been sober as long as he claims to be. Medical Records Medical records reviewed: Yes I reviewed the patient's medical records. Lab Data Lab results reviewed: Yes I reviewed the patient's lab results. Result diagrams: 03/05/22 14:44 03/05/22 14:44 Labs: Lab Results 03/05/22 03/05/22 03/05/22 Range/Units 14:44 14:44 14:44 WBC 8.2 (4.8-10.8) X10*3/uL RBC 5.18 D (4.60-5.80) X10*6/uL Hgb 14.6 (14.0-18.0) g/dl Hct 43.9 D (42.0-52.0) % MCV 84.7 (80.0-98.0) fL MCH 28.2 (27.0-33.0) pg MCHC 33.3 (31.0-36.0) g/dl RDW 12.6 (11.0-16.0) % Plt Count TNP MPV Not Reportable Immature Gran % (Auto) 0.2 (0.0-0.4) % Neut % (Auto) 73.3 H (45-73) % Lymph % (Auto) 18.6 L (20-40) % Barron % (Auto) 6.6 (2-11) % Eos % (Auto) 0.7 (0-4) % Baso % (Auto) 0.6 (0-2) % Lymph # (Auto) 1.5 (1.2-4.9) X10*3/uL Barron # (Auto) 0.5 (0.1-1.2) X10*3/uL Eos # (Auto) 0.1 (0.0-0.4) X10*3/uL Baso # (Auto) 0.1 (0.0-0.2) X10*3/uL Abs Immat Gran (auto) 0.02 (0.00-0.03) X10*3/uL Absolute Neuts (auto) 6.0 (2.0-8.3) x10*3/uL Absolute Nucleated RBC 0.000 (0.0-0.012) X10*3/uL Nucleated RBC % (auto) 0.0 (0.0-0.2) /100WBC Smear Tech's Comments VERIFIED Sodium 140 (135-145) mmol/L Potassium 3.8 (3.3-5.1) mmol/L Chloride 102 (96-108) mmol/L Carbon Dioxide 22 (22-29) mmol/L Anion Gap 20 (12-20) BUN 14 (9-16) mg/dL Creatinine 1.20 (0.5-1.4) mg/dL Estim Creat Clear Calc 66.8 Estimated GFR > 60 Random Glucose 150 H D (60-115) mg/dL Calcium 9.8 D (8.4-10.2) mg/dL Total Bilirubin 1.5 H (0.0-1.0) mg/dL AST 22 (5-37) U/L ALT 15 (0-40) U/L Alkaline Phosphatase 57 (39-117) U/L Total Protein 7.9 D (6.5-8.0) g/dL Albumin 4.4 D (3.5-5.0) g/dL Salicylates < 5.0 L (15-30) mg/dL Urine Opiates Screen (Not Detect) Urine Fentanyl Screen (Not Detect) Acetaminophen < 1 (<30) mcg/mL Ur Barbiturates Screen (Not Detect) Ur Phencyclidine Scrn (Not Detect) Ur Amphetamines Screen (Not Detect) U Benzodiazepines Scrn (Not Detect) Urine Cocaine Screen (Not Detect) U Marijuana (THC) Screen (Not Detect) Ethyl Alcohol < 10 mg/dL COVID-19 (AV) (Negative) COVID-19 Clin Com 03/05/22 03/05/22 Range/Units 14:52 14:52 WBC (4.8-10.8) X10*3/uL RBC (4.60-5.80) X10*6/uL Hgb (14.0-18.0) g/dl Hct (42.0-52.0) % MCV (80.0-98.0) fL MCH (27.0-33.0) pg MCHC (31.0-36.0) g/dl RDW (11.0-16.0) % Plt Count MPV Immature Gran % (Auto) (0.0-0.4) % Neut % (Auto) (45-73) % Lymph % (Auto) (20-40) % Barron % (Auto) (2-11) % Eos % (Auto) (0-4) % Baso % (Auto) (0-2) % Lymph # (Auto) (1.2-4.9) X10*3/uL Barron # (Auto) (0.1-1.2) X10*3/uL Eos # (Auto) (0.0-0.4) X10*3/uL Baso # (Auto) (0.0-0.2) X10*3/uL Abs Immat Gran (auto) (0.00-0.03) X10*3/uL Absolute Neuts (auto) (2.0-8.3) x10*3/uL Absolute Nucleated RBC (0.0-0.012) X10*3/uL Nucleated RBC % (auto) (0.0-0.2) /100WBC Smear Tech's Comments Sodium (135-145) mmol/L Potassium (3.3-5.1) mmol/L Chloride (96-108) mmol/L Carbon Dioxide (22-29) mmol/L Anion Gap (12-20) BUN (9-16) mg/dL Creatinine (0.5-1.4) mg/dL Estim Creat Clear Calc Estimated GFR Random Glucose (60-115) mg/dL Calcium (8.4-10.2) mg/dL Total Bilirubin (0.0-1.0) mg/dL AST (5-37) U/L ALT (0-40) U/L Alkaline Phosphatase (39-117) U/L Total Protein (6.5-8.0) g/dL Albumin (3.5-5.0) g/dL Salicylates (15-30) mg/dL Urine Opiates Screen Not Detected (Not Detect) Urine Fentanyl Screen Not Detected (Not Detect) Acetaminophen (<30) mcg/mL Ur Barbiturates Screen Not Detected (Not Detect) Ur Phencyclidine Scrn Not Detected (Not Detect) Ur Amphetamines Screen Not Detected (Not Detect) U Benzodiazepines Scrn Not Detected (Not Detect) Urine Cocaine Screen Not Detected (Not Detect) U Marijuana (THC) Screen Not Detected (Not Detect) Ethyl Alcohol mg/dL COVID-19 (AV) Negative (Negative) COVID-19 Clin Com See Note Discharge Plan Discharge Clinical Impression: HTN (hypertension), Alcohol dependence, Depression Patient Disposition: Still a Patient Prescriptions: No Action amitriptyline 50 mg tablet 150 mg PO BEDTIME lisinopril 10 mg tablet 1 tab PO DAILY metoprolol tartrate 50 mg tablet 1 tab PO BID amlodipine 5 mg tablet 5 mg PO DAILY Protocol: Hold for SBP< HOLD for SBP < : 90 Rx Instructions: Attn. CSS folic acid 1 mg Tablet 1 mg PO DAILY B-complex with vitamin C Tablet 1 tab PO DAILY gabapentin 600 mg tablet 1,200 mg PO BID omeprazole 40 mg Capsule,Delayed Release(Dr/Ec) 40 mg PO BID@0630,1630 Qty: 60 0RF
--- OUTSIDE RECORDS SUMMARY | 2022-03-05 13:38 | XMS_ITS ---
:1975 Author Care Team Providers Name Role Phone DR. GISELE GEORGES Primary Care Provider [phone] DR. GISELE GEORGES Referring Provider [phone] Allergies Code Code System Name Reaction Severity Status Onset Penicillins Hives ? Active ? Medications Name Status Start Date Stop Date ? ? escitalopram 10 mg tablet Active ? Not av ailable fenofibrate micronized 134 mg capsule Unknown ? Not available gabapentin 300 mg capsule Unknown ? Not av ailable lansoprazole 30 mg capsule,delayed release Active ? Not available levetiracetam 250 mg tablet Unknown ? Not available lisinopril 10 mg tablet Unknown ? Not avai lable lisinopril 20 mg tablet Active ? Not avai lable meloxicam 15 mg tablet Unknown ? Not avail able metoprolol tartrate 25 mg tablet Unknown ? Not available metoprolol tartrate 50 mg tablet Active ? Not available oxycodone 10 mg tablet Active ? Not avail able oxycodone 5 mg tablet Active ? Not availa ble pravastatin 40 mg tablet Unknown ? Not helen ilable zonisamide 100 mg capsule Unknown ? Not av ailable Problems Name Status Onset Date Source ? Hyperlipidemia Active ? Encounter Depressive Disorder Active ? Encounter Essential Hypertension Active ? Encounter Increased Liver Function Active ? Encount er Procedures Date Name Performed by ? 05/08/2006 Other Information not avai lable Notes: Right hip replacement secondary to avascular necrosis 10/08/2014 Ultrasound, Abdominal [facility] [address] [place] [address] (Work Place) Results Lab Results Date Name Specimen Result Interpretation Description Value Range Status Address ? 10/08/2014 Urinalysis ? Color tnp ? Final [facility] Complete Lab Services: [address], [place] 10/08/2014 Creatine Kinase ? Creatine 100 U/L 44- Final [facility] (CK), Total Kinase, Total 196 Lab U/L Services: [address], [place] 10/08/2014 Comprehensive ? Albumin 4.4 g/dL 3.6 Fi nal [facility] Metabolic Panel -5. L ab 1 Services: g/d [address], [place] ? ? ? Alkaline 46 U/L 40- Final [facility] Phosphatase 115 Lab U/L Services: [address], [place] ? ? High Alt 142 U/L 9-4 Final [facility] 6 Lab U/L Services: [address], [place] ? ? High Ast 259 U/L 10- Final [facility] 40 Lab U/L Services: [address], [place] ? ? High Glucose 101 mg/dL 65- Final [facility] 99 Lab mg/ Services: dL [address], [place] ? ? ? Urea Nitrogen 14 mg/dL 7-2 Final [facility] (BUN) 5 Lab mg/ Services: dL [address], [place] ? ? ? Creatinine 1.12 mg/dL 0.6 Final [facility] 0-1 Lab .35 Services: mg/ [address], [place] ? ? ? eGFR Non-afr. 81 > Final [facility] [place] mL/min/1.73 or Lab m2 = Services: 60 [address], min [place] /1. 73m 2 ? ? ? eGFR 94 > Final [facility] [place] mL/min/1.73 or Lab m2 = Services: 60 [address]/ [address], min [place] /1. 73m 2 ? ? ? BUN/creatinine not 6-2 Final [facility] Ratio applicable 2 Lab (calc) (ca Services: lc) [address], [place] ? ? ? Sodium 142 mmol/L 135 Final [facility] -14 Lab 6 Services: mmo [address] l/L [address], [place] ? ? ? Potassium 4.4 mmol/L 3.5 Final [facility] -5. Lab 3 Services: mmo [address] l/L [address], [place] ? ? ? Chloride 101 mmol/L 98- Final [facility] 110 Lab mmo Services: l/L [address], [place] ? ? ? Carbon Dioxide 21 mmol/L 19- Final [facility] 30 Lab mmo Services: l/L [address], [place] ? ? ? Calcium 9.5 mg/dL 8.6 Final [facility] -10 Lab .3 Services: mg/ [address], [place] ? ? High Bilirubin, 1.4 mg/dL 0.2 Final [place] [facility] Total -1. Lab 2 Services: mg/ [address], [place] ? ? ? Protein, Total 8.0 g/dL 6.1 Final [facility] -8. Lab 1 Services: g/d [address], [place] ? ? ? Globulin 3.6 g/dL 1.9 Final [facility] (calc) -3. Lab 7 Services: g/d [address], (ca [place] lc) ? ? ? Albumin/globuli 1.2 (calc) 1.0 [facility] -[facility] Lab 5 Services: (ca [address]) [address], [place] 10/08/2014 Gamma-glutamyl High Ggt 1080 U/L 3-9 Fin dc [facility] Transferase 5 Lab (Ggt) U/L Services: [address], [place] 10/08/2014 Lipid Panel High Cholesterol, 293 mg/dL 125 Final [facility] Direct LDL Total -20 Lab 0 Services: mg/ [address], [place] ? ? High Direct LDL 196 mg/dL <13 Final [facility] 0 Lab mg/ Services: dL [address], [place] ? ? ? HDL Cholesterol 85 mg/dL > Final [facility] or Lab = Services: 40 [address] mg/ [address], dL [place] ? ? High Triglycerides 196 mg/dL <15 Final [facility] 0 Lab mg/ Services: dL [address], [place] ? ? ? Chol/hdlc Ratio 3.4 (calc) < Fin dc [facility] or Lab = Services: 5.0 [address] (ca [address], lc) [place] ? ? High non-HDL 208 mg/dL ? Final [facility] Cholesterol (calc) Lab Services: [address], [place] 10/08/2014 T4 Free ? T4, Free 1.0 NG/dL 0.8 Final [facility] -1. Lab 8 Services: NG/ [address], [place] 10/08/2014 Thyroid ? Tsh 1.88 mIU/L 0.4 Final [facility] Stimulating 0-4 Lab Hormone (TSH) .50 Ser vices: mIU [address] /L [address], [place] 10/08/2014 C-reactive ? C-reactive <0.10 mg/dL <0. Final [facility] Protein (CRP) Protein 80 La b mg/ Services: dL [address], [place] 10/08/2014 Cbc Low White Blood 3.7 3.8 Final [facility] Cell Count thousand/uL -10 L ab .8 Services: tho [address], nd/ [place] uL ? ? Low Red Blood Cell 3.87 4.2 Final [facility] Count million/uL 0-5 Lab .80 Services: mil [address], n/u [place] L ? ? ? Hemoglobin 13.4 g/dL 13. Final [place] [facility] 2-1 Lab 7.1 Services: g/d [address], [place] ? ? ? Hematocrit 40.3 % 38. Final [facility] 5-5 Lab 0.0 Services: % [address], [place] ? ? High Mcv 104.2 fL 80. Final [facility] 0-1 Lab 00. Services: 0 [address], [place] ? ? High Mch 34.7 pg 27. Final [facility] 0-3 Lab 3.0 Services: pg [address], [place] ? ? ? Mchc 33.3 g/dL 32. Final [facility] 0-3 Lab 6.0 Services: g/d [address], [place] ? ? ? Rdw 14.4 % 11. Final [facility] 0-1 Lab 5.0 Services: % [address], [place] ? ? Low Platelet Count 98 140 Final [facility] thousand/uL -40 Lab 0 Services: tho [address], nd/ [place] uL ? ? Low Mpv 7.4 fL 7.5 Final [facility] -11 Lab .5 Services: fL [address], [place] ? ? ? Absolute 1994 150 Final [facility] Neutrophils cells/uL 0-7 Lab 800 Services: karel [address], uL [place] ? ? ? Absolute 1092 850 Final [facility] Lymphocytes cells/uL -39 Lab 00 Services: karel [address], uL [place] ? ? ? Absolute 366 200 Final [facility] Monocytes cells/uL -95 Lab 0 Services: karel [address], uL [place] ? ? ? Absolute 226 15- Final [facility] Eosinophils cells/uL 500 Lab karel Services: ls/ [address], [place] ? ? ? Absolute 22 cells/uL 0-2 Final [facility] Basophils 00 Lab karel Services: ls/ [address], [place] ? ? ? Neutrophils 53.9 % ? Final [facility] Lab Services: [address], [place] ? ? ? Lymphocytes 29.5 % ? Final [facility] Lab Services: [address], [place] ? ? ? Monocytes 9.9 % ? Final [facility] Lab Services: [address], [place] ? ? ? Eosinophils 6.1 % ? Final [facility] Lab Services: [address], [place] ? ? ? Basophils 0.6 % ? Final [facility] Lab Services: [address], [place] ? ? ? Comment(s) see note ? Final [facility] Lab Services: [address], [place] 10/08/2014 Hepatitis Panel ? Hepatitis C non-reactiv non Final [facility] Antibody e -re Lab act Services: gin [address], [place] ? ? ? Signal to 0.04 <1. Final [facility] Cut-off 00 Lab Services: [address], [place] ? ? ? Hepatitis a Ab, non-reactiv non [facility] Total e -re Lab act Services: gin [address], [place] ? ? ? Hepatitis B non-reactiv non Final [facility] Core Ab Total e -re Lab act Services: gin [address], [place] ? ? ? Hepatitis B non-reactiv non Final [facility] Surface Antibody e -re Lab Ql act Services: gin [address], [place] ? ? ? Hepatitis B non-reactiv non Final [facility] Surface Antigen e -re L ab act Services: gin [address], [place] 10/08/2014 Homocysteine, High Homocysteine, 24.3 umol/L <11 Final [facility] Cardiovascular Cardiovascular .4 Lab umo Services: l/L [address], [place] 10/08/2014 Venipuncture 1 ? Venipuncture charge ? Final [facility] Lab Services: [address], [place] Past Encounters None recorded. Social History Tobacco Smoking Status Heavy Tobacco Smoker (1/2 pack per da y) Vaccine List Notes: Patient declined Flu vaccine in 2013 Plan of Care Reminders Provider Appointments None recorded. ? ? Lab None recorded. ? ? Referral None recorded. ? ? Procedures None recorded. ? ? Surgeries None recorded. ? ? Imaging None recorded. ? ? Vitals Height Weight BMI Blood Pressure 5 ft 9 in 148 lbs 21.9 kg/m2 120/90 mm[Hg]
[2022-03-05] MEDS: lisinopriL 10 MG TABLET PO (13:56)
[2022-03-05] MEDS: Metoprolol Tartrate 50 MG TABLET PO ×2 (13:57→21:54)
[2022-03-05 14:00] VITALS: RESP 18
[2022-03-05 14:54] LABS: Basophils Absolute Auto 0.1 X10*3/uL (0.0-0.2); Basophils Percent Auto 0.6 % (0-2); Eosinophils Absolute Auto 0.1 X10*3/uL (0.0-0.4); Eosinophils Percent Auto 0.7 % (0-4); Hematocrit 43.9 % (42.0-52.0); Hemoglobin 14.6 g/dl (14.0-18.0); Imm Gran Abs Auto 0.02 X10*3/uL (0.00-0.03); Imm Gran Pct Auto 0.2 % (0.0-0.4); Lymphocytes Absolute Auto 1.5 X10*3/uL (1.2-4.9); Lymphocytes Percent Auto 18.6 % (20-40); MANUAL DIFF FLAG SCAN; Mean Corpuscular HGB Conc 33.3 g/dl (31.0-36.0); Mean Corpuscular Hemoglobin 28.2 pg (27.0-33.0); Mean Corpuscular Volume 84.7 fL (80.0-98.0); Monocytes Absolute Auto 0.5 X10*3/uL (0.1-1.2); Monocytes Percent Auto 6.6 % (2-11); Neutrophils Percent Auto 73.3 % (45-73); PLT CLUMP 1; Red Blood Count 5.18 X10*6/uL (4.60-5.80); Red Cell Distribution Width 12.6 % (11.0-16.0); SCAN SMEAR FLAG 1
[2022-03-05 15:04] LABS: Ethanol < 10 mg/dL
[2022-03-05 15:06] LABS: Acetaminophen LAB < 1 mcg/mL (<30); Alanine Aminotransferase 15 U/L (0-40); Albumin Level 4.4 g/dL (3.5-5.0); Alkaline Phosphatase 57 U/L (39-117); Anion Gap 20 (12-20); Aspartate Amino Transferase 22 U/L (5-37); Bilirubin Total 1.5 mg/dL (0.0-1.0); Blood Urea Nitrogen 14 mg/dL (9-16); Calcium 9.8 mg/dL (8.4-10.2); Carbon Dioxide 22 mmol/L (22-29); Chloride 102 mmol/L (96-108); Creatinine Clr Calc Pharmacy 66.8; Estimated Glomerular Filt Rate > 60; Glucose Random 150 mg/dL (60-115); Potassium 3.8 mmol/L (3.3-5.1); Salicylate < 5.0 mg/dL (15-30); Sodium 140 mmol/L (135-145); Total Protein 7.9 g/dL (6.5-8.0)
[2022-03-05 15:14] LABS: White Blood Count 8.2 X10*3/uL (4.8-10.8)
[2022-03-05 15:15] LABS: COVID-19 Test Negative (Negative); IDNOW Serial# 16C4AD1C
[2022-03-05 15:15] LABS: SLIDE REVIEW VERIFIED
[2022-03-05 15:18] LABS: Amphetamine Screen Urine Not Detected (Not Detect); Barbiturates, Urine Not Detected (Not Detect); Benzodiazepines Screen Urine Not Detected (Not Detect); Cannabinoid Screen Urine Not Detected (Not Detect); Cocaine Screen Urine Not Detected (Not Detect); Fentanyl, urine Not Detected (Not Detect); Opiate Screen Urine Not Detected (Not Detect); Phencyclidine Screen Urine Not Detected (Not Detect)
--- NOTE | 2022-03-05 19:19 | MHC.CARE ---
Pt is a 47 year old Male that presented to [facility] with complaints of depression and SI with no plan. Care Team met with pt in [facility] in room 3 and he was wearing hospital attire. Pt reported feeling depressed and anxious, however, pt did not elaborate and was not forthcoming. He reported he receives disability ($1800 a month). He reported he has transportation issues and has difficulty in attending medical appointments. He reported he has not taken his medication due to transportation and finances. Pt stated he resides in a hotel for the p[ast 5 months and recently checked out as he was coming to [facility]. He reported no substance abuse, however, reported drinking 2 beers and a shot almost everyday. Pt stated he has no services and not meeting with mental health providers. He reported poor sleep and appetite. Pt denied HI/AVH, however, reported being SI and depressed. He then proceeded to say that he does not have money until Monday, which is when I receive my disability check. He reported he attempted to commit suicide by putting a hose from that tail pipe (muffler) into the car but later change his mind. He stated no recent intent. Care Team spoke to pt's mother Stormy Longo and she reported she is concerned as she has not spoken or seen pt since [facility] where he was diagnosed with neuropathy by Dr. Vazquez. She mentioned she filled a missing person report but did not find him. She reported pt is a terrific alcoholic and has received treatment for alcohol inpatient in [place] and rehab facility in [place] but did not have name of the facility. She stated she brought pt back to [place], however, he continuous to drink alcohol. Care Team offered pt recovery team treatment however, pt refused. Care Team will reassess in the morning.
[2022-03-05 19:53] VITALS: BP 157/102; PULSE 71; RESP 16; O2SAT 97
[2022-03-05] MEDS: Omeprazole 40 MG CAPSULE.DR PO (21:53)
[2022-03-05] MEDS: Multivitamin TABLET 1 TAB PO (21:53)
[2022-03-05] MEDS: Gabapentin 600 MG TABLET 1200 MG PO (21:54)
[2022-03-05] MEDS: Folic Acid 1 MG TABLET PO (21:54)
[2022-03-05] MEDS: amLODIPine Besylate 5 MG TABLET PO (21:54)
[2022-03-05] MEDS: Amitriptyline HCl 50 MG TABLET 150 MG PO (22:41)
[2022-03-06 02:52] VITALS: BP 154/98; PULSE 70; RESP 16; TEMP 36.8; O2SAT 97
--- NOTE | 2022-03-06 06:10 | PC.NURSE ---
Patient slept through the night, no distress observed/reported, patient was assessed by care team, disposition pending, patient will be reevaluated by care team, medication compliant, behavior non concerning, VSS, will continue to monitor.
[2022-03-06] MEDS: Omeprazole 40 MG CAPSULE.DR PO ×2 (06:19→15:45)
--- NOTE | 2022-03-06 07:14 | PC.NURSE ---
patient appears to remain asleep at present respirations are even and unlabored patient appears in no distress
[2022-03-06] MEDS: Folic Acid 1 MG TABLET PO (10:06)
[2022-03-06] MEDS: amLODIPine Besylate 5 MG TABLET PO (10:06)
[2022-03-06] MEDS: Gabapentin 600 MG TABLET 1200 MG PO (10:06)
[2022-03-06] MEDS: lisinopriL 10 MG TABLET PO (10:06)
[2022-03-06] MEDS: Metoprolol Tartrate 50 MG TABLET PO (10:07)
[2022-03-06] MEDS: Multivitamin TABLET 1 TAB PO (10:07)
[2022-03-06 13:44] VITALS: BP 105/78; PULSE 78; RESP 16; TEMP 36.3; O2SAT 98
--- NOTE | 2022-03-06 15:13 | MHC.CARE ---
Pt is a 47 y/o single, Finnish speaking, male who is previously unknown to the CARE Team.? Yesterday, pt self-presented to the ED with a complaint of increasing depression and SI.? Pt denies any plan or intent.? Pt reports a recent attempt approximately 4-5 months ago in the parking lot of [facility].? Pt reports that he purchased hoses, hooked them up to his tail pipe, and ran the car with the windows up and the hoses in the vehicle.? He stated it ?took too long so I got out?.? He reports no other prior attempts.? He stated he went home after that. Pt stated that he no longer owns a car and because of this, he has been unable to get his medications or see his doctor.? He reports being off his medications for approximately 5 or 6 months. Pt reports being a heavy drinker in the past but has since ?Cut way down.? It?s controlled drinking? Pt appears to minimize his alcohol use.? Pt has declined Recovery resources stating that he has been to ?places before for that? and declined to discuss their effectiveness.? He reports wanting help stating only that he wants to ?feel better?.? Pt is presently staying in a hotel, which he left yesterday (checking out).? He reports that he gets paid at the end of the month and is awaiting his check which should arrive tomorrow.? Pt stated he has run out of money. Pt has been assessed on one occasion by [facility] in 2019 around this time of the year.? He came to this ED for chest pain and high blood pressure, stating he was suicidal because his parents kicked him out, changed the locks, and went to [place].? [facility] saw him sent him to [facility] for detox, on arrival he said he needed mental health treatment.? [facility] sent him back, and he went inpatient voluntarily.? Pt was discharged from to [facility] after completing treatment on the unit.? CARE Team speaks with pt?s mother who is presently in [place].? She reports that pt has been a heavy drinker since his late twenties with his alcohol use beginning at the age of 16.? She stated that his alcohol use soon grew out of control.? Pt has been to several treatment facilities but has resumed his alcohol consumption after discharge. Pt?s Mother (Stormy) has never known him to express suicidal thoughts or engage in any suicidal or self-harming behavior. She believes the ?problem? is his alcohol use.? She reports that pt had an apartment in [place] with 2 other individuals but he was ?put out by them? due to his alcohol use.? Pt?s Mother asked that he check in with her.? Pt was provided with his Mother?s phone number. Recovery resources were discussed with pt and declined.? Pt declined referrals to [facility]. Pt?s suicidality appears to be in the context of his running out of funds that support his housing at this time.? Plan is for pt to be discharged.? CARE Team contacted [facility] and was advised they do not do overnight stays at this time.? Pt will be discharged to the waiting room and will remain there until morning as it is cold.? In the morning CARE Team will provide transportation to the hotel pt is staying at.? This plan was discussed with and agreed upon by application engineer clinician Brenda Espinosa [facility], Ed provider Dr. Thompson, and the senior Manager Of Radiology on duty.
--- NOTE | 2022-03-07 09:05 | MHC.CARE ---
Pt has been provided a ride to the [facility] on [address] in [facility].? CARE Team discussed Recovery resources with pt, accessing those resources, and the benefits of recovery.? Pt declined Recovery support. Pt?s Mother called, concerned for pt.? Pt was advised that his Mother called again and was encouraged to call her.? Her number was given to him yesterday and he stated he still had it.? Pt?s Mother eluded that she wished to be of help to pt.? Pt was advised of such. Pt was offered a ride to the living room.? [facility] services were discussed with pt.? Pt declined.
== END 2022-03-06 16:21 | disposition home or self-care (01) ==
PROVIDERS: Physician Assistant Medical; Emergency Provider Emergency Medicine; PCP Internal Medicine
DX: F33.1 Major depressive disorder, recurrent, moderate (principal); F10.20 Alcohol dependence, uncomplicated; I10 Essential (primary) hypertension; Y90.0 Blood alcohol level of less than 20 mg/100 ml; Z20.822 Contact with and (suspected) exposure to COVID-19; Z79.899 Other long term (current) drug therapy; Z87.891 Personal history of nicotine dependence
CPT/HCPCS: 36415; 80053; 80143; 80179; 80307; 82077; 85025; 87635; 99285